=== PATIENT | female | born 1945 | race Caucasian/White ===

== ENCOUNTER → 2019-06-17 11:22 | Outpatient (BNVA) | payer MEDICARE, MEDICAID, SELFPAY | PROVIDERS: Family Provider Family Medicine; PCP Family Medicine; Visit Provider Family Medicine | DX: E11.9 Type 2 diabetes mellitus without complications (principal); I10 Essential (primary) hypertension | CPT/HCPCS: 83036 ==

== ENCOUNTER → 2019-09-09 11:10 | Outpatient (BNVA) | payer MEDICARE, MEDICAID, SELFPAY | PROVIDERS: Family Provider Family Medicine; PCP Family Medicine; Visit Provider Family Medicine | DX: I10 Essential (primary) hypertension (principal); F51.01 Primary insomnia; I25.118 Atherosclerotic heart disease of native coronary artery with other forms of angina pectoris; E11.9 Type 2 diabetes mellitus without complications | CPT/HCPCS: 81000 ==

== ENCOUNTER → 2019-11-04 10:41 | Outpatient (BNVA) | payer MEDICARE, MEDICAID, SELFPAY | PROVIDERS: Family Provider Family Medicine; PCP Family Medicine; Visit Provider Family Medicine | DX: E11.65 Type 2 diabetes mellitus with hyperglycemia (principal); Z09 Encounter for follow-up examination after completed treatment for conditions other than malignant neoplasm; Z79.4 Long term (current) use of insulin | CPT/HCPCS: 83036 ==

== ENCOUNTER → 2019-12-23 11:20 | Outpatient (BNVA) | payer MEDICARE, MEDICAID, SELFPAY | PROVIDERS: Family Provider Family Medicine; PCP Family Medicine; Visit Provider Family Medicine | DX: R10.9 Unspecified abdominal pain (principal) | CPT/HCPCS: 81000 ==

== ENCOUNTER → 2020-02-12 11:41 | Outpatient (BNVA) | payer MEDICARE, MEDICAID, SELFPAY | PROVIDERS: Family Provider Family Medicine; PCP Family Medicine; Visit Provider Family Medicine | DX: E11.9 Type 2 diabetes mellitus without complications (principal) | CPT/HCPCS: 83036 ==

== ENCOUNTER → 2020-03-18 09:00 | Outpatient (BNVA) | payer MEDICARE, MEDICAID, SELFPAY | PROVIDERS: Family Provider Family Medicine; PCP Family Medicine; Visit Provider Family Medicine | DX: L03.211 Cellulitis of face (principal) | CPT/HCPCS: 87070; 87077; 87184; 87205 ==

== ENCOUNTER → 2020-05-18 13:51 | Outpatient (BNVA) | payer MEDICARE, MEDICAID, SELFPAY | PROVIDERS: Family Provider Family Medicine; PCP Family Medicine; Visit Provider Family Medicine | DX: I50.9 Heart failure, unspecified (principal); E11.65 Type 2 diabetes mellitus with hyperglycemia; Z79.4 Long term (current) use of insulin | CPT/HCPCS: 83036 ==

== ENCOUNTER → 2020-09-22 13:47 | Outpatient (BNVA) | payer MEDICARE, MEDICAID, SELFPAY | PROVIDERS: Family Provider Family Medicine; PCP Family Medicine; Visit Provider Family Medicine | DX: E11.65 Type 2 diabetes mellitus with hyperglycemia (principal); Z79.4 Long term (current) use of insulin | CPT/HCPCS: 83036 ==

== ENCOUNTER → 2020-11-03 13:12 | Outpatient (BNVA) | payer MEDICARE, MEDICAID, SELFPAY | PROVIDERS: Family Provider Family Medicine; PCP Family Medicine; Visit Provider Family Medicine | DX: M25.531 Pain in right wrist (principal) | CPT/HCPCS: 73110 ==

== ENCOUNTER → 2020-11-16 09:57 | Outpatient (BNVA) | payer MEDICARE, MEDICAID, SELFPAY | PROVIDERS: Family Provider Family Medicine; PCP Family Medicine; Visit Provider Specialist | DX: G56.03 Carpal tunnel syndrome, bilateral upper limbs (principal); G56.23 Lesion of ulnar nerve, bilateral upper limbs | CPT/HCPCS: 95910 ==

== ENCOUNTER → 2020-11-25 14:18 | Outpatient (BNVA) | payer MEDICARE, MEDICAID, SELFPAY | PROVIDERS: Family Provider Family Medicine; PCP Family Medicine; Visit Provider Family Medicine | DX: L01.00 Impetigo, unspecified (principal); L03.211 Cellulitis of face; R21 Rash and other nonspecific skin eruption | CPT/HCPCS: 87070; 87077; 87184 ==

== ENCOUNTER → 2021-01-20 11:45 | Outpatient (BNVA) | payer MEDICARE, MEDICAID, SELFPAY | PROVIDERS: Family Provider Family Medicine; PCP Family Medicine; Visit Provider Family Medicine | DX: E11.9 Type 2 diabetes mellitus without complications (principal); L01.00 Impetigo, unspecified; G89.21 Chronic pain due to trauma; F51.01 Primary insomnia | CPT/HCPCS: 83036 ==

== ENCOUNTER 2021-01-26 15:30 | Inpatient (IN) | payer MEDICARE, MEDICAID, SELFPAY ==
[2021-01-26] VITALS (10 sets, daily range): BP systolic 116–124; BP diastolic 63–83; PULSE 68–84; RESP 16–26; TEMP 36–36.7; O2SAT 88–97; BMI 37.2; BMI 38.4
--- NOTE | 2021-01-26 15:44 | XRR_ITS ---
PROCEDURE INFORMATION: Exam: XR Chest Exam date and time: 01/26/2021 3:44 PM Age: 75 years old Clinical indication: Cough and dyspnea and shortness of breath TECHNIQUE: Imaging protocol: XR of the chest. Views: 1 view. COMPARISON: CR Chest 1 [place] [id number] 11/28/2017 1:52 PM FINDINGS: Lungs: There is ill definition of interstitial markings in the lower lungs bilaterally. There is no focal consolidation. Pleural spaces: There is no pleural effusion or pneumothorax. Heart/Mediastinum: There is mild enlargement of the cardiac silhouette. Bones/joints: Bones are unremarkable. XR/XR chest 1V portable [id number] IMPRESSION: Indistinct interstitial markings in the lower lungs. Nonspecific finding. Possible infection or edema.
--- NOTE | 2021-01-26 15:44 | ECG_ITS ---
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 Measurements Intervals [place] Rate: 64 P: 27 WI: 221 QRS: -77 QRSD: 161 T: 42 QT: 485 QTc: 504 Interpretive Statements SINUS RHYTHM WITH FIRST DEGREE AV BLOCK LEFT AXIS DEVIATION [QRS AXIS < -30] INTRAVENTRICULAR CONDUCTION DELAY [130+ ms QRS DURATION] Compared to ECG 11/28/2017 13:44:07 Left-axis deviation now present Intraventricular conduction delay now present Myocardial infarct finding no longer present Electronically Signed On 01-26-2021 23:33:57 CDT by Rosemarie Richmond M.D. [id number]
--- NOTE | 2021-01-26 16:01 | ED_ITS ---
HPI - General Adult General: Chief complaint: Shortness of Breath/Dyspnea Stated complaint: VOMITING Time Seen by Provider: 01/26/21 15:33 History of Present Illness: HPI narrative: CC: Dyspnea HPI: This is a [75] yo patient w/ hx of CHF, CAD, DM, HTN, COPD presenting ot the ED with dyspnea and increased work of breathing x 5 days in the setting of increased weight gain and lower extremity swelling. Endorses of orthopnea and increased pillow usage at night. Patient was started on lasix 80mg 1 day ago but reports signifcant difficulty breathing presented to the ED for an evaluation. Denies chest pain, N/V, diaphoresis, shoulder pain pain or back pain. Patient has no fever/chill, or sputum production. No GI or other complaints. Denies any pleuritic chest pain, recent surgery/immobilization/travel, or hematemesis or hx of VTE in the past. Onset: [5] days ago Duration: ongoing for the last 5 days Location: home Severity: moderate Review of Systems Narrative: Constitutional: No fever, no chills. HEENT: No vision changes CV: No chest pain, no palpitations PULM: No productive cough, +dyspnea GI: No abdominal pain, no N/V/D. : No dysuria MSKEL: No muscle pain, +b/l leg swelling SKIN: No new rashes, no lesions. NEURO: No headache, no focal weakness. 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 Wrist pain, acute Family History (Updated 01/27/21 @ 10:21 by Compa Herman MD) Other CAD (coronary artery disease) Chronic kidney disease (CKD) Denies family history of Cancer Social History (Updated 01/27/21 @ 10:22 by Compa Herman MD) Smoking and tobacco status: current every day smoker cigarettes Packs smoked per day: 2 Alcohol intake: never Adopted: No Caregiver/support person: No Lives independently: Yes Household members: family Housing: House Physical Exam Narrative: EXAM NARRATIVE: Head: Atraumatic Eyes: PERRL, conjunctiva without injection ENT: Mucous membrane moist NECK: Supple without lymphadenopathy, mild JVD LUNGS: Increased work of breathing, +coarse breath sounds b/l and wheezing CV: RRR ABDOMEN: Soft, nontender in all quadrants EXTREMITY: Normal ROM, bilateral 1+ edema in the LE, no jyoti?s sign SKIN: No rash or erythema NEURO: Awake and alert. No focal motor deficits. PSYCH: Normal mood and affect. Course Vital Signs: Vital signs: Vital Signs Temperature 96.8 F L 01/26/21 23:16 Pulse Rate 71 01/27/21 10:22 Respiratory Rate 18 01/27/21 10:08 Blood Pressure 138/84 01/27/21 04:00 Pulse Oximetry 96 01/27/21 10:08 MDM - General Adult MDM Narrative: Medical decision making narrative: [75]yo pt w/ hx of CHF, CAD, HTN, COPD presenting to the ED with dyspnea and hypoxemia requiring oxygen. Physical exam showed O2 sat 88% on RA improved to 95% on 3L NC. +Coarse breath sounds b/l, +wheezing b/l, no increased work of breathing, 1+ pitting edema Workup today: ECG, CBC, BMP, Troponin, BNP, CXR. Intervention: IV lasix after potassium check, duo-neb, methylprednisone Based on history, exam and findings, presentation most consistent with acute on chronic heart failure and COPD exacerbation. Low suspicion for PNA, ACS, tamponade, aortic dissection. EKG: No STEMI and no evidence of Brugada?s sign, delta wave, epsilon wave, significantly prolonged QTc, or malignant arrhythmia. Troponin mildly elevated at 44 and BNP pending CXR: diffuse interstitial edema consistent with CHF exacerbation vs PNA. [5:30pm] On reassessment, patient is stable and patient is mentating without issues. On NC 4L. Given lasix 80mg x 1 in the ER with significant symptom improvement in dyspnea. No signs of increased work of breathing requiring BIPAP. Patient received methylprednisone and duo-neb treatments for wheezing with some improvement. S/p ceftriaxone and azithromycin for presumed PNA on XR chest. Given the current presentation, I believe the patient would benefit from inpatient admission for continued diuresis and fluid removal. I have discussed a plan with a patient who agrees with inpatient admission. Disposition: Admission Lab Data: Labs: Lab Results 01/26/21 01/26/21 01/26/21 16:18 17:04 17:37 WBC RBC Hgb Hct MCV MCH MCHC RDW Plt Count MPV Neut % (Auto) Lymph % (Auto) [place] % (Auto) Eos % (Auto) Baso % (Auto) Neut # (Auto) Lymph # (Auto) [place] # (Auto) Eos # (Auto) Baso # (Auto) Nucleated RBC % (a uto) Nucleated RBCs # D-Dimer Specimen Type Arterial Sample Site Radial, left ABG pH 7.35 (7.35-7.45) ABG pCO2 64.4 mmHg H* mmHg (35-45) ABG pO2 84.5 mmHg mmHg (80.0-100.0) ABG HCO3 35.6 mmol/L H mmo l/L (22-26) ABG Base Excess 7.6 mmol/L H mmol /L (-2.0-2.0) Juan Carlos Test Pos Hematocrit 41.5 % % (37-47) O2 Delivery Device Nc O2 Liters/Min 4.0 % % FiO2 36.0 % % Medical Accounting Clerk ID Gd Sodium Potassium Chloride Carbon Dioxide Anion Gap BUN Creatinine GFR Calculation Glucose Calculated Osmolal ity Calcium Iron TIBC % Saturation Unsat Iron Binding Troponin T Baselin e Troponin T 120 Min [place] Troponin T NT-Pro-B Natriuret Pep Procalcitonin TSH Urine Color Straw (Yellow) Urine Appearance Clear (CLEAR) Urine pH 5 (5-7) Ur Specific Gravit y 1.015 (1.005-1.030) Urine Protein Neg (Negative) Urine Glucose (UA) Norm (Normal) Urine Ketones Negative (Negative) Urine Blood Neg (Negative) Urine Nitrate Negative (Negative) Urine Bilirubin Neg (Negative) Urine Urobilinogen Norm mg/dL mg/dL (Negative) Ur Leukocyte Kandy ase Negative (Negative) Ur Eosinophil Smea r Not Reportable Urine Eosinophils No eosinophils se en Ur Random Sodium Ur Random Potassiu m Ur Random Chloride Urine Creatinine Influenza Type A A g Influenza Type B A g SARS-CoV-2 Ag (Rap id) Negative (Negative) 01/26/21 01/26/21 01/26/21 17:37 17:43 17:43 WBC 9.3 10^3/uL 10^3/ uL (4.0-10.0) RBC 4.35 10^6/uL 10^6 /uL (4.1-5.3) Hgb 12.7 g/dL g/dL (11.5-15.3) Hct 42.8 % % (37.0-47.0) MCV 98.4 fl D fl (81-99) MCH 29.2 pg pg (28.0-34.0) MCHC 29.7 g/dL L D g/d L (30.0-36.0) RDW 15.7 % H % (12.1-15.1) Plt Count 250 10^3/cmm 10^3 /cmm (130-400) MPV 11.1 fL H fL (7.4-10.4) Neut % (Auto) 90.8 % % Lymph % (Auto) 4.9 % % [place] % (Auto) 3.6 % % Eos % (Auto) 0.1 % % Baso % (Auto) 0.3 % % Neut # (Auto) 8.45 10^3/uL H 10 ^3/uL (1.8-7.7) Lymph # (Auto) 0.5 10^3/uL L 10^ 3/uL (0.8-4.8) [place] # (Auto) 0.3 10^3/uL 10^3/ uL (0.2-0.9) Eos # (Auto) 0.0 10^3/uL 10^3/ uL (0.0-0.8) Baso # (Auto) 0.0 10^3/uL 10^3/ uL (0.0-0.1) Nucleated RBC % (a uto) 0 % % Nucleated RBCs # 0.0 /100WBC /100W BC D-Dimer Specimen Type Sample Site ABG pH ABG pCO2 ABG pO2 ABG HCO3 ABG Base Excess Juan Carlos Test Hematocrit O2 Delivery Device O2 Liters/Min FiO2 Medical Accounting Clerk ID Sodium 144 mmol/L mmol/L (136-145) Potassium 5.0 mmol/L mmol/L (3.5-5.1) Chloride 101 mmol/L mmol/L (98-107) Carbon Dioxide 30 mmol/L H mmol/ L (22-29) Anion Gap 18.0 (5-19) BUN 38 mg/dL H mg/dL (8-23) Creatinine 1.6 mg/dL H mg/dL (0.5-0.9) GFR Calculation Not Reportable Glucose 232 mg/dL H mg/dL (65-115) Calculated Osmolal ity 314 mOsm/kg H mOs m/kg (285-295) Calcium 8.2 mg/dL L mg/dL (8.5-10.5) Iron TIBC % Saturation Unsat Iron Binding Troponin T Baselin e Troponin T 120 Min [place] Troponin T NT-Pro-B Natriuret Pep 7900 pg/mL H pg/m L (0-450) Procalcitonin TSH Urine Color Urine Appearance Urine pH Ur Specific Gravit y Urine Protein Urine Glucose (UA) Urine Ketones Urine Blood Urine Nitrate Urine Bilirubin Urine Urobilinogen Ur Leukocyte Kandy ase Ur Eosinophil Smea r Urine Eosinophils Ur Random Sodium 69 mmol/L mmol/L Ur Random [place] m 31 mmol/L mmol/L Ur Random Chloride 73 mmol/L mmol/L Urine Creatinine 34 mg/dL mg/dL (28-217) Influenza Type A A g Influenza Type B A g SARS-CoV-2 Ag (Rap id) 01/26/21 01/26/21 01/26/21 17:43 17:43 17:43 WBC RBC Hgb Hct MCV MCH MCHC RDW Plt Count MPV Neut % (Auto) Lymph % (Auto) [place] % (Auto) Eos % (Auto) Baso % (Auto) Neut # (Auto) Lymph # (Auto) [place] # (Auto) Eos # (Auto) Baso # (Auto) Nucleated RBC % (a uto) Nucleated RBCs # D-Dimer Specimen Type Sample Site ABG pH ABG pCO2 ABG pO2 ABG HCO3 ABG Base Excess Juan Carlos Test Hematocrit O2 Delivery Device O2 Liters/Min FiO2 Medical Accounting Clerk ID Sodium Potassium Chloride Carbon Dioxide Anion Gap BUN Creatinine GFR Calculation Glucose Calculated Osmolal ity Calcium Iron 47 ug/dL ug/dL (37-145) TIBC 477 mcg/dl mcg/dl % Saturation 9.8 % L % (20-50) Unsat Iron Binding 430 ug/dL H ug/dL (112-347) Troponin T Baselin e 44 ng/L H ng/L (0-10) Troponin T 120 Min [place] Troponin T NT-Pro-B Natriuret Pep Procalcitonin 0.11 ng/mL ng/mL (0-0.5) TSH 0.14 uIU/mL L uIU /mL Cancelled (0.27-4.20) Urine Color Urine Appearance Urine pH Ur Specific Gravit y Urine Protein Urine Glucose (UA) Urine Ketones Urine Blood Urine Nitrate Urine Bilirubin Urine Urobilinogen Ur Leukocyte Kandy ase Ur Eosinophil Smea r Urine Eosinophils Ur Random Sodium Ur Random [place] m Ur Random Chloride Urine Creatinine Influenza Type A A g Influenza Type B A g SARS-CoV-2 Ag (Rap id) 01/26/21 01/26/21 01/26/21 19:25 20:30 20:30 WBC RBC Hgb Hct MCV MCH MCHC RDW Plt Count MPV Neut % (Auto) Lymph % (Auto) [place] % (Auto) Eos % (Auto) Baso % (Auto) Neut # (Auto) Lymph # (Auto) [place] # (Auto) Eos # (Auto) Baso # (Auto) Nucleated RBC % (a uto) Nucleated RBCs # D-Dimer 1.73 ug/mIFEU H u g/mIFEU (0-0.59) Specimen Type Sample Site ABG pH ABG pCO2 ABG pO2 ABG HCO3 ABG Base Excess Juan Carlos Test Hematocrit O2 Delivery Device O2 Liters/Min FiO2 Medical Accounting Clerk ID Sodium Potassium Chloride Carbon Dioxide Anion Gap BUN Creatinine GFR Calculation Glucose Calculated Osmolal ity Calcium Iron TIBC % Saturation Unsat Iron Binding Troponin T Baselin e Troponin T 120 Min [place] 38.22 ng/L H ng/L (0-10) Delta Troponin T -5.78 ABS# L ABS# (0-10) NT-Pro-B Natriuret Pep Procalcitonin TSH Urine Color Urine Appearance Urine pH Ur Specific Gravit y Urine Protein Urine Glucose (UA) Urine Ketones Urine Blood Urine Nitrate Urine Bilirubin Urine Urobilinogen Ur Leukocyte Kandy ase Ur Eosinophil Smea r Urine Eosinophils Ur Random Sodium Ur Random [place] m Ur Random Chloride Urine Creatinine Influenza Type A A g Negative (Negative) Influenza Type B A g Negative (Negative) SARS-CoV-2 Ag (Rap id) Imaging Data^: Other Imaging: Radiologist's impression: [address] [id number] ReportSigned Patient: Balbina Martínez #: [id number]: 5Acct#:[id number]/Sex: 75 / FADM Date: 01/26/21Loc: ERRoom/Bed:Attending Dr: Ordering Provider/Ordering MD: Lydia Lara MD Date of Service: 01/26/21 Procedure(s): XR chest 1V portable [id number] Accession Number(s): [id number] Report Number: [id number] PROCEDURE INFORMATION: Exam: XR Chest Exam date and time: 01/26/2021 3:44 PM Age: 75 years old Clinical indication: Cough and dyspnea and shortness of breath TECHNIQUE: Imaging protocol: XR of the chest. Views: 1 view. COMPARISON: CR Chest 1 [place] [id number] 11/28/2017 1:52 PM FINDINGS: Lungs: There is ill definition of interstitial markings in the lower lungs bilaterally. There is no focal consolidation. Pleural spaces: There is no pleural effusion or pneumothorax. Heart/Mediastinum: There is mild enlargement of the cardiac silhouette. Bones/joints: Bones are unremarkable. XR/XR chest 1V portable [id number] IMPRESSION: Indistinct interstitial markings in the lower lungs. Nonspecific finding. Possible infection or edema. Dictated By:Steve Sharp MDSigned By:Steve Sharp MDSigned Date/Time:01/26/211714DD/ 13 Discharge Plan Discharge Patient Disposition: Admitted As Inpatient Admit Provider: Compa Herman Clinical Impression: Acute exacerbation of CHF (congestive heart failure), COPD exacerbation, Acute kidney injury Condition: Stable Coding Level of Care Code ED Case Liner for Flo Riggs
[2021-01-26] MEDS: ipratropium-albuterol 3 mL Neb INHALATION ×3 (16:25→16:26)
[2021-01-26 16:38] LABS: ABG PCO2 64.4 mmHg (35-45); ABG PH Result 7.35 (7.35-7.45); Arterial Blood Gas Hematocrit 41.5 % (37-47); Base Excess ABG 7.6 mmol/L (-2.0-2.0); Blood Gas Allen Test Pos; Blood Gas Operator Identificat GD; Blood Gas Sample Site Radial, left; Blood Gas Sample Type Arterial; HCO3 ABG 35.6 mmol/L (22-26); Oxygen Device NC; PO2 ABG 84.5 mmHg (80.0-100.0)
[2021-01-26 17:33] LABS: SARS Covid-2 Antigen Negative (Negative)
--- NOTE | 2021-01-26 17:35 | PC.PHAR ---
PT STATES SHE HAS HOME HEALTH WITH [facility]-THEY ARE CLOSED NO WAY TO GET MED LIST-PT STATES SHE KNOWS WHAT MEDICATIONS SHE TAKES-PT VERIFIED MEDICATIONS ENTERED-PT WAS UNSURE ON SOME OF THE MEDICATIONS IF SHE TOOK IN THE AM OR PM BUT STATES SHE KNOWS SHE TAKES THEM
--- NOTE | 2021-01-26 17:44 | ECG_ITS ---
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 Measurements Intervals [place] Rate: 65 P: 68 RI: 224 QRS: -61 QRSD: 157 T: 30 QT: 481 QTc: 502 Interpretive Statements SINUS RHYTHM WITH FIRST DEGREE AV BLOCK LEFT AXIS DEVIATION [QRS AXIS < -30] INTRAVENTRICULAR CONDUCTION DELAY [130+ ms QRS DURATION] Compared to ECG 01/26/2021 17:00:54 No significant changes Electronically Signed On 01-27-2021 0:00:37 CDT by Rosemarie Richmond M.D. [id number]
[2021-01-26 17:54] LABS: Basophils % 0.3 %; Eosinophils % 0.1 %; Hematocrit 42.8 % (37.0-47.0); Hemoglobin 12.7 g/dL (11.5-15.3); Lymphocytes # 0.5 10^3/uL (0.8-4.8); Lymphocytes % 4.9 %; Mean Corpuscular HGB Conc 29.7 g/dL (30.0-36.0); Mean Corpuscular Hemoglobin 29.2 pg (28.0-34.0); Mean Corpuscular Volume 98.4 fl (81-99); Mean Platelet Volume 11.1 fL (7.4-10.4); Monocytes # 0.3 10^3/uL (0.2-0.9); Monocytes % 3.6 %; Neutrophils # 8.45 10^3/uL (1.8-7.7); Neutrophils % 90.8 %; Nucleated Red Blood Cells % 0 %; Platelet Count 250 10^3/cmm (130-400); Red Blood Count 4.35 10^6/uL (4.1-5.3); Red Cell Distribution Width 15.7 % (12.1-15.1); White Blood Count 9.3 10^3/uL (4.0-10.0)
[2021-01-26 18:22] LABS: Troponin(5th) Baseline 44 ng/L (0-10)
[2021-01-26 18:25] LABS: Blood Urea Nitrogen 38 mg/dL (8-23); Calcium 8.2 mg/dL (8.5-10.5); Carbon Dioxide 30 mmol/L (22-29); Chloride 101 mmol/L (98-107); Glucose 232 mg/dL (65-115); NT Pro B Type Natriuretic Pept 7900 pg/mL (0-450); Osmolality Calculated 314 mOsm/kg (285-295); Sodium 144 mmol/L (136-145)
--- NOTE | 2021-01-26 18:30 | CTR_ITS ---
PROCEDURE INFORMATION: Exam: CT Chest Without Contrast; Diagnostic Exam date and time: 01/26/2021 6:30 PM Age: 75 years old Clinical indication: Shortness of breath; Additional info: Interstital pna TECHNIQUE: Imaging protocol: Diagnostic computed tomography of the chest without contrast. Radiation optimization: All CT scans at this facility use at least one of these dose optimization techniques: automated exposure control; mA and/or kV adjustment per patient size (includes targeted exams where dose is matched to clinical indication); or iterative reconstruction. COMPARISON: CTA Chest-Pulmonary Emb [id number] 11/28/2017 4:25 PM RADIATION DOSE METRICS: Total DLP (mGy-cm): 959.87 FINDINGS: Lungs: There is mild upper lung predominant centrilobular emphysema. There is subsegmental atelectasis in the lung bases. There is no consolidation. There is mild interlobular septal thickening in lung apices and mild central bronchial wall thickening in the bases. Pleural spaces: Unremarkable. No pneumothorax. No pleural effusion. Heart: There is mild cardiac enlargement. There is moderate coronary artery calcification. Aorta: There is moderate aortic atherosclerotic disease. Lymph nodes: There is no mediastinal or hilar lymphadenopathy. Bones/joints: Unremarkable. No acute fracture. Soft tissues: The extrathoracic soft tissues are unremarkable. Other findings: Visible structures in the upper abdomen are unremarkable. CT/CT chest [facility] [place] [id number] IMPRESSION: Mild centrilobular emphysema and trace interstitial edema. No sign of infection. Radiation Dose CTDIVOL = (mGy): DLP = 959.87 (mGy-cm)
--- NOTE | 2021-01-26 18:50 | P.HP_ITS ---
Providers/Chief Complaint Primary Care Provider: Milan Mitchell DO Chief Complaint: VOMITING History of Present Illness Balbina Martínez is a 75 year old female with pst medical history of CAD s/p multiple stents (last done 5-6 yrs ago), CA x 3, HTN, CHFpEF, IDDM, Hypothyroidism, HLD, COPD, CKD with baseline creatinine 3 to 4 years ago around 1.7. Patient presented to the ER today after having difficulty in breathing for last 4 to 5 days. Patient states he has been having occasional difficulty in breathing on and off for last couple of months. Patient states she has been borrowing oxygen from her daughter for last 3 nights. Shortness of breath is aggravated on lying down flat and is associated with orthopnea but no PND. Patient states she usually sleeps in prone position. Patient also complains of gaining weight for the last 3 to 4 weeks. 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 Complaining of cough with expectoration but no fevers. States she used to smoke up to 3 packs of cigarettes daily till few months ago but now is down to 1 pack daily. Denies any nausea, vomiting, headache, dizziness, known exposure to COVID-19. 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 Blood work in the ER showed white count 9.3, hemoglobin of 12.7, D-dimer 1.7, ABG showing a pH of 7.35, PCO2 of 64, PO2 of 84, chemistry showing a sodium of 150, creatinine of 2.1, bicarb of 34 with chest x-ray as below. On examination patient was saturating 93% on 4 L oxygen supplementation looking tachypneic and in mild respiratory distress. Review of Systems General: Reports: 10 or more systems reviewed and unremarkable except in HPI and below Const: Denies: fever(s), chills, body aches, change in appetite, change in weight, malaise, night sweats, diaphoresis, change in sleep pattern, daytime sleepiness or snoring Eyes: Denies: change in vision, blurry vision, photophobia, eye discomfort or eye discharge ENMT: Denies: throat pain, enlarged tonsils, hoarseness, mouth pain, oral sores, dry mouth, tinnitus, nasal congestion or post nasal drip Card: Denies: chest pain, palpitations, irregular heart rhythm, edema, swelling of feet/ankles, lightheadedness, syncope, pre-syncope, dyspnea on exertion, orthopnea, leg pain with exertion or acrocyanosis Resp: Denies: dyspnea, productive cough, non-productive cough, wheezing, stridor, pain on inspiration, change in phlegm color, hemoptysis or chest congestion GI: Denies: abdominal pain, nausea, vomiting, hematemesis, coffee ground emesis, dysphagia, heartburn, diarrhea, constipation, bloating, GI cramping, change in bowel habits, pain on defecation, hematochezia or melena : Denies: flank pain, dysuria, urinary frequency, urinary urgency, urinary hesitancy, nocturia or hematuria Musc: Denies: neck pain, back pain, extremity pain, joint pain, joint swelling, joint redness, joint stiffness or limited range of motion Neuro: Denies: headache(s), numbness in extremities, weakness in extremities, sensory changes, lack of coordination, difficulty walking, frequent falls, dizziness, vertigo, confusion, Slurred speech present, difficulty communicating thoughts or seizure-like activity Psych: Denies: anxiety, depression, mood swings, panic attacks, hopelessness or irritability Endo: Denies: polyuria, polydipsia, tired all the time, cold intolerance, excessive sweating, flushing or heat intolerance Kris/Lymph: Denies: easy bruising or easy bleeding All/Imm: Denies: tongue swelling, facial swelling or acute wheezing Medications/Allergies Home Medications Medication Instructions Recorded Confirmed Last Taken Type blood sugar diagnostic #400 each 11/28/19 01/26/21 Unknown Rx lancets #400 each 11/28/19 01/26/21 Unknown Rx pen needle, diabetic 31 gauge x #30 each 04/26/20 01/26/21 Unknown Rx 09/19 potassium chloride 20 mEq 20 meq PO BID #60 tab 04/26/20 01/26/21 01/26/21 09:00 Rx tablet,extended release buspirone 10 mg tablet 10 mg PO BID PRN #60 tab 06/04/20 01/26/21 Unknown Rx insulin syringe-needle U-100 1 mL #10 ea 07/21/20 01/26/21 Unknown History 30 gauge x 09/19 venlafaxine 150 mg 150 mg PO QAM #30 cap 07/21/20 01/26/21 01/26/21 09:00 Rx capsule,extended release 24 hr mupirocin 2 % topical ointment 1 applic TOPICAL BID PRN #15 g 10/13/20 01/26/21 Unknown Rx enalapril maleate 10 mg tablet 10 mg PO BID #60 tab 11/22/20 01/26/21 01/26/21 09:00 Rx gabapentin 300 mg capsule 600 mg PO BID #120 cap 11/24/20 01/26/21 01/26/21 09:00 Rx Diabetic Shoes and inserts #1 ea 11/30/20 01/26/21 Unknown Rx blood-glucose meter #1 each 12/08/20 01/26/21 Unknown Rx blood sugar diagnostic #400 ea 12/23/20 01/26/21 Unknown Rx blood-glucose meter #1 ea 12/23/20 01/26/21 Unknown Rx ondansetron 4 mg disintegrating 4 mg PO Q8H PRN #30 tab 01/17/21 01/26/21 Unknown Rx tablet tapentadol 200 mg tablet,extended 200 mg PO BID 30 Days #60 tab 01/20/21 01/26/21 01/25/21 Rx release,12 hr Ambien 10 mg PO BEDTIME PRN 01/26/21 01/26/21 Unknown History Plavix 75 mg PO QAM 01/26/21 01/26/21 01/26/21 09:00 History acetaminophen [Tylenol Ex Str 1,000 mg PO Q4H PRN 01/26/21 01/26/21 Unknown History Rapid Release] amiodarone 200 mg PO DAILY 01/26/21 01/26/21 Unknown History azithromycin See Rx Instructions .ROUTE .COMPLEX 01/26/21 01/26/21 01/26/21 09:00 History bumetanide 4 mg PO BID 01/26/21 01/26/21 01/26/21 09:00 History calcitriol 0.25 mcg PO DAILY 01/26/21 01/26/21 Unknown History carvedilol 6.25 mg PO BID 01/26/21 01/26/21 01/26/21 09:00 History donepezil 10 mg PO DAILY 01/26/21 01/26/21 Unknown History fenofibrate nanocrystallized 145 mg PO DAILY 01/26/21 01/26/21 Unknown History fexofenadine [Julia Allergy] 180 mg PO DAILY 01/26/21 01/26/21 Unknown History fluticasone propionate [Flonase] 1 spray INTRANASAL BID PRN 01/26/21 01/26/21 Unknown History glipizide 10 mg PO QAM 01/26/21 01/26/21 01/26/21 History insulin glargine [Lantus U-100 See Rx Instructions .ROUTE .COMPLEX 01/26/21 01/26/21 01/25/21 History Insulin] isosorbide mononitrate 60 mg PO DAILY 01/26/21 01/26/21 Unknown History levothyroxine 137 mcg PO QAM 01/26/21 01/26/21 01/26/21 History mirtazapine 15 mg PO BEDTIME 01/26/21 01/26/21 Unknown History nitroglycerin 0.4 mg SUBLINGUAL Q5M PRN 01/26/21 01/26/21 Unknown History omeprazole 20 mg PO QAM 01/26/21 01/26/21 01/26/21 History prednisone 20 mg tablet 20 mg PO DAILY 01/26/21 01/26/21 01/26/21 09:00 History simvastatin 40 mg PO DAILY 01/26/21 01/26/21 Unknown History Allergies Allergy/AdvReac Type Severity Reaction Status Date / Time pentazocine [From Petros] Allergy Intermediate hives Verified 01/26/21 22:26 latex Allergy Mild itching Verified 01/26/21 22:26 morphine AdvReac Intermediate ADR-Itching Verified 01/26/21 22:26 PFSH Acute PFSH: Medical History (Updated 01/26/21 @ 22:41 by Compa Herman MD) Bilateral carpal tunnel syndrome CAD (coronary artery disease) Cellulitis, face Chronic pain due to injury DDD (degenerative disc disease) Diabetes Enrolled in chronic care management Hyperlipidemia Hypoxemia Impetigo contagiosa Insomnia Renal disorder Sciatica associated with disorder of lumbar spine Transient retinal arterial occlusion, bilateral Ulnar neuropathy of both upper extremities Wrist pain, acute Family History (Updated 01/27/21 @ 10:21 by Compa Herman MD) Other CAD (coronary artery disease) Chronic kidney disease (CKD) Denies family history of Cancer Social History (Updated 01/27/21 @ 10:22 by Compa Herman MD) Smoking and tobacco status: current every day smoker cigarettes Packs smoked per day: 2 Alcohol intake: never Adopted: No Caregiver/support person: No Lives independently: Yes Household members: family Housing: House Vitals/I&O/Wt Last Vital Signs Temp 98.0 F 01/26/21 15:34 Pulse 69 01/26/21 18:31 Resp 20 H 01/26/21 16:40 BP 121/72 01/26/21 18:31 Pulse Ox 97 01/26/21 18:31 Weight last 48 hrs Weight 95.254 kg Physical Exam Narrative: EXAM NARRATIVE: General: AO x3, morbidly obese, in distress because of difficulty breathing, on 4 L oxygen supplementation HEENT: PERRLA, pupils bilaterally equal and reactive Chest: appearingBilateral bronchial breath sounds, bilateral coarse crackles, fine crackles present in the mid and lower zone bilaterally, good equal air entry bilaterally CVS: S1-S2 regular, no murmurs, no tachycardia, no gallops, no rubs Abdomen: Soft, nontender, no organomegaly, bowel sounds present Neuro: No focal deficits, no facial deformity, AO x3, power 5/5 in all limbs Data : 01/27/21 03:34 01/27/21 03:34 A&P Assessment and plan (1) Hypoxemia: Status: Acute (2) Acute exacerbation of CHF (congestive heart failure): Status: Acute (3) COPD exacerbation: Status: Acute (4) Renal disorder: Status: Acute (5) CAD (coronary artery disease): Status: Acute Qualifiers: Associated angina: with stable angina Coronary Disease-Associated Artery/Lesion type: unspecified vessel or lesion type [place] vs. 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 ABG shows normal pH with hypercapnia and elevated bicarb and CMP most likely suggests COPD. Cannot rule out possible superadded pneumonia. Check echocardiogram, sputum culture, blood culture, UA, urine culture, urine Legionella bacterial antigen, procalcitonin, D-dimer. Cannot do CTA given kidney disorder. Check CT without contrast. If D-dimer elevated will do lower limb Dopplers and VQ scan. IV Lasix 40 mg twice daily. Daily weights, strict input output charting. DuoNebs every 6 hour, budesonide twice daily. Oxygen supplementation keeping saturation more than 88%. Prednisone 40 mg oral daily. For now start patient on ceftriaxone and azithromycin. Will discontinue antibiotics if patient remains afebrile next 24 hours. Renal disorder: On review of old labs seems baseline creatinine around 1.7. Check urinalysis, urine lites, urine creatinine, urine eosinophils, renal ultr asound. History of CAD: Check HbA1c, lipid panel. Continue with Plavix, statin, beta-angeli. Hypertension: Goal blood pressure less than 140/90 mmHg. For now continue with home dose of beta-angeli, Imdur. For now hold off on KAITLIN inhibitor's. Type 2 diabetes mellitus: On review of chart it seems like patient having recurrent hypoglycemic events. Check HbA1c. Hold off OHA. Continue with home dose of Lantus. Insulin sliding scale at moderate dose protocol. CODE STATUS: Limited resuscitation. Cardiac carb consistent diet. Protonix for PUD prophylaxis. Heparin 5000 every 12 hourly for DVT prophylaxis. Attestations Medical Necessity Statement*: Admission for more than 2 midnight For management of hypoxia secondary to CHF and COPD exacerbation, possible RAMU on CKD. Time Spent in Patient Care: Greater than 35 minutes (>than 50% of time spent in counselling and/or direct pt care on unit) . Coding Level of Care Code Acute Crna for [facility] Fwd Diagnoses Hypoxemia R09.02 Acute exacerbation of CHF (congestive heart failure) I50.9 COPD exacerbation J44.1 Renal disorder N28.9 CAD (coronary artery disease) I25.118 Associated angina: with stable angina Coronary Disease-Associated Artery/Lesion type: unspecified vessel or lesion type [place] vs. transplanted heart: [place] heart Diabetes E11.65; Z79.4 Diabetes mellitus complication status: with hyperglycemia Diabetes mellitus penitentiary insulin use: with continuous churn buttermaker use Diabetes mellitus type: type 2 Hyperlipidemia E78.2 Hyperlipidemia type: mixed hyperlipidemia
[2021-01-26] MEDS: cefTRIAXone 1,000 MG in sodium chloride 0.9% (plus) 50 ML 100 MG IV (19:34)
[2021-01-26] MEDS: azithromycin 250 mg Tablet 500 MG PO (19:34)
[2021-01-26] MEDS: FUROsemide 10 mg/mL SDV 10mL 80 MG IVP (19:34)
[2021-01-26] MEDS: diphenhydrAMINE 50 mg/mL SDV 1mL IVP (19:35)
[2021-01-26 19:49] LABS: Procalcitonin 0.11 ng/mL (0-0.5); Thyroid Stimulating Hormone 0.14 uIU/mL (0.27-4.20)
[2021-01-26 19:56] LABS: Add Urine Microscopic? NO; Specific Gravity, Urine 1.015 (1.005-1.030); Urine Appearance Clear (CLEAR); Urine Color Straw (Yellow); pH Urine 5 (5-7)
[2021-01-26 19:57] LABS: Bilirubin Urine Neg (Negative); Blood Urine Neg (Negative); Charge for UA Resulting for Rev; Glucose Urine UA Norm (Normal); Ketones Urine Negative (Negative); Leukocyte Esterase Urine Negative (Negative); Nitrate Urine Negative (Negative); Protein Urine Neg (Negative); Urobilinogen Urine Norm (Negative)
[2021-01-26 20:00] LABS: Iron 47 ug/dL (37-145); Percent Saturation 9.8 % (20-50); Total Iron Binding Capacity 477 mcg/dl; Unsaturated Iron Binding 430 ug/dL (112-347)
[2021-01-26 20:18] LABS: Potassium, Radom Urine 31 mmol/L; Urine Creatinine 34 mg/dL (28-217); Urine Random Chloride 73 mmol/L; Urine Random Sodium 69 mmol/L
[2021-01-26 20:21] LABS: Influenza A by IFA Negative (Negative); Influenza B by IFA Negative (Negative)
[2021-01-26 20:51] LABS: D Dimer 1.73 ug/mIFEU (0-0.59)
[2021-01-26 20:55] LABS: Troponin 5 2HR 38.22 ng/L (0-10)
[2021-01-26 20:56] LABS: Troponin 5 2HR Delta -5.78 ABS# (0-10)
[2021-01-26 20:57] LABS: Eosinophil Urine No Eosinophils Seen
--- NOTE | 2021-01-26 21:44 | ECG_ITS ---
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 Measurements Intervals [place] Rate: 67 P: 16 NH: 223 QRS: -44 QRSD: 163 T: 12 QT: 477 QTc: 505 Interpretive Statements SINUS RHYTHM WITH FIRST DEGREE AV BLOCK INDETERMINATE AXIS INTRAVENTRICULAR CONDUCTION DELAY [130+ ms QRS DURATION] Compared to ECG 01/26/2021 18:09:57 Indeterminate axis now present Left-axis deviation no longer present Electronically Signed On 01-27-2021 0:01:03 CDT by Rosemarie Richmond M.D. [email or web address]
--- NOTE | 2021-01-26 22:46 | PC.NURSE ---
Patient asking for food, nicotine patch (states she smokes 2-3 packs per day), Nucynta home medication, and Ambien home medication. Patient states she does not want CPR, but that she wants all other measures. Dr. Driscoll notified. We do not carry Nucynta per pharmacist. PRN Tramadol ordered, consistent carb diet ordered, Ambien ordered home dose, nicotine patch.
[2021-01-26] MEDS: heparin 5,000 unit/mL INJ 1 mL 5000 UNIT SUBCUT (23:00)
[2021-01-26] MEDS: insulin glargine 100 units/1 mL 35 UNIT SUBCUT (23:00)
[2021-01-26] MEDS: famotidine 20 mg/2 mL INJ IVP (23:00)
[2021-01-26] MEDS: mirtazapine 15 mg Tablet PO (23:01)
[2021-01-26] MEDS: zolpidem 5 mg Tablet 10 MG PO (23:01)
[2021-01-26] MEDS: TRAMadol 50 mg Tablet PO (23:01)
[2021-01-26] MEDS: nicotine 21 mg Patch 1 PATCH TRANSDERMA (23:01)
[2021-01-26 23:08] LABS: Glucose Point of Care 358 mg/dL (70-110)
[2021-01-27] VITALS (14 sets, daily range): BP systolic 119–141; BP diastolic 70–84; PULSE 65–86; RESP 18–23; TEMP 36.4–37; O2SAT 92–96
[2021-01-27] LABS: Troponin 5 6HR 30.63 ng/L (0-10)
--- NOTE | 2021-01-27 00:01 | PC.NURSE ---
Dr. Driscoll notified of patient asking for Tylenol, stating that she takes 1 gram at home. Ordered 650 mg q4 hr PRN.
[2021-01-27] MEDS: acetaminophen 325 mg Tablet 650 MG PO ×2 (00:38→06:19)
--- NOTE | 2021-01-27 03:05 | PC.NURSE ---
Patient is currently resting in bed with eyes closed. Will monitor.
[2021-01-27 03:53] LABS: Basophils % 0.1 %; Hematocrit 42.8 % (37.0-47.0); Hemoglobin 12.8 g/dL (11.5-15.3); Lymphocytes # 0.3 10^3/uL (0.8-4.8); Lymphocytes % 4.5 %; Mean Corpuscular HGB Conc 29.9 g/dL (30.0-36.0); Mean Corpuscular Hemoglobin 29.6 pg (28.0-34.0); Mean Corpuscular Volume 99.1 fl (81-99); Mean Platelet Volume 11.1 fL (7.4-10.4); Monocytes # 0.2 10^3/uL (0.2-0.9); Monocytes % 2.2 %; Neutrophils # 6.42 10^3/uL (1.8-7.7); Neutrophils % 92.8 %; Nucleated Red Blood Cells % 0 %; Platelet Count 208 10^3/cmm (130-400); Red Blood Count 4.32 10^6/uL (4.1-5.3); Red Cell Distribution Width 15.5 % (12.1-15.1); White Blood Count 6.9 10^3/uL (4.0-10.0)
[2021-01-27 04:20] LABS: Alanine Aminotransferase 12 U/L (0-33); Albumin Level 3.6 g/dL (3.5-5.2); Alkaline Phosphatase 66 IU/L (35-105); Anion Gap 16.2 (5-19); Aspartate Amino Transferase 15 U/L (0-32); Blood Urea Nitrogen 43 mg/dL (8-23); Calcium 8.7 mg/dL (8.5-10.5); Carbon Dioxide 32 mmol/L (22-29); Chloride 97 mmol/L (98-107); Globulin 3.6 g/dL (1.3-4.6); Glucose 463 mg/dL (65-115); Osmolality Calculated 323 mOsm/kg (285-295); Potassium 4.2 mmol/L (3.5-5.1); Sodium 141 mmol/L (136-145); Total Bilirubin 0.2 mg/dL (0.15-1.2); Total Protein 7.2 g/dL (6.6-8.7)
[2021-01-27 04:25] LABS: Chol HDL Ratio 2.35 mg/dL (0.0-4.40); Cholesterol 141 mg/dL (0-200); HDL Cholesterol 60 mg/dL (60-100); LDL Cholesterol Calculated 58 mg/dL (50-129); NT Pro B Type Natriuretic Pept 6646 pg/mL (0-450); Triglycerides 115 mg/dL (0-150); VLDL Cholestrol Calculation 23 mg/dL (0-30)
[2021-01-27] MEDS: levothyroxine 137 mcg Tablet PO (04:32)
[2021-01-27] MEDS: venlafaxine ER (24HR) 150 mg Capsule PO (04:32)
[2021-01-27] MEDS: clopidogrel 75 mg Tablet PO (04:33)
--- NOTE | 2021-01-27 05:03 | PC.NURSE ---
Dr. Driscoll notified of blood sugar of 463 on AM labs. Patient's home dose of bedtime Lantus has been continued. Patient takes 30 units Lantus in AM at home. Ordered to continue this. Ordered to start patient on sliding scale.
[2021-01-27] MEDS: TRAMadol 50 mg Tablet PO ×3 (06:19→23:56)
[2021-01-27 06:28] LABS: Glucose Point of Care 365 mg/dL (70-110)
--- NOTE | 2021-01-27 06:32 | PC.NURSE ---
Shift Note Frequent safety and comfort rounds continue. Orders and/or nursing care completed as indicated. Patient monitored for response to intervention and treatment(s).
[2021-01-27] MEDS: budesonide 0.5 mg/2 mL Neb INHALATION ×2 (10:17→21:26)
[2021-01-27] MEDS: ipratropium-albuterol 3 mL Neb INHALATION ×3 (10:18→21:25)
--- NOTE | 2021-01-27 10:24 | P.PN_ITS ---
Subjective Subjective: Interval history: No problems overnight. On examination today sitting up in bed, mildly tachypneic. States she is feeling better than yesterday and thinks her breathing is back to her baseline. Asking when can she go home. Denies any nausea, vomiting, headache. Vitals/I&O/Wt Last Vital Signs Temp 96.8 F L 01/26/21 23:16 Pulse 71 01/27/21 10:22 Resp 18 01/27/21 10:08 BP 138/84 01/27/21 04:00 Pulse Ox 96 01/27/21 10:08 01/26/21 01/27/21 01/27/21 22:59 06:59 14:59 Intake Total 50 / 50 1000 / 1050 Output Total 1500 / 1500 Balance 50 / 50 -500 / -450 Weight last 48 hrs Weight 94.302 kg Weight 95.254 kg Weight 95.254 kg Physical Exam Narrative: EXAM NARRATIVE: General: AO x3, morbidly obese, in distress because of difficulty breathing, on 4 L oxygen supplementation HEENT: PERRLA, pupils bilaterally equal and reactive Chest: appearingBilateral bronchial breath sounds, bilateral coarse crackles, fine crackles present in the mid and lower zone bilaterally, good equal air entry bilaterally CVS: S1-S2 regular, no murmurs, no tachycardia, no gallops, no rubs Abdomen: Soft, nontender, no organomegaly, bowel sounds present Neuro: No focal deficits, no facial deformity, AO x3, power 5/5 in all limbs Data : 01/27/21 03:34 01/27/21 03:34 Micro: Microbiology 01/26/21 17:37 Bacterial Antigens - Final Urine Kidney 01/26/21 17:37 Legionella Urinary Antigen - Final Urine,Clean Catch 01/26/21 20:30 Blood Culture - Preliminary Blood SPECIMEN COLLECTED 01/26/21 19:20 Blood Culture - Preliminary Blood SPECIMEN COLLECTED A&P Assessment and plan (1) Hypoxemia: Status: Acute (2) Acute exacerbation of CHF (congestive heart failure): Status: Acute (3) COPD exacerbation: Status: Acute (4) Renal disorder: Status: Acute (5) CAD (coronary artery disease): Status: Acute Qualifiers: Associated angina: with stable angina Coronary Disease-Associated Artery/Lesion type: unspecified vessel or lesion type [place] vs. transplanted heart: [place] heart Qualified Code(s): I25.118 - Atherosclerotic heart disease of [place] coronary artery with other forms of angina pectoris (6) Diabetes: Status: Acute Qualifiers: Diabetes mellitus complication status: with hyperglycemia Diabetes mellitus long-term insulin use: with long-term use Diabetes mellitus type: type 2 Qualified Code(s): E11.65 - Type 2 diabetes mellitus with hyperglycemia; Z79.4 - superintendent container terminal (current) use of insulin (7) Hyperlipidemia: Status: Acute Qualifiers: Hyperlipidemia type: mixed hyperlipidemia Qualified Code(s): E78.2 - Mixed hyperlipidemia Additional A&P Information Hypoxia secondary to combination of CHF and COPD exacerbation: Last echocardiogram from 2017 shows diastolic heart failure. ABG shows normal pH with hypercapnia and elevated bicarb and CMP most likely suggests COPD. Echocardiogram awaited, sputum culture awaited. Blood cultures so far negative. Urine Legionella, bacterial antigen, procalcitonin negative. D-dimer elevated. Will do lower limb Dopplers and VQ scan. Cannot do CTA given kidney disorder. Check CT without contrast. Continue with IV Lasix 80 mg twice daily Daily weights, strict input output charting. Rodriguez catheterization. DuoNebs every 4 hour, budesonide twice daily. Oxygen supplementation keeping saturation more than 88%. Solu-Medrol 40 mg IV twice daily For now continue with ceftriaxone and azithromycin. Will discontinue antibiotics if patient remains afebrile next 24 hours. Low probability of bacterial pneumonia. COVID-19 antigen pending. Isolation precautions. CKD: Renal ultrasound results appreciated. Start patient on Flomax 0.4 mg daily. Fena 2.3% consistent with intrinsic. Baseline creatinine seems to be around 1.6?2. Medical reconciliation done for nephrotoxic drugs. History of CAD: Recent HbA1c 6.9. Lipid panel appreciated. Denies any active chest pain. Echocardiogram as above. Continue with Plavix, statin, beta-angeli. Hypertension: Goal blood pressure less than 140/90 mmHg. For now continue with home dose of beta-angeli, Imdur. For now hold off on KAITLIN inhibitor's. Type 2 diabetes mellitus: On review of chart it seems like patient having recurrent hypoglycemic events. A1c 6.9. Blood sugar is elevated. Insulin settings get high-dose protocol. Lantus 35 units twice daily. CODE STATUS: Limited resuscitation. Cardiac carb consistent diet. Protonix for PUD prophylaxis. Heparin 5000 every 12 hourly for DVT prophylaxis. Attestations Medical Necessity Statement*: Requires further hospitalization for management of hypoxia secondary to congestive heart failure, COPD exacerbation, CKD Time Spent in Patient Care: Greater than 35 minutes (>than 50% of time spent in counselling and/or direct pt care on unit) . Coding Level of Care Code Acute Risk Management Director for [facility] Fwd Diagnoses Hypoxemia R09.02 Acute exacerbation of CHF (congestive heart failure) I50.9 COPD exacerbation J44.1 Renal disorder N28.9 CAD (coronary artery disease) I25.118 Associated angina: with stable angina Coronary Disease-Associated Artery/Lesion type: unspecified vessel or lesion type [place] vs. transplanted heart: [place] heart Diabetes E11.65; Z79.4 Diabetes mellitus complication status: with hyperglycemia Diabetes mellitus longitudinal float operator insulin use: with long-term use Diabetes mellitus type: type 2 Hyperlipidemia E78.2 Hyperlipidemia type: mixed hyperlipidemia
--- NOTE | 2021-01-27 10:25 | USCV_ITS ---
Balbina Matrínez Age: 75 Gender: F : 1945 Exam Date: 01/27/2021 14:02 Ordering Phys: Compa Herman MD Technologist: Exam Location[place] [facility] [place]: POS D-DIMER HISTORY: Lower extremity swelling. PROCEDURES: The venous duplex Doppler examination of both lower extremities was performed in the standard fashion. The following venous structures were evaluated: common femoral vein, profunda vein, proximal portion of the greater saphenous vein, superficial femoral vein, and the popliteal vein. In addition, the posterior tibial and peroneal trunk were evaluated. Bilaterally, the common femoral, superficial femoral, profunda femoral, popliteal, posterior tibial, greater saphenous veins, and the peroneal trunk were identified and interrogated in the standard fashion. These veins were found to be easily compressible with spontaneous blood flow. No evidence of insufficiency or thrombus noted. FINDINGS: Normal 2-D Doppler and augmentation and compressibility throughout the lower extremity venous structures. Additional imaging through the proximal calf veins also reveals no thrombus. Limited evaluation of the greater saphenous vein is patent with no thrombus.. CONCLUSIONS No evidence of DVT in the above-mentioned identifiable veins. Dr Rosemarie Richmond MD [facility] (Electronically Signed) Final Date: 31 January 2021 17:32 S
--- NOTE | 2021-01-27 10:25 | NM_ITS ---
WS: [id number] NUCLEAR MEDICINE LUNG VENTILATION AND PERFUSION CLINICAL INFORMATION: elevated dimer, high probability of PE TECHNIQUE: Ventilation/perfusion lung scan with 32.2 mCi technetium 99m DTPA. 5.4 mCi technetium 99m MAA COMPARISON: CT chest January 26, 2021 FINDINGS: Patchy radiotracer uptake on the perfusion images with multiple matched ventilation/perfusi on defects. No mismatched ventilation/perfusion defects. Cardiomegaly. Diffuse patchy radiotracer uptake on the ventilatory images with deposition along the central bronchi . This is compatible with emphysematous change. NM/NM pul vent and perfus* [id number] IMPRESSION: 1. Low probability for pulmonary embolus.
[2021-01-27] MEDS: potassium chloride ER 20 mEq Tablet PO ×2 (10:27→18:41)
[2021-01-27] MEDS: atorvastatin 40 mg Tablet 20 MG PO (10:27)
[2021-01-27] MEDS: tamsulosin 0.4 mg Capsule PO (10:28)
[2021-01-27] MEDS: carvedilol 6.25 mg Tablet PO ×2 (10:28→18:41)
[2021-01-27] MEDS: ferrous gluconate 324 mg Tablet PO ×2 (10:28→18:41)
[2021-01-27] MEDS: donepezil 5 MG Tablet 10 MG PO (10:28)
[2021-01-27] MEDS: gabapentin 300 mg Capsule PO ×2 (10:29→18:41)
[2021-01-27] MEDS: fenofibrate 145 mg Tablet PO (10:29)
[2021-01-27] MEDS: isosorbide mononitrate ER 60 mg Tablet PO (10:30)
[2021-01-27] MEDS: azithromycin 250 mg Tablet 500 MG PO (10:30)
[2021-01-27] MEDS: FUROsemide 10 mg/mL SDV 10mL 80 MG IVP ×2 (10:31→20:00)
[2021-01-27] MEDS: amiodarone 200 mg Tablet PO (10:31)
[2021-01-27] MEDS: famotidine 20 mg/2 mL INJ IVP ×2 (10:32→20:12)
[2021-01-27] MEDS: heparin 5,000 unit/mL INJ 1 mL 5000 UNIT SUBCUT ×2 (10:32→23:54)
[2021-01-27] MEDS: insulin glargine 100 units/1 mL 35 UNIT SUBCUT ×2 (10:35→18:43)
[2021-01-27 11:03] LABS: Glucose Point of Care 329 mg/dL (70-110)
[2021-01-27 11:54] LABS: Free T4 Free Thyroxine 1.76 ng/dL (0.82-1.77); T3 Free 1.6 PG/ML (2.0-4.4)
[2021-01-27 16:59] LABS: Glucose Point of Care 232 mg/dL (70-110)
--- NOTE | 2021-01-27 17:30 | PC.NURSE ---
Pt sitting up in bed watching tv. Pts resp even and non-labored no distress noted. Pt had no c/o pain or discomfort at the present time. No needs voiced. Call light in reach.
--- NOTE | 2021-01-27 18:38 | USCV_ITS ---
Balbina Martínez Age: 75 Gender: F : 1945 Exam Date: 01/27/2021 07:20 Ordering Phys: Compa Herman MD Technologist: Brandon Leo Exam Location: [facility] [place] Indication: ? EF BP: 138 / 84 HR: 60 Rhythm: Sinus Technical Quality: Adequate MEASUREMENTS (Male / Female) Normal Values 2D ECHO LV Diastolic Diameter PLAX 4.7 cm 4.2 - 5.9 / 3.9 - 5.3 cm LV Systolic Diameter PLAX 3.4 cm IVS Diastolic Thickness 1.1 cm 0.6 - 1.0 / 0.6 - 0.9 cm IVS Systolic Thickness 1.5 cm LVPW Diastolic Thickness 1.4 cm 0.6 - 1.0 / 0.6 - 0.9 cm LVPW Systolic Thickness 1.3 cm LVOT Diameter 2.0 cm LV Ejection Fraction 2D Teich 46.2 % LV Ejection Fraction MOD 2C 21.0 % LV Ejection Fraction 2C AL 23.3 % LA Diameter 3.7 cm LA Width 4.5 cm LA Height 5.0 cm RA Width 4.7 cm RA Height 4.4 cm Aorta at Sinotubular Diameter 2.6 cm DOPPLER AV Peak Velocity 122.0 cm/s LVOT Peak Velocity 75.0 cm/s AV Area Cont Eq vti 1.7 cm squared AV Area Cont Eq pk 2.0 cm squared MV Area PHT 5.0 cm squared Mitral E to A Ratio 2.9 MV E' Velocity 98.5 cm/s Mitral E to MV E' Ratio 19.5 Mitral E to LV E' Lateral Ratio 18.5 Mitral E to LV E' Septal Ratio 20.8 TR Peak Velocity 113.7 cm/s TR Peak Gradient 5.2 mmHg TV Peak E Velocity 66.0 cm/s Right Atrial Pressure 3.0 mmHg Pulmonary Artery Systolic Pressu 8.2 mmHg FINDINGS Left Ventricle Normal left ventricular cavity size. Moderately decreased left ventricular systolic function. Left ventricular ejection fraction is estimated at 40 %. Global left ventricular hypokinesis. Right Ventricle The right ventricle is normal in size and function. Right Atrium The right atrium is normal in size. Left Atrium The left atrium is normal in size. Mitral Valve Moderately thickened mitral valve. Moderate mitral annular calcification. No mitral valve stenosis. Moderate mitral valve regurgitation. Aortic Valve Severe aortic valve calcification. Moderate aortic valve stenosis, mean gradient 2.8 mmHg, TONI 1.7 cm squared. Trace aortic valve regurgitation. Tricuspid Valve Structurally normal tricuspid valve without significant stenosis or regurgitation. Pulmonary artery systolic pressure is normal. Pulmonic Valve Structurally normal pulmonic valve without significant stenosis. There is no pulmonic regurgitation. Pericardium Normal pericardium without effusion. Aorta Normal ascending aorta dimension. CONCLUSIONS 1-Normal left ventricular cavity size. Moderately decreased left ventricular systolic function. Left ventricular ejection fraction is estimated at 40 %. Global left ventricular hypokinesis. 2-Moderately thickened mitral valve. Moderate mitral annular calcification. No mitral valve stenosis. Moderate mitral valve regurgitation. 3-Severe aortic valve calcification. Moderate aortic valve stenosis, mean gradient 2.8 mmHg, TONI 1.7 cm squared. Trace aortic valve regurgitation. 4-There is no pericardial effusion. 5-Pulmonary artery systolic pressure is within normal limits. 6-Right atrial pressure is around 5 mm of mercury. 7-When compared to the prior echocardiogram dated February 09, 2017 there is worsening of mitral valve regurgitation from mild to moderate, there appeared to be moderate aortic valve stenosis with calculated aortic valve area 1.7 cm squared while ejection fraction has reduced from mildly reduced 50% to moderately reduced 40% now. Evaristo Myles MD (Electronically Signed) Final Date: 27 January 2021 19:05 S
--- NOTE | 2021-01-27 18:43 | US_ITS ---
WS: [id number] ULTRASOUND RENAL TECHNIQUE: Ultrasound examination of both kidneys. CLINICAL INFORMATION: tadeo vs ckd COMPARISON: None. FINDINGS: RIGHT: Right kidney is normal in size and appearance. Echogenicity: Normal. Cortical thickness: 1.7 cm; Normal. Hydronephrosis: None. Perinephric fluid: None. Right kidney measures: 11.2 cm x 4.3 cm x 5.0 cm. LEFT: Left kidney is normal in size and appearance. Echogenicity: Normal. Cortical thickness: 1.4 cm; Normal. Hydronephrosis: None. Perinephric fluid: None. Left kidney measures: 9.5 cm x 4.9 cm x 4.5 cm. Normal visualized aorta. US/US renal BI with PV bladder IMPRESSION: 1. Normal renal ultrasound. 2. Urinary retention with postvoid residual 277 cc
[2021-01-27 19:59] LABS: Glucose Point of Care 261 mg/dL (70-110)
[2021-01-27] MEDS: cefTRIAXone 1,000 MG in sodium chloride 0.9% (plus) 50 ML 100 MG IV (19:59)
[2021-01-27] MEDS: nicotine 21 mg Patch 1 PATCH TRANSDERMA (20:12)
[2021-01-27] MEDS: mirtazapine 15 mg Tablet PO (23:56)
[2021-01-27] MEDS: zolpidem 5 mg Tablet 10 MG PO (23:56)
[2021-01-28] VITALS (21 sets, daily range): BP systolic 107–161; BP diastolic 62–85; PULSE 61–88; RESP 16–21; TEMP 36.3–36.6; O2SAT 90–94
[2021-01-28] MEDS: ipratropium-albuterol 3 mL Neb INHALATION ×7 (00:32→23:55)
[2021-01-28 04:54] LABS: Basophils % 0.1 %; Hematocrit 43.2 % (37.0-47.0); Hemoglobin 12.9 g/dL (11.5-15.3); Lymphocytes # 0.6 10^3/uL (0.8-4.8); Lymphocytes % 4.5 %; Mean Corpuscular HGB Conc 29.9 g/dL (30.0-36.0); Mean Corpuscular Hemoglobin 29.4 pg (28.0-34.0); Mean Corpuscular Volume 98.4 fl (81-99); Mean Platelet Volume 11.5 fL (7.4-10.4); Monocytes # 0.7 10^3/uL (0.2-0.9); Monocytes % 5.4 %; Neutrophils # 10.96 10^3/uL (1.8-7.7); Neutrophils % 89.6 %; Nucleated Red Blood Cells % 0 %; Platelet Count 223 10^3/cmm (130-400); Red Blood Count 4.39 10^6/uL (4.1-5.3); Red Cell Distribution Width 15.2 % (12.1-15.1); White Blood Count 12.2 10^3/uL (4.0-10.0)
[2021-01-28 05:11] LABS: Alanine Aminotransferase 12 U/L (0-33); Albumin Level 3.8 g/dL (3.5-5.2); Alkaline Phosphatase 60 IU/L (35-105); Anion Gap 16.5 (5-19); Aspartate Amino Transferase 11 U/L (0-32); Blood Urea Nitrogen 55 mg/dL (8-23); Calcium 9.4 mg/dL (8.5-10.5); Carbon Dioxide 34 mmol/L (22-29); Chloride 97 mmol/L (98-107); Glucose 68 mg/dL (65-115); Osmolality Calculated 309 mOsm/kg (285-295); Potassium 4.5 mmol/L (3.5-5.1); Sodium 143 mmol/L (136-145); Total Bilirubin 0.2 mg/dL (0.15-1.2); Total Protein 7.8 g/dL (6.6-8.7)
[2021-01-28] MEDS: levothyroxine 137 mcg Tablet PO (05:38)
[2021-01-28] MEDS: clopidogrel 75 mg Tablet PO (05:39)
[2021-01-28] MEDS: venlafaxine ER (24HR) 150 mg Capsule PO (05:39)
[2021-01-28 06:48] LABS: Glucose Point of Care 124 mg/dL (70-110)
[2021-01-28] MEDS: gabapentin 300 mg Capsule PO ×2 (08:14→17:44)
[2021-01-28] MEDS: fenofibrate 145 mg Tablet PO (08:14)
[2021-01-28] MEDS: ferrous gluconate 324 mg Tablet PO ×2 (08:14→17:44)
[2021-01-28] MEDS: carvedilol 6.25 mg Tablet PO ×2 (08:15→17:44)
[2021-01-28] MEDS: atorvastatin 40 mg Tablet 20 MG PO (08:15)
[2021-01-28] MEDS: amiodarone 200 mg Tablet PO (08:15)
[2021-01-28] MEDS: donepezil 5 MG Tablet 10 MG PO (08:15)
[2021-01-28] MEDS: azithromycin 250 mg Tablet 500 MG PO (08:15)
[2021-01-28] MEDS: potassium chloride ER 20 mEq Tablet PO ×2 (08:15→17:44)
[2021-01-28] MEDS: tamsulosin 0.4 mg Capsule PO (08:15)
[2021-01-28] MEDS: isosorbide mononitrate ER 60 mg Tablet PO (08:16)
[2021-01-28] MEDS: insulin glargine 100 units/1 mL 35 UNIT SUBCUT (08:16)
[2021-01-28] MEDS: famotidine 20 mg/2 mL INJ IVP ×2 (09:32→20:28)
[2021-01-28] MEDS: FUROsemide 10 mg/mL SDV 10mL 80 MG IVP ×2 (09:32→20:27)
[2021-01-28] MEDS: budesonide 0.5 mg/2 mL Neb INHALATION ×2 (09:55→20:49)
[2021-01-28 11:13] LABS: Glucose Point of Care 165 mg/dL (70-110)
[2021-01-28] MEDS: heparin 5,000 unit/mL INJ 1 mL 5000 UNIT SUBCUT ×2 (11:47→22:34)
--- NOTE | 2021-01-28 12:20 | P.PN_ITS ---
Subjective Subjective: Interval history: No acute events overnight. Patient looking a lot better today. She states she is feeling better today. Currently on 4 L oxygen supplementation saturating 94%. Denies any nausea, vomiting, headache. We discussed in detail regarding the cause of her hypoxia which seems to be a combination of COPD and congestive heart failure secondary to aortic stenosis and mitral regurgitation. Vitals/I&O/Wt Last Vital Signs Temp 97.4 F L 01/28/21 08:00 Pulse 68 01/28/21 09:56 Resp 20 H 01/28/21 09:40 BP 161/85 01/28/21 08:00 Pulse Ox 94 01/28/21 09:40 01/27/21 01/28/21 01/28/21 22:59 06:59 14:59 Intake Total 50 / 50 360 / 360 Output Total 700 / 700 1000 / 1700 1400 / 1400 Balance -650 / -650 -1000 / -1650 -1040 / -1040 Weight last 48 hrs Weight 97.159 kg Weight 94.302 kg Weight 95.254 kg Weight 95.254 kg Physical Exam Narrative: EXAM NARRATIVE: General: AO x3, morbidly obese, in distress because of difficulty breathing, on 4 L oxygen supplementation HEENT: PERRLA, pupils bilaterally equal and reactive Chest: appearingBilateral bronchial breath sounds, bilateral coarse crackles, fine crackles present in the mid and lower zone bilaterally, good equal air entry bilaterally CVS: S1-S2 regular, no murmurs, no tachycardia, no gallops, no rubs Abdomen: Soft, nontender, no organomegaly, bowel sounds present Neuro: No focal deficits, no facial deformity, AO x3, power 5/5 in all limbs Data : 01/28/21 04:17 01/28/21 04:17 Micro: Microbiology 01/26/21 17:37 Legionella Urinary Antigen - Final Urine,Clean Catch Urine Culture - Preliminary 01/27/21 21:20 Stool Lactoferrin - Final Stool 01/26/21 20:30 Blood Culture - Preliminary Blood NEGATIVE TO DATE 01/26/21 19:20 Blood Culture - Preliminary Blood NEGATIVE TO DATE 01/26/21 19:25 MRSA Culture - Final Nose 01/26/21 17:37 Bacterial Antigens - Final Urine Kidney A&P Assessment and plan (1) Hypoxemia: Status: Acute (2) Acute exacerbation of CHF (congestive heart failure): Mixed systolic and diastolic congestive heart failure. Status: Acute (3) COPD exacerbation: Status: Acute (4) Moderate aortic stenosis: Status: Acute (5) Moderate mitral regurgitation: Status: Acute (6) Renal disorder: Status: Acute (7) CAD (coronary artery disease): Status: Acute Qualifiers: Coronary Disease-Associated Artery/Lesion type: unspecified vessel or lesion type [place] vs. 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 ABG shows normal pH with hypercapnia and elevated bicarb and CMP most likely suggests COPD. Echocardiogram done shows an EF of 40% with global LV hypokinesia, moderate aortic stenosis, moderate mitral regurgitation. Sputum culture still awaited. Blood culture, urine Legionella, bacterial antigen, procalcitonin negative. Lower limb Dopplers done results awaited. VQ scan low probability for PE. Continue with IV Lasix 80 mg twice daily Daily weights, strict input output charting. Rodriguez catheterization. DuoNebs every 4 hour, budesonide twice daily. Oxygen supplementation keeping saturation more than 88%. Wean Solu-Medrol 40 mg IV daily Stop ceftriaxone. Continue azithromycin to finish a 3-day course. We will continue to monitor off antibiotics. Low probability of bacterial pneumonia. COVID-19 antigen pending. Isolation precautions. CKD: Renal ultrasound results appreciated. Flomax 0.4 mg daily. Fena 2.3% consistent with intrinsic. Baseline creatinine seems to be around 1.6?2. Medical reconciliation done for nephrotoxic drugs. History of CAD: Recent HbA1c 6.9. Lipid panel appreciated. Denies any active chest pain. Echocardiogram as above. Continue with Plavix, statin, beta-angeli. Hypertension: Goal blood pressure less than 140/90 mmHg. For now continue with home dose of beta-angeli, Imdur. For now hold off on KAITLIN inhibitor's. Type 2 diabetes mellitus: On review of chart it seems like patient having recu rrent hypoglycemic events. A1c 6.9. 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 Decrease nightly Lantus to 30 units. 35 units every morning. Insulin settings get high-dose protocol. CODE STATUS: Limited resuscitation. Cardiac carb consistent diet. Protonix for PUD prophylaxis. Heparin 5000 every 12 hourly for DVT prophylaxis. Discharge planning: The patient continues to do well most likely can be discharged tomorrow on oral steroid taper with advised to follow-up with pulmonology and cardiology as an outpatient in a referral for TAVR. Patient would need home O2 evaluation prior to discharge. Attestations Medical Necessity Statement*: Requires further hospitalization for hypoxia 2/2 COPD exacerbation, congestive heart failure exacerbation secondary to moderate aortic stenosis, mitral regurgitation. Time Spent in Patient Care: Greater than 35 minutes (>than 50% of time spent in counselling and/or direct pt care on unit) . Coding Level of Care Code Acute Classroom Technology Coach for Chg Fwd Diagnoses Hypoxemia R09.02 Acute exacerbation of CHF (congestive heart failure) I50.9 COPD exacerbation J44.1 Moderate aortic stenosis I35.0 Moderate mitral regurgitation I34.0 Renal disorder N28.9 CAD (coronary artery disease) I25.118 Coronary Disease-Associated Artery/Lesion type: unspecified vessel or lesion type [place] vs. 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
--- NOTE | 2021-01-28 15:27 | PC.RESP ---
SMOKING CESSATION AND PULMONARY REHAB INFORMATION SENT TO PATIENT.
[2021-01-28 16:59] LABS: Glucose Point of Care 142 mg/dL (70-110)
[2021-01-28 18:16] LABS: Quest SARS-CoV-2 RNA NOT DETECTED (NOT DETECTED)
[2021-01-28 20:03] LABS: Glucose Point of Care 177 mg/dL (70-110)
[2021-01-28] MEDS: nicotine 21 mg Patch 1 PATCH TRANSDERMA (20:29)
[2021-01-28] MEDS: insulin glargine 100 units/1 mL 30 UNIT SUBCUT (20:29)
[2021-01-28] MEDS: TRAMadol 50 mg Tablet PO (20:30)
[2021-01-28] MEDS: zolpidem 5 mg Tablet 10 MG PO (20:30)
[2021-01-28] MEDS: mirtazapine 15 mg Tablet PO (20:30)
[2021-01-28] MEDS: acetaminophen 325 mg Tablet 650 MG PO (22:45)
[2021-01-29] VITALS (13 sets, daily range): BP systolic 116–136; BP diastolic 65–100; PULSE 74–102; RESP 16–26; TEMP 36.4–37.1; O2SAT 85–95
[2021-01-29] MEDS: ipratropium-albuterol 3 mL Neb INHALATION ×3 (03:05→11:04)
[2021-01-29 04:06] LABS: Basophils % 0.3 %; Eosinophils # 0.1 10^3/uL (0.0-0.8); Eosinophils % 0.7 %; Hematocrit 45.8 % (37.0-47.0); Hemoglobin 14.1 g/dL (11.5-15.3); Lymphocytes # 0.6 10^3/uL (0.8-4.8); Lymphocytes % 4.5 %; Mean Corpuscular HGB Conc 30.8 g/dL (30.0-36.0); Mean Corpuscular Hemoglobin 29.8 pg (28.0-34.0); Mean Corpuscular Volume 96.8 fl (81-99); Mean Platelet Volume 11.2 fL (7.4-10.4); Monocytes # 1.2 10^3/uL (0.2-0.9); Monocytes % 8.6 %; Neutrophils # 11.53 10^3/uL (1.8-7.7); Neutrophils % 85.2 %; Nucleated Red Blood Cells % 0 %; Platelet Count 225 10^3/cmm (130-400); Red Blood Count 4.73 10^6/uL (4.1-5.3); Red Cell Distribution Width 15.1 % (12.1-15.1); White Blood Count 13.5 10^3/uL (4.0-10.0)
[2021-01-29 04:32] LABS: Alanine Aminotransferase 13 U/L (0-33); Albumin Level 3.7 g/dL (3.5-5.2); Alkaline Phosphatase 62 IU/L (35-105); Aspartate Amino Transferase 14 U/L (0-32); Blood Urea Nitrogen 55 mg/dL (8-23); Calcium 9.2 mg/dL (8.5-10.5); Carbon Dioxide 36 mmol/L (22-29); Chloride 97 mmol/L (98-107); Globulin 3.7 g/dL (1.3-4.6); Glucose 64 mg/dL (65-115); Osmolality Calculated 305 mOsm/kg (285-295); Sodium 141 mmol/L (136-145); Total Bilirubin 0.3 mg/dL (0.15-1.2); Total Protein 7.4 g/dL (6.6-8.7)
[2021-01-29] MEDS: levothyroxine 137 mcg Tablet PO (05:12)
[2021-01-29] MEDS: clopidogrel 75 mg Tablet PO (05:12)
[2021-01-29] MEDS: TRAMadol 50 mg Tablet PO ×2 (05:12→13:17)
[2021-01-29] MEDS: venlafaxine ER (24HR) 150 mg Capsule PO (05:13)
[2021-01-29 06:30] LABS: Glucose Point of Care 81 mg/dL (70-110)
--- NOTE | 2021-01-29 07:32 | PC.SOCIAL ---
IMM update IMM updated with patient. Verbalized an understanding. Copy Pg. 2 provided. Initialled, dated, timed and placed in chart.
[2021-01-29] MEDS: insulin glargine 100 units/1 mL 35 UNIT SUBCUT (07:45)
[2021-01-29] MEDS: azithromycin 250 mg Tablet 500 MG PO (07:46)
[2021-01-29] MEDS: amiodarone 200 mg Tablet PO (07:46)
[2021-01-29] MEDS: potassium chloride ER 20 mEq Tablet PO (07:46)
[2021-01-29] MEDS: fenofibrate 145 mg Tablet PO (07:46)
[2021-01-29] MEDS: donepezil 5 MG Tablet 10 MG PO (07:46)
[2021-01-29] MEDS: ferrous gluconate 324 mg Tablet PO (07:46)
[2021-01-29] MEDS: atorvastatin 40 mg Tablet 20 MG PO (07:46)
[2021-01-29] MEDS: tamsulosin 0.4 mg Capsule PO (07:47)
[2021-01-29] MEDS: isosorbide mononitrate ER 60 mg Tablet PO (07:47)
[2021-01-29] MEDS: carvedilol 6.25 mg Tablet PO (07:47)
[2021-01-29] MEDS: gabapentin 300 mg Capsule PO (07:47)
[2021-01-29] MEDS: budesonide 0.5 mg/2 mL Neb INHALATION (07:58)
--- NOTE | 2021-01-29 08:40 | ECG_ITS ---
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 Measurements Intervals [place] Rate: 97 P: 71 OR: 206 QRS: -49 QRSD: 167 T: -5 QT: 403 QTc: 513 Interpretive Statements SINUS RHYTHM WITH OCCASIONAL VENTRICULAR PREMATURE COMPLEXES LEFT AXIS DEVIATION [QRS AXIS < -30] INTRAVENTRICULAR CONDUCTION DELAY [130+ ms QRS DURATION] Compared to ECG 01/26/2021 21:13:32 Ventricular premature complex(es) now present Left-axis deviation now present First degree AV block no longer present Indeterminate axis no longer present Electronically Signed On 01-29-2021 21:09:14 CDT by Misha Campos M.D. [id number]
[2021-01-29] MEDS: FUROsemide 10 mg/mL SDV 10mL 80 MG IVP (08:42)
[2021-01-29] MEDS: famotidine 20 mg/2 mL INJ IVP (08:49)
--- NOTE | 2021-01-29 09:48 | PM.DCS ---
Discharge Providers Date of Admission: 01/26/21 20:45 Date of Discharge: January 29, 2021 Attending Provider at Admission: Compa Herman MD Attending Provider at Discharge: Compa Herman MD Primary Care Provider: Milan Mitchell DO Diagnoses at Discharge Discharge Diagnosis (1) Hypoxemia: Status: Acute (2) Acute exacerbation of CHF (congestive heart failure): Status: Acute Permanent problem details: Echocardiogram done January 2021 showed an EF of 40% with global LV hypokinesia, moderate , moderate MR (3) COPD exacerbation: Status: Acute (4) Moderate aortic stenosis: Status: Acute (5) Moderate mitral regurgitation: Status: Acute (6) Renal disorder: Status: Acute (7) CAD (coronary artery disease): Status: Acute Qualifiers: Coronary Disease-Associated Artery/Lesion type: unspecified vessel or lesion type [place] vs. transplanted heart: nikolai heart Associated angina: with stable angina Qualified Code(s): I25.118 - Atherosclerotic heart disease of nikolai coronary artery with other forms of angina pectoris (8) Diabetes: Status: Acute Qualifiers: Diabetes mellitus type: type 2 Diabetes mellitus senior care insulin use: with intermediate teacher use Diabetes mellitus complication status: with hyperglycemia Qualified Code(s): E11.65 - Type 2 diabetes mellitus with hyperglycemia; Z79.4 - half-way (current) use of insulin (9) Hyperlipidemia: Status: Acute Qualifiers: Hyperlipidemia type: mixed hyperlipidemia Qualified Code(s): E78.2 - Mixed hyperlipidemia Reason for Visit Reason for Visit: VOMITING Hospital Course Hospital Course Balbina Martínez is a 75 year old female with pst medical history of CAD s/p multiple stents (last done 5-6 yrs ago), IN x 3, HTN, CHFpEF, IDDM, Hypothyroidism, HLD, COPD, CKD with baseline creatinine 3 to 4 years ago around 1.7. Patient presented to the ER today after having difficulty in breathing for last 4 to 5 days. Patient states he has been having occasional difficulty in breathing on and off for last couple of months. Patient states she has been borrowing oxygen from her daughter for last 3 nights. Shortness of breath is aggravated on lying down flat and is associated with orthopnea but no PND. Patient states she usually sleeps in prone position. Patient also complains of gaining weight for the last 3 to 4 weeks. She has a history of CAD but has not followed up with a technician submarine cable equipment in more than 5 years. Complaining of cough with expectoration but no fevers. States she used to smoke up to 3 packs of cigarettes daily till few months ago but now is down to 1 pack daily. Denies any nausea, vomiting, headache, dizziness, known exposure to COVID-19. 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 Blood work in the ER showed white count 9.3, hemoglobin of 12.7, D-dimer 1.7, ABG showing a pH of 7.35, PCO2 of 64, PO2 of 84, chemistry showing a sodium of 150, creatinine of 2.1, bicarb of 34 with chest x-ray as below. On examination patient was saturating 93% on 4 L oxygen supplementation looking tachypneic and in mild respiratory distress. Patient went to the hospital for further evaluation and management of hypoxia. Pneumonia was ruled out with negative consolidation on CT imaging, negative procalcitonin and normal white count. Patient has remained hemodynamically stable and afebrile without antibiotics for last 48 hours. It is believed patient's hypoxia secondary to acute on chronic congestive heart failure exacerbation along with acute on chronic COPD exacerbation. Echocardiogram was done which showed an EF of 40% with global LV hypokinesia with moderate AAS, moderate mitral regurgitation with diastolic dysfunction. Patient was treated with IV diuresis. Patient responded well to the treatment and is around 8 L negative by the day of discharge. CT imaging was done which was consistent with emphysema. Patient was started on inhalation treatment along with IV steroids which were weaned off. Patient responded well to the treatment and is currently been doing well for last 48 hours on 3 L oxygen supplementation. Patient's hospitalization was otherwise unremarkable. Patient is discharged in hemodynamically stable condition. She is advised to take not more than 1500 cc of fluid a day including water and juices. She is advised not to add any more salt to her food. Her salt intake should not exceed 2 g. She is advised to take Lasix 80 mg twice daily. She is advised to follow-up with cardiology as an outpatient within next 2 weeks for further work-up for possible TAVR. Patient is also advised to follow-up with pulmonology as an outpatient for further management and work-up of COPD. Patient was advised in detail about smoking cessation. Physical Exam Narrative: EXAM NARRATIVE: General: AO x3, morbidly obese, no acute distress, on 4 L oxygen supplementation HEENT: PERRLA, pupils bilaterally equal and reactive Chest: appearingBilateral bronchial breath sounds, bilateral coarse crackles, fine crackles present in the mid and lower zone bilaterally, good equal air entry bilaterally CVS: S1-S2 regular, no murmurs, no tachycardia, no gallops, no rubs Abdomen: Soft, nontender, no organomegaly, bowel sounds present Neuro: No focal deficits, no facial deformity, AO x3, power 5/5 in all limbs Urinary Catheter Management^: Rodriguez: Cath Placed During This Visit: yes Reason for Continuing Indwelling Catheter: Accurate Measurement of Urinary Output in Critically Ill Patients Urinary Catheter Date of Insertion: 01/28/21 Urinary Catheter Time of Insertion: 13:00 Discharge Data Data Completed and Pending: Completed Studies During Hospitalization Category Date Time Status CT chest wo con 7 1250 Urgent Cat Scan 01/26/21 18:30 Completed XR chest 1V ameya ble [id number] Stat Exams 01/26/21 15:44 Completed NM pul vent and p erfus* [id number] Routi ne Nuc Med 01/27/21 10:25 Completed CV. echo complete * [id number] Routine Ultrasound 01/27/21 18:38 Completed US renal BI with PV bladder Routine Ultrasound 01/27/21 18:43 Completed Pending at discharge Category Date Time Status Blood Culture Sta t Lab 01/26/21 20:30 Results Sputum Culture an d Gram Stain Stat Lab 01/26/21 22:36 [place] [id number] Routin e Ultrasound 01/27/21 10:25 Taken Labs from last 24 hours 01/29/21 01/29/21 01/29/21 06:24 03:40 03:40 WBC 13.5 H RBC 4.73 Hgb 14.1 Hct 45.8 MCV 96.8 MCH 29.8 MCHC 30.8 RDW 15.1 Plt Count 225 MPV 11.2 H Neut % (Auto) 85.2 Lymph % (Auto) 4.5 Crenshaw % (Auto) 8.6 Eos % (Auto) 0.7 Baso % (Auto) 0.3 Neut # (Auto) 11.53 H Lymph # (Auto) 0.6 L Crenshaw # (Auto) 1.2 H Eos # (Auto) 0.1 Baso # (Auto) 0.0 Nucleated RBC % (a uto) 0 Nucleated RBCs # 0.0 Sodium 141 Potassium 4.0 Chloride 97 L Carbon Dioxide 36 H Anion Gap 12.0 BUN 55 H Creatinine 1.5 H GFR Calculation Not Reportable Glucose 64 L POC Glucose 81 Calculated Osmolal ity 305 H Calcium 9.2 Total Bilirubin 0.3 AST 14 ALT 13 Alkaline Phosphata se 62 Total Protein 7.4 Albumin 3.7 Globulin 3.7 SARS-CoV-2 RNA (RT -PCR) 01/28/21 01/28/21 01/28/21 19:54 16:42 11:00 WBC RBC Hgb Hct MCV MCH MCHC RDW Plt Count MPV Neut % (Auto) Lymph % (Auto) Crenshaw % (Auto) Eos % (Auto) Baso % (Auto) Neut # (Auto) Lymph # (Auto) Crenshaw # (Auto) Eos # (Auto) Baso # (Auto) Nucleated RBC % (a uto) Nucleated RBCs # Sodium Potassium Chloride Carbon Dioxide Anion Gap BUN Creatinine GFR Calculation Glucose POC Glucose 177 H 142 H 165 H Calculated Osmolal ity Calcium Total Bilirubin AST ALT Alkaline Phosphata se Total Protein Albumin Globulin SARS-CoV-2 RNA (RT -PCR) 01/26/21 19:20 WBC RBC Hgb Hct MCV MCH MCHC RDW Plt Count MPV Neut % (Auto) Lymph % (Auto) Crenshaw % (Auto) Eos % (Auto) Baso % (Auto) Neut # (Auto) Lymph # (Auto) Crenshaw # (Auto) Eos # (Auto) Baso # (Auto) Nucleated RBC % (a uto) Nucleated RBCs # Sodium Potassium Chloride Carbon Dioxide Anion Gap BUN Creatinine GFR Calculation Glucose POC Glucose Calculated Osmolal ity Calcium Total Bilirubin AST ALT Alkaline Phosphata se Total Protein Albumin Globulin SARS-CoV-2 RNA (RT -PCR) Not detected Addt'l Data from Hospital Stay: Laboratory Results WBC 13.5 10^3/uL (4.0 -10.0) H 01/29/21 03:40 RBC 4.73 10^6/uL (4.1 -5.3) 01/29/21 03:40 Hgb 14.1 g/dL (11.5-1 5.3) 01/29/21 03:40 Hct 45.8 % (37.0-47.0 ) 01/29/21 03:40 MCV 96.8 fl (81-99) 01/29/21 03:40 MCH 29.8 pg (28.0-34. 0) 01/29/21 03:40 MCHC 30.8 g/dL (30.0-3 6.0) 01/29/21 03:40 RDW 15.1 % (12.1-15.1 ) 01/29/21 03:40 Plt Count 225 10^3/cmm (130 -400) 01/29/21 03:40 MPV 11.2 fL (7.4-10.4 ) H 01/29/21 03:40 Neut % (Auto) 85.2 % 01/29/21 03:40 Lymph % (Auto) 4.5 % 01/29/21 03:40 Crenshaw % (Auto) 8.6 % 01/29/21 03:40 Eos % (Auto) 0.7 % 01/29/21 03:40 Baso % (Auto) 0.3 % 01/29/21 03:40 Neut # (Auto) 11.53 10^3/uL (1. 8-7.7) H 01/29/21 03:40 Lymph # (Auto) 0.6 10^3/uL (0.8- 4.8) L 01/29/21 03:40 Crenshaw # (Auto) 1.2 10^3/uL (0.2- 0.9) H 01/29/21 03:40 Eos # (Auto) 0.1 10^3/uL (0.0- 0.8) 01/29/21 03:40 Baso # (Auto) 0.0 10^3/uL (0.0- 0.1) 01/29/21 03:40 Nucleated RBC % (a uto) 0 % 01/29/21 03:40 Nucleated RBCs # 0.0 /100WBC 01/29/21 03:40 D-Dimer 1.73 ug/mIFEU (0- 0.59) H 01/26/21 20:30 Specimen Type Arterial 01/26/21 16:18 Sample Site Radial, left 01/26/21 16:18 ABG pH 7.35 (7.35-7.45) 01/26/21 16:18 ABG pCO2 64.4 mmHg (35-45) H* 01/26/21 16:18 ABG pO2 84.5 mmHg (80.0-1 00.0) 01/26/21 16:18 ABG HCO3 35.6 mmol/L (22-2 6) H 01/26/21 16:18 ABG Base Excess 7.6 mmol/L (-2.0- 2.0) H 01/26/21 16:18 Juan Carlos Test Pos 01/26/21 16:18 Hematocrit 41.5 % (37-47) 01/26/21 16:18 O2 Delivery Device Nc 01/26/21 16:18 O2 Liters/Min 4.0 % 01/26/21 16:18 FiO2 36.0 % 01/26/21 16:18 Therapeutic Activities Services Worker ID Gd 01/26/21 16:18 Sodium 141 mmol/L (136-1 45) 01/29/21 03:40 Potassium 4.0 mmol/L (3.5-5 .1) 01/29/21 03:40 Chloride 97 mmol/L (98-107 ) L 01/29/21 03:40 Carbon Dioxide 36 mmol/L (22-29) H 01/29/21 03:40 Anion Gap 12.0 (5-19) 01/29/21 03:40 BUN 55 mg/dL (8-23) H 01/29/21 03:40 Creatinine 1.5 mg/dL (0.5-0. 9) H 01/29/21 03:40 GFR Calculation Not Reportable 01/29/21 03:40 Glucose 64 mg/dL (65-115) L 01/29/21 03:40 POC Glucose 81 mg/dL (70-110) 01/29/21 06:24 Calculated Osmolal ity 305 mOsm/kg (285- 295) H 01/29/21 03:40 Calcium 9.2 mg/dL (8.5-10 .5) 01/29/21 03:40 Iron 47 ug/dL (37-145) 01/26/21 17:43 TIBC 477 mcg/dl 01/26/21 17:43 % Saturation 9.8 % (20-50) L 01/26/21 17:43 Unsat Iron Binding 430 ug/dL (112-34 7) H 01/26/21 17:43 Total Bilirubin 0.3 mg/dL (0.15-1 .2) 01/29/21 03:40 AST 14 U/L (0-32) 01/29/21 03:40 ALT 13 U/L (0-33) 01/29/21 03:40 Alkaline Phosphata se 62 IU/L (35-105) 01/29/21 03:40 Troponin T Baselin e 44 ng/L (0-10) H 01/26/21 17:43 Troponin T 120 Min giuliano 38.22 ng/L (0-10) H 01/26/21 20:30 Delta Troponin T -5.78 ABS# (0-10) L 01/26/21 20:30 Troponin T Hi Sens 6Hr 30.63 ng/L (0-10) H 01/26/21 23:33 Troponin T Hi Sens 6Hr Delta -13.37 ng/L (0-12 ) L 01/26/21 23:33 NT-Pro-B Natriuret Pep 6646 pg/mL (0-450 ) H 01/27/21 03:34 Total Protein 7.4 g/dL (6.6-8.7 ) 01/29/21 03:40 Albumin 3.7 g/dL (3.5-5.2 ) 01/29/21 03:40 Globulin 3.7 g/dL (1.3-4.6 ) 01/29/21 03:40 Triglycerides 115 mg/dL (0-150) 01/27/21 03:34 Cholesterol 141 mg/dL (0-200) 01/27/21 03:34 LDL Cholesterol, C alc 58 mg/dL (50-129) 01/27/21 03:34 Total VLDL Cholest tomy 23 mg/dL (0-30) 01/27/21 03:34 HDL Cholesterol 60 mg/dL (60-100) 01/27/21 03:34 Cholesterol/HDL Ra lazaro 2.35 mg/dL (0.0-4 .40) 01/27/21 03:34 Procalcitonin 0.11 ng/mL (0-0.5 ) 01/26/21 17:43 TSH 0.14 uIU/mL (0.27 -4.20) L 01/26/21 17:43 TSH Cancelled 01/26/21 17:43 Free T4 1.76 ng/dL (0.82- 1.77) 01/27/21 03:34 Free T3 1.6 PG/ML (2.0-4. 4) L 01/27/21 03:34 Urine Color Straw (Yellow) 01/26/21 17:37 Urine Appearance Clear (CLEAR) 01/26/21 17:37 Urine pH 5 (5-7) 01/26/21 17:37 Ur Specific Gravit y 1.015 (1.005-1.0 30) 01/26/21 17:37 Urine Protein Neg (Negative) 01/26/21 17:37 Urine Glucose (UA) Norm (Normal) 01/26/21 17:37 Urine Ketones Negative (Negati ve) 01/26/21 17:37 Urine Blood Neg (Negative) 01/26/21 17:37 Urine Nitrate Negative (Negati ve) 01/26/21 17:37 Urine Bilirubin Neg (Negative) 01/26/21 17:37 Urine Urobilinogen Norm mg/dL (Negat abimbola) 01/26/21 17:37 Ur Leukocyte Kandy ase Negative (Negati ve) 01/26/21 17:37 Ur Eosinophil Smea r Not Reportable 01/26/21 17:37 Urine Eosinophils No eosinophils se en 01/26/21 17:37 Ur Random Sodium 69 mmol/L 01/26/21 17:37 Ur Random Potassiu m 31 mmol/L 01/26/21 17:37 Ur Random Chloride 73 mmol/L 01/26/21 17:37 Urine Creatinine 34 mg/dL (28-217) 01/26/21 17:37 Influenza Type A A g Negative (Negati ve) 01/26/21 19:25 Influenza Type B A g Negative (Negati ve) 01/26/21 19:25 SARS-CoV-2 RNA (RT -PCR) Not detected (NO T DETECTED) 01/26/21 19:20 SARS-CoV-2 Ag (Rap id) Negative (Negati ve) 01/26/21 17:04 Impressions Chest X-Ray 01/26/21 15:44 IMPRESSION: Indistinct interstitial markings in the lower lungs. Nonspecific finding. Possible infection or edema. Chest CT 01/26/21 18:30 IMPRESSION: Mild centrilobular emphysema and trace interstitial edema. No sign of infection. Radiation Dose CTDIVOL = (mGy): DLP = 959.87 (mGy-cm) Pulmonary Perfusion Imaging 01/27/21 10:25 IMPRESSION: 1. Low probability for pulmonary embolus. Renal Ultrasound 01/27/21 18:43 IMPRESSION: 1. Normal renal ultrasound. 2. Urinary retention with postvoid residual 277 cc Echocardiogram: CONCLUSIONS 1-Normal left ventricular cavity size. Moderately decreased left ventricular systolic function. Left ventricular ejection fraction is estimated at 40 %. Global left ventricular hypokinesis. 2-Moderately thickened mitral valve. Moderate mitral annular calcification. No mitral valve stenosis. Moderate mitral valve regurgitation. 3-Severe aortic valve calcification. Moderate aortic valve stenosis, mean gradient 2.8 mmHg, TONI 1.7 cm squared. Trace aortic valve regurgitation. 4-There is no pericardial effusion. 5-Pulmonary artery systolic pressure is within normal limits. 6-Right atrial pressure is around 5 mm of mercury. 7-When compared to the prior echocardiogram dated February 09, 2017 there is worsening of mitral valve regurgitation from mild to moderate, there appeared to be moderate aortic valve stenosis with calculated aortic valve area 1.7 cm squared while ejection fraction has reduced from mildly reduced 50% to moderately reduced 40% now. Evaristo Myles MD (Electronically Signed) Final Date: 27 January 2021 19:05 S Microbiology 01/26/21 17:37 Urine,Clean Catch Legionella Urinary Antigen - Final 01/26/21 17:37 Urine,Clean Catch Urine Culture - Final 01/27/21 21:20 Stool Stool Lactoferrin - Final 01/27/21 21:20 Stool Enteric Pathogens (PCR) - Final 01/27/21 21:20 Stool Parasite Antigen Panel - Final 01/27/21 21:20 Stool C.difficile Toxin B Gene (PCR) - Final 01/26/21 20:30 Blood Blood Culture - Preliminary NEGATIVE TO DATE 01/26/21 19:20 Blood Blood Culture - Preliminary NEGATIVE TO DATE 01/26/21 19:25 Nose MRSA Culture - Final 01/26/21 17:37 Urine Kidney Bacterial Antigens - Final Vitals: Last Vital Signs Temp 98.8 F 01/29/21 08:00 Pulse 102 H 01/29/21 08:05 Resp 26 H 01/29/21 08:00 BP 136/88 01/29/21 08:00 Pulse Ox 94 01/29/21 08:00 Discharge Plan Discharge Patient Disposition: Home Health Service Condition: Stable Prescriptions: New tamsulosin 0.4 mg Capsule 0.4 mg PO DAILY 30 Days Qty: 30 RF: 0 ferrous gluconate 324 mg (37.5 mg iron) Tablet 324 mg PO BIDWM 30 Days Qty: 60 RF: 0 Lantus U-100 Insulin 100 unit/mL Solution 50 unit SUBCUT QAM 30 Days Qty: 15 RF: 0 budesonide [Pulmicort] 0.5 mg/2 mL suspension for nebulization 0.5 mg inhalation BID 15 Days Qty: 60 RF: 0 ipratropium-albuterol 0.5 mg-3 mg(2.5 mg base)/3 mL solution for nebulization 3 ml inhalation TID 30 Days Qty: 270 RF: 0 prednisone 10 mg tablet See Taper mg PO DAILY Qty: 46 RF: 0 furosemide [Lasix] 80 mg tablet 80 mg PO BID 30 Days Qty: 60 RF: 0 Continued venlafaxine 150 mg capsule,extended release 24hr 150 mg PO QAM Qty: 30 RF: 11 mupirocin 2 % ointment 1 applic topical BID PRN (Reason: SORES ON FACE) Qty: 15 RF: 0 Nucynta ER 200 mg tablet extended release 12 hr 200 mg PO BID 30 Days Qty: 60 RF: 0 potassium chloride 20 mEq tablet extended release 20 meq PO BID Qty: 60 RF: 11 buspirone 10 mg tablet 10 mg PO BID PRN (Reason: anxiety) Qty: 60 RF: 11 ondansetron 4 mg tablet,disintegrating 4 mg PO Q8H PRN (Reason: nausea and vomiting) Qty: 30 RF: 11 levothyroxine 137 mcg tablet 137 mcg PO QAM RF: 0 Julia Allergy 180 mg Tablet 180 mg PO DAILY RF: 0 Tylenol Ex Str Rapid Release 500 mg Tablet 1,000 mg PO Q4H PRN (Reason: Pain) RF: 0 Flonase 50 mcg/actuation Cameron,Suspension 1 spray INTRANASAL BID PRN (Reason: Allergy Symptoms) RF: 0 carvedilol 6.25 mg tablet 6.25 mg PO BID RF: 0 amiodarone 200 mg tablet 200 mg PO DAILY RF: 0 glipizide 10 mg tablet extended release 24hr 10 mg PO QAM RF: 0 donepezil 10 mg tablet 10 mg PO DAILY RF: 0 Plavix 75 mg tablet 75 mg PO QAM RF: 0 isosorbide mononitrate 60 mg tablet extended release 24 hr 60 mg PO DAILY RF: 0 nitroglycerin 0.4 mg tablet, sublingual 0.4 mg SUBLINGUAL Q5M PRN (Reason: Chest Pain) RF: 0 omeprazole 20 mg capsule,delayed release(DR/EC) 20 mg PO QAM RF: 0 mirtazapine 15 mg tablet 15 mg PO BEDTIME RF: 0 Ambien 10 mg tablet 10 mg PO BEDTIME PRN (Reason: insomnia) RF: 0 calcitriol 0.25 mcg capsule 0.25 mcg PO DAILY RF: 0 fenofibrate nanocrystallized 145 mg tablet 145 mg PO DAILY RF: 0 Changed gabapentin 300 mg capsule 300 mg PO BID Qty: 120 RF: 5 enalapril maleate 10 mg tablet 10 mg PO DAILY Qty: 60 RF: 11 simvastatin 40 mg tablet 20 mg PO DAILY Qty: 0 RF: 0 Discontinued prednisone 20 mg tablet 20 mg PO DAILY RF: 0 azithromycin 250 mg tablet See Rx Instructions .ROUTE .COMPLEX RF: 0 Lantus U-100 Insulin 100 unit/mL solution See Rx Instructions .ROUTE .COMPLEX RF: 0 bumetanide 2 mg tablet 4 mg PO BID RF: 0 No Action (DME) Accu-Chek Barbara Plus test strp Strip See Rx Instructions .ROUTE .MEDSUPPLY Qty: 400 RF: 3 (DME) lancets [Accu-Chek Multiclix Lancet] Misc See Rx Instructions .ROUTE .MEDSUPPLY Qty: 400 RF: 3 (DME) insulin syringe-needle U-100 [Advocate Syringes] 1 mL 30 gauge x 5/16 syringe See Rx Instructions .ROUTE .MEDSUPPLY Qty: 10 RF: 0 (DME) pen needle, diabetic [BD Ultra-Fine Short Pen Needle] 31 gauge x 5/16 needle See Rx Instructions .ROUTE .MEDSUPPLY Qty: 30 RF: 12 (DME) Diabetic Shoes and inserts See Rx Instructions .Route .MEDSUPPLY Qty: 1 RF: 3 (DME) blood-glucose meter [Accu-Chek Barbara Plus Meter] Misc See Rx Instructions .ROUTE .MEDSUPPLY Qty: 1 RF: 0 (DME) blood-glucose meter [Blood Glucose Monitoring] Kit See Rx Instructions .Route Qty: 1 RF: 0 (DME) Blood Glucose Test Strip See Rx Instructions .Route Qty: 400 RF: 3 Discharge Orders: Discharge Order (Routine); Ordered 01/29/21 Ordered By: Compa Herman Other Ambulatory Orders: DME: Nebulizer with Neb Kit (Order) Location: None Selected Ordered By: Compa Herman Referrals: Milan Mitchell DO [Primary Care Provider] - Evaristo Myles MD [Physician] - 2 weeks ([facility] will be calling to set a cardiology followup with Dr. Myles to be seen in 2 weeks. If you don't hear from them by Sunday, please give them a call. Thank you) Maxx Najera MD [Physician] - 2 weeks ([facility] will be calling to set a pulmonology followup with Dr. Najera to be seen in 2 weeks. If you don't hear from them by Sunday, please give them a call. Thank you) Patient Instructions: Opioid Safety Activity Restrictions/Additional Instructions: Please change your dose of Lantus from twice a day to 50 units in the morning. He supposed to stop Bumex. Take Lasix 80 mg twice daily. Prednisone taper as discussed in detail. Please follow-up with pulmonology/Dr. Garcia in 2 weeks for further management of COPD. Please follow-up with Dr. Myles/cardiology within 2 weeks for further work-up for TAVR. Please try to stop smoking as discussed in detail. Discharge Attestations Time Spent in Discharge Care*: greater than 30 min Specific Discharge Activities: educating patient, discussing with pcp/other providers, discussing with renal case manager/social workers/dc planners, documenting/other paperwork and evaluating patient/reviewing data Time Spent in Smoking Cessation: more than 10 minutes Status at Discharge: Cognitive status at discharge: cognitively intact, Behavioral status at discharge: cooperative, Functional status at discharge: uses cane/walker Overall status at discharge: patient is back to baseline Quality Metrics Clinical Quality Measures During this hospital stay, did patient experience: None Coding Level of Care Code Acute g FW DC note Diagnoses Hypoxemia R09.02 Acute exacerbation of CHF (congestive heart failure) I50.9 COPD exacerbation J44.1 Moderate aortic stenosis I35.0 Moderate mitral regurgitation I34.0 Renal disorder N28.9 CAD (coronary artery disease) I25.118 Coronary Disease-Associated Artery/Lesion type: unspecified vessel or lesion type [place] vs. transplanted heart: nikolai heart Associated angina: with stable angina Diabetes E11.65; Z79.4 Diabetes mellitus type: type 2 Diabetes mellitus intermediate teacher insulin use: with intermediate teacher use Diabetes mellitus complication status: with hyperglycemia Hyperlipidemia E78.2 Hyperlipidemia type: mixed hyperlipidemia
--- NOTE | 2021-01-29 10:53 | PC.NURSE ---
meds to bed called to [facility] pharmacy for her new meds due to her pharmacy is close today.
--- NOTE | 2021-01-29 11:00 | PC.NURSE ---
waiting for home oxygen pt qualifies for oxygen. [facility] is bringing it and then case mgt will set up a transportation.
[2021-01-29 11:09] LABS: Glucose Point of Care 96 mg/dL (70-110)
[2021-01-29 11:51] LABS: Glucose Point of Care 165 mg/dL (70-110)
[2021-01-29 12:25] LABS: Glucose Point of Care 219 mg/dL (70-110)
--- NOTE | 2021-01-29 12:58 | PC.NURSE ---
Discharge Note Patient discharged to home w/home health services via logistic care transportation accompanied by logistic care. Discharge instructions reviewed with patient and/or product representative. Mobile pharmacy medications and/or prescriptions provided. Belongings/home medications returned. Educated pt on her new meds and adjustment to her lantus. Pt teaches back on what to do when she has a low blood sugar and high blood sugar. Pt teaches back that she usually keep a record of her blood sugar levels at home. discharge packet provided to pt.
--- NOTE | 2021-01-29 13:06 | PC.NURSE ---
Addendum entered by Luis F Catherine RN 01/29/21 15:36: Add note: [facility] tstaed they will deliver her neb kit and machine at home. Pt is stating it is okay for them to bring it in her house. Original Note: Son delivered pt's oxygen They said they will deliver her nebulizing machine and kit.
--- NOTE | 2021-01-29 17:04 | PC.NURSE ---
transport arrived for pt through [employer] [facility]. Pt was escorted out via wheelchair.
--- NOTE | 2021-02-01 15:35 | PC.SOCIAL ---
discharge follow up call made. patients follow up appointments made, dates and times given to patient. patient picked up all new medications from her pharmacy and she is taking as prescribed. pt is aware of discontinued and changed medications. patient has SHAILESH MEDINA coming into home and they saw pt today. Pt stopped taking Bumex and is now taking Lasix. Patient denies any questions or concerns.
== END 2021-01-29 17:05 | disposition home or self-care (01) | DRG 291 ==
LOC: ER 16:02 → CSU 21:14
PROVIDERS: Admitting Provider Student in an Organized Health Care Education/Training Program; Emergency Provider Emergency Medicine; Family Provider Family Medicine; PCP Family Medicine; Visit Provider Student in an Organized Health Care Education/Training Program
DX: I13.0 Hypertensive heart and chronic kidney disease with heart failure and stage 1 through stage 4 chronic kidney disease, or unspecified chronic kidney disease (principal); I50.43 Acute on chronic combined systolic (congestive) and diastolic (congestive) heart failure; N17.9 Acute kidney failure, unspecified; N18.9 Chronic kidney disease, unspecified; E11.22 Type 2 diabetes mellitus with diabetic chronic kidney disease; I25.10 Atherosclerotic heart disease of native coronary artery without angina pectoris; Z95.5 Presence of coronary angioplasty implant and graft; J43.9 Emphysema, unspecified; E78.2 Mixed hyperlipidemia; G56.03 Carpal tunnel syndrome, bilateral upper limbs; F17.210 Nicotine dependence, cigarettes, uncomplicated; I25.2 Old myocardial infarction; E03.9 Hypothyroidism, unspecified; I35.0 Nonrheumatic aortic (valve) stenosis; I34.0 Nonrheumatic mitral (valve) insufficiency; Z79.84 Long term (current) use of oral hypoglycemic drugs; Z79.02 Long term (current) use of antithrombotics/antiplatelets
CPT/HCPCS: 36415; 36416; 36600; 51702; 71045; 71250; 76770; 76857; 78014; 80048; 80053; 80061; 81003; 82436; 82570; 82803; 82962; 83540; 83550; 83630; 83880; 84133; 84145; 84300; 84439; 84443; 84481; 84484; 85025; 85378; 85999; 86403; 87040; 87086; 87426; 87449; 87493; 87506; 87635; 87641; 87804; 93005; 93306; 93970; 94640; 96365; 96372; 96375; 99285; A9540; A9567; J0696; J1200; J1644; J1815 ×2; J1940; J2920; J2930; J3490; J7626; Q0144

== ENCOUNTER 2021-02-07 12:53 | Inpatient (IN) | payer MEDICARE, MEDICAID, SELFPAY ==
[2021-02-07] VITALS (75 sets, daily range): BP systolic 86–147; BP diastolic 46–70; PULSE 50–68; RESP 9–39; TEMP 37.1; O2SAT 20–99
--- NOTE | 2021-02-07 12:59 | XR_ITS ---
WS: [id number] PORTABLE CHEST HISTORY: dyspnea/cough COMPARISON: 01/26/2021 Patient is rotated to the RIGHT. Mild pulmonary congestion. No mass. No pleural effusion or pneumothorax. Cardiac size: Moderately enlarged cardiac silhouette. Mediastinum/Aorta: Mildly widened mediastinum is positional. No osseous abnormality seen. Prior cholecystectomy. XR/XR chest 1V portable [id number] IMPRESSION: Cardiomegaly and mild CHF.
--- NOTE | 2021-02-07 13:00 | ECG_ITS ---
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1945 Requested By: Ayaan Irby Order Number: [id number] Reading MD: MARYAN OSEGUERA Measurements Intervals [place] Rate: 56 P: 20 [place]: 225 QRS: -30 QRSD: 177 T: 3 QT: 503 QTc: 488 Interpretive Statements SINUS BRADYCARDIA WITH FIRST DEGREE AV BLOCK LEFT BUNDLE BRANCH BLOCK [120+ ms QRS DURATION, 80+ ms Q/S IN V1/V2, 85+ ms R IN I/aVL/V5/V6] Compared to ECG 01/29/2021 08:53:14 First degree AV block now present Left bundle-branch block now present Sinus rhythm no longer present Ventricular premature complex(es) no longer present Left-axis deviation no longer present Intraventricular conduction delay no longer present Electronically Signed On 02-07-2021 20:19:42 CDT by MARYAN OSEGUERA [id number] f
--- NOTE | 2021-02-07 13:00 | CT_ITS ---
WS: [id number] CT HEAD NONCONTRAST HISTORY: AMS TECHNIQUE: Contiguous axial imaging performed through the brain in 2.5 mm imaging. Bone and soft tiss ue windows. Sagittal and coronal reformats reviewed. All CT scans at [facility] use at least one of these dose optimization techniques: automated exposure control; mA and/or kV adjustment per pa tient size (includes targeted exams where dose is matched to clinical indication); or iterative recon struction. DLP: 828.22 mGy.cm COMPARISON: 11/28/2017 No acute intracranial hemorrhage, midline shift or mass effect. Mild atrophy and mild chronic microvascular ischemic disease. There is moderate artifact through the RIGHT brain from the cochlear implant. Ventricles: Normal size with no hydrocephalus. Paranasal sinuses: As visualized are clear. Mastoid air cells: Well pneumatized. Calvarium and scalp: Skull is intact with no soft tissue edema or swelling. Mild atherosclerotic plaque in the intracranial carotid arteries. CT/CT head wo con* [id number] IMPRESSION: 1. No acute intracranial hemorrhage or edema. 2. Mild atrophy and mild chronic microvascular ischemic disease.
[2021-02-07 13:06] LABS: ABG PCO2 63.7 mmHg (35-45); ABG PH Result 7.21 (7.35-7.45); Alveolar-Arterial Oxygen Gradi 13.4 mmHg (5-10); Arterial Blood Gas Hematocrit 40.4 % (37-47); Base Excess ABG -3.9 mmol/L (-2.0-2.0); Blood Gas Operator Identificat AMH; Blood Gas Sample Site Brachial, right; Blood Gas Sample Type Arterial; Carboxyhemoglobin 5.5 %THgb (0.4-20.1); HCO3 ABG 25.2 mmol/L (22-26); HGB O2 Sat 88.7 % (95-100); Ionized Calcium Level - ABG 1.2 mmol/L (1.1-1.4); Methemoglobin 0.2 % (0.4-1.5); Oxygen Device NC; Oxygen Saturation ABG 94.1; Potassium Level - ABG 4.3 mmol/L (3.5-5.0); Total Hemoglobin 13.2 g/dL (12-16)
[2021-02-07 13:08] LABS: Glucose Point of Care 97 mg/dL (70-110)
[2021-02-07 13:26] LABS: Basophils % 0.1 %; Eosinophils # 0.1 10^3/uL (0.0-0.8); Eosinophils % 0.8 %; Lymphocytes % 7.5 %; Mean Corpuscular HGB Conc 30.2 g/dL (30.0-36.0); Mean Corpuscular Hemoglobin 29.2 pg (28.0-34.0); Mean Corpuscular Volume 96.6 fl (81-99); Mean Platelet Volume 11.3 fL (7.4-10.4); Monocytes # 0.9 10^3/uL (0.2-0.9); Monocytes % 6.7 %; Neutrophils # 11.09 10^3/uL (1.8-7.7); Neutrophils % 82.7 %; Nucleated Red Blood Cells % 0 %; Platelet Count 289 10^3/cmm (130-400); Red Blood Count 4.45 10^6/uL (4.1-5.3); Red Cell Distribution Width 15.7 % (12.1-15.1); White Blood Count 13.4 10^3/uL (4.0-10.0)
[2021-02-07 13:46] LABS: Ketone (Acetest) Serum Negative (Negative)
--- NOTE | 2021-02-07 13:50 | PC.NURSE ---
Per ERP, epinephrine is to be started in the peripheral line until further instruction.
[2021-02-07 13:56] LABS: Troponin(5th) Baseline 66 ng/L (0-10)
[2021-02-07 13:58] LABS: Alanine Aminotransferase 14 U/L (0-33); Albumin Level 3.6 g/dL (3.5-5.2); Alkaline Phosphatase 68 IU/L (35-105); Anion Gap 20.4 (5-19); Aspartate Amino Transferase 11 U/L (0-32); Calcium 8.3 mg/dL (8.5-10.5); Carbon Dioxide 23 mmol/L (22-29); Chloride 105 mmol/L (98-107); Creatine Phosphokinase 46 U/L (26-192); Globulin 2.9 g/dL (1.3-4.6); Glucose 77 mg/dL (65-115); Magnesium 2.6 mg/dL (1.7-2.3); Osmolality Calculated 325 mOsm/kg (285-295); Potassium 4.4 mmol/L (3.5-5.1); Sodium 144 mmol/L (136-145); Total Bilirubin 0.2 mg/dL (0.15-1.2); Total Protein 6.5 g/dL (6.6-8.7)
[2021-02-07] MEDS: sodium chloride 0.9% 500 ML IV (14:00)
[2021-02-07 14:08] LABS: Blood Urea Nitrogen 91 mg/dL (8-23)
--- NOTE | 2021-02-07 14:10 | ED_ITS ---
HPI - General Adult General: Chief complaint: General Medical Stated complaint: diaph Time Seen by Provider: 02/07/21 12:53 History of Present Illness: HPI narrative: 75-year-old female presents emergency room via air VAC. He was at her primary care doctor's office altered mental status lethargic diaphoretic and hypoxic as well as hypoglycemic. She did respond to glucose but her altered mental status persisted as did her hypotension. Onset (ago): unknown Severity: severe Pain Consistency: constant Relieving factors: none Exacerbating factors: none Associated symptoms: Reports confusion, cough, diaphoresis, dyspnea, malaise, short of breath and weakness; Deny chest pain, decreased appetite, fevers/chills, headache(s), nausea, rash, palpitations, seizures, syncope or vomiting Treatments prior to arrival: none Review of Systems Const: Reports: malaise and diaphoresis ENMT: Denies: throat pain, ear or mastoid pain, nasal discharge or nasal congestion Card: Denies: chest pain, palpitations or syncope Resp: Reports: dyspnea GI: Denies: nausea or vomiting : Denies: flank pain, difficulty voiding, dysuria, urinary frequency or urinary urgency Skin/Breast: Denies: rash Neuro: Reports: confusion; Denies: headache(s) PFSH ED PFSH: Medical History Acute exacerbation of CHF (congestive heart failure) Echocardiogram done January 2021 showed an EF of 40% with global LV hypokinesia, moderate , moderate MR Bifascicular bundle branch block Bilateral carpal tunnel syndrome CAD (coronary artery disease) Cellulitis, face Cellulitis, face Chronic pain due to injury COPD exacerbation DDD (degenerative disc disease) Diabetes Enrolled in chronic care management Hyperlipidemia Hypoglycemic episode in patient with diabetes mellitus Hypoxemia Impetigo contagiosa Insomnia Moderate aortic stenosis Moderate mitral regurgitation Renal disorder Sciatica associated with disorder of lumbar spine Transient retinal arterial occlusion, bilateral Type II respiratory failure Ulnar neuropathy of both upper extremities Wrist pain, acute Family History Other CAD (coronary artery disease) Chronic kidney disease (CKD) Denies family history of Cancer Social History Alcohol intake: never Adopted: No Caregiver/support person: No Lives independently: Yes Household members: family Housing: House Physical Exam HENMT: COMMON NORMALS: normocephalic and atraumatic HEAD & SCALP: normocephalic and atraumatic Resp: COMMON NORMALS: normal respiratory effort, No retractions, No use of accessory muscles and clear to auscultation bilaterally AUSCULTATION: clear to auscultation bilaterally Cardio: COMMON NORMALS: regular rate and regular rhythm RATE: regular rate RHYTHM: regular rhythm HEART SOUNDS: Murmur heart sound present systolic Location: right sternal border Radiation: to the neck Intensity: III/ Timing: late GI: COMMON NORMALS: Soft to palpation and No hepatosplenomegaly present AUSCULTATION: Yes normoactive bowel sounds PALPATION: Yes Soft to palpation, No Tenderness to palpation present (GI), No Guarding due to palpation present (GI) and Yes No hepatosplenomegaly present Extremity: COMMON NORMALS: normal to inspection, capillary refill normal, no clubbing, cyanosis or edema, no calf tenderness and no pedal edema Skin: COMMON NORMALS: no rashes or lesions noted GENERAL SKIN EXAM: no rashes or lesions noted Course Vital Signs: Vital signs: Vital Signs Temperature 98.8 F 02/07/21 13:36 Pulse Rate 56 L 02/08/21 05:22 Respiratory Rate 24 H 02/08/21 04:20 Blood Pressure 102/48 02/08/21 04:20 Pulse Oximetry 95 02/08/21 04:20 MDM - General Adult MDM Narrative: Medical decision making narrative: On initial evaluation patient appears to have exacerbation of COPD in mild respiratory distress. Additionally she has acute kidney injury. Labs imaging EKG reviewed as found in the chart. Patient will be admitted to. Currently she is on BiPAP is started on prophylactic antibiotics. She is currently on Levophed for hypotension. She has been given gentle rehydration because of her history of heart failure. Lab Data: Labs: Lab Results 02/07/21 02/07/21 02/07/21 12:55 13:00 13:00 WBC 13.4 10^3/uL H 10 ^3/uL (4.0-10.0) RBC 4.45 10^6/uL 10^6 /uL (4.1-5.3) Hgb 13.0 g/dL g/dL (11.5-15.3) Hct 43.0 % % (37.0-47.0) MCV 96.6 fl fl (81-99) MCH 29.2 pg pg (28.0-34.0) MCHC 30.2 g/dL g/dL (30.0-36.0) RDW 15.7 % H % (12.1-15.1) Plt Count 289 10^3/cmm 10^3 /cmm (130-400) MPV 11.3 fL H fL (7.4-10.4) Neut % (Auto) 82.7 % % Lymph % (Auto) 7.5 % % [place] % (Auto) 6.7 % % Eos % (Auto) 0.8 % % Baso % (Auto) 0.1 % % Neut # (Auto) 11.09 10^3/uL H 1 0^3/uL (1.8-7.7) Lymph # (Auto) 1.0 10^3/uL 10^3/ uL (0.8-4.8) [place] # (Auto) 0.9 10^3/uL 10^3/ uL (0.2-0.9) Eos # (Auto) 0.1 10^3/uL 10^3/ uL (0.0-0.8) Baso # (Auto) 0.0 10^3/uL 10^3/ uL (0.0-0.1) Nucleated RBC % (a uto) 0 % % Nucleated RBCs # 0.0 /100WBC /100W BC D-Dimer Specimen Type Arterial Sample Site Brachial, right ABG pH 7.21 L (7.35-7.45) ABG pCO2 63.7 mmHg H* mmHg (35-45) ABG pO2 77.0 mmHg L mmHg (80.0-100.0) ABG HCO3 25.2 mmol/L mmol/ L (22-26) ABG O2 Saturation 94.1 ABG Base Excess -3.9 mmol/L L mmo l/L (-2.0-2.0) Juan Carlos Test N/a A-a O2 Gradient 13.4 mmHg H mmHg (5-10) Hematocrit 40.4 % % (37-47) Hgb O2 Saturation 88.7 % L % (95-100) Carboxyhemoglobin 5.5 %THgb %THgb (0.4-20.1) Methemoglobin 0.2 % L % (0.4-1.5) Total Hemoglobin 13.2 g/dL g/dL (12-16) Sodium 144.0 mmol/L H mm ol/L 144 mmol/L mmol/L (131-143) (136-145) Potassium 4.3 mmol/L mmol/L 4.4 mmol/L mmol/L (3.5-5.0) (3.5-5.1) Glucose 90.0 mg/dL mg/dL 77 mg/dL mg/dL (70-115) (65-115) Ionized Calcium 1.2 mmol/L mmol/L (1.1-1.4) O2 Delivery Device Nc O2 Liters/Min 4.0 % % FiO2 36.0 % % Crane Engineer ID Amh Chloride 105 mmol/L mmol/L (98-107) Carbon Dioxide 23 mmol/L mmol/L (22-29) Anion Gap 20.4 H (5-19) BUN 91 mg/dL H* D mg/ dL (8-23) Creatinine 2.3 mg/dL H mg/dL (0.5-0.9) GFR Calculation Not Reportable POC Glucose Calculated Osmolal ity 325 mOsm/kg H mOs m/kg (285-295) Lactic Acid Calcium 8.3 mg/dL L mg/dL (8.5-10.5) Magnesium 2.6 mg/dL H mg/dL (1.7-2.3) Total Bilirubin 0.2 mg/dL mg/dL (0.15-1.2) AST 11 U/L U/L (0-32) ALT 14 U/L U/L (0-33) Alkaline Phosphata se 68 IU/L IU/L (35-105) Creatine Kinase 46 U/L U/L (26-192) Troponin T Baselin e Troponin T 120 Min [place] Troponin T Troponin T Hi Sens 6Hr Troponin T Hi Sens 6Hr Delta Total Protein 6.5 g/dL L g/dL (6.6-8.7) Albumin 3.6 g/dL g/dL (3.5-5.2) Globulin 2.9 g/dL g/dL (1.3-4.6) Procalcitonin Random Cortisol Urine Color Urine Appearance Urine pH Ur Specific Gravit y Urine Protein Urine Glucose (UA) Urine Ketones Urine Blood Urine Nitrate Urine Bilirubin Urine Urobilinogen Ur Leukocyte Kandy ase Urine RBC Urine WBC Ur Squamous Epith Cells Amorphous Sediment Urine Bacteria Ur Random Sodium Ur Random Potassiu m Ur Random Chloride Serum Ketones 02/07/21 02/07/21 02/07/21 13:00 13:00 13:00 WBC RBC Hgb Hct MCV MCH MCHC RDW Plt Count MPV Neut % (Auto) Lymph % (Auto) [place] % (Auto) Eos % (Auto) Baso % (Auto) Neut # (Auto) Lymph # (Auto) [place] # (Auto) Eos # (Auto) Baso # (Auto) Nucleated RBC % (a uto) Nucleated RBCs # D-Dimer Specimen Type Sample Site ABG pH ABG pCO2 ABG pO2 ABG HCO3 ABG O2 Saturation ABG Base Excess [place] Test A-a O2 Gradient Hematocrit Hgb O2 Saturation Carboxyhemoglobin Methemoglobin Total Hemoglobin Sodium Potassium Glucose Ionized Calcium O2 Delivery Device O2 Liters/Min FiO2 Crane Engineer ID Chloride Carbon Dioxide Anion Gap BUN Creatinine GFR Calculation POC Glucose Calculated Osmolal ity Lactic Acid 1.0 mmol/L mmol/L (0.5-2.2) Calcium Magnesium Total Bilirubin AST ALT Alkaline Phosphata se Creatine Kinase Troponin T Baselin e 66 ng/L H ng/L (0-10) Troponin T 120 Min [place] Troponin T Troponin T Hi Sens 6Hr Troponin T Hi Sens 6Hr [place] Total Protein Albumin Globulin Procalcitonin Random Cortisol Urine Color Urine Appearance Urine pH Ur Specific Gravit y Urine Protein Urine Glucose (UA) Urine Ketones Urine Blood Urine Nitrate Urine Bilirubin Urine Urobilinogen Ur Leukocyte Kandy ase Urine RBC Urine WBC Ur Squamous Epith Cells Amorphous Sediment Urine Bacteria Ur Random Sodium Ur Random [place] m Ur Random Chloride Serum Ketones Negative (Negative) 02/07/21 02/07/21 02/07/21 13:00 13:01 14:30 WBC RBC Hgb Hct MCV MCH MCHC RDW Plt Count MPV Neut % (Auto) Lymph % (Auto) [place] % (Auto) Eos % (Auto) Baso % (Auto) Neut # (Auto) Lymph # (Auto) [place] # (Auto) Eos # (Auto) Baso # (Auto) Nucleated RBC % (a uto) Nucleated RBCs # D-Dimer 1.24 ug/mIFEU H u g/mIFEU (0-0.59) Specimen Type Sample Site ABG pH ABG pCO2 ABG pO2 ABG HCO3 ABG O2 Saturation ABG Base Excess [place] Test A-a O2 Gradient Hematocrit Hgb O2 Saturation Carboxyhemoglobin Methemoglobin Total Hemoglobin Sodium Potassium Glucose Ionized Calcium O2 Delivery Device O2 Liters/Min FiO2 Crane Engineer ID Chloride Carbon Dioxide Anion Gap BUN Creatinine GFR Calculation POC Glucose 97 mg/dL mg/dL (70-110) Calculated Osmolal ity Lactic Acid Calcium Magnesium Total Bilirubin AST ALT Alkaline Phosphata se Creatine Kinase Troponin T Baselin e Troponin T 120 Min [place] Troponin T Troponin T Hi Sens 6Hr Troponin T Hi Sens 6Hr [place] Total Protein Albumin Globulin Procalcitonin Random Cortisol Urine Color Yellow (Yellow) Urine Appearance Hazy A (CLEAR) Urine pH 5 (5-7) Ur Specific Gravit y 1.015 (1.005-1.030) Urine Protein Neg (Negative) Urine Glucose (UA) Norm (Normal) Urine Ketones Negative (Negative) Urine Blood Neg (Negative) Urine Nitrate Negative (Negative) Urine Bilirubin Neg (Negative) Urine Urobilinogen Norm mg/dL mg/dL (Negative) Ur Leukocyte Kandy ase Negative (Negative) Urine RBC None /hpf /hpf (0-2) Urine WBC None /hpf /hpf (0-5) Ur Squamous Epith Cells 0-4 /hpf H /hpf (0-5) Amorphous Sediment 1+ /hpf /hpf Urine Bacteria Trace /hpf /hpf (NONE) Ur Random Sodium Ur Random [place]ass[place] m Ur Random Chloride Serum Ketones 02/07/21 02/07/21 02/07/21 14:30 15:15 15:15 WBC RBC Hgb Hct MCV MCH MCHC RDW Plt Count MPV Neut % (Auto) Lymph % (Auto) [place] % (Auto) Eos % (Auto) Baso % (Auto) Neut # (Auto) Lymph # (Auto) [place] # (Auto) Eos # (Auto) Baso # (Auto) Nucleated RBC % (a uto) Nucleated RBCs # D-Dimer Specimen Type Sample Site ABG pH ABG pCO2 ABG pO2 ABG HCO3 ABG O2 Saturation ABG Base Excess [place] Test A-a O2 Gradient Hematocrit Hgb O2 Saturation Carboxyhemoglobin Methemoglobin Total Hemoglobin Sodium Potassium Glucose Ionized Calcium O2 Delivery Device O2 Liters/Min FiO2 Crane Engineer ID Chloride Carbon Dioxide Anion Gap BUN Creatinine GFR Calculation POC Glucose Calculated Osmolal ity Lactic Acid Calcium Magnesium Total Bilirubin AST ALT Alkaline Phosphata se Creatine Kinase Troponin T Baselin e Troponin T 120 Min [place] 64.80 ng/L H ng/L (0-10) Delta Troponin T -1.20 ABS# L ABS# (0-10) Troponin T Hi Sens 6Hr Troponin T Hi Sens 6Hr Delta Total Protein Albumin Globulin Procalcitonin 0.16 ng/mL ng/mL (0-0.5) Random Cortisol Urine Color Urine Appearance Urine pH Ur Specific Gravit y Urine Protein Urine Glucose (UA) Urine Ketones Urine Blood Urine Nitrate Urine Bilirubin Urine Urobilinogen Ur Leukocyte Kandy ase Urine RBC Urine WBC Ur Squamous Epith Cells Amorphous Sediment Urine Bacteria Ur Random Sodium 25 mmol/L mmol/L Ur Random [place] m 38 mmol/L mmol/L Ur Random Chloride 40 mmol/L mmol/L Serum Ketones 02/07/21 02/07/21 02/07/21 15:15 16:21 16:52 WBC RBC Hgb Hct MCV MCH MCHC RDW Plt Count MPV Neut % (Auto) Lymph % (Auto) [place] % (Auto) Eos % (Auto) Baso % (Auto) Neut # (Auto) Lymph # (Auto) [place] # (Auto) Eos # (Auto) Baso # (Auto) Nucleated RBC % (a uto) Nucleated RBCs # D-Dimer Specimen Type Arterial Sample Site Radial, right ABG pH 7.19 L (7.35-7.45) ABG pCO2 63.2 mmHg H* mmHg (35-45) ABG pO2 74.6 mmHg L mmHg (80.0-100.0) ABG HCO3 24.1 mmol/L mmol/ L (22-26) ABG O2 Saturation 93.3 ABG Base Excess -5.2 mmol/L L mmo l/L (-2.0-2.0) Juan Carlos Test Pos A-a O2 Gradient 6.3 mmHg mmHg (5-10) Hematocrit 42.1 % % (37-47) Hgb O2 Saturation 88.3 % L % (95-100) Carboxyhemoglobin 4.3 %THgb %THgb (0.4-20.1) Methemoglobin 1.1 % % (0.4-1.5) Total Hemoglobin 13.7 g/dL g/dL (12-16) Sodium 145.0 mmol/L H mm ol/L (131-143) Potassium 4.4 mmol/L mmol/L (3.5-5.0) Glucose 114.0 mg/dL mg/dL (70-115) Ionized Calcium 1.2 mmol/L mmol/L (1.1-1.4) O2 Delivery Device Bipap O2 Liters/Min FiO2 28.0 % % Crane Engineer ID Cak Chloride Carbon Dioxide Anion Gap BUN Creatinine GFR Calculation POC Glucose 85 mg/dL mg/dL (70-110) Calculated Osmolal ity Lactic Acid Calcium Magnesium Total Bilirubin AST ALT Alkaline Phosphata se Creatine Kinase Troponin T Baselin e Troponin T 120 Min [place] Troponin T Troponin T Hi Sens 6Hr Troponin T Hi Sens 6Hr [place] Total Protein Albumin Globulin Procalcitonin Random Cortisol 9.39 ug/dL ug/dL (2.47-19.5) Urine Color Urine Appearance Urine pH Ur Specific Gravit y Urine Protein Urine Glucose (UA) Urine Ketones Urine Blood Urine Nitrate Urine Bilirubin Urine Urobilinogen Ur Leukocyte Kandy ase Urine RBC Urine WBC Ur Squamous Epith Cells Amorphous Sediment Urine Bacteria Ur Random Sodium Ur Random [place] m Ur Random Chloride Serum Ketones 02/07/21 02/07/21 02/07/21 18:03 18:45 18:45 WBC RBC Hgb Hct MCV MCH MCHC RDW Plt Count MPV Neut % (Auto) Lymph % (Auto) [place] % (Auto) Eos % (Auto) Baso % (Auto) Neut # (Auto) Lymph # (Auto) [place] # (Auto) Eos # (Auto) Baso # (Auto) Nucleated RBC % (a uto) Nucleated RBCs # D-Dimer Specimen Type Arterial Sample Site Radial, right ABG pH 7.21 L (7.35-7.45) ABG pCO2 59.6 mmHg H mmHg (35-45) ABG pO2 79.4 mmHg L mmHg (80.0-100.0) ABG HCO3 23.8 mmol/L mmol/ L (22-26) ABG O2 Saturation 95.5 ABG Base Excess -5.0 mmol/L L mmo l/L (-2.0-2.0) Juan Carlos Test Pos A-a O2 Gradient 6.2 mmHg mmHg (5-10) Hematocrit 42.5 % % (37-47) Hgb O2 Saturation 90.8 % L % (95-100) Carboxyhemoglobin 3.9 %THgb %THgb (0.4-20.1) Methemoglobin 1.0 % % (0.4-1.5) Total Hemoglobin 13.9 g/dL g/dL (12-16) Sodium 144.0 mmol/L H mm ol/L (131-143) Potassium 4.5 mmol/L mmol/L (3.5-5.0) Glucose 101.0 mg/dL mg/dL (70-115) Ionized Calcium 1.2 mmol/L mmol/L (1.1-1.4) O2 Delivery Device Bipap O2 Liters/Min FiO2 28.0 % % Crane Engineer ID Amh Chloride Carbon Dioxide Anion Gap BUN Creatinine GFR Calculation POC Glucose 93 mg/dL mg/dL (70-110) Calculated Osmolal ity Lactic Acid Calcium Magnesium Total Bilirubin AST ALT Alkaline Phosphata se Creatine Kinase Troponin T Baselin e Troponin T 120 Min [place] Troponin T Troponin T Hi Sens 6Hr 48.55 ng/L H ng/L (0-10) Troponin T Hi Sens 6Hr Delta -17.45 ng/L L ng/ L (0-12) Total Protein Albumin Globulin Procalcitonin Random Cortisol Urine Color Urine Appearance Urine pH Ur Specific Gravit y Urine Protein Urine Glucose (UA) Urine Ketones Urine Blood Urine Nitrate Urine Bilirubin Urine Urobilinogen Ur Leukocyte Kandy ase Urine RBC Urine WBC Ur Squamous Epith Cells Amorphous Sediment Urine Bacteria Ur Random Sodium Ur Random Potass[place] m Ur Random Chloride Serum Ketones Discharge Plan Discharge Patient Disposition: Admitted As Inpatient Admit Provider: Compa Herman Clinical Impression: Septic shock, Encephalopathy acute, Acute on chronic renal insufficiency, Acute exacerbation of CHF (congestive heart failure), COPD exacerbation, Moderate aortic stenosis Condition: Stable Coding Level of Care Code ED Manager Furniture for Terrenceg Fwd Exam Comprehensive
--- NOTE | 2021-02-07 14:25 | PC.PHAR ---
PT UNABLE TO VERIFY - VERIFIED BY LAST FILLS BY [facility] AND DISCHARGE PAPERWORK.
[2021-02-07] MEDS: sodium chloride 0.9% 500 ML 999 ML IV (14:47)
[2021-02-07 14:55] LABS: Add Urine Microscopic? YES; Bilirubin Urine Neg (Negative); Blood Urine Neg (Negative); Glucose Urine UA Norm (Normal); Ketones Urine Negative (Negative); Leukocyte Esterase Urine Negative (Negative); Nitrate Urine Negative (Negative); Protein Urine Neg (Negative); Specific Gravity, Urine 1.015 (1.005-1.030); Urine Appearance Hazy (CLEAR); Urine Color Yellow (Yellow); Urobilinogen Urine Norm (Negative); pH Urine 5 (5-7)
[2021-02-07 14:59] LABS: Add Urine Culture? No; Amorphous Sediment Urine 1+ /hpf; Bacteria Urine TRACE /hpf; Squamous Epithelial Cell Urine 0-4 /hpf (0-5)
--- NOTE | 2021-02-07 15:00 | ECG_ITS ---
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1945 Requested By: Ayaan Irby Order Number: [id number] Reading MD: MARYAN OSEGUERA Measurements Intervals [place] Rate: 57 P: 62 VA: 247 QRS: -29 QRSD: 179 T: -2 QT: 481 QTc: 470 Interpretive Statements SINUS BRADYCARDIA WITH FIRST DEGREE AV BLOCK LEFT BUNDLE BRANCH BLOCK [120+ ms QRS DURATION, 80+ ms Q/S IN V1/V2, 85+ ms R IN I/aVL/V5/V6] Compared to ECG 02/07/2021 13:22:20 No significant changes Electronically Signed On 02-07-2021 20:23:03 CDT by MARYAN OSEGUERA [id number]
--- NOTE | 2021-02-07 15:12 | CTR_ITS ---
PROCEDURE INFORMATION: Exam: CT Chest Without Contrast; Diagnostic Exam date and time: 02/07/2021 3:12 PM Age: 75 years old Clinical indication: Abdominal tenderness; Shortness of breath; Prior surgery; Surgery type: Hyst; Patient HX: PT intubated. Limited HX; Additional info: Shock TECHNIQUE: Imaging protocol: Diagnostic computed tomography of the chest without contrast. Radiation optimization: All CT scans at this facility use at least one of these dose optimization techniques: automated exposure control; mA and/or kV adjustment per patient size (includes targeted exams where dose is matched to clinical indication); or iterative reconstruction. COMPARISON: CT chest [facility] [id number] 01/26/2021 6:45 PM RADIATION DOSE METRICS: Total DLP (mGy-cm): 2493.98 FINDINGS: Lungs: Interstitial thickening more prominent in the dependent portions of both lungs where there is minimal atelectasis. No lobar consolidation. No mass or cavitary lesion. Pleural spaces: No pneumothorax. No pleural effusion. Heart: Cardiomegaly, no pericardial effusion. Aorta: No aortic aneurysm. Lymph nodes: No significant adenopathy. Bones/joints: No acute findings. Soft tissues: Unremarkable. IMPRESSION: Nonspecific interstitial thickening consistent with edema. Minimal bilateral atelectasis. PROCEDURE INFORMATION: Exam: CT Abdomen And Pelvis Without Contrast Exam date and time: 02/07/2021 3:12 PM Age: 75 years old Clinical indication: Abdominal tenderness; Shortness of breath; Prior surgery; Surgery type: Hyst; Patient HX: PT intubated. Limited HX; Additional info: Shock TECHNIQUE: Imaging protocol: Computed tomography of the abdomen and pelvis without contrast. Radiation optimization: All CT scans at this facility use at least one of these dose optimization techniques: automated exposure control; mA and/or kV adjustment per patient size (includes targeted exams where dose is matched to clinical indication); or iterative reconstruction. COMPARISON: CT chest [facility] [id number] 01/26/2021 6:45 PM RADIATION DOSE METRICS: Total DLP (mGy-cm): 2493.98 FINDINGS: Liver: No mass. Gallbladder and bile ducts: Unremarkable. No ductal dilation. Pancreas: Normal. No ductal dilation. Spleen: Normal. No splenomegaly. Adrenal glands: Normal. No mass. Kidneys and ureters: No calculus or hydronephrosis. Stomach and bowel: Postoperative change in the stomach. Gastric distention, no wall thickening. Moderate fecal material in the ascending colon which is dilated. Appendix: No evidence of appendicitis. Intraperitoneal space: Unremarkable. No free air. No significant fluid collection. Vasculature: No abdominal aortic aneurysm. Lymph nodes: No significant adenopathy. Urinary bladder: Bladder catheter, nondistended. Reproductive: Hysterectomy. Bones/joints: No acute findings. Soft tissues: Postoperative change in the anterior abdominal wall. CT/CT chest abd pel wo con IMPRESSION: Nonspecific gastric and colonic dilatation. Radiation Dose CTDIVOL = (mGy): DLP = 2493.98~2493.98 (mGy-cm)
[2021-02-07] MEDS: piperacillin-tazobactam 3.375 GM in sodium chloride 0.9% (plus) 50 ML IV ×2 (15:15→23:06)
[2021-02-07] MEDS: vancomycin 1,000 MG in sodium chloride 0.9% 250 ML 250 MG IV (15:16)
[2021-02-07 16:23] LABS: Glucose Point of Care 85 mg/dL (70-110)
--- NOTE | 2021-02-07 16:29 | PC.NURSE ---
At approximately 1515 ERP notified that pt is becoming harder to arouse by verbal stimuli, is reaching to take off her bipap mask, and that levophed is still running through the 18ga IV in the hand. No new orders. Hospitalist at bedside at approximately 1610 and notified of pt's decline and IV status with levophed running. Hospitalist gives verbal orders for repeat ABG in one hour and a repeat BG. No further orders.
--- NOTE | 2021-02-07 16:50 | P.HP_ITS ---
Providers/Chief Complaint Admitting Physician: Compa Herman MD Primary Care Provider: Milan Mitchell DO Chief Complaint: diaph History of Present Illness Balbina Martínez is a 75 year old female with history of CAD, post multiple stent last 5 to 6 years ago, type DC x3, hypertension, congestive heart failure with reduced ejection fraction, moderate aortic stenosis, moderate mitral regurgitation, diastolic dysfuNction, CKD with baseline creatinine, insulin- dependent diabetes with recurrent hypoglycemia as an outpatient who was recently in hospital and discharged on January 29. On a previous admission patient was treated for hypoxic respiratory failure secondary to a combination of COPD exacerbation and congestive heart failure exacerbation and was discharged on steroid taper, diuretic therapy, 3 L oxygen supplementation with advised to follow-up with cardiology for further work-up of possible TAVR. Patient was brought in today from her primary care's office because she was found to have episode of confusion and delirium early in the morning. As per the ER physician's documentation patient was lethargic diaphoretic and hypoxic at primary care's office with blood sugars in the 50s so she was brought into the ER via [facility]. Patient received bolus glucose during transportation after which her blood sugars improved but mentation remained the same. In the ER patient was found to have hypotension requiring Levophed. Currently on examination patient is on BiPAP ventilation, on Levophed of 20 with mean of 70, heart rate of 100 bpm, lethargic and confused but responding to verbal and physical stimuli. Blood work in the ER showed white count 13.4(13.5 on recent discharge), hemoglobin of 13, sodium 144, chloride of 105, BUN of 91, creatinine of 2.3, lactate of 1, magnesium of 2.6, baseline troponin of 66 with delta of -1 in 2 hours, UA negative for any signs of infection, serum ketones negative, ABG showing a pH of 7.21, PCO2 of 63.7, PO2 of 77 Review of Systems General: Reports: ROS unobtainable due to mental status Medications/Allergies Home Medications Medication Instructions Recorded Confirmed Last Taken Type blood sugar diagnostic #400 each 11/28/19 02/07/21 Unknown Rx lancets #400 each 11/28/19 02/07/21 Unknown Rx pen needle, diabetic 31 gauge x #30 each 04/26/20 02/07/21 Unknown Rx 16 potassium chloride 20 mEq 20 meq PO BID #60 tab 12/21/20 10/04/21 09/22/21 09:00 Rx tablet,extended release buspirone 10 mg tablet 10 mg PO BID PRN #60 tab 06/04/20 02/07/21 Unknown Rx insulin syringe-needle U-100 1 mL #10 ea 07/21/20 02/07/21 Unknown History 30 gauge x 5/16 venlafaxine 150 mg 150 mg PO QAM #30 cap 07/21/20 02/07/21 01/26/21 09:00 Rx capsule,extended release 24 hr mupirocin 2 % topical ointment 1 applic TOPICAL BID PRN #15 g 10/13/20 02/07/21 Unknown Rx Diabetic Shoes and inserts #1 ea 11/30/20 02/07/21 Unknown Rx blood-glucose meter #1 each 12/08/20 02/07/21 Unknown Rx blood sugar diagnostic #400 ea 12/23/20 02/07/21 Unknown Rx blood-glucose meter #1 ea 12/23/20 02/07/21 Unknown Rx ondansetron 4 mg disintegrating 4 mg PO Q8H PRN #30 tab 01/17/21 02/07/21 Unknown Rx tablet tapentadol 200 mg tablet,extended 200 mg PO BID 30 Days #60 tab 01/20/21 02/07/21 01/25/21 Rx release,12 hr acetaminophen 1,000 mg PO Q4H PRN 01/26/21 02/07/21 Unknown History amiodarone 200 mg PO DAILY 01/26/21 02/07/21 Unknown History calcitriol 0.25 mcg PO DAILY 01/26/21 02/07/21 Unknown History carvedilol 6.25 mg PO BID 01/26/21 02/07/21 01/26/21 09:00 History clopidogrel [Plavix] 75 mg PO QAM 01/26/21 02/07/21 01/26/21 09:00 History donepezil 10 mg PO DAILY 01/26/21 02/07/21 Unknown History fenofibrate nanocrystallized 145 mg PO DAILY 01/26/21 02/07/21 Unknown History fexofenadine [Julia Allergy] 180 mg PO DAILY 01/26/21 02/07/21 Unknown History fluticasone propionate 1 spray INTRANASAL BID PRN 01/26/21 02/07/21 Unknown History glipizide 10 mg PO QAM 01/26/21 02/07/21 01/26/21 History isosorbide mononitrate 60 mg PO DAILY 01/26/21 02/07/21 Unknown History levothyroxine 137 mcg PO QAM 01/26/21 02/07/21 01/26/21 History mirtazapine 15 mg PO BEDTIME 01/26/21 02/07/21 Unknown History nitroglycerin 0.4 mg SUBLINGUAL Q5M PRN 01/26/21 02/07/21 Unknown History omeprazole 20 mg PO QAM 01/26/21 02/07/21 01/26/21 History zolpidem [Ambien] 10 mg PO BEDTIME PRN 01/26/21 02/07/21 Unknown History budesonide [Pulmicort] 0.5 mg INHALATION BID 15 Days #60 01/29/21 02/07/21 Unknown Rx ml enalapril maleate 10 mg PO DAILY #60 tab 01/29/21 02/07/21 01/26/21 09:00 Rx ferrous gluconate 324 mg PO BIDWM 30 Days #60 tab 01/29/21 02/07/21 Unknown Rx furosemide [Lasix] 80 mg PO BID 30 Days #60 tab 01/29/21 02/07/21 Unknown Rx gabapentin 300 mg PO BID #120 cap 01/29/21 02/07/21 01/26/21 09:00 Rx insulin glargine [Lantus U-100 50 unit SUBCUT QAM 30 Days #15 ml 01/29/21 02/07/21 Unknown Rx Insulin] ipratropium-albuterol 3 ml INHALATION TID 30 Days #270 ml 01/29/21 02/07/21 Unknown Rx prednisone See Taper PO DAILY #46 tab 01/29/21 02/07/21 Unknown Rx simvastatin 20 mg PO DAILY #0 tab 01/29/21 02/07/21 Unknown Rx tamsulosin 0.4 mg PO DAILY 30 Days #30 cap 01/29/21 02/07/21 Unknown Rx Allergies Allergy/AdvReac Type Severity Reaction Status Date / Time pentazocine [From Petros] Allergy Intermediate hives Verified 01/26/21 22:26 latex Allergy Mild itching Verified 01/26/21 22:26 morphine Allergy Unknown ADR-Itching Unverified 02/03/21 13:38 PFSH Acute PFSH: Medical History Acute exacerbation of CHF (congestive heart failure) Echocardiogram done January 2021 showed an EF of 40% with global LV hypokinesia, moderate , moderate MR Bifascicular bundle branch block Bilateral carpal tunnel syndrome CAD (coronary artery disease) Cellulitis, face Cellulitis, face Chronic pain due to injury COPD exacerbation DDD (degenerative disc disease) Diabetes Enrolled in chronic care management Hyperlipidemia Hypoglycemic episode in patient with diabetes mellitus Hypoxemia Impetigo contagiosa Insomnia Moderate aortic stenosis Moderate mitral regurgitation Renal disorder Sciatica associated with disorder of lumbar spine Transient retinal arterial occlusion, bilateral Type II respiratory failure Ulnar neuropathy of both upper extremities Wrist pain, acute Family History Other CAD (coronary artery disease) Chronic kidney disease (CKD) Denies family history of Cancer Social History Alcohol intake: never Adopted: No Caregiver/support person: No Lives independently: Yes Household members: family Housing: House Vitals/I&O/Wt Last Vital Signs Temp 98.8 F 02/07/21 13:36 Pulse 57 L 02/07/21 16:17 Resp 16 02/07/21 16:17 BP 107/70 02/07/21 16:17 Pulse Ox 95 02/07/21 16:17 02/07/21 02/07/21 02/07/21 06:59 14:59 22:59 Intake Total 71.755 / 71.755 Balance 71.755 / 71.755 Weight last 48 hrs Weight 94.801 kg Physical Exam Narrative: EXAM NARRATIVE: General: No acute distress, on BiPAP, confused, responding to physical and verbal stimulus. HEENT: PERRLA, pupils bilaterally equal and reactive Chest: Bilateral bronchial breath sounds, rhonchi present all over the lung maciel, equal air entry bilaterally CVS: S1-S2 regular, bradycardia, ejection systolic murmur at aortic area 2/6 radiating to carotids, pansystolic murmur at apex radiating to midaxillary l ine,, no gallops, no rubs Abdomen: Soft, nontender, no organomegaly, bowel sounds present Neuro: No focal deficits, no facial deformity, confused, lethargic, sluggish response Data : 02/07/21 13:00 02/07/21 13:00 Micro: Microbiology 02/07/21 13:00 Blood Culture - Preliminary Blood SPECIMEN COLLECTED 02/07/21 13:05 Blood Culture - Preliminary Blood SPECIMEN COLLECTED A&P Assessment and plan (1) Septic shock: Status: Acute (2) Type II respiratory failure: Status: Acute (3) COPD exacerbation: Status: Acute (4) Acute exacerbation of CHF (congestive heart failure): Status: Acute Qualifiers: Heart failure type: unspecified Qualified Code(s): I50.9 - Heart failure, unspecified (5) Moderate aortic stenosis: Status: Acute (6) Hypoglycemic episode in patient with diabetes mellitus: Status: Acute (7) Encephalopathy acute: Status: Acute (8) Acute on chronic renal insufficiency: Status: Acute Additional A&P Information Septic shock with acute on chronic type II respiratory failure: Unknown source of infection. Check blood culture, lactate, procalcitonin, urine culture, sputum culture, urine Legionella, bacterial antigen, MRSA swab. Check D-dimer, CPK, cortisol level Check CT abdomen chest pelvis without contrast. Gentle IV hydration with normal saline at 75 cc/h by monitor for fluid overload. Repeat ABG in 1 hour. Solu-Medrol 125 mg stat followed by 40 mg every 8 hours. DuoNebs every 4 hours, budesonide twice daily. Hold off on diuresis for now given septic shock and patient looks clinically dry along with acute on chronic kidney disease. Gentle IV hydration with normal saline at 75 cc/h. Echocardiogram done shows an EF of 40% with global LV hypokinesia, moderate aortic stenosis, moderate mitral regurgitation. Metabolic encephalopathy: Most likely combination of hypoglycemia, septic shock, polypharmacy. Continue home dose of donepezil and gabapentin along with mirtazapine. Hold off on venlafaxine. Management as above. We will continue to monitor. Sitter at bedside. Check CT head without contrast. Acute on chronic kidney disease: Baseline creatinine around 1.7-1.9. On recent admission had work-up with urinalysis, urine lites, renal ultrasound. Medical reconciliation done for nephrotoxic drugs. Continue gentle IV hydration as above. Monitor BMP daily for now. No electrolyte abnormality currently. Hypertension: Goal blood pressure with mean over 60 mmHg. Hold off on antihypertensives for now. Type 2 diabetes mellitus: Insulin-dependent with recurrent hypoglycemia. Recent A1c 6.9. Hold off on long-acting insulin. Insulin sliding scale every 4 hours at mild dose protocol. Stop OHS. Most likely patient will be discharged only on insulin sliding scale. Nicotine patch. CODE STATUS: Limited resuscitation as per recent admission. N.p.o. for now. Protonix for PUD prophylaxis. Heparin every 12 hours for DVT prophylaxis. Attestations Medical Necessity Statement*: Admission for more than 2 midnights for management of septic shock with acute on chronic type II respiratory failure, hypoglycemia Critical Care Time: The high probability of a clinically significant, sudden o r life threatening deterioration of the patient's [cardiac, pulmonary, endocrine, neurological] system(s) required my full and direct attention, intervention and personal management. The critical care time is as shown. This time is in addition to time spent performing any reported procedures but includes the following: [x] Data and vital sign review and interpretation [x] Patient assessment, examination and intervention [x] Documentation [x] Medication orders and management Coding Level of Care Code Acute Plastic Eye Technician for [facility] Diagnoses Septic shock A41.9; R65.21 Type II respiratory failure J96.92 COPD exacerbation J44.1 Acute exacerbation of CHF (congestive heart failure) I50.9 Heart failure type: unspecified Moderate aortic stenosis I35.0 Hypoglycemic episode in patient with diabetes mellitus E11.649 Encephalopathy acute G93.40 Acute on chronic renal insufficiency N28.9; N18.9
[2021-02-07 17:03] LABS: ABG PH Result 7.19 (7.35-7.45); Alveolar-Arterial Oxygen Gradi 6.3 mmHg (5-10); Arterial Blood Gas Hematocrit 42.1 % (37-47); Base Excess ABG -5.2 mmol/L (-2.0-2.0); Blood Gas Allen Test Pos; Blood Gas Operator Identificat CAK; Blood Gas Sample Site Radial, right; Blood Gas Sample Type Arterial; Carboxyhemoglobin 4.3 %THgb (0.4-20.1); HCO3 ABG 24.1 mmol/L (22-26); HGB O2 Sat 88.3 % (95-100); Ionized Calcium Level - ABG 1.2 mmol/L (1.1-1.4); Methemoglobin 1.1 % (0.4-1.5); Oxygen Device BIPAP; Oxygen Saturation ABG 93.3; PO2 ABG 74.6 mmHg (80.0-100.0); Potassium Level - ABG 4.4 mmol/L (3.5-5.0); Total Hemoglobin 13.7 g/dL (12-16)
[2021-02-07 17:12] LABS: ABG PCO2 63.2 mmHg (35-45)
[2021-02-07] MEDS: sodium chloride 0.9% 1,000 ML 75 ML IV (17:15)
[2021-02-07 18:01] LABS: D Dimer 1.24 ug/mIFEU (0-0.59)
[2021-02-07 18:02] LABS: Procalcitonin 0.16 ng/mL (0-0.5)
[2021-02-07 18:10] LABS: Potassium, Radom Urine 38 mmol/L; Urine Random Chloride 40 mmol/L; Urine Random Sodium 25 mmol/L
[2021-02-07 18:15] LABS: ABG PCO2 59.6 mmHg (35-45); ABG PH Result 7.21 (7.35-7.45); Alveolar-Arterial Oxygen Gradi 6.2 mmHg (5-10); Arterial Blood Gas Hematocrit 42.5 % (37-47); Blood Gas Allen Test Pos; Blood Gas Operator Identificat AMH; Blood Gas Sample Site Radial, right; Blood Gas Sample Type Arterial; Carboxyhemoglobin 3.9 %THgb (0.4-20.1); HCO3 ABG 23.8 mmol/L (22-26); HGB O2 Sat 90.8 % (95-100); Ionized Calcium Level - ABG 1.2 mmol/L (1.1-1.4); Oxygen Device BIPAP; Oxygen Saturation ABG 95.5; PO2 ABG 79.4 mmHg (80.0-100.0); Potassium Level - ABG 4.5 mmol/L (3.5-5.0); Total Hemoglobin 13.9 g/dL (12-16)
[2021-02-07 18:58] LABS: Glucose Point of Care 93 mg/dL (70-110)
[2021-02-07 19:46] LABS: Troponin 5 6HR 48.55 ng/L (0-10)
[2021-02-07] MEDS: pantoprazole 40 mg SDV IVP (19:53)
[2021-02-07] MEDS: heparin 5,000 unit/mL INJ 1 mL 5000 UNIT SUBCUT (19:54)
[2021-02-07] MEDS: gabapentin 300 mg Capsule PO (19:56)
[2021-02-07] MEDS: mirtazapine 15 mg Tablet PO (19:57)
[2021-02-07] MEDS: budesonide 0.5 mg/2 mL Neb INHALATION (20:21)
[2021-02-07] MEDS: ipratropium-albuterol 3 mL Neb INHALATION ×2 (20:21→23:40)
[2021-02-07 22:06] LABS: Cortisol Random 9.39 ug/dL (2.47-19.5)
[2021-02-07 23:04] LABS: Glucose Point of Care 123 mg/dL (70-110)
[2021-02-08] VITALS (166 sets, daily range): BP systolic 86–132; BP diastolic 36–75; PULSE 48–88; RESP 7–37; TEMP 36.5; O2SAT 71–100
[2021-02-08] MEDS: acetaminophen 325 mg Tablet 650 MG PO ×2 (02:33→17:50)
[2021-02-08] MEDS: ipratropium-albuterol 3 mL Neb INHALATION ×6 (03:08→23:34)
[2021-02-08 03:22] LABS: ABG PCO2 51.6 mmHg (35-45); ABG PH Result 7.31 (7.35-7.45); Arterial Blood Gas Hematocrit 39.4 % (37-47); Base Excess ABG -1.2 mmol/L (-2.0-2.0); Blood Gas Allen Test Pos; Blood Gas Sample Site Radial, right; Blood Gas Sample Type Arterial; Blood Gas Tidal Volume 0.45; HCO3 ABG 25.8 mmol/L (22-26); Oxygen Device BIPAP; PO2 ABG 73.9 mmHg (80.0-100.0)
[2021-02-08 03:43] LABS: Glucose Point of Care 168 mg/dL (70-110)
[2021-02-08] MEDS: norepinephrine 8 MG in dextrose 5 % 500 ML 22.86 MG IV (04:29)
[2021-02-08 05:05] LABS: Basophils % 0.1 %; Hematocrit 41.7 % (37.0-47.0); Hemoglobin 12.7 g/dL (11.5-15.3); Lymphocytes # 0.3 10^3/uL (0.8-4.8); Lymphocytes % 1.7 %; Mean Corpuscular HGB Conc 30.5 g/dL (30.0-36.0); Mean Corpuscular Hemoglobin 29.6 pg (28.0-34.0); Mean Corpuscular Volume 97.2 fl (81-99); Mean Platelet Volume 11.1 fL (7.4-10.4); Monocytes # 0.1 10^3/uL (0.2-0.9); Monocytes % 0.7 %; Neutrophils # 14.36 10^3/uL (1.8-7.7); Neutrophils % 96.4 %; Nucleated Red Blood Cells % 0 %; Platelet Count 237 10^3/cmm (130-400); Red Blood Count 4.29 10^6/uL (4.1-5.3); Red Cell Distribution Width 15.9 % (12.1-15.1); White Blood Count 14.9 10^3/uL (4.0-10.0)
[2021-02-08 05:34] LABS: Alanine Aminotransferase 15 U/L (0-33); Albumin Level 3.4 g/dL (3.5-5.2); Alkaline Phosphatase 52 IU/L (35-105); Anion Gap 19.2 (5-19); Aspartate Amino Transferase 14 U/L (0-32); Calcium 8.3 mg/dL (8.5-10.5); Carbon Dioxide 24 mmol/L (22-29); Chloride 105 mmol/L (98-107); Creatine Phosphokinase 49 U/L (26-192); Globulin 2.5 g/dL (1.3-4.6); Glucose 164 mg/dL (65-115); Magnesium 2.2 mg/dL (1.7-2.3); Osmolality Calculated 326 mOsm/kg (285-295); Phosphorus 7.3 mg/dL (2.5-4.5); Potassium 4.2 mmol/L (3.5-5.1); Sodium 144 mmol/L (136-145); Total Bilirubin 0.4 mg/dL (0.15-1.2); Total Protein 5.9 g/dL (6.6-8.7)
[2021-02-08] MEDS: sodium chloride 0.9% 1,000 ML 75 ML IV (05:37)
[2021-02-08] MEDS: levothyroxine 137 mcg Tablet PO (05:38)
[2021-02-08] MEDS: clopidogrel 75 mg Tablet PO (05:38)
[2021-02-08 05:39] LABS: Blood Urea Nitrogen 82 mg/dL (8-23)
--- NOTE | 2021-02-08 05:41 | PC.NURSE ---
Patient rested overnight, decreased levophed and maintaining WNL V/S. Patient did report pain and called Dr. Driscoll and received orders for Tylenol. No acute episodes overnight. Continue care.
[2021-02-08] MEDS: piperacillin-tazobactam 3.375 GM in sodium chloride 0.9% (plus) 50 ML IV ×3 (06:05→23:58)
[2021-02-08 06:12] LABS: Glucose Point of Care 148 mg/dL (70-110)
[2021-02-08] MEDS: heparin 5,000 unit/mL INJ 1 mL 5000 UNIT SUBCUT ×2 (07:29→20:03)
[2021-02-08] MEDS: pantoprazole 40 mg SDV IVP ×2 (07:29→20:04)
[2021-02-08 07:47] LABS: Glucose Point of Care 135 mg/dL (70-110)
[2021-02-08] MEDS: budesonide 0.5 mg/2 mL Neb INHALATION ×2 (08:00→19:52)
[2021-02-08] MEDS: donepezil 5 MG Tablet 10 MG PO (09:58)
[2021-02-08] MEDS: amiodarone 200 mg Tablet 100 MG PO (09:58)
[2021-02-08] MEDS: gabapentin 300 mg Capsule PO ×2 (09:58→17:50)
[2021-02-08] MEDS: fenofibrate 145 mg Tablet PO (09:59)
[2021-02-08] MEDS: nicotine 7 mg Patch 1 PATCH TRANSDERMA (09:59)
[2021-02-08] MEDS: atorvastatin 40 mg Tablet 20 MG PO (09:59)
[2021-02-08 11:39] LABS: Glucose Point of Care 158 mg/dL (70-110)
[2021-02-08] MEDS: calcium acetate 667 mg Capsule 1334 MG PO ×2 (12:24→17:54)
[2021-02-08] MEDS: TRAMadol 50 mg Tablet PO (12:25)
--- NOTE | 2021-02-08 13:37 | P.PN_ITS ---
Subjective Subjective: Interval history: No acute events overnight. Patient seen multiple times today. 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 Levophed was weaned off. Her mean arterial pressures have remained more than 65 over the night. Documented urine output since today morning more than 2 L Vitals/I&O/Wt Last Vital Signs Temp 98.8 F 02/07/21 13:36 Pulse 58 L 02/08/21 12:30 Resp 16 02/08/21 12:30 BP 123/67 02/08/21 12:30 Pulse Ox 97 02/08/21 12:30 02/07/21 02/08/21 02/08/21 22:59 06:59 14:59 Intake Total 1482.245 / 3588.169 3392.839 / 2576.839 776.781 / 776.781 Output Total 1000 / 1000 1150 / 1150 Balance 1482.245 / 1554.000 22.839 / 1576.839 -373.219 / -373.219 Weight last 48 hrs Weight 93.468 kg Weight 94.801 kg Physical Exam Narrative: EXAM NARRATIVE: General: No acute distress, awake and alert, back to baseline on 3 L nasal cannula HEENT: PERRLA, pupils bilaterally equal and reactive Chest: Bilateral bronchial breath sounds, rhonchi present all over the lung maciel, equal air entry bilaterally CVS: S1-S2 regular, bradycardia, ejection systolic murmur at aortic area 2/6 radiating to carotids, pansystolic murmur at apex radiating to midaxillary line,, no gallops, no rubs Abdomen: Soft, nontender, no organomegaly, bowel sounds present Neuro: No focal deficits, no facial deformity, moving all limbs, AOx3 Data : 02/08/21 04:13 02/08/21 04:13 Micro: Microbiology 02/07/21 13:05 Blood Culture - Preliminary Blood NEGATIVE TO DATE 02/07/21 13:00 Blood Culture - Preliminary Blood NEGATIVE TO DATE 02/07/21 14:30 Bacterial Antigens - Final Urine Kidney 02/07/21 14:30 Legionella Urinary Antigen - Final Urine Catheterized A&P Assessment and plan (1) Septic shock: Status: Acute (2) Type II respiratory failure: Status: Acute (3) COPD exacerbation: Status: Acute (4) Acute exacerbation of CHF (congestive heart failure): Status: Acute (5) Moderate aortic stenosis: Status: Acute (6) Hypoglycemic episode in patient with diabetes mellitus: Status: Acute (7) Encephalopathy acute: Status: Acute (8) Acute on chronic renal insufficiency: Status: Acute Additional A&P Information Septic shock with acute on chronic type II respiratory failure: Unknown source of infection. Urinalysis negative for signs of infection, CT abdomen pelvis negative for sign of infection, CT chest negative for consolidation. Procalcitonin negative, lactate within normal limits. Urine Legionella, bacterial antigen, MRSA swab negative. D-dimer elevated but better than last time 2 weeks ago, cortisol levels within normal limits. Shock most likely hypovolemic. We will continue Vanco and Zosyn for next 24 hours and if remains hemodynamically stable, afebrile without worsening leukocytosis will discontinue antibiotics. Follow-up culture results. DuoNebs every 4 hours, budesonide twice daily. Wean Solu-Medrol to 40 mg every 12 hourly. Hold off diuresis for now. Patient having robust urine output even of diuresis. Increase fluid to 125 cc/h. We will follow strict input output charting and monitor for fluid overload. Echocardiogram done shows an EF of 40% with global LV hypokinesia, moderate ao rtic stenosis, moderate mitral regurgitation. Metabolic encephalopathy: Resolved. Most likely combination of hypoglycemia, septic shock, polypharmacy. Continue home dose of donepezil and gabapentin along with mirtazapine. Hold off on venlafaxine. Acute on chronic kidney disease: Baseline creatinine around 1.7-1.9. On recent admission had work-up with urinalysis, urine lites, renal ultrasound. Medical reconciliation done for nephrotoxic drugs. Continue gentle IV hydration as above. Monitor BMP daily for now. No electrolyte abnormality currently. Phosphate elevated start patient on PhosLo 3 times a day. Hypertension: Goal blood pressure with mean over 60 mmHg. Hold off on home Coreg, enalapril, Imdur for now. Bradycardia: No active heart block. Hemodynamically stable now. Continue telemetry. Decrease home dose of amiodarone to 100 mg daily. Type 2 diabetes mellitus: Insulin-dependent with recurrent hypoglycemia. Recent A1c 6.9. Hold off on long-acting insulin. Insulin sliding scale before meals and at bedtime. Stop OHS. Most likely patient will be discharged only on insulin sliding scale. Nicotine patch. CODE STATUS: Limited resuscitation as per recent admission. Cardiac carb consistent diet Protonix for PUD prophylaxis. Heparin every 12 hours for DVT prophylaxis. If continues to do well off Levophed can plan to transfer to [facility] later in the day today. Attestations Medical Necessity Statement*: Requires further hospitalization for management of shock, acute on chronic type II respiratory failure in setting of congestive heart failure, COPD, moderate aortic stenosis Critical Care Time: The high probability of a clinically significant, sudden or life threatening deterioration of the patient's [pulmonary, cardiac] system(s) required my full and direct attention, intervention and personal management. The critical care time is as shown. This time is in addition to time spent performing any reported procedures but includes the following: [x] Data and vital sign review and interpretation [x] Patient assessment, examination and intervention [x] Documentation [x] Medication orders and management Critical Care Time (min): 70 Coding Level of Care Code Acute Regional Maintenance Manager for [facility] Fwd Diagnoses Septic shock A41.9; R65.21 Type II respiratory failure J96.92 COPD exacerbation J44.1 Acute exacerbation of CHF (congestive heart failure) I50.9 Moderate aortic stenosis I35.0 Hypoglycemic episode in patient with diabetes mellitus E11.649 Encephalopathy acute G93.40 Acute on chronic renal insufficiency N28.9; N18.9
[2021-02-08] MEDS: vancomycin 1,250 MG/250 ML PIGGYBACK 250 MG IV (14:09)
--- NOTE | 2021-02-08 15:08 | PC.RESP ---
RT Shift Note Frequent safety and respiratory rounds continue. Orders completed as indicated. Patient monitored pre and post treatments throughout shift. Patient [Did.] tolerate treatments appropriately. Condition [.DidNotChange]. Patient and/or training representative educated on respiratory treatment and medications. Patient and/or training representative [verberlized understanding]. Will continue to monitor patient progress.
[2021-02-08] MEDS: sodium chloride 0.9% 1,000 ML 125 ML IV (17:49)
[2021-02-08 17:58] LABS: Glucose Point of Care 199 mg/dL (70-110)
--- NOTE | 2021-02-08 17:58 | PC.NURSE ---
IVP medication 02/08/21 [id number] administered with Asael Mark RN.
[2021-02-08 19:56] LABS: Glucose Point of Care 214 mg/dL (70-110)
[2021-02-08] MEDS: mirtazapine 15 mg Tablet PO (20:04)
[2021-02-09] VITALS (81 sets, daily range): BP systolic 86–132; BP diastolic 37–76; PULSE 50–146; RESP 11–28; TEMP 35.8–36.8; O2SAT 79–100; BMI 37.5
[2021-02-09] MEDS: acetaminophen 325 mg Tablet 650 MG PO (00:15)
[2021-02-09] MEDS: ipratropium-albuterol 3 mL Neb INHALATION ×5 (03:30→19:41)
[2021-02-09 03:55] LABS: Basophils % 0.1 %; Hematocrit 42.8 % (37.0-47.0); Lymphocytes # 0.3 10^3/uL (0.8-4.8); Lymphocytes % 2.7 %; Mean Corpuscular HGB Conc 30.4 g/dL (30.0-36.0); Mean Corpuscular Hemoglobin 30.2 pg (28.0-34.0); Mean Corpuscular Volume 99.5 fl (81-99); Mean Platelet Volume 11.2 fL (7.4-10.4); Monocytes # 0.4 10^3/uL (0.2-0.9); Monocytes % 3.6 %; Neutrophils # 11.16 10^3/uL (1.8-7.7); Neutrophils % 92.9 %; Nucleated Red Blood Cells % 0 %; Platelet Count 221 10^3/cmm (130-400); Red Cell Distribution Width 15.8 % (12.1-15.1)
[2021-02-09 04:21] LABS: Alanine Aminotransferase 16 U/L (0-33); Albumin Level 3.5 g/dL (3.5-5.2); Alkaline Phosphatase 72 IU/L (35-105); Anion Gap 16.2 (5-19); Aspartate Amino Transferase 13 U/L (0-32); Blood Urea Nitrogen 65 mg/dL (8-23); Calcium 8.7 mg/dL (8.5-10.5); Carbon Dioxide 22 mmol/L (22-29); Chloride 103 mmol/L (98-107); Globulin 2.9 g/dL (1.3-4.6); Glucose 298 mg/dL (65-115); Magnesium 2.2 mg/dL (1.7-2.3); Osmolality Calculated 314 mOsm/kg (285-295); Phosphorus 4.8 mg/dL (2.5-4.5); Potassium 4.2 mmol/L (3.5-5.1); Sodium 137 mmol/L (136-145); Total Bilirubin 0.4 mg/dL (0.15-1.2); Total Protein 6.4 g/dL (6.6-8.7)
[2021-02-09] MEDS: clopidogrel 75 mg Tablet PO (05:05)
[2021-02-09] MEDS: levothyroxine 137 mcg Tablet PO (05:05)
--- NOTE | 2021-02-09 05:10 | PC.NURSE ---
BP Low Patient BP noted to be low, MAP 58. Levophed started at 2 mcg/min.
--- NOTE | 2021-02-09 05:25 | PC.NURSE ---
Shift Note Frequent safety and comfort rounds continue. Orders and/or nursing care completed as indicated. Patient monitored for response to intervention and treatment(s). Education provided includes medication. Patient verbalizes understanding of teaching. Patient currently on BIPAP at 28% FiO2 resting in bed. Rodriguez catheter drained 1450 mls of bright yellow urine overnight. Right AC IV infusing Levophed 2mcg/min and NS 125 mls/hr. Patient alert and oriented x4, no wounds or skin issues noted at this time. Will continue to monitor.
[2021-02-09 07:29] LABS: Glucose Point of Care 282 mg/dL (70-110)
[2021-02-09] MEDS: calcium acetate 667 mg Capsule 1334 MG PO (07:42)
[2021-02-09] MEDS: heparin 5,000 unit/mL INJ 1 mL 5000 UNIT SUBCUT ×2 (07:42→19:19)
[2021-02-09] MEDS: pantoprazole 40 mg SDV IVP ×2 (07:42→19:19)
[2021-02-09] MEDS: piperacillin-tazobactam 3.375 GM in sodium chloride 0.9% (plus) 50 ML IV (07:43)
[2021-02-09] MEDS: budesonide 0.5 mg/2 mL Neb INHALATION ×2 (08:08→19:41)
--- NOTE | 2021-02-09 09:03 | PC.NURSE ---
Patient given bath wipes to clean self. No assistance required. Gown and bed linens changed at this time. Patient tolerated well with no complaints.
--- NOTE | 2021-02-09 09:19 | P.PN_ITS ---
Subjective Subjective: Interval history: Seen in the ICU today. Sitting up in chair. On 3 L nasal cannula saturating 97% with mean of 72 mmHg. Very conversant. Transiently put on Levophed for few hours overnight. Denies any nausea vomiting, headache. States she is feeling better. Asking when can she go home. We discussed in detail regarding her health with multiple issues going on inclu ding heart failure, aortic stenosis, COPD, CKD. We did discuss that we will have to manage her pain medications better because she is at a higher risk of somnolent and worsening respiratory failure especially with her outpatient medication of tapentadol which puts her at a higher risk of respiratory failure. Vitals/I&O/Wt Last Vital Signs Temp 96.4 F L 02/09/21 04:00 Pulse 58 L 02/09/21 08:09 Resp 20 H 02/09/21 08:09 BP 109/56 02/09/21 08:00 Pulse Ox 97 02/09/21 08:09 02/08/21 02/09/21 02/09/21 22:59 06:59 14:59 Intake Total 1402.5 / 2179.281 1597.917 / 3777.198 340 / 340 Output Total 1550 / 2700 1450 / 4150 450 / 450 Balance -147.5 / -520.719 147.917 / -372.802 -110 / -110 Weight last 48 hrs Weight 92.986 kg Weight 93.468 kg Weight 94.801 kg Physical Exam Narrative: EXAM NARRATIVE: General: No acute distress, awake and alert, back to baseline on 3 L nasal cannula HEENT: PERRLA, pupils bilaterally equal and reactive Chest: Bilateral bronchial breath sounds, rhonchi present all over the lung maciel, equal air entry bilaterally CVS: S1-S2 regular, bradycardia, ejection systolic murmur at aortic area 2/6 radiating to carotids, pansystolic murmur at apex radiating to midaxillary line,, no gallops, no rubs Abdomen: Soft, nontender, no organomegaly, bowel sounds present Neuro: No focal deficits, no facial deformity, moving all limbs, AOx3 Data : 02/09/21 03:21 02/09/21 03:21 Micro: Microbiology 02/07/21 13:05 Blood Culture - Preliminary Blood NEGATIVE TO DATE 02/07/21 13:00 Blood Culture - Preliminary Blood NEGATIVE TO DATE 02/07/21 14:30 Bacterial Antigens - Final Urine Kidney 02/07/21 14:30 Legionella Urinary Antigen - Final Urine Catheterized A&P Assessment and plan (1) Septic shock: Status: Acute (2) Type II respiratory failure: Status: Acute (3) COPD exacerbation: Status: Acute (4) Acute exacerbation of CHF (congestive heart failure): Status: Acute (5) Moderate aortic stenosis: Status: Acute (6) Hypoglycemic episode in patient with diabetes mellitus: Status: Acute (7) Encephalopathy acute: Status: Acute (8) Acute on chronic renal insufficiency: Status: Acute Additional A&P Information Septic shock with acute on chronic type II respiratory failure: Resolved. Urinalysis negative for signs of infection, CT abdomen pelvis negative for sign of infection, CT chest negative for consolidation. Procalcitonin negative, l actate within normal limits. Urine Legionella, bacterial antigen, MRSA swab negative. D-dimer elevated but better than last time 2 weeks ago, cortisol levels within normal limits. Shock most likely hypovolemic. As patient had no signs of infection for now we will stop antibiotics and monitor. Follow-up blood cultures. DuoNebs every 4 hours, budesonide twice daily. Wean Solu-Medrol to 40 mg daily. Hold off diuresis for now. Patient having robust urine output even of diuresis. IV fluid to 125 cc/h. We will follow strict input output charting and monitor for fluid overload. Echocardiogram done shows an EF of 40% with global LV hypokinesia, moderate aortic stenosis, moderate mitral regurgitation. Metabolic encephalopathy: Resolved. Most likely combination of hypoglycemia, septic shock, polypharmacy. Continue home dose of donepezil and gabapentin along with mirtazapine. Hold off on venlafaxine. Start on [place] 1 tablet every 8 hours as needed for pain management. Patient as an outpatient is on tapentadol which puts her at a higher risk of respiratory failure. Discussed the same with the patient. Will communicate with the primary care office. Acute on chronic kidney disease: Baseline creatinine around 1.7-1.9. Improving. Medical reconciliation done for nephrotoxic drugs. Continue gentle IV hydration as above. Monitor BMP daily for now. No electrolyte abnormality currently. Hypertension: Goal blood pressure with mean over 60 mmHg. Hold off on home Coreg, enalapril, Imdur for now. Bradycardia: Resolved. No active heart block. Hemodynamically stable now. Continue telemetry. Decrease home dose of amiodarone to 100 mg daily. Type 2 diabetes mellitus: Insulin-dependent with recurrent hypoglycemia. Extremely labile. Recent A1c 6.9. Blood sugars elevated today. Increase sliding scale to high-dose protocol. Stop OHS. Most likely patient will be discharged only on insulin sliding scale. Nicotine patch. CODE STATUS: Limited resuscitation as per recent admission. Cardiac carb consistent diet Protonix for PUD prophylaxis. Heparin every 12 hours for DVT prophylaxis. Transfer to CSU. Case management evaluation. PT/OT evaluation. Attestations Medical Necessity Statement*: Requires further hospitalization for management of acute on chronic kidney injury, resolving septic shock, acute on chronic respiratory failure Time Spent in Patient Care: Greater than 35 minutes (>than 50% of time spent in counselling and/or direct pt care on unit) . Coding Level of Care Code Acute Cryogenics Repairer for [facility] Fwd Diagnoses Septic shock A41.9; R65.21 Type II respiratory failure J96.92 COPD exacerbation J44.1 Acute exacerbation of CHF (congestive heart failure) I50.9 Moderate aortic stenosis I35.0 Hypoglycemic episode in patient with diabetes mellitus E11.649 Encephalopathy acute G93.40 Acute on chronic renal insufficiency N28.9; N18.9
--- NOTE | 2021-02-09 09:23 | PC.CHAP ---
Pastoral Care Encounter/Spiritual Assessment Type of Contact [] Declined cargo operations agent visit [] Patient/Family/Request visit [] Outpatient visit [] Follow-up visit [] Physician referral [] Code/Alert [x] Routine visit [] Staff referral [] Actively dying [] Patient sleeping [] Family support [] [] Out of room [] Palliative care [] [] Receiving care in room [] Pre-surgical visit [] Trauma [] Long length of stay [x] ICU visit [] Other: Relational/Emotional Strength [] Patient feels connected with others/family/visitors/staff [] Distress [] Loneliness/isolation [] Abandonment Spirituality of Patient [] Person of [place] [] Attends Restorationism of their [place] [] Believes in Prayer [] Reads Bible or Hindu materials [] There are Spiritual issues to be addressed Behavioral Medical Director Interventions [x] Prayer [x] Active listening [x] Non-anxious presence [x] Spiritual/emotional support [] Crisis/trauma care [] Spiritual counseling [] Bereavement support [] Provided bereavement packet [] Provided Bible/devotional materials [] Provided toy/stuffed animal, coloring book to patient or family member [] Provided Communion [] Anointing/Albin [] Salvation [x] Completed spiritual assessment [] Other: Impact on Illness or Injury [] Angry [] Fearful [] Anxious [] Often cries [] Exhaustion [] Unable to work [] Unable to attend islam [] Unable to walk/stand [] Unable to read [] Unable to drive [] Unable to eat/drink [] Unable to sleep [] Unable to be with family [] Patient intubated [] Other: Summary patient setting up in chair, enjoying breakfast. feeling better this AM Time spent with patient 5 min
[2021-02-09] MEDS: fenofibrate 145 mg Tablet PO (10:00)
[2021-02-09] MEDS: donepezil 5 MG Tablet 10 MG PO (10:01)
[2021-02-09] MEDS: gabapentin 300 mg Capsule PO ×2 (10:01→17:40)
[2021-02-09] MEDS: atorvastatin 40 mg Tablet 20 MG PO (10:01)
[2021-02-09] MEDS: amiodarone 200 mg Tablet 100 MG PO (10:01)
[2021-02-09] MEDS: nicotine 7 mg Patch 1 PATCH TRANSDERMA (10:02)
[2021-02-09] MEDS: HYDROcodone-acetaminophen 5-325 mg Tablet 1 TAB PO ×2 (10:02→20:11)
[2021-02-09 11:09] LABS: Glucose Point of Care 402 mg/dL (70-110)
[2021-02-09] MEDS: sodium chloride 0.9% 1,000 ML 125 ML IV ×2 (14:12→19:20)
[2021-02-09] MEDS: TRAMadol 50 mg Tablet PO (14:52)
--- NOTE | 2021-02-09 15:26 | PC.RESP ---
RT Shift Note Frequent safety and respiratory rounds continue. Orders completed as indicated. Patient monitored pre and post treatments throughout shift. Patient [Did.] tolerate treatments appropriately. Condition [.DidNotChange]. Patient and/or medical representative educated on respiratory treatment and medications. Patient and/or medical representative verbalized understanding. Will continue to monitor patient progress.
[2021-02-09 17:14] LABS: Glucose Point of Care 166 mg/dL (70-110)
--- NOTE | 2021-02-09 17:15 | PC.NURSE ---
Report called DIOMEDES Charles, CSU. No further questions. Patient taken to CSU 112-2 via wheelchair, belongings at bedside. Bedside report given. Patient AAOx4, VSS, oriented to room and call light.
--- NOTE | 2021-02-09 17:15 | PC.NURSE ---
Transfer Note Patient transferred to CSU 112-2 from ICU via wheelchair. Handoff received from Arsenio HERCULES. Patient oriented to environment and equipment. Covering service notified. Orders reviewed and will continue to monitor. Family and/or cash posting representative notified.
[2021-02-09 20:09] LABS: Glucose Point of Care 149 mg/dL (70-110)
--- NOTE | 2021-02-09 20:10 | PC.NURSE ---
BG 149.
[2021-02-09] MEDS: mirtazapine 15 mg Tablet PO (20:11)
[2021-02-10] VITALS (17 sets, daily range): BP systolic 120–154; BP diastolic 63–84; PULSE 63–91; RESP 17–26; TEMP 36.6–36.7; O2SAT 92–98
[2021-02-10] MEDS: ipratropium-albuterol 3 mL Neb INHALATION ×6 (00:49→23:58)
[2021-02-10] MEDS: HYDROcodone-acetaminophen 5-325 mg Tablet 1 TAB PO ×3 (03:33→21:04)
[2021-02-10] MEDS: clopidogrel 75 mg Tablet PO (03:33)
[2021-02-10] MEDS: levothyroxine 137 mcg Tablet PO (03:33)
[2021-02-10 05:30] LABS: Basophils % 0.1 %; Eosinophils # 0.1 10^3/uL (0.0-0.8); Eosinophils % 1.1 %; Lymphocytes # 0.9 10^3/uL (0.8-4.8); Lymphocytes % 8.9 %; Mean Corpuscular HGB Conc 28.9 g/dL (30.0-36.0); Mean Corpuscular Hemoglobin 29.1 pg (28.0-34.0); Mean Corpuscular Volume 100.9 fl (81-99); Mean Platelet Volume 11.5 fL (7.4-10.4); Monocytes # 0.6 10^3/uL (0.2-0.9); Neutrophils # 8.74 10^3/uL (1.8-7.7); Nucleated Red Blood Cells % 0 %; Platelet Count 196 10^3/cmm (130-400); Red Blood Count 4.46 10^6/uL (4.1-5.3); Red Cell Distribution Width 15.9 % (12.1-15.1); White Blood Count 10.5 10^3/uL (4.0-10.0)
[2021-02-10 06:02] LABS: Alanine Aminotransferase 17 U/L (0-33); Albumin Level 3.2 g/dL (3.5-5.2); Alkaline Phosphatase 52 IU/L (35-105); Blood Urea Nitrogen 49 mg/dL (8-23); Calcium 8.8 mg/dL (8.5-10.5); Carbon Dioxide 22 mmol/L (22-29); Chloride 110 mmol/L (98-107); Glucose 117 mg/dL (65-115); Osmolality Calculated 310 mOsm/kg (285-295); Sodium 143 mmol/L (136-145); Total Bilirubin 0.4 mg/dL (0.15-1.2); Total Protein 6.2 g/dL (6.6-8.7)
[2021-02-10 06:03] LABS: Anion Gap 15.5 (5-19); Aspartate Amino Transferase 13 U/L (0-32); Potassium 4.5 mmol/L (3.5-5.1)
[2021-02-10 06:29] LABS: Glucose Point of Care 103 mg/dL (70-110)
[2021-02-10 06:47] LABS: Phosphorus 3.1 mg/dL (2.5-4.5)
[2021-02-10] MEDS: budesonide 0.5 mg/2 mL Neb INHALATION ×2 (08:00→19:53)
[2021-02-10] MEDS: fenofibrate 145 mg Tablet PO (08:33)
[2021-02-10] MEDS: donepezil 5 MG Tablet 10 MG PO (08:33)
[2021-02-10] MEDS: amiodarone 200 mg Tablet 100 MG PO (08:34)
[2021-02-10] MEDS: atorvastatin 40 mg Tablet 20 MG PO (08:34)
[2021-02-10] MEDS: heparin 5,000 unit/mL INJ 1 mL 5000 UNIT SUBCUT ×2 (08:34→20:22)
[2021-02-10] MEDS: gabapentin 300 mg Capsule PO ×2 (08:34→17:41)
[2021-02-10] MEDS: nicotine 7 mg Patch 1 PATCH TRANSDERMA (08:35)
[2021-02-10] MEDS: pantoprazole 40 mg SDV IVP ×2 (09:21→20:22)
--- NOTE | 2021-02-10 09:52 | PC.SOCIAL ---
IMM Update Pg. 2 of IMM updated and reviewed with patient, who verbalized understanding. Copy provided.
[2021-02-10] MEDS: sodium chloride 0.9% 1,000 ML 125 ML IV (10:41)
[2021-02-10 11:42] LABS: Glucose Point of Care 259 mg/dL (70-110)
[2021-02-10] MEDS: acetaminophen 325 mg Tablet 650 MG PO (11:46)
--- NOTE | 2021-02-10 12:31 | P.PN_ITS ---
Subjective Subjective: Interval history: Seen today in CSU. Sitting up in chair. Wanting to go home. Good urine output. Denies any nausea vomiting, headache. Currently on 3 L saturating 96% Patient's care discussed in detail with her and her primary care provider on the phone today. Vitals/I&O/Wt Last Vital Signs Temp 98.0 F 02/10/21 11:40 Pulse 83 02/10/21 11:40 Resp 26 H 02/10/21 11:40 BP 130/75 02/10/21 11:40 Pulse Ox 94 02/10/21 11:40 02/09/21 02/10/21 02/10/21 22:59 06:59 14:59 Intake Total 1171.667 / 2206.272 300 / 2506.272 1831 / 1831 Output Total 550 / 1800 450 / 2250 1300 / 1300 Balance 621.667 / 406.272 -150 / 256.272 531 / 531 Weight last 48 hrs Weight 102.376 kg Weight 92.986 kg Physical Exam Narrative: EXAM NARRATIVE: General: No acute distress, awake and alert, back to baseline on 3 L nasal cannula HEENT: PERRLA, pupils bilaterally equal and reactive Chest: Bilateral bronchial breath sounds, rhonchi present all over the lung maciel, equal air entry bilaterally CVS: S1-S2 regular, bradycardia, ejection systolic murmur at aortic area 2/6 radiating to carotids, pansystolic murmur at apex radiating to midaxillary line,, no gallops, no rubs Abdomen: Soft, nontender, no organomegaly, bowel sounds present Neuro: No focal deficits, no facial deformity, moving all limbs, AOx3 Data : 02/10/21 04:31 02/10/21 04:31 Micro: Microbiology 02/07/21 12:45 MRSA Culture - Final Nose A&P Assessment and plan (1) Septic shock: Status: Acute (2) Type II respiratory failure: Status: Acute (3) COPD exacerbation: Status: Acute (4) Acute exacerbation of CHF (congestive heart failure): Status: Acute (5) Moderate aortic stenosis: Status: Acute (6) Hypoglycemic episode in patient with diabetes mellitus: Status: Acute (7) Encephalopathy acute: Status: Acute (8) Acute on chronic renal insufficiency: Status: Acute Additional A&P Information Septic shock with acute on chronic type II respiratory failure: Resolved. Urinalysis negative for signs of infection, CT abdomen pelvis negative for sign of infection, CT chest negative for consolidation. Procalcitonin negative, lactate within normal limits. Urine Legionella, bacterial antigen, MRSA swab negative. D-dimer elevated but better than last time 2 weeks ago, cortisol levels within normal limits. Shock most likely hypovolemic. Has been stable off antibiotics. Continue to follow blood cultures. DuoNebs every 4 hours, budesonide twice daily. Wean Solu-Medrol to 40 mg daily. Hold off diuresis for now. Decrease IV fluids to 75 cc/h. We will follow strict input output charting and monitor for fluid overload. Echocardiogram done shows an EF of 40% with global LV hypokinesia, moderate aortic stenosis, moderate mitral regurgitation. Metabolic encephalopathy: Resolved. Most likely combination of hypoglycemia, septic shock, polypharmacy. Continue home dose of donepezil and gabapentin along with mirtazapine. Hold off on venlafaxine. Start on [place] 1 tablet every 8 hours as needed for pain management. Patient as an outpatient is on tapentadol which puts her at a higher risk of respiratory failure. Discussed the same with the patient. Case discussed with patient's primary care office. They are in agreements. Acute on chronic kidney disease: Baseline creatinine around 1.7-1.9. Improving. Medical reconciliation done for nephrotoxic drugs. Continue gentle IV hydration as above. Monitor BMP daily for now. No electrolyte abnormality currently. Hypertension: Goal blood pressure with mean over 60 mmHg. Hold off on home Coreg, enalapril, Imdur for now. Blood pressure is better today. Start on amlodipine 10 mg daily. Bradycardia: Resolved. No active heart block. Hemodynamically stable now. Continue telemetry. Decrease home dose of amiodarone to 100 mg daily. Type 2 diabetes mellitus: Insulin-dependent with recurrent hypoglycemia. Extremely labile. Recent A1c 6.9. Blood sugars elevated today. Increase sliding scale to high-dose protocol. Stop OHS. Most likely patient will be discharged only on insulin sliding scale. Nicotine patch. CODE STATUS: Limited resuscitation as per recent admission. Cardiac carb consistent diet Protonix for PUD prophylaxis. Heparin every 12 hours for DVT prophylaxis. Transfer to CSU. Case management evaluation. PT/OT evaluation. Attestations Medical Necessity Statement*: Requires further hospitalization for further management of recurrent hypoglycemia, recovering septic shock, congestive heart failure, COPD Time Spent in Patient Care: Greater than 35 minutes (>than 50% of time spent in counselling and/or direct pt care on unit) . Coding Level of Care Code Acute Financial Systems Analyst for [facility] Fwd Diagnoses Septic shock A41.9; R65.21 Type II respiratory failure J96.92 COPD exacerbation J44.1 Acute exacerbation of CHF (congestive heart failure) I50.9 Moderate aortic stenosis I35.0 Hypoglycemic episode in patient with diabetes mellitus E11.649 Encephalopathy acute G93.40 Acute on chronic renal insufficiency N28.9; N18.9
[2021-02-10] MEDS: fexofenadine 60 mg Tablet PO (13:17)
[2021-02-10] MEDS: amlodipine 5 mg Tablet PO (13:17)
[2021-02-10 16:42] LABS: Glucose Point of Care 328 mg/dL (70-110)
[2021-02-10] MEDS: insulin lispro 100 unit/1 mL SUBCUT ×2 (17:41→20:22)
--- NOTE | 2021-02-10 20:12 | PC.NURSE ---
Addendum entered by Maryam Rhodes RN 02/11/21 00:01: Ordered to get c-diff sample and to not give anything for diarrhea until results come back. Original Note: Dr. Driscoll notified of patient asking for something for diarrhea.
[2021-02-10 20:14] LABS: Glucose Point of Care 217 mg/dL (70-110)
[2021-02-10] MEDS: sodium chloride 0.9% 1,000 ML 75 ML IV (20:23)
[2021-02-10] MEDS: mirtazapine 15 mg Tablet PO (21:04)
[2021-02-11] VITALS (24 sets, daily range): BP systolic 108–157; BP diastolic 59–88; PULSE 61–155; RESP 16–36; TEMP 36.9; O2SAT 88–100
[2021-02-11] MEDS: ipratropium-albuterol 3 mL Neb INHALATION ×5 (03:12→23:45)
--- NOTE | 2021-02-11 03:41 | PC.NURSE ---
Blood noted in lieberman drainage that was not present at beginning of shift. Patient states, I'm afraid I may have stepped on it. Lieberman is still draining properly. Will continue to monitor.
--- NOTE | 2021-02-11 03:50 | PC.NURSE ---
Lab called to notify me of stool sample testing positive for c-diff. Dr. Driscoll notified. Ordered to start PO Vanc.
[2021-02-11] MEDS: clopidogrel 75 mg Tablet PO (04:22)
[2021-02-11] MEDS: levothyroxine 137 mcg Tablet PO (04:22)
[2021-02-11] MEDS: HYDROcodone-acetaminophen 5-325 mg Tablet 1 TAB PO ×2 (04:25→21:55)
[2021-02-11 05:43] LABS: Phosphorus 2.5 mg/dL (2.5-4.5)
[2021-02-11] MEDS: metoprolol tartrate 1 mg/1 mL SDV 5 mL 5 MG IVP (06:28)
[2021-02-11] MEDS: FUROsemide 10 mg/mL SDV 2mL 20 MG IVP ×3 (06:37→18:51)
--- NOTE | 2021-02-11 06:50 | XR_ITS ---
WS: [id number] XR chest 1V portable [id number] REASON FOR EXAM: acute dyspnea FINDINGS: Compared to the examination of 02/07/2021, interstitial infiltrative changes have developed in both lo wer lung maciel. There are Katherine B lines in the periphery of the right lower lung field. There is cardiomegaly. No other interval change or new finding compared to the previous study. XR/XR chest 1V portable [id number] IMPRESSION: Probable onset of congestive heart failure.
[2021-02-11 06:51] LABS: Glucose Point of Care 215 mg/dL (70-110)
[2021-02-11 06:55] LABS: Arterial Blood Gas Hematocrit 42.4 % (37-47); Blood Gas Allen Test Pos; Blood Gas Sample Site Radial, right; Blood Gas Sample Type Arterial; HCO3 ABG 20.7 mmol/L (22-26); PO2 ABG 85.8 mmHg (80.0-100.0)
[2021-02-11 06:56] LABS: Blood Gas Tidal Volume 0.45; Oxygen Device BIPAP
[2021-02-11 06:58] LABS: ABG PH Result 7.19 (7.35-7.45)
[2021-02-11] MEDS: amiodarone 200 mg Tablet PO (07:18)
--- NOTE | 2021-02-11 07:31 | ECG_ITS ---
[facility] Test Date: 2021-02-11 Pat Name: Balbina Martínez Department: Room: 112 Gender: Female Outreach Worker: : 1945 Requested By: Viktoriya Driscoll Order Number: [id number] Mare MD: Misha Campos M.D. Measurements Intervals [place] Rate: 113 P: IN: QRS: 44 QRSD: 130 T: -25 QT: 367 QTc: 505 Interpretive Statements ATRIAL FLUTTER WITH RAPID VENTRICULAR RESPONSE POSSIBLE ANTERIOR MYOCARDIAL INFARCTION , OF INDETERMINATE AGE [30 ms Q WAVE IN V3/V4, OR R < 0.2 mV IN V4] Compared to ECG 02/07/2021 15:22:53 Myocardial infarct finding now present Sinus bradycardia no longer present First degree AV block no longer present Left bundle-branch block no longer present Electronically Signed On 02-12-2021 21:33:12 CDT by Misha Campos M.D. [email or web address].[employer]/store/NU/[id number] f
[2021-02-11] MEDS: dilTIAZem 30 mg Tablet PO ×5 (08:05→17:30)
[2021-02-11] MEDS: pantoprazole 40 mg SDV IVP ×2 (08:05→18:52)
[2021-02-11] MEDS: heparin 5,000 unit/mL INJ 1 mL 5000 UNIT SUBCUT ×2 (08:05→18:52)
[2021-02-11] MEDS: budesonide 0.5 mg/2 mL Neb INHALATION ×2 (08:15→20:33)
--- NOTE | 2021-02-11 08:23 | PC.NURSE ---
MERCURY WASHER at bedside with patient and came to nurse to report that patient was not feeling good. Patient became very flushed, diaphoretic, and short of breath. Dr. Driscoll came to bedside. Patient's heart rate 160s. Patient given 5 Lopressor IV at 0628, 10 Cardizem IV at 0632, 5 Cardizem IV at 0640, 20 Lasix at 0637, 5 Cardizem at 0655, Cardizem drip started at 0650, 200 PO Amio at 0718, 20 Lasix IV at 0647. Chest x-ray taken, ABG taken, EKG taken x2 per order at bedside. Ordered to get another ABG at 0830. PO Cardizem ordered q6 hours. Ordered to d/c NS.
--- NOTE | 2021-02-11 08:25 | PC.NURSE ---
Patient currently on Bipap with a heart rate of 90. Will continue to monitor.
[2021-02-11] MEDS: atorvastatin 40 mg Tablet 20 MG PO (08:28)
[2021-02-11] MEDS: gabapentin 300 mg Capsule PO ×2 (08:28→17:30)
[2021-02-11] MEDS: nicotine 7 mg Patch 1 PATCH TRANSDERMA (08:29)
[2021-02-11] MEDS: donepezil 5 MG Tablet 10 MG PO (08:29)
[2021-02-11] MEDS: insulin lispro 100 unit/1 mL SUBCUT ×3 (08:29→18:51)
[2021-02-11] MEDS: fenofibrate 145 mg Tablet PO (08:29)
[2021-02-11 09:09] LABS: ABG PH Result 7.39 (7.35-7.45); Alveolar-Arterial Oxygen Gradi 18.7 mmHg (5-10); Arterial Blood Gas Hematocrit 40.9 % (37-47); Base Excess ABG 0.7 mmol/L (-2.0-2.0); Blood Gas Operator Identificat AMH; Blood Gas Sample Site Brachial, left; Blood Gas Sample Type Arterial; Carboxyhemoglobin 0.6 %THgb (0.4-20.1); HGB O2 Sat 94.8 % (95-100); Ionized Calcium Level - ABG 1.3 mmol/L (1.1-1.4); Methemoglobin 0.8 % (0.4-1.5); Oxygen Device BIPAP; Oxygen Saturation ABG 96.2; PO2 ABG 88.1 mmHg (80.0-100.0); Potassium Level - ABG 3.9 mmol/L (3.5-5.0); Total Hemoglobin 13.3 g/dL (12-16)
[2021-02-11] MEDS: acetaminophen 325 mg Tablet 650 MG PO (10:16)
[2021-02-11] MEDS: levalbuterol 1.25 mg/3 mL Neb INHALATION (11:13)
[2021-02-11 11:39] LABS: Glucose Point of Care 248 mg/dL (70-110)
--- NOTE | 2021-02-11 12:25 | P.PN_ITS ---
Subjective Subjective: Interval history: Overnight patient refused to wear CPAP. Today morning at around 6 AM rapid response was called for difficulty in breathing and patient found to be in A. fib with RVR. She was started on Cardizem drip, placed on BiPAP and 40 mg of IV Lasix was given. ABG was done which was consistent with respiratory acidosis and hypercapnia. Repeat ABG 2 hours later normalized. On examination patient on 4 L oxygen supplementation. Has good urine output. Turned down from 15 of Cardizem to 5 with plan to wean down further while transitioned to oral. Patient found to have C. difficile. Today patient states she has been having diarrhea for 3 days. Reports she thought it was because of the hospital food. States is not unusual for her and has been having this kind of bowel movements on and off for last 1 week. She thought this was normal. Denies any nausea vomiting. Complaining of mild headache because of BiPAP placement earlier in the morning. Vitals/I&O/Wt Last Vital Signs Temp 98.5 F 02/11/21 11:03 Pulse 83 02/11/21 11:22 Resp 20 H 02/11/21 11:15 BP 116/74 02/11/21 11:03 Pulse Ox 95 02/11/21 11:15 02/10/21 02/11/21 02/11/21 22:59 06:59 14:59 Intake Total 790.75 / 2911.333 400.417 / 3311.750 869.583 / 869.583 Output Total 1475 / 2775 1000 / 3775 1999 Balance -684.25 / 136.333 -599.583 / -463.250 -1130.417 / -1130.417 Weight last 48 hrs Weight 102.376 kg Physical Exam Narrative: EXAM NARRATIVE: General: No acute distress, awake and alert, back to baseline on 3 L nasal cannula HEENT: PERRLA, pupils bilaterally equal and reactive Chest: Bilateral bronchial breath sounds, rhonchi present all over the lung maciel, equal air entry bilaterally CVS: S1-S2 regular, bradycardia, ejection systolic murmur at aortic area 2/6 radiating to carotids, pansystolic murmur at apex radiating to midaxillary line,, no gallops, no rubs Abdomen: Soft, nontender, no organomegaly, bowel sounds present Neuro: No focal deficits, no facial deformity, moving all limbs, AOx3 Urinary Catheter Management^: Rodriguez Latex: Cath Placed During This Visit: no Reason for Continuing Indwelling Catheter: Accurate Measurement of Urinary Output in Critically Ill Patients Data : 02/10/21 04:31 02/10/21 04:31 A&P Assessment and plan (1) Atrial fibrillation: Status: Acute (2) C. difficile diarrhea: Status: Acute (3) Type II respiratory failure: Status: Acute (4) COPD exacerbation: Status: Acute (5) Acute exacerbation of CHF (congestive heart failure): Status: Acute (6) Moderate aortic stenosis: Status: Acute (7) Hypoglycemic episode in patient with diabetes mellitus: Status: Acute (8) Acute on chronic renal insufficiency: Status: Acute (9) Encephalopathy acute: Status: Resolved (10) Septic shock: Status: Resolved Additional A&P Information Labs medication patient today. Septic shock with acute on chronic type II respiratory failure: Resolved. Most likely hypovolemic Urinalysis negative for signs of infection, CT abdomen pelvis negative for sign of infection, CT chest negative for consolidation. Procalcitonin negative, lactate within normal limits. Urine Legionella, bacterial antigen, MRSA swab negative. D-dimer elevated but better than last time 2 weeks ago, cortisol levels within normal limits. Has remained stable off antibiotics for last 72 hours. Found to be C. difficile positive. Started on oral vancomycin 125 mg 4 times daily. Unlikely source of sepsis Acute on chronic hypercapnic Respiratory failure: Most likely because of combination of COPD/obstructive sleep apnea with congestive heart failure. Patient would need sleep study as an outpatient. Overnight continuous pulse oximetry. ABG in a.m. DuoNebs every 4 hours, budesonide twice daily. Switch from Solu-Medrol to prednisone for a quick taper. Stop IV fluids. Given IV Lasix 40 mg in morning. Strict input output charting. Will transition over to oral Lasix from tomorrow. Echocardiogram done shows an EF of 40% with global LV hypokinesia, moderate aortic stenosis, moderate mitral regurgitation. Atrial fibrillation with rapid ventricular response: Start on oral Cardizem 30 mg every 6 hourly. Wean Cardizem as possible. Target heart rate less than 100. Ravi vas score: 7 for diabetes, hypertension, congestive heart failure rate, sex, age. We discussed with patient and if okay will start her on Eliquis 5 mg twice daily. Increase amiodarone back to 200 mg daily. Metabolic encephalopathy: Resolved. Most likely combination of hypoglycemia, septic shock, polypharmacy. Continue home dose of donepezil and gabapentin along with mirtazapine. Hold off on venlafaxine. Start on [place] 1 tablet every 8 hours as needed for pain management. Patient as an outpatient is on tapentadol which puts her at a higher risk of respiratory failure. Discussed the same with the patient. Case discussed with patient's primary care office. They are in agreements. Acute on chronic kidney disease: Baseline creatinine around 1.7-1.9. Improving. Medical reconciliation done for nephrotoxic drugs. Monitor BMP daily for now. No electrolyte abnormality currently. Hypertension: Goal blood pressure with mean over 60 mmHg. Hold off on home Coreg, enalapril, Imdur for now. Blood pressure is better today. Switched over to Cardizem for rate control as well. Type 2 diabetes mellitus: Insulin-dependent with recurrent hypoglycemia. Extremely labile. Recent A1c 6.9. Blood sugars elevated today. Increase sliding scale to high-dose protocol. Stop OHS. Most likely patient will be discharged only on insulin sliding scale. Nicotine patch. CODE STATUS: Limited resuscitation as per recent admission. Cardiac carb consistent diet Protonix for PUD prophylaxis. Heparin every 12 hours for DVT prophylaxis. Case management evaluation. PT/OT evaluation. Discharge planning: Plan to discharge home with home health. Home health difficult to arrange because of insurance issues. We will continue with home services. Ideally patient should be discharged to SNF but patient declining as she is the primary caregiver of her sister. Plan to discharge tomorrow. Attestations Medical Necessity Statement*: Requires further hospitalization for management of atrial fibrillation with rapid ventricular response, C. difficile colitis, a cute on chronic hypercapnic respiratory failure, congestive heart failure in setting of moderate aortic stenosis, resolving shock Time Spent in Patient Care: Greater than 35 minutes (>than 50% of time spent in counselling and/or direct pt care on unit) . Coding Level of Care Code Acute Poultry And Fish Butcher for [facility] Fwd Diagnoses Atrial fibrillation I48.91 C. difficile diarrhea A04.72 Type II respiratory failure J96.92 COPD exacerbation J44.1 Acute exacerbation of CHF (congestive heart failure) I50.9 Moderate aortic stenosis I35.0 Hypoglycemic episode in patient with diabetes mellitus E11.649 Acute on chronic renal insufficiency N28.9; N18.9 Encephalopathy acute G93.40 Septic shock A41.9; R65.21
--- NOTE | 2021-02-11 14:46 | PC.RESP ---
SMOKING CESSATION AND PULMONARY REHAB INFORMATION SENT TO PATIENT.
[2021-02-11 18:35] LABS: Glucose Point of Care 309 mg/dL (70-110)
--- NOTE | 2021-02-11 20:05 | PC.NURSE ---
Pt presents lying in bed at a 45 degree angle. Pt wearing bipap O2 sat at 92%. Pt on cardizem drip at 15ml. Heart rate at 114. Pt had no c/o pain or discomfort at the present time, will cont to monitor. Call light in reach.
[2021-02-11] MEDS: dilTIAZem 30 mg Tablet 60 MG PO (21:43)
[2021-02-11] MEDS: mirtazapine 15 mg Tablet PO (21:44)
[2021-02-12] VITALS (12 sets, daily range): BP systolic 108–144; BP diastolic 59–86; PULSE 57–134; RESP 18–24; TEMP 36.8–36.9; O2SAT 93–97
--- NOTE | 2021-02-12 00:37 | PC.RESP ---
Pt setup on overnight pulse ox. SAT dropped below 88% att, Bipap placed on pt @ 30% FI02, maintaining SAT of 93-95%.
[2021-02-12] MEDS: ipratropium-albuterol 3 mL Neb INHALATION ×4 (04:14→15:50)
[2021-02-12 04:58] LABS: ABG PCO2 45.1 mmHg (35-45); ABG PH Result 7.43 (7.35-7.45); Arterial Blood Gas Hematocrit 36.9 % (37-47); Base Excess ABG 4.6 mmol/L (-2.0-2.0); Blood Gas Allen Test Pos; Blood Gas Sample Type Arterial; Carboxyhemoglobin 1.4 %THgb (0.4-20.1); HCO3 ABG 29.6 mmol/L (22-26); HGB O2 Sat 91.6 % (95-100); Ionized Calcium Level - ABG 1.3 mmol/L (1.1-1.4); Oxygen Saturation ABG 93.9; PO2 ABG 68.4 mmHg (80.0-100.0)
[2021-02-12 05:00] LABS: Alveolar-Arterial Oxygen Gradi 11.6 mmHg (5-10); Blood Gas Sample Site Radial, right; Oxygen Device BIPAP
[2021-02-12 06:29] LABS: Basophils % 0.1 %; Eosinophils # 0.1 10^3/uL (0.0-0.8); Hematocrit 41.4 % (37.0-47.0); Hemoglobin 12.5 g/dL (11.5-15.3); Lymphocytes # 0.6 10^3/uL (0.8-4.8); Lymphocytes % 5.1 %; Mean Corpuscular HGB Conc 30.2 g/dL (30.0-36.0); Mean Corpuscular Hemoglobin 29.4 pg (28.0-34.0); Mean Corpuscular Volume 97.4 fl (81-99); Mean Platelet Volume 11.3 fL (7.4-10.4); Monocytes # 0.4 10^3/uL (0.2-0.9); Monocytes % 3.9 %; Neutrophils # 9.93 10^3/uL (1.8-7.7); Neutrophils % 89.1 %; Nucleated Red Blood Cells % 0 %; Platelet Count 180 10^3/cmm (130-400); Red Blood Count 4.25 10^6/uL (4.1-5.3); Red Cell Distribution Width 15.7 % (12.1-15.1); White Blood Count 11.2 10^3/uL (4.0-10.0)
[2021-02-12 06:40] LABS: Glucose Point of Care 243 mg/dL (70-110)
[2021-02-12] MEDS: clopidogrel 75 mg Tablet PO (06:48)
[2021-02-12] MEDS: levothyroxine 137 mcg Tablet PO (06:48)
[2021-02-12 06:56] LABS: Alanine Aminotransferase 22 U/L (0-33); Albumin Level 3.3 g/dL (3.5-5.2); Alkaline Phosphatase 54 IU/L (35-105); Anion Gap 13.3 (5-19); Aspartate Amino Transferase 12 U/L (0-32); Blood Urea Nitrogen 35 mg/dL (8-23); Calcium 9.2 mg/dL (8.5-10.5); Carbon Dioxide 25 mmol/L (22-29); Chloride 102 mmol/L (98-107); Globulin 3.1 g/dL (1.3-4.6); Glucose 226 mg/dL (65-115); Osmolality Calculated 297 mOsm/kg (285-295); Potassium 4.3 mmol/L (3.5-5.1); Sodium 136 mmol/L (136-145); Total Bilirubin 0.5 mg/dL (0.15-1.2); Total Protein 6.4 g/dL (6.6-8.7)
[2021-02-12] MEDS: budesonide 0.5 mg/2 mL Neb INHALATION (07:28)
[2021-02-12 07:55] LABS: Glucose Point of Care 204 mg/dL (70-110)
[2021-02-12] MEDS: fenofibrate 145 mg Tablet PO (08:21)
[2021-02-12] MEDS: atorvastatin 40 mg Tablet 20 MG PO (08:21)
[2021-02-12] MEDS: donepezil 5 MG Tablet 10 MG PO (08:21)
[2021-02-12] MEDS: pantoprazole 40 mg SDV IVP (08:22)
[2021-02-12] MEDS: heparin 5,000 unit/mL INJ 1 mL 5000 UNIT SUBCUT (08:22)
[2021-02-12] MEDS: gabapentin 300 mg Capsule PO (08:22)
[2021-02-12] MEDS: nicotine 7 mg Patch 1 PATCH TRANSDERMA (08:37)
[2021-02-12] MEDS: insulin lispro 100 unit/1 mL SUBCUT ×2 (08:41→11:38)
--- NOTE | 2021-02-12 09:39 | PC.SOCIAL ---
IMM update IMM updated with patient. Verbalized an understanding. Copy Pg2 provided. Initialled,dated, timed, and placed in chart.
[2021-02-12] MEDS: dilTIAZem 30 mg Tablet 60 MG PO ×2 (09:52→13:46)
[2021-02-12] MEDS: FUROsemide 10 mg/mL SDV 4mL 40 MG IVP (09:52)
[2021-02-12] MEDS: amiodarone 200 mg Tablet PO (09:52)
--- NOTE | 2021-02-12 10:59 | P.DS_ITS ---
Discharge Providers Date of Admission: 02/07/21 19:08 Date of Discharge: February 12, 2021 Attending Provider at Admission: Compa Herman MD Attending Provider at Discharge: Compa Herman MD Primary Care Provider: Milan Mitchell DO Diagnoses at Discharge Discharge Diagnosis (1) Atrial fibrillation: Status: Acute (2) C. difficile diarrhea: Status: Acute (3) Type II respiratory failure: Status: Acute (4) COPD exacerbation: Status: Acute (5) Acute exacerbation of CHF (congestive heart failure): Status: Acute Permanent problem details: Echocardiogram done January 2021 showed an EF of 40% with global LV hypokinesia, moderate , moderate MR (6) Moderate aortic stenosis: Status: Acute (7) Hypoglycemic episode in patient with diabetes mellitus: Status: Acute (8) Acute on chronic renal insufficiency: Status: Acute (9) Encephalopathy acute: Status: Resolved (10) Septic shock: Status: Resolved Reason for Visit Reason for Visit: diaph Hospital Course Hospital Course Balbina Martínez is a 75 year old female with history of CAD, post multiple stent last 5 to 6 years ago, type WA x3, hypertension, congestive heart failure with reduced ejection fraction, moderate aortic stenosis, moderate mitral regurgitation, diastolic dysfuNction, CKD with baseline creatinine, insulin- dependent diabetes with recurrent hypoglycemia as an outpatient who was recently in hospital and discharged on January 29. On a previous admission patient was treated for hypoxic respiratory failure secondary to a combination of COPD exacerbation and congestive heart failure exacerbation and was discharged on steroid taper, diuretic therapy, 3 L oxygen supplementation with advised to follow-up with cardiology for further work-up of possible TAVR. Patient was brought in today from her primary care's office because she was found to have episode of confusion and delirium early in the morning. As per the ER physician's documentation patient was lethargic diaphoretic and hypoxic at primary care's office with blood sugars in the 50s so she was brought into the ER via [facility]Ev[facility]. Patient received bolus glucose during transportation after which her blood sugars improved but mentation remained the same. In the ER patient was found to have hypotension requiring Levophed. Currently on examination patient is on BiPAP ventilation, on Levophed of 20 with mean of 70, heart rate of 100 bpm, lethargic and confused but responding to verb al and physical stimuli. Blood work in the ER showed white count 13.4(13.5 on recent discharge), hemoglobin of 13, sodium 144, chloride of 105, BUN of 91, creatinine of 2.3, lactate of 1, magnesium of 2.6, baseline troponin of 66 with delta of -1 in 2 hours, UA negative for any signs of infection, serum ketones negative, ABG showing a pH of 7.21, PCO2 of 63.7, PO2 of 77. Patient was admitted to the ICU for further management of hypovolemic/cardiogenic shock. At start she was started on broad-spectrum antibiotics which were later discontinued as there were no signs of sepsis. Her cultures remain negative. She remained afebrile during hospitalization. She was started on IV hydration with normal saline. Her fluid status was monitored. She was started on nebulization treatment and inhalation treatment. It is believed patient's symptoms was more likely a combination of polypharmacy, hypovolemia, extreme hypoglycemia on admission along with excessive pain medication regimen at home. On admission patient was also found to be bradycardic for which her home dose of amiodarone was decreased Patient responded well to the treatment and was weaned off Levophed and transitioned over to cardiac stepdown unit. During hospitalization she had an episode of atrial fibrillation with rapid ventricular response for which she was put on IV Cardizem and later transitioned to oral Cardizem. She responded well to the treatment. During hospitalization patient was found to have multiple episodes of diarrhea for which stool studies were sent and she came back to be C. difficile positive. She has been discharged on oral vancomycin. For hypotension her antihypertensives have been withheld and she is been transitioned over to oral Cardizem for atrial fibrillation. She is to monitor her blood pressure twice daily and maintain a blood pressure diary and follow-up with her primary care provider for further adjustment of antihypertensives. For congestive heart failure patient is been discharged on Lasix 40 mg twice daily. She is advised to take up to 1500 cc of fluid daily. For type 2 diabetes mellitus her oral glipizide has been decreased to 5 mg daily. Lantus has been stopped and she is been discharged on insulin sliding scale at high-dose protocol. There is a high concern of sleep apnea for which overnight pulse ox symmetry was done and she has been qualified. Case management has been alerted to help with BiPAP arrangement at home. She is been discharged in hemodynamically stable condition with all the above advices which have been discussed in detail with her and she verbalizes understanding. The plan was also discussed with her outpatient primary care provider Dr. Mitchell and he is in agreements. We also discussed in weaning off her pain medication tapentadol because that keeps her at a higher risk of respiratory and congestive heart failure. Physical Exam Narrative: EXAM NARRATIVE: General: No acute distress, awake and alert, back to baseline on 3 L nasal cannula HEENT: PERRLA, pupils bilaterally equal and reactive Chest: Bilateral bronchial breath sounds, rhonchi present all over the lung maciel, equal air entry bilaterally CVS: S1-S2 regular, bradycardia, ejection systolic murmur at aortic area 2/6 radiating to carotids, pansystolic murmur at apex radiating to midaxillary line,, no gallops, no rubs Abdomen: Soft, nontender, no organomegaly, bowel sounds present Neuro: No focal deficits, no facial deformity, moving all limbs, AOx3 Urinary Catheter Management^: Rodriguez Latex: Cath Placed During This Visit: no Reason for Continuing Indwelling Catheter: Accurate Measurement of Urinary Output in Critically Ill Patients Discharge Data Data Completed and Pending: Completed Studies During Hospitalization Category Date Time Status CT chest abd pel wo con Stat Cat Scan 02/07/21 15:[address] head wo con* 7 [id number] Stat Cat Scan 02/07/21 13:00 Completed XR chest 1V ameya ble [id number] Stat Exams 02/07/21 12:59 Completed XR chest 1V ameya ble [id number] Stat Exams 02/11/21 06:50 Completed Pending at discharge Category Date Time Status Blood Culture Sta t Lab 02/07/21 13:00 Results Labs from last 24 hours 02/12/21 02/12/21 02/12/21 07:51 06:18 06:18 WBC 11.2 H RBC 4.25 Hgb 12.5 Hct 41.4 MCV 97.4 MCH 29.4 MCHC 30.2 RDW 15.7 H Plt Count 180 MPV 11.3 H Neut % (Auto) 89.1 Lymph % (Auto) 5.1 [place] % (Auto) 3.9 Eos % (Auto) 1.0 Baso % (Auto) 0.1 Neut # (Auto) 9.93 H Lymph # (Auto) 0.6 L [place] # (Auto) 0.4 Eos # (Auto) 0.1 Baso # (Auto) 0.0 Nucleated RBC % (a uto) 0 Nucleated RBCs # 0.0 Specimen Type Sample Site ABG pH ABG pCO2 ABG pO2 ABG HCO3 ABG O2 Saturation ABG Base Excess Juan Carlos Test A-a O2 Gradient Hematocrit Hgb O2 Saturation Carboxyhemoglobin Methemoglobin Total Hemoglobin Sodium 136 Potassium 4.3 Glucose 226 H Ionized Calcium O2 Delivery Device FiO2 PEEP [employer] ID Chloride [id number] Carbon Dioxide 25 Anion Gap 13.3 BUN 35 H Creatinine 1.1 H GFR Calculation Not Reportable POC Glucose 204 H Calculated Osmolal ity 297 H Calcium 9.2 Total Bilirubin 0.5 AST 12 ALT 22 Alkaline Phosphata se 54 Total Protein 6.4 L Albumin 3.3 L Globulin 3.1 02/12/21 02/12/21 02/11/21 05:37 04:47 17:29 WBC RBC Hgb Hct MCV MCH MCHC RDW Plt Count MPV Neut % (Auto) Lymph % (Auto) [place] % (Auto) Eos % (Auto) Baso % (Auto) Neut # (Auto) Lymph # (Auto) [place] # (Auto) Eos # (Auto) Baso # (Auto) Nucleated RBC % (a uto) Nucleated RBCs # Specimen Type Arterial Sample Site Radial, right ABG pH 7.43 ABG pCO2 45.1 H ABG pO2 68.4 L ABG HCO3 29.6 H ABG O2 Saturation 93.9 ABG Base Excess 4.6 H Juan Carlos Test Pos A-a O2 Gradient 11.6 H Hematocrit 36.9 L Hgb O2 Saturation 91.6 L Carboxyhemoglobin 1.4 Methemoglobin 1.0 Total Hemoglobin 12.0 Sodium 142.0 Potassium 4.0 Glucose 261.0 H Ionized Calcium 1.3 O2 Delivery Device Bipap FiO2 30.0 PEEP 10.0 [employer] Worker ID [email or web address] Chloride Carbon Dioxide Anion Gap BUN Creatinine GFR Calculation POC Glucose 243 H 309 H Calculated Osmolal ity Calcium Total Bilirubin AST ALT Alkaline Phosphata se Total Protein Albumin Globulin 02/11/21 11:10 WBC RBC Hgb Hct MCV MCH MCHC RDW Plt Count MPV Neut % (Auto) Lymph % (Auto) [place] % (Auto) Eos % (Auto) Baso % (Auto) Neut # (Auto) Lymph # (Auto) [place] # (Auto) Eos # (Auto) Baso # (Auto) Nucleated RBC % (a uto) Nucleated RBCs # Specimen Type Sample Site ABG pH ABG pCO2 ABG pO2 ABG HCO3 ABG O2 Saturation ABG Base Excess Juan Carlos Test A-a O2 Gradient Hematocrit Hgb O2 Saturation Carboxyhemoglobin Methemoglobin Total Hemoglobin Sodium Potassium Glucose Ionized Calcium O2 Delivery Device FiO2 PEEP [employer] Worker ID Chloride Carbon Dioxide Anion Gap BUN Creatinine GFR Calculation POC Glucose 248 H Calculated Osmolal ity Calcium Total Bilirubin AST ALT Alkaline Phosphata se Total Protein Albumin Globulin Addt'l Data from Hospital Stay: Laboratory Results WBC 11.2 10^3/uL (4.0 -10.0) H 02/12/21 06:18 RBC 4.25 10^6/uL (4.1 -5.3) 02/12/21 06:18 Hgb 12.5 g/dL (11.5-1 5.3) 02/12/21 06:18 Hct 41.4 % (37.0-47.0 ) 02/12/21 06:18 MCV 97.4 fl (81-99) 02/12/21 06:18 MCH 29.4 pg (28.0-34. 0) 02/12/21 06:18 MCHC 30.2 g/dL (30.0-3 6.0) 02/12/21 06:18 RDW 15.7 % (12.1-15.1 ) H 02/12/21 06:18 Plt Count 180 10^3/cmm (130 -400) 02/12/21 06:18 MPV 11.3 fL (7.4-10.4 ) H 02/12/21 06:18 Neut % (Auto) 89.1 % 02/12/21 06:18 Lymph % (Auto) 5.1 % 02/12/21 06:18 [place] % (Auto) 3.9 % 02/12/21 06:18 Eos % (Auto) 1.0 % 02/12/21 06:18 Baso % (Auto) 0.1 % 02/12/21 06:18 Neut # (Auto) 9.93 10^3/uL (1.8 -7.7) H 02/12/21 06:18 Lymph # (Auto) 0.6 10^3/uL (0.8- 4.8) L 02/12/21 06:18 [place] # (Auto) 0.4 10^3/uL (0.2- 0.9) 02/12/21 06:18 Eos # (Auto) 0.1 10^3/uL (0.0- 0.8) 02/12/21 06:18 Baso # (Auto) 0.0 10^3/uL (0.0- 0.1) 02/12/21 06:18 Nucleated RBC % (a uto) 0 % 02/12/21 06:18 Nucleated RBCs # 0.0 /100WBC 02/12/21 06:18 D-Dimer 1.24 ug/mIFEU (0- 0.59) H 02/07/21 13:00 Specimen Type Arterial 02/12/21 04:47 Sample Site Radial, right 02/12/21 04:47 ABG pH 7.43 (7.35-7.45) 02/12/21 04:47 ABG pCO2 45.1 mmHg (35-45) H 02/12/21 04:47 ABG pO2 68.4 mmHg (80.0-1 00.0) L 02/12/21 04:47 ABG HCO3 29.6 mmol/L (22-2 6) H 02/12/21 04:47 ABG O2 Saturation 93.9 02/12/21 04:47 ABG Base Excess 4.6 mmol/L (-2.0- 2.0) H 02/12/21 04:47 Juan Carlos Test Pos 02/12/21 04:47 A-a O2 Gradient 11.6 mmHg (5-10) H 02/12/21 04:47 Hematocrit 36.9 % (37-47) L 02/12/21 04:47 Hgb O2 Saturation 91.6 % (95-100) L 02/12/21 04:47 Carboxyhemoglobin 1.4 %THgb (0.4-20 .1) 02/12/21 04:47 Methemoglobin 1.0 % (0.4-1.5) 02/12/21 04:47 Total Hemoglobin 12.0 g/dL (12-16) 02/12/21 04:47 Sodium 142.0 mmol/L (131 -143) 02/12/21 04:47 Potassium 4.0 mmol/L (3.5-5 .0) 02/12/21 04:47 Glucose 261.0 mg/dL (70-1 15) H 02/12/21 04:47 Ionized Calcium 1.3 mmol/L (1.1-1 .4) 02/12/21 04:47 O2 Delivery Device Bipap 02/12/21 04:47 O2 Liters/Min 4.0 % 02/07/21 12:55 FiO2 30.0 % 02/12/21 04:47 Tidal Volume 0.45 02/11/21 06:50 PEEP 10.0 cmH20 02/12/21 04:47 [employer] ID [email or web address] 02/12/21 04:47 Sodium 136 mmol/L (136-1 45) 02/12/21 06:18 Potassium 4.3 mmol/L (3.5-5 .1) 02/12/21 06:18 Chloride 102 mmol/L (98-10 7) 02/12/21 06:18 Carbon Dioxide 25 mmol/L (22-29) 02/12/21 06:18 Anion Gap 13.3 (5-19) 02/12/21 06:18 BUN 35 mg/dL (8-23) H 02/12/21 06:18 Creatinine 1.1 mg/dL (0.5-0. 9) H 02/12/21 06:18 GFR Calculation Not Reportable 02/12/21 06:18 Glucose 226 mg/dL (65-115 ) H 02/12/21 06:18 POC Glucose 204 mg/dL (70-110 ) H 02/12/21 07:51 Calculated Osmolal ity 297 mOsm/kg (285- 295) H 02/12/21 06:18 Lactic Acid 1.0 mmol/L (0.5-2 .2) 02/07/21 13:00 Calcium 9.2 mg/dL (8.5-10 .5) 02/12/21 06:18 Phosphorus 2.5 mg/dL (2.5-4. 5) 02/11/21 05:00 Magnesium 2.2 mg/dL (1.7-2. 3) 02/09/21 03:21 Total Bilirubin 0.5 mg/dL (0.15-1 .2) 02/12/21 06:18 AST 12 U/L (0-32) 02/12/21 06:18 ALT 22 U/L (0-33) 02/12/21 06:18 Alkaline Phosphata se 54 IU/L (35-105) 02/12/21 06:18 Creatine Kinase 49 U/L (26-192) 02/08/21 04:13 Troponin T Baselin e 66 ng/L (0-10) H 02/07/21 13:00 Troponin T 120 Min [place] 64.80 ng/L (0-10) H 02/07/21 15:15 Delta Troponin T -1.20 ABS# (0-10) L 02/07/21 15:15 Troponin T Hi Sens 6Hr 48.55 ng/L (0-10) H 02/07/21 18:45 Troponin T Hi Sens 6Hr Delta -17.45 ng/L (0-12 ) L 02/07/21 18:45 Total Protein 6.4 g/dL (6.6-8.7 ) L 02/12/21 06:18 Albumin 3.3 g/dL (3.5-5.2 ) L 02/12/21 06:18 Globulin 3.1 g/dL (1.3-4.6 ) 02/12/21 06:18 Procalcitonin 0.10 ng/mL (0-0.5 ) 02/09/21 03:21 Random Cortisol 9.39 ug/dL (2.47- 19.5) 02/07/21 15:15 Urine Color Yellow (Yellow) 02/07/21 14:30 Urine Appearance Hazy (CLEAR) A 02/07/21 14:30 Urine pH 5 (5-7) 02/07/21 14:30 Ur Specific Gravit y 1.015 (1.005-1.0 30) 02/07/21 14:30 Urine Protein Neg (Negative) 02/07/21 14:30 Urine Glucose (UA) Norm (Normal) 02/07/21 14:30 Urine Ketones Negative (Negati ve) 02/07/21 14:30 Urine Blood Neg (Negative) 02/07/21 14:30 Urine Nitrate Negative (Negati ve) 02/07/21 14:30 Urine Bilirubin Neg (Negative) 02/07/21 14:30 Urine Urobilinogen Norm mg/dL (Negat abimbola) 02/07/21 14:30 Ur Leukocyte Kandy ase Negative (Negati ve) 02/07/21 14:30 Urine RBC None /hpf (0-2) 02/07/21 14:30 Urine WBC None /hpf (0-5) 02/07/21 14:30 Ur Squamous Epith Cells 0-4 /hpf (0-5) H 02/07/21 14:30 Amorphous Sediment 1+ /hpf 02/07/21 14:30 Urine Bacteria Trace /hpf (NONE) 02/07/21 14:30 Ur Random Sodium 25 mmol/L 02/07/21 14:30 Ur Random Potassiu m 38 mmol/L 02/07/21 14:30 Ur Random Chloride 40 mmol/L 02/07/21 14:30 Serum Ketones Negative (Negati ve) 02/07/21 13:[address] 02/07/21 13:00 IMPRESSION: 1. No acute intracranial hemorrhage or edema. 2. Mild atrophy and mild chronic microvascular ischemic disease. Chest/Abdomen/Pelvis CT 02/07/21 15:12 IMPRESSION: Nonspecific gastric and colonic dilatation. Radiation Dose CTDIVOL = (mGy): DLP = 2493.98~2493.98 (mGy-cm) Chest X-Ray 02/11/21 06:50 IMPRESSION: Probable onset of congestive heart failure. Microbiology 02/10/21 23:30 Stool - Stool Aspirate C.difficile Toxin B Gene (PCR) - Final 02/07/21 12:45 Nose MRSA Culture - Final 02/07/21 13:05 Blood Blood Culture - Preliminary NEGATIVE TO DATE 02/07/21 13:00 Blood Blood Culture - Preliminary NEGATIVE TO DATE 02/07/21 14:30 Urine Kidney Bacterial Antigens - Final 02/07/21 14:30 Urine Catheterized Legionella Urinary Antigen - Final Vitals: Last Vital Signs Temp 98.2 F 02/12/21 03:51 Pulse 76 02/12/21 07:35 Resp 18 02/12/21 07:35 BP 144/81 02/12/21 03:51 Pulse Ox 95 02/12/21 07:35 Discharge Plan Discharge Patient Disposition: Home Condition: Stable Prescriptions: New Eliquis 2.5 mg tablet 2.5 mg PO BID Qty: 60 RF: 0 Cardizem CD 180 mg capsule,extended release 24hr 180 mg PO DAILY Qty: 60 RF: 0 prednisone 10 mg tablet See Taper mg PO DAILY Qty: 20 RF: 0 vancomycin 125 mg capsule 125 mg PO QID 14 Days Qty: 56 RF: 0 Continued mupirocin 2 % ointment 1 applic topical BID PRN (Reason: SORES ON FACE) Qty: 15 RF: 0 buspirone 10 mg tablet 10 mg PO BID PRN (Reason: anxiety) Qty: 60 RF: 11 ondansetron 4 mg tablet,disintegrating 4 mg PO Q8H PRN (Reason: nausea and vomiting) Qty: 30 RF: 11 levothyroxine 137 mcg tablet 137 mcg PO QAM RF: 0 fexofenadine [Julia Allergy] 180 mg Tablet 180 mg PO DAILY RF: 0 acetaminophen 500 mg Tablet 1,000 mg PO Q4H PRN (Reason: Pain) RF: 0 fluticasone propionate 50 mcg/actuation [place],Suspension 1 spray INTRANASAL BID PRN (Reason: Allergy Symptoms) RF: 0 amiodarone 200 mg tablet 200 mg PO DAILY RF: 0 donepezil 10 mg tablet 10 mg PO DAILY RF: 0 clopidogrel [Plavix] 75 mg tablet 75 mg PO QAM RF: 0 nitroglycerin 0.4 mg tablet, sublingual 0.4 mg SUBLINGUAL Q5M PRN (Reason: Chest Pain) RF: 0 omeprazole 20 mg capsule,delayed release(DR/EC) 20 mg PO QAM RF: 0 mirtazapine 15 mg tablet 15 mg PO BEDTIME RF: 0 zolpidem [Ambien] 10 mg tablet 10 mg PO BEDTIME PRN (Reason: insomnia) RF: 0 calcitriol 0.25 mcg capsule 0.25 mcg PO DAILY RF: 0 fenofibrate nanocrystallized 145 mg tablet 145 mg PO DAILY RF: 0 tamsulosin 0.4 mg Capsule 0.4 mg PO DAILY 30 Days Qty: 30 RF: 0 ferrous gluconate 324 mg (37.5 mg iron) Tablet 324 mg PO BIDWM 30 Days Qty: 60 RF: 0 ipratropium-albuterol 0.5 mg-3 mg(2.5 mg base)/3 mL solution for nebulization 3 ml inhalation TID 30 Days Qty: 270 RF: 0 budesonide [Pulmicort] 0.5 mg/2 mL suspension for nebulization 0.5 mg inhalation BID 15 Days Qty: 60 RF: 0 simvastatin 40 mg tablet 20 mg PO DAILY Qty: 0 RF: 0 gabapentin 300 mg capsule 300 mg PO BID Qty: 120 RF: 5 Changed venlafaxine 150 mg capsule,extended release 24hr 75 mg PO QAM Qty: 30 RF: 11 potassium chloride 20 mEq tablet extended release 20 meq PO DAILY Qty: 60 RF: 11 glipizide 10 mg tablet extended release 24hr 5 mg PO QAM Qty: 0 RF: 0 furosemide [Lasix] 80 mg tablet 40 mg PO BID 30 Days Qty: 60 RF: 0 Discontinued Nucynta ER 200 mg tablet extended release 12 hr 200 mg PO BID 30 Days Qty: 60 RF: 0 carvedilol 6.25 mg tablet 6.25 mg PO BID RF: 0 isosorbide mononitrate 60 mg tablet extended release 24 hr 60 mg PO DAILY RF: 0 Lantus U-100 Insulin 100 unit/mL Solution 50 unit SUBCUT QAM 30 Days Qty: 15 RF: 0 prednisone 10 mg tablet See Taper mg PO DAILY Qty: 46 RF: 0 enalapril maleate 10 mg tablet 10 mg PO DAILY Qty: 60 RF: 11 No Action (DME) Accu-Chek Barbara Plus test strp Strip See Rx Instructions .ROUTE .MEDSUPPLY Qty: 400 RF: 3 (DME) lancets [Accu-Chek Multiclix Lancet] Misc See Rx Instructions .ROUTE .MEDSUPPLY Qty: 400 RF: 3 (DME) insulin syringe-needle U-100 [Advocate Syringes] 1 mL 30 gauge x 5/16 syringe See Rx Instructions .ROUTE .MEDSUPPLY Qty: 10 RF: 0 (DME) pen needle, diabetic [BD Ultra-Fine Short Pen Needle] 31 gauge x 5/16 needle See Rx Instructions .ROUTE .MEDSUPPLY Qty: 30 RF: 12 (DME) Diabetic Shoes and inserts See Rx Instructions .Route .MEDSUPPLY Qty: 1 RF: 3 (DME) blood-glucose meter [Accu-Chek Barbara Plus Meter] Misc See Rx Instructions .ROUTE .MEDSUPPLY Qty: 1 RF: 0 (DME) blood-glucose meter [Blood Glucose Monitoring] Kit See Rx Instructions .Route Qty: 1 RF: 0 (DME) Blood Glucose Test Strip See Rx Instructions .Route Qty: 400 RF: 3 Discharge Orders: Discharge Order (Routine); Ordered 10/09/21 Ordered By: Compa Herman Other Ambulatory Orders: DME: Non-Invasive Vent (Order) Location: None Selected Ordered By: Compa Herman Referrals: Roby [Other] (Roby's phone number is [phone]. If you need to set up rides to your doctors appointments please remember that they have to be set up 3 days in advance.) Milan Mitchell, [Primary Care Provider] - 4-7 days Discharge Diet: Cardiac and Diabetic Discharge Activity: Resume usual activity Patient Instructions: Opioid Safety Activity Restrictions/Additional Instructions: Multiple medical changes have been done. Do not take Coreg, enalapril, Imdur, Lantus. Take Cardizem 180 mg once daily. Take Eliquis 2.5 mg twice daily which is a blood thinner. Take Lasix 40 mg twice daily rather than 80 mg twice daily. Take vancomycin 4 times a day for next 14 days for C. difficile. For diabetes do not take Lantus and dose of glipizide has been changed to 5 mg daily. Please check your blood sugars premeals daily and keep a daily log of your blood sugar levels three times daily. Please take this to your follow up appointment with Dr. Mitchell. Insulin sliding scale as follows. Blood sugar 1 40-180- 6 units Blood sugar 180-200? 8 units 201?250? 10 units 251?300- 14 units 301?350- 18 units Please try to avoid pain medications as much as possible. We will try to wean down tapentadol as an outpatient. Discharge Attestations Time Spent in Discharge Care*: greater than 30 min Status at Discharge: Cognitive status at discharge: cognitively intact , Behavioral status at discharge: cooperative , Quality Metrics Clinical Quality Measures During this hospital stay, did patient experience: None Coding Level of Care Code Acute [facility] DC note Diagnoses Atrial fibrillation I48.91 C. difficile diarrhea A04.72 Type II respiratory failure J96.92 COPD exacerbation J44.1 Acute exacerbation of CHF (congestive heart failure) I50.9 Moderate aortic stenosis I35.0 Hypoglycemic episode in patient with diabetes mellitus E11.649 Acute on chronic renal insufficiency N28.9; N18.9 Encephalopathy acute G93.40 Septic shock A41.9; R65.21
[2021-02-12 11:24] LABS: Glucose Point of Care 298 mg/dL (70-110)
--- NOTE | 2021-02-12 14:39 | PC.NURSE ---
pt refused 1300 vancomycin oral solution.she received discharge prescriptions from [facility]..and vancomycin capsule was ordered.she states that she will take the capsule because the liquid is so awful tasting.
--- NOTE | 2021-02-12 16:41 | PC.NURSE ---
discharge instructions given and explained.pt verb understanding of instructions.meds to beds program utilized for prescriptions.discharged via w/c to exit.pt's cg to drive pt home.
--- NOTE | 2021-02-16 08:35 | PC.SOCIAL ---
discharge follow up call made, spoke with patient. patient received all medications prior to being discharged from the hospital. patient reports her [facility] nurse came out at midnight the night of discharge to set up all medications and the nurse has been checking on her several times a day. Patient reports depression, denies thoughts of hurting herself or anyone else. She seems her primary care tomorrow and will discuss depression at this appointment. patient also reports alot of swelling and fluid retention, which she will discuss with pcp tomorrow too. patient is using bipap at night as directed. patient denies any questions or concerns.
== END 2021-02-12 16:42 | disposition home or self-care (01) | DRG 371 ==
LOC: ER 15:53 → ICU 17:02 → CSU 02-09 17:01
PROVIDERS: Student in an Organized Health Care Education/Training Program; Admitting Provider Student in an Organized Health Care Education/Training Program; Emergency Provider Family Medicine; PCP Family Medicine; Visit Provider Student in an Organized Health Care Education/Training Program
DX: A04.72 Enterocolitis due to Clostridium difficile, not specified as recurrent (principal); G93.41 Metabolic encephalopathy; I50.23 Acute on chronic systolic (congestive) heart failure; J96.20 Acute and chronic respiratory failure, unspecified whether with hypoxia or hypercapnia; R57.1 Hypovolemic shock; R57.0 Cardiogenic shock; J44.1 Chronic obstructive pulmonary disease with (acute) exacerbation; I13.0 Hypertensive heart and chronic kidney disease with heart failure and stage 1 through stage 4 chronic kidney disease, or unspecified chronic kidney disease; N17.9 Acute kidney failure, unspecified; E11.649 Type 2 diabetes mellitus with hypoglycemia without coma; I95.9 Hypotension, unspecified; I08.0 Rheumatic disorders of both mitral and aortic valves; I25.10 Atherosclerotic heart disease of native coronary artery without angina pectoris; Z95.5 Presence of coronary angioplasty implant and graft; G89.29 Other chronic pain; N18.9 Chronic kidney disease, unspecified; E11.22 Type 2 diabetes mellitus with diabetic chronic kidney disease; E78.5 Hyperlipidemia, unspecified; M54.30 Sciatica, unspecified side; I25.2 Old myocardial infarction; I48.91 Unspecified atrial fibrillation; Z79.02 Long term (current) use of antithrombotics/antiplatelets
CPT/HCPCS: 36415; 36416; 36600; 70450; 71045; 71250; 74176; 80051; 80053; 81001; 82009; 82330; 82436; 82533; 82550; 82803; 82805; 82962; 83605; 83735; 84100; 84133; 84145; 84300; 84484; 85025; 85378; 86403; 87040; 87449; 87493; 87641; 93005; 94640; 94660; 94664; 94762; 96365; 96366; 96367; 96372; 97110; 97116; 97161; 97165; 97530; 99291; C9113; J1644; J1815; J1940; J2543; J2920; J2930; J3370; J3490; J7030; J7040; J7050; J7611; J7614; J7626

== ENCOUNTER 2021-02-25 15:54 | Inpatient (IN) | payer MEDICARE, MEDICAID, SELFPAY ==
[2021-02-25] VITALS (17 sets, daily range): BP systolic 102–140; BP diastolic 59–102; PULSE 70–111; RESP 16–26; TEMP 37.2; O2SAT 87–94; BMI 36.6
--- NOTE | 2021-02-25 15:56 | ED_ITS ---
HPI - SOB/Dyspnea General: Chief Complaint: Shortness of Breath/Dyspnea Stated Complaint: DYSPNEA Time Seen by Provider: 02/25/21 15:56 History of Present Illness: HPI Narrative: Ms Martínez is a 75-year-old lady with significant past medical history of hypertension, hyperlipidemia, diabetes, CAD, COPD, and current treatment for C. difficile who presents emergency department due to shortness of breath. Symptom onset was gradual over the past 2 days. She endorses increased shortness of breath, cough, and generalized malaise. Upon initial arrival patient has fairly marked respiratory distress with decreased aeration of lungs which limits history. Per EMS she went outside to smoke and at that point was not on her normal supplemental oxygen at which point they were called. Mild improvement after DuoNeb in route. History is otherwise limited by acuity of condition. Review of Systems General: Reports: 10 or more systems reviewed and unremarkable except in HPI and below PFSH ED PFSH: Medical History Acute exacerbation of CHF (congestive heart failure) Echocardiogram done January 2021 showed an EF of 40% with global LV hypokinesia, moderate , moderate MR Bifascicular bundle branch block Bilateral carpal tunnel syndrome CAD (coronary artery disease) Cellulitis, face Cellulitis, face Chronic pain due to injury COPD exacerbation DDD (degenerative disc disease) Diabetes Enrolled in chronic care management Hyperlipidemia Hypoglycemic episode in patient with diabetes mellitus Hypoxemia Impetigo contagiosa Insomnia Moderate aortic stenosis Moderate mitral regurgitation Renal disorder Sciatica associated with disorder of lumbar spine Transient retinal arterial occlusion, bilateral Type II respiratory failure Ulnar neuropathy of both upper extremities Wrist pain, acute Family History Other CAD (coronary artery disease) Chronic kidney disease (CKD) Denies family history of Cancer Social History Smoking and tobacco status: current every day smoker cigarettes Quit status (tobacco): has tried quititng Alcohol intake: never Adopted: No Caregiver/support person: No Lives independently: Yes Household members: family Housing: House Physical Exam Narrative: EXAM NARRATIVE: GENERAL/CONSTITUTIONAL - ill-appearing. resp distress Eyes - PERRL, no conjunctival injection ENMT - Atraumatic external nose and ears. dry mucous membranes NECK - supple. trachea midline CARDIOVASCULAR - tachycardic rate and rhythm. RESPIRATORY - severely reduced aeration, expiratory wheezes. Accessory muscle use present. ABDOMEN/GI - Nontender/Nondistended. MSK - Extremities without obvious deformity or tenderness to palpation SKIN - Warm, Dry NEURO - alert and appropriately oriented. Moves all extremities equally. PSYCH - Appropriate mood and affect Course ED course: - Patient was seen and evaluated by me at bedside - Patient placed on cardiac monitors, IV access obtained - Initial evaluation notable for severe respiratory distress -BiPAP and breathing treatments ordered, copd exacerbation treatment given - Labs notable for no leukocytosis, negative procal. BNP elevated - Imaging notable for no lobar consolidation - Upon serial reexamination after treatment the patient was improved with better aeration and improved resp effort - Based on patient history, evaluation, labs, and imaging as interpreted the most likely cause of the patient's condition is COPD exacerbation as well as acute on chronic heart failure - The results of ED evaluation were discussed with the patient including plan for admission due to requirement for level of care not available if discharged to prevent significant worsening/deterioration. - Hospitalist service contacted and agreed to admit the patient - Patient was admitted without further deterioration or significant events. Vital Signs: Vital signs: Vital Signs Temperature 98 F 02/28/21 21:17 Pulse Rate 68 02/28/21 21:17 Respiratory Rate 15 02/28/21 21:17 Blood Pressure 92/56 02/28/21 21:17 Pulse Oximetry 96 02/28/21 21:17 MDM - SOB/Dyspnea Medical Records: Attestation: I reviewed the patient's medical records. Lab Data: Attestation: I reviewed the patient's lab results. Labs: Lab Results 02/25/21 02/25/21 02/25/21 16:20 16:48 16:48 WBC 7.1 10^3/uL 10^3/ uL (4.0-10.0) RBC 3.95 10^6/uL L 10 ^6/uL (4.1-5.3) Hgb 11.6 g/dL g/dL (11.5-15.3) Hct 39.7 % % (37.0-47.0) MCV 100.5 fl H fl (81-99) MCH 29.4 pg pg (28.0-34.0) MCHC 29.2 g/dL L g/dL (30.0-36.0) RDW 18.2 % H % (12.1-15.1) Plt Count 151 10^3/cmm 10^3 /cmm (130-400) MPV 11.5 fL H fL (7.4-10.4) Neut % (Auto) 82.7 % % Lymph % (Auto) 5.8 % % [place] % (Auto) 9.1 % % Eos % (Auto) 0.3 % % Baso % (Auto) 0.1 % % Neut # (Auto) 5.84 10^3/uL 10^3 /uL (1.8-7.7) Lymph # (Auto) 0.4 10^3/uL L 10^ 3/uL (0.8-4.8) [place] # (Auto) 0.6 10^3/uL 10^3/ uL (0.2-0.9) Eos # (Auto) 0.0 10^3/uL 10^3/ uL (0.0-0.8) Baso # (Auto) 0.0 10^3/uL 10^3/ uL (0.0-0.1) Nucleated RBC % (a uto) 2.8 % % Nucleated RBCs # 0.2 /100WBC /100W BC Specimen Type Arterial Sample Site Radial, left ABG pH 7.27 L (7.35-7.45) ABG pCO2 57.4 mmHg H mmHg (35-45) ABG pO2 56.7 mmHg L mmHg (80.0-100.0) ABG HCO3 26.3 mmol/L H mmo l/L (22-26) ABG Base Excess -1.5 mmol/L mmol/ L (-2.0-2.0) Juan Carlos Test Pos Hematocrit 37.4 % % (37-47) Hgb O2 Saturation 83.4 % L % (95-100) Carboxyhemoglobin 2.3 %THgb %THgb (0.4-20.1) Methemoglobin 0.9 % % (0.4-1.5) Total Hemoglobin 12.2 g/dL g/dL (12-16) O2 Delivery Device Nc O2 Liters/Min 8.0 % % Gum Machine Filler ID Amh Sodium 130 mmol/L L mmol /L (136-145) Potassium 5.2 mmol/L H mmol /L (3.5-5.1) Chloride 93 mmol/L L mmol/ L (98-107) Carbon Dioxide 25 mmol/L mmol/L (22-29) Anion Gap 17.2 (5-19) BUN 31 mg/dL H mg/dL (8-23) Creatinine 1.8 mg/dL H mg/dL (0.5-0.9) GFR Calculation Not Reportable Glucose 191 mg/dL H mg/dL (65-115) Calculated Osmolal ity 282 mOsm/kg L mOs m/kg (285-295) Lactic Acid Calcium 8.8 mg/dL mg/dL (8.5-10.5) Magnesium 3.7 mg/dL H mg/dL (1.7-2.3) Total Bilirubin 0.9 mg/dL mg/dL (0.15-1.2) AST 50 U/L H U/L (0-32) ALT 80 U/L H U/L (0-33) Alkaline Phosphata se 69 IU/L IU/L (35-105) Troponin T Baselin e NT-Pro-B Natriuret Pep 33970 pg/mL H pg/ mL (0-450) Total Protein 6.8 g/dL g/dL (6.6-8.7) Albumin 3.6 g/dL g/dL (3.5-5.2) Globulin 3.2 g/dL g/dL (1.3-4.6) Procalcitonin SARS-CoV-2 Ag (Rap id) 02/25/21 02/25/21 02/25/21 16:48 16:48 16:48 WBC RBC Hgb Hct MCV MCH MCHC RDW Plt Count MPV Neut % (Auto) Lymph % (Auto) [place] % (Auto) Eos % (Auto) Baso % (Auto) Neut # (Auto) Lymph # (Auto) [place] # (Auto) Eos # (Auto) Baso # (Auto) Nucleated RBC % (a uto) Nucleated RBCs # Specimen Type Sample Site ABG pH ABG pCO2 ABG pO2 ABG HCO3 ABG Base Excess Juan Carlos Test Hematocrit Hgb O2 Saturation Carboxyhemoglobin Methemoglobin Total Hemoglobin O2 Delivery Device O2 Liters/Min Gum Machine Filler ID Sodium Potassium Chloride Carbon Dioxide Anion Gap BUN Creatinine GFR Calculation Glucose Calculated Osmolal ity Lactic Acid 2.3 mmol/L H mmol /L (0.5-2.2) Calcium Magnesium Total Bilirubin AST ALT Alkaline Phosphata se Troponin T Baselin e 42 ng/L H ng/L (0-10) NT-Pro-B Natriuret Pep Total Protein Albumin Globulin Procalcitonin 0.42 ng/mL ng/mL (0-0.5) SARS-CoV-2 Ag (Rap id) 02/25/21 17:11 WBC RBC Hgb Hct MCV MCH MCHC RDW Plt Count MPV Neut % (Auto) Lymph % (Auto) [place] % (Auto) Eos % (Auto) Baso % (Auto) Neut # (Auto) Lymph # (Auto) [place] # (Auto) Eos # (Auto) Baso # (Auto) Nucleated RBC % (a uto) Nucleated RBCs # Specimen Type Sample Site ABG pH ABG pCO2 ABG pO2 ABG HCO3 ABG Base Excess Juan Carlos Test Hematocrit Hgb O2 Saturation Carboxyhemoglobin Methemoglobin Total Hemoglobin O2 Delivery Device O2 Liters/Min Gum Machine Filler ID Sodium Potassium Chloride Carbon Dioxide Anion Gap BUN Creatinine GFR Calculation Glucose Calculated Osmolal ity Lactic Acid Calcium Magnesium Total Bilirubin AST ALT Alkaline Phosphata se Troponin T Baselin e NT-Pro-B Natriuret Pep Total Protein Albumin Globulin Procalcitonin SARS-CoV-2 Ag (Rap id) Negative (Negative) EKG Data^: EKG 1: Attestation: I personally reviewed and interpreted this EKG as follows: EKG Interpretation Date: 02/25/21 EKG interpretation time: 16:59 Interpretation: Twelve-lead EKG shows an irregular rhythm at a rate of 103. MS interval not present. QRS duration 180. QTc 436. right Delia deviation. Interpretation: atrial fibrillation Rhythm. interventricular conduction delay. Critical Care Time Critical Care Time: Critical Care Time: Yes Total Critical Care Time: 35 Attestation: Due to a high probability of clinically significant, possibly life threatening deterioration, the patient required my highest level of attention and preparedness to intervene emergently and I personally spent this critical care time directly and personally managing the patient. This critical care time included obtaining a history; examining the patient; pulse oximetry; ordering and review of laboratory and imaging studies; arranging urgent treatment with development of a management plan; evaluation of patient's response to treatment; frequent reassessment; and, discussions with other providers as applicable. It was exclusive of separately billable procedures. Discharge Plan Discharge Patient Disposition: Admitted As Inpatient Admit Provider: Evaristo Peace Clinical Impression: Acute exacerbation of chronic obstructive airways disease, Congestive heart failure Condition: Stable Coding Level of Care Code ED Profile Trimmer for Flo Riggs
--- NOTE | 2021-02-25 16:05 | XRR_ITS ---
PROCEDURE INFORMATION: Exam: XR Chest Exam date and time: 02/25/2021 4:05 PM Age: 75 years old Clinical indication: Shortness of breath; Additional info: SOB TECHNIQUE: Imaging protocol: XR of the chest. Views: 1 view. COMPARISON: CR XR chest 1V portable [id number] 02/11/2021 6:50 AM FINDINGS: Lungs: Vascular congestion. Diffuse interstitial opacities have increased. Ground-glass opacities in the lung bases have increased. Pleural spaces: Small pleural effusions. No pneumothorax. Heart/Mediastinum: Cardiomegaly. Bones/joints: Unremarkable. XR/XR chest 1V portable [id number] IMPRESSION: 1. Worsened congestive heart failure pattern. Radiation Dose CTDIVOL = (mGy): DLP = (mGy-cm)
--- NOTE | 2021-02-25 16:06 | ECG_ITS ---
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 Measurements Intervals [place] Rate: 103 P: OR: QRS: 147 QRSD: 180 T: -33 QT: 377 QTc: 494 Interpretive Statements ATRIAL FIBRILLATION WITH RAPID VENTRICULAR RESPONSE WITH ABERRANT CONDUCTION OR VENTRICULAR PREMATURE COMPLEXES RIGHT AXIS DEVIATION [QRS AXIS > 100] INTRAVENTRICULAR CONDUCTION DELAY [130+ ms QRS DURATION] Compared to ECG 02/11/2021 07:12:23 Aberrant conduction of supraventricular beat(s) now present Ventricular premature complex(es) now present Right-axis deviation now present Intraventricular conduction delay now present Atrial flutter no longer present Myocardial infarct finding no longer present Electronically Signed On 02-25-2021 22:37:59 CDT by Misha Campos M.D. [id number]
[2021-02-25 16:32] LABS: ABG PCO2 57.4 mmHg (35-45); ABG PH Result 7.27 (7.35-7.45); Arterial Blood Gas Hematocrit 37.4 % (37-47); Base Excess ABG -1.5 mmol/L (-2.0-2.0); Blood Gas Allen Test Pos; Blood Gas Operator Identificat AMH; Blood Gas Sample Site Radial, left; Blood Gas Sample Type Arterial; Carboxyhemoglobin 2.3 %THgb (0.4-20.1); HCO3 ABG 26.3 mmol/L (22-26); HGB O2 Sat 83.4 % (95-100); Methemoglobin 0.9 % (0.4-1.5); Oxygen Device NC; PO2 ABG 56.7 mmHg (80.0-100.0); Total Hemoglobin 12.2 g/dL (12-16)
[2021-02-25] MEDS: ondansetron 2 mg/ML SDV 2 mL 4 MG IVP (16:34)
[2021-02-25] MEDS: magnesium sulfate premix 2 GM/50 ML PIGGYBACK IV (16:35)
[2021-02-25] MEDS: ipratropium-albuterol 3 mL Neb INHALATION ×4 (16:39→21:23)
[2021-02-25 16:55] LABS: Basophils % 0.1 %; Eosinophils % 0.3 %; Hematocrit 39.7 % (37.0-47.0); Hemoglobin 11.6 g/dL (11.5-15.3); Lymphocytes # 0.4 10^3/uL (0.8-4.8); Lymphocytes % 5.8 %; Mean Corpuscular HGB Conc 29.2 g/dL (30.0-36.0); Mean Corpuscular Hemoglobin 29.4 pg (28.0-34.0); Mean Corpuscular Volume 100.5 fl (81-99); Mean Platelet Volume 11.5 fL (7.4-10.4); Monocytes # 0.6 10^3/uL (0.2-0.9); Monocytes % 9.1 %; Neutrophils # 5.84 10^3/uL (1.8-7.7); Neutrophils % 82.7 %; Nucleated Red Blood Cells # 0.2 /100WBC; Nucleated Red Blood Cells % 2.8 %; Platelet Count 151 10^3/cmm (130-400); Red Blood Count 3.95 10^6/uL (4.1-5.3); Red Cell Distribution Width 18.2 % (12.1-15.1); White Blood Count 7.1 10^3/uL (4.0-10.0)
[2021-02-25 17:12] LABS: Lactic Sepsis W/Reflex 2.3 mmol/L (0.5-2.2)
[2021-02-25 17:23] LABS: Alanine Aminotransferase 80 U/L (0-33); Albumin Level 3.6 g/dL (3.5-5.2); Alkaline Phosphatase 69 IU/L (35-105); Anion Gap 17.2 (5-19); Aspartate Amino Transferase 50 U/L (0-32); Blood Urea Nitrogen 31 mg/dL (8-23); Calcium 8.8 mg/dL (8.5-10.5); Carbon Dioxide 25 mmol/L (22-29); Chloride 93 mmol/L (98-107); Globulin 3.2 g/dL (1.3-4.6); Glucose 191 mg/dL (65-115); Magnesium 3.7 mg/dL (1.7-2.3); NT Pro B Type Natriuretic Pept 12604 pg/mL (0-450); Osmolality Calculated 282 mOsm/kg (285-295); Potassium 5.2 mmol/L (3.5-5.1); Sodium 130 mmol/L (136-145); Total Bilirubin 0.9 mg/dL (0.15-1.2); Total Protein 6.8 g/dL (6.6-8.7)
[2021-02-25 17:32] LABS: SARS Covid-2 Antigen Negative (Negative)
--- NOTE | 2021-02-25 17:48 | P.HP_ITS ---
Providers/Chief Complaint Primary Care Provider: Milan Mitchell DO Chief Complaint: DYSPNEA History of Present Illness Balbina Martínez is a 75 year old female with established history of minor reduced action fraction heart failure EF 40%, moderate aortic valve stenosis, moderate mitral regurgitation, type 2 diabetes, chronic kidney disease, was discharged recently from the hospital after management of cardiogenic shock she was started on broad-spectrum antibiotics however remained afebrile, Secondary to bradycardia dose of amiodarone was decreased, she was diagnosed with C. difficile colitis and was discharged on 02/12 with p.o. vancomycin. She also experienced hypoglycemia and oral antihyperglycemics dose were decreased, For hypercapnic respiratory failure she was discharged with BiPAP arrangement at home. Today she is presenting with chief complaint of shortness of breath, orthopnea and PND. She is denying fever, chest pain. She is endorsing productive cough bringing up brown sputum since last few days. She has been compliant with her medications however has noticed decreased urine output despite taking diuretics. She was discharged on Lasix 40 mg twice daily. Of note she uses 3 L of oxygen at baseline she is due for cardiology follow-up for TAVR. Diagnosis in the ER revealed CHF exacerbation, acute on chronic hypercarbic respiratory failure she was given doxycycline, 2 g of magnesium, Lasix 40 mg IV push and steroid Review of Systems Const: Reports: change in appetite, change in weight and malaise Eyes: Denies: change in vision ENMT: Denies: throat pain Card: Reports: irregular heart rhythm, swelling of feet/ankles, dyspnea on exertion and orthopnea Resp: Reports: dyspnea and productive cough GI: Reports: nausea : Denies: flank pain Musc: Reports: extremity swelling; Denies: neck pain Skin/Breast: Reports: lesions Neuro: Denies: headache(s), weakness in extremities or confusion Psych: Reports: anxiety Endo: Denies: polyuria Kris/Lymph: Denies: easy bruising All/Imm: Denies: urticaria Medications/Allergies Home Medications Medication Instructions Recorded Confirmed Last Taken Type blood sugar diagnostic #400 each 11/28/19 02/21/21 Unknown Rx lancets #400 each 11/28/19 02/21/21 Unknown Rx pen needle, diabetic 31 gauge x #30 each 04/26/20 02/21/21 Unknown Rx /16 buspirone 10 mg tablet 10 mg PO BID PRN #60 tab 06/04/20 02/21/21 Unknown Rx insulin syringe-needle U-100 1 mL #10 ea 07/21/20 02/21/21 Unknown History 30 gauge x 09/19 mupirocin 2 % topical ointment 1 applic TOPICAL BID PRN #15 g 10/13/20 02/21/21 Unknown Rx Diabetic Shoes and inserts #1 ea 11/30/20 02/21/21 Unknown Rx blood-glucose meter #1 each 12/08/20 02/21/21 Unknown Rx blood sugar diagnostic #400 ea 12/23/20 02/21/21 Unknown Rx blood-glucose meter #1 ea 12/23/20 02/21/21 Unknown Rx ondansetron 4 mg disintegrating 4 mg PO Q8H PRN #30 tab 01/17/21 02/21/21 Unknown Rx tablet acetaminophen 1,000 mg PO Q4H PRN 01/26/21 02/21/21 Unknown History amiodarone 200 mg PO DAILY 01/26/21 02/21/21 Unknown History calcitriol 0.25 mcg PO DAILY 01/26/21 02/21/21 Unknown History clopidogrel [Plavix] 75 mg PO QAM 01/26/21 02/21/21 01/26/21 09:00 History donepezil 10 mg PO DAILY 01/26/21 02/21/21 Unknown History fenofibrate nanocrystallized 145 mg PO DAILY 01/26/21 02/21/21 Unknown History fexofenadine [Julia Allergy] 180 mg PO DAILY 01/26/21 02/21/21 Unknown History fluticasone propionate 1 spray INTRANASAL BID PRN 01/26/21 02/21/21 Unknown History levothyroxine 137 mcg PO QAM 01/26/21 02/21/21 01/26/21 History mirtazapine 15 mg PO BEDTIME 01/26/21 02/21/21 Unknown History nitroglycerin 0.4 mg SUBLINGUAL Q5M PRN 01/26/21 02/21/21 Unknown History omeprazole 20 mg PO QAM 01/26/21 02/21/21 01/26/21 History ferrous gluconate 324 mg PO BIDWM 30 Days #60 tab 01/29/21 02/21/21 Unknown Rx gabapentin 300 mg PO BID #120 cap 01/29/21 02/21/21 01/26/21 09:00 Rx ipratropium-albuterol 3 ml INHALATION TID 30 Days #270 ml 01/29/21 02/21/21 Unknown Rx simvastatin 20 mg PO DAILY #0 tab 01/29/21 02/21/21 Unknown Rx tamsulosin 0.4 mg PO DAILY 30 Days #30 cap 01/29/21 02/21/21 Unknown Rx apixaban [Eliquis] 2.5 mg PO BID #60 tab 02/12/21 02/21/21 Unknown Rx diltiazem HCl [Cardizem CD] 180 mg PO DAILY #60 cap 02/12/21 02/21/21 Unknown Rx potassium chloride 20 meq PO DAILY #60 tab 02/12/21 02/21/21 01/26/21 09:00 Rx prednisone See Taper PO DAILY #20 tab 02/12/21 02/21/21 Unknown Rx vancomycin 125 mg PO QID 14 Days #56 cap 02/12/21 02/21/21 Unknown Rx venlafaxine 75 mg PO QAM #30 cap 02/12/21 02/21/21 01/26/21 09:00 Rx glipizide 5 mg tablet, extended 5 mg PO QAM #30 tab 02/14/21 02/21/21 Unknown Rx release 24 hr insulin lispro 100 unit/mL See Rx Instructions SUBCUT 02/14/21 02/21/21 Unknown Rx subcutaneous solution .COMPLEX #10 ml insulin syringe-needle U-100 0.5 #100 ea 02/14/21 02/21/21 Unknown Rx mL 29 gauge x 1/2 furosemide 40 mg tablet 40 mg PO BID 30 Days #60 tab 02/18/21 02/21/21 Unknown Rx nicotine 21 mg/24 hr daily 1 patch TRANSDERMAL DAILY #28 ea 02/18/21 02/21/21 Unknown Rx transdermal patch zolpidem 5 mg tablet 5 mg PO ONCE PRN 30 Days #30 tab 02/21/21 Unknown Rx Allergies Allergy/AdvReac Type Severity Reaction Status Date / Time pentazocine [From Petros] Allergy Intermediate hives Verified 02/21/21 13:15 latex Allergy Mild itching Verified 02/21/21 13:15 morphine Allergy Unknown ADR-Itching Verified 02/21/21 13:15 PFSH Acute PFSH: Medical History Acute exacerbation of CHF (congestive heart failure) Echocardiogram done January 2021 showed an EF of 40% with global LV hypokinesia, moderate , moderate MR Bifascicular bundle branch block Bilateral carpal tunnel syndrome CAD (coronary artery disease) Cellulitis, face Cellulitis, face Chronic pain due to injury COPD exacerbation DDD (degenerative disc disease) Diabetes Enrolled in chronic care management Hyperlipidemia Hypoglycemic episode in patient with diabetes mellitus Hypoxemia Impetigo contagiosa Insomnia Moderate aortic stenosis Moderate mitral regurgitation Renal disorder Sciatica associated with disorder of lumbar spine Transient retinal arterial occlusion, bilateral Type II respiratory failure Ulnar neuropathy of both upper extremities Wrist pain, acute Family History Other CAD (coronary artery disease) Chronic kidney disease (CKD) Denies family history of Cancer Social History Smoking and tobacco status: current every day smoker cigarettes Quit status (tobacco): has tried quititng Alcohol intake: never Adopted: No Caregiver/support person: No Lives independently: Yes Household members: family Housing: House Vitals/I&O/Wt Last Vital Signs Temp 99.0 F 02/25/21 16:22 Pulse 108 H 02/25/21 17:08 Resp 21 H 02/25/21 17:08 BP 102/84 02/25/21 17:08 Pulse Ox 90 02/25/21 17:08 Weight last 48 hrs Weight 90.718 kg Physical Exam Narrative: EXAM NARRATIVE: Morbidly obese female She was on BiPAP and was put on 8 L nasal cannula to keep her O2 saturation above 88 She does have conversational dyspnea She easily gets short of breath on minimal activities Generalized anasarca Congestive heart failure with cardiac wheezing Bilateral wheezing with crackles Systolic murmur Lower extremity edema +3+ with skin mottling noticed around the toes however no active ischemic ulcers, her feet does feel cold Appropriate mood and affect Nonfocal neuro exam Data : 02/25/21 16:48 02/25/21 16:48 A&P Assessment and plan (1) Acute exacerbation of chronic obstructive airways disease: Status: Acute (2) Congestive heart failure: Status: Acute (3) Diabetes: Status: Acute Qualifiers: Diabetes mellitus type: type 2 Diabetes mellitus senior care insulin use: with senior care use Diabetes mellitus complication status: with hyperglycemia Qualified Code(s): E11.65 - Type 2 diabetes mellitus with hyperglycemia; 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 difficile diarrhea: Status: Acute (5) Atrial fibrillation: Status: Acute Qualifiers: Atrial fibrillation type: permanent Qualified Code(s): I48.21 - Permanent atrial fibrillation Additional A&P Information Acute on chronic hypoxic hypercarbic respiratory failure ABG reviewed Consistent with hypoxic hypercarbic respiratory failure Bicarb around 25 Patient is stating that she has been compliant with her BiPAP at home Not noticed any fever or chest pain Endorsing productive cough Does have cardiac wheezing We'll keep her on BiPAP overnight ABG in the morning In case of further worsening will transfer to ICU, high risk intubation Systolic congestive heart failure exacerbation Generalized anasarca appearance secondary to bilateral ventricular failure EF 40% Moderate aortic and mitral valve regurgitation I do believe valvular regurgitation is playing a role for recurrent CHF exacerbation on previous admission she was treated for possible cardiogenic shock as well in case of further worsening will request cardiology for further evaluation Would use Bumex 2 mg IV for now Repeat echo in the morning Acute on chronic kidney disease secondary to cardiorenal congestive heart failure Anticipating improvement with diuresis C. difficile diarrhea she has finished 10 days of p.o. vancomycin, would not continue at this point Cardiac consistent carb diet Moderate sliding scale monitor for hypoglycemia Full code DVT prophylaxis she is currently on Eliquis 2.5 twice daily I would continue, she takes Eliquis for A. fib Continue reduced dose of amiodarone Attestations Medical Necessity Statement*: Anticipating more than 2 midnights in the hospital Time Spent in Patient Care: Greater than 35 minutes Coding Level of Care Code Acute Aircraft Sales Representative for [facility] Fwd Diagnoses Acute exacerbation of chronic obstructive airways disease J44.1 Congestive heart failure I50.9 Diabetes E11.65; Z79.4 Diabetes mellitus type: type 2 Diabetes mellitus terminal operator insulin use: with senior care use Diabetes mellitus complication status: with hyperglycemia C. difficile diarrhea A04.72 Atrial fibrillation I48.21 Atrial fibrillation type: permanent
[2021-02-25 17:49] LABS: Troponin(5th) Baseline 42 ng/L (0-10)
[2021-02-25] MEDS: FUROsemide 10 mg/mL SDV 4mL 40 MG IVP (18:04)
[2021-02-25 18:39] LABS: Reflex Lactate Order REFLEX LACTIC ORDERD
[2021-02-25 18:52] LABS: Procalcitonin 0.42 ng/mL (0-0.5)
[2021-02-25 19:32] LABS: Troponin 5 2HR 45.92 ng/L (0-10); Troponin 5 2HR Delta 3.92 ABS# (0-10)
[2021-02-25 19:52] LABS: Glucose Point of Care 209 mg/dL (70-110)
[2021-02-25] MEDS: insulin lispro 100 unit/1 mL SUBCUT (20:25)
[2021-02-25] MEDS: nicotine 21 mg Patch 1 PATCH TRANSDERMA (20:25)
--- NOTE | 2021-02-25 20:51 | PC.NURSE ---
Admit Note Patient admitted to C[facility] room 104 from ED via stretcher. Covering service notified. Dr Peace in to see patient. Patient reports not having urinating for about 2 days. Received order from Dr Peace to place lieberman catheter. Patient presents with increased work of breathing. Patient has bipap in place presently. Orders reviewed & will continue to monitor. Patient and/or telesales representative oriented to environment, equipment, and informed of the following as found in the admission booklet: patient rights & responsibilities, visitor policy, hand and respiratory hygiene practice. Other education includes: Lieberman catheter placement/care and nicotine patch. Patient verbalized complete understanding. .
[2021-02-25] MEDS: zolpidem 5 mg Tablet PO (21:35)
--- NOTE | 2021-02-25 22:06 | ECG_ITS ---
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 Measurements Intervals [place] Rate: 96 P: CO: QRS: 162 QRSD: 186 T: -30 QT: 423 QTc: 536 Interpretive Statements ATRIAL FIBRILLATION RIGHT AXIS DEVIATION [QRS AXIS > 100] INTRAVENTRICULAR CONDUCTION DELAY [130+ ms QRS DURATION] Compared to ECG 02/25/2021 16:54:06 Aberrant conduction of supraventricular beat(s) no longer present Ventricular premature complex(es) no longer present Electronically Signed On 02-25-2021 22:47:46 CDT by Misha Campos M.D. [id number]
[2021-02-25 23:45] LABS: Troponin 5 6HR 41.07 ng/L (0-10)
[2021-02-25 23:49] LABS: Troponin 5 6HR Delta -0.93 ng/L (0-12)
[2021-02-26] VITALS (17 sets, daily range): BP systolic 103–130; BP diastolic 66–95; PULSE 89–119; RESP 16–26; TEMP 37.1–37.2; O2SAT 90–98
--- NOTE | 2021-02-26 03:21 | PC.NURSE ---
On admission patient reports having not urinated for ~2days prior to this admission. Informed Dr Peace of patient's statement and received order to place lieberman catheter. Received in report from DIOMEDES Grullon in ED that patient was given Lasix 40mg IVP prior to admission. Patient has had 300ml of urine out since lieberman placed. Emptied at this time. Informed Dr Driscoll. No new orders presently.
[2021-02-26 04:22] LABS: ABG PCO2 50.3 mmHg (35-45); ABG PH Result 7.33 (7.35-7.45); Arterial Blood Gas Hematocrit 37.8 % (37-47); Base Excess ABG -0.2 mmol/L (-2.0-2.0); Blood Gas Allen Test Pos; Blood Gas Sample Site Radial, right; Blood Gas Sample Type Arterial; HCO3 ABG 26.4 mmol/L (22-26); Oxygen Device BIPAP; PO2 ABG 57.6 mmHg (80.0-100.0)
[2021-02-26] MEDS: venlafaxine ER (24HR) 75 mg Capsule PO (04:23)
[2021-02-26] MEDS: levothyroxine 137 mcg Tablet PO (04:23)
[2021-02-26] MEDS: clopidogrel 75 mg Tablet PO (04:24)
[2021-02-26 06:15] LABS: Glucose Point of Care 208 mg/dL (70-110)
[2021-02-26 07:36] LABS: Basophils % 0.1 %; Hematocrit 41.7 % (37.0-47.0); Hemoglobin 12.2 g/dL (11.5-15.3); Lymphocytes # 0.4 10^3/uL (0.8-4.8); Lymphocytes % 5.8 %; Mean Corpuscular HGB Conc 29.3 g/dL (30.0-36.0); Mean Corpuscular Hemoglobin 29.5 pg (28.0-34.0); Mean Corpuscular Volume 100.7 fl (81-99); Mean Platelet Volume 11.3 fL (7.4-10.4); Monocytes # 0.2 10^3/uL (0.2-0.9); Monocytes % 2.9 %; Neutrophils # 6.17 10^3/uL (1.8-7.7); Neutrophils % 89.9 %; Nucleated Red Blood Cells # 0.1 /100WBC; Nucleated Red Blood Cells % 1.9 %; Platelet Count 155 10^3/cmm (130-400); Red Blood Count 4.14 10^6/uL (4.1-5.3); Red Cell Distribution Width 18.8 % (12.1-15.1); White Blood Count 6.9 10^3/uL (4.0-10.0)
[2021-02-26 08:03] LABS: Anion Gap 19.1 (5-19); Blood Urea Nitrogen 37 mg/dL (8-23); C Reactive Protein 61.8 mg/L (0.0-4.9); Calcium 9.2 mg/dL (8.5-10.5); Carbon Dioxide 25 mmol/L (22-29); Chloride 92 mmol/L (98-107); Glucose 201 mg/dL (65-115); Magnesium 2.7 mg/dL (1.7-2.3); Osmolality Calculated 284 mOsm/kg (285-295); Potassium 6.1 mmol/L (3.5-5.1); Sodium 130 mmol/L (136-145)
[2021-02-26] MEDS: bumetanide 0.25 mg/mL SDV 10 mL 2 MG IVP (08:10)
[2021-02-26] MEDS: apixaban 5 mg Tablet 2.5 MG PO ×2 (08:11→17:18)
[2021-02-26] MEDS: potassium chloride ER 20 mEq Tablet PO (08:11)
[2021-02-26] MEDS: dilTIAZem ER (24HR) 180 mg Capsule PO (08:11)
[2021-02-26] MEDS: nicotine 21 mg Patch 1 PATCH TRANSDERMA (08:11)
[2021-02-26] MEDS: amiodarone 200 mg Tablet PO (08:12)
[2021-02-26] MEDS: insulin lispro 100 unit/1 mL SUBCUT ×4 (08:12→20:48)
[2021-02-26] MEDS: ondansetron 2 mg/ML SDV 2 mL 4 MG IVP ×3 (08:20→23:34)
[2021-02-26] MEDS: ipratropium-albuterol 3 mL Neb INHALATION ×3 (09:27→20:40)
--- NOTE | 2021-02-26 10:16 | PM.PN ---
Subjective Subjective: Interval history: Worsening RAMU, hyperkalemia, improvement in PCO2 this morning given Kayexalate, insulin, albuterol 10 mg, bicarb IV push, calcium gluconate, repeat potassium at 4:00 Continue BiPAP after her breakfast Patient does look anasarca, her cardiac wheezing has slightly improved Obtain EKG Patient is stating that she was supposed to follow-up with [facility] for TAVR but was not able to make an appointment with them because of her worsening shortness of breath. Increase Bumex to 2 mg twice a day and added metolazone Inadequate urine output on 40 mg of IV Lasix CONCLUSIONS 1-Normal left ventricular cavity size. Moderately decreased left ventricular systolic function. Left ventricular ejection fraction is estimated at 40 %. Global left ventricular hypokinesis. 2-Moderately thickened mitral valve. Moderate mitral annular calcification. No mitral valve stenosis. Moderate mitral valve regurgitation. 3-Severe aortic valve calcification. Moderate aortic valve stenosis, mean gradient 2.8 mmHg, TONI 1.7 cm squared. Trace aortic valve regurgitation. 4-There is no pericardial effusion. 5-Pulmonary artery systolic pressure is within normal limits. 6-Right atrial pressure is around 5 mm of mercury. 7-When compared to the prior echocardiogram dated February 09, 2017 there is worsening of mitral valve regurgitation from mild to moderate, there appeared to be moderate aortic valve stenosis with calculated aortic valve area 1.7 cm squared while ejection fraction has reduced from mildly reduced 50% to moderately reduced 40% now Vitals/I&O/Wt Last Vital Signs Temp 98.9 F 02/26/21 03:14 Pulse 94 02/26/21 09:35 Resp 24 H 02/26/21 09:27 BP 130/95 02/26/21 03:14 Pulse Ox 95 02/26/21 09:27 02/25/21 02/26/21 02/26/21 22:59 06:59 14:59 Intake Total 50 / 50 100 / 150 Output Total 300 / 300 Balance 50 / 50 -200 / -150 Weight last 48 hrs Weight 104.78 kg Weight 90.718 kg Physical Exam Narrative: EXAM NARRATIVE: elderly female Generalized anasarca CHF exacerbation Cardiac wheezing has improved Crackles at the base of the lungs Currently on BiPAP She does desaturate quickly Distended abdomen Lower extremity 3+ pitting edema No active sign of cellulitis, skin breakdown left leg EOMI, PERRLA GCS 15 Nonfocal neuro exam Urinary Catheter Management^: Rodriguez: Cath Placed During This Visit: yes Reason for Continuing Indwelling Catheter: Acute Urinary Retention or Obstruction Urinary Catheter Date of Insertion: 02/25/21 Urinary Catheter Time of Insertion: 20:54 Data : 02/26/21 07:12 02/26/21 07:12 A&P Assessment and plan (1) Acute exacerbation of chronic obstructive airways disease: Status: Acute (2) Congestive heart failure: Status: Acute (3) Diabetes: Status: Acute Qualifiers: Diabetes mellitus type: type 2 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 insulin use: with termite control service representative use Diabetes mellitus complication status: with hyperglycemia Qualified Code(s): E11.65 - Type 2 diabetes mellitus with hyperglycemia; Z79.4 - terminal block assembler (current) use of insulin (4) Atrial fibrillation: Status: Acute Qualifiers: Atrial fibrillation type: permanent Qualified Code(s): I48.21 - Permanent atrial fibrillation (5) Acute on chronic renal insufficiency: Status: Acute (6) Acute kidney injury superimposed on chronic kidney disease: Status: Acute (7) Mitral valve regurgitation: Status: Acute (8) Hyperkalemia: Status: Acute (9) Moderate aortic valve stenosis: Status: Acute Additional A&P Information Acute systolic congestive heart failure exacerbation Most likely etiology is valvular, mitral regurgitation, moderate aortic valve stenosis Her EF has reduced from 50% to 40% on echo done in January this year No active chest pain Patient was recommended TAVR([facility]) Bumex 2 mg twice a day, added metolazone, and adequate urine output Acute on chronic kidney disease Most likely cardiorenal in nature I have increased her Bumex to 2 mg twice a day along metolazone Will request CT abdomen pelvis if her creatinine worsens more than 2.0 tomorrow Strict ins and outs Acute COPD exacerbation Acute on chronic hypercapnic hypoxic respiratory failure Currently on BiPAP Chest x-ray consistent with pulmonary edema Cardiac wheezing improved slightly as compared to yesterday Continue steroids diuretics Atrial fibrillation Without RVR continue Eliquis and AV agustina blocking agents Hyperkalemia: Given calcium gluconate, Kayexalate, insulin albuterol and bicarb repeat potassium at 4 PM Repeat EKG Cardiac diet DVT prophylaxis Eliquis would suffice Full code Attestations Medical Necessity Statement*: Anticipating stay in the hospital until Sunday Time Spent in Patient Care: 16 - 35 minutes Coding Level of Care Code Acute Mule Packer for g Fwd Diagnoses Acute exacerbation of chronic obstructive airways disease J44.1 Congestive heart failure I50.9 Diabetes E11.65; Z79.4 Diabetes mellitus type: type 2 Diabetes mellitus half-way insulin use: with half-way use Diabetes mellitus complication status: with hyperglycemia Atrial fibrillation I48.21 Atrial fibrillation type: permanent Acute on chronic renal insufficiency N28.9; N18.9 Acute kidney injury superimposed on chronic kidney disease N17.9; N18.9 Mitral valve regurgitation I34.0 Hyperkalemia E87.5 Moderate aortic valve stenosis I35.0
[2021-02-26] MEDS: dextrose 50% syringe 50 mL 25 ML IVP (10:21)
[2021-02-26] MEDS: sodium polystyrene sulfonate 15 gm/60 mL Btl PO (10:21)
[2021-02-26] MEDS: sodium bicarbonate 8.4% 1 mEq/mL 50mL Syr 25 MEQ IVP (10:21)
[2021-02-26] MEDS: insulin regular-human 10 UNIT in SYRINGE 1 EACH IVP (10:22)
[2021-02-26] MEDS: calcitriol 0.25 mcg Capsule PO (10:25)
[2021-02-26 11:36] LABS: Glucose Point of Care 212 mg/dL (70-110)
--- NOTE | 2021-02-26 13:00 | PM.CONSULT ---
Providers/Reason For Consult Consulting Physician/Specialty*: NIMCO Richmond MD/cardiology Reason for Consult*: Patient with recurrent congestive heart failure/LV dysfunction/atrial fibrillation Attending Physician: Evaristo Peace MD Primary Care Provider: Milan Mitchell DO History of Present Illness History of Present Illness Balbina Martínez is a 75 year old female with a history of atherosclerotic heart disease, congestive heart failure, cardiomyopathy, atrial fibrillation, essential benign hypertension, type 2 diabetes, chronic kidney disease, dyslipidemia, COPD with intermittent exacerbation, is presenting with progressive shortness of breath. This patient apparently was discharged from the hospital a month ago when she presented with a more or less similar symptoms. She was treated for heart failure, atrial fibrillation with rapid ventricular, possible septic shock, acute kidney injury, etc. at that time. She also was told to have moderate aortic valve stenosis at that time. The plan was to have further cardiac work-up as an outpatient. Patient is known to have coronary artery disease and had PCI of the right coronary artery in 2017. She has not had any cardiac work-up or any follow-up since then. She denies any chest pain or chest tightness. No palpitation or dizziness. Her main symptom is the shortness of breath and bilateral leg swelling. Her shortness of breath has been getting worse over the last few days. She also was having a poor appetite and low urine output. She might have had a low-grade fever at home. No significant cough. No abdominal pain or dysuria. No headache or blurring of vision. No other specific complaints. Review of Systems Narrative: CONSTITUTIONAL: Has been complaining of a poor appetite for last few days. Also may have had a low-grade fever. EYES: No blurring of vision or other visual disturbances lately. ENT: No hoarseness of voice, auditory disturbances or sore throat. CARDIOVASCULAR: As mentioned above. RESPIRATORY: No significant cough. GASTROINTESTINAL: Complaining of nausea for the last several days GENITOURINARY: Chronic kidney disease. Her urine output has been going down INTEGUMENTARY: No skin rashes or history of skin cancer. NEURO: No transient ischemic attacks or amaurosis. PSYCHIATRIC: No history of psychosis or major depression. HEMATOLOGIC: No bleeding disorders or significant anemia. ENDOCRINE: No history of polyuria or polydipsia. MUSCULOSKELETAL: No recent joint pain or swelling. ALLERGY/IMMUNOLOGY: As mentioned above. Meds/Allergies Home Medications and Allergies Home Medications Medication Instructions Recorded Confirmed Last Taken Type blood sugar diagnostic #400 each 11/28/19 02/25/21 Unknown Rx lancets #400 each 11/28/19 02/25/21 Unknown Rx pen needle, diabetic 31 gauge x #30 each 04/26/20 02/25/21 Unknown Rx 09/19 buspirone 10 mg tablet 10 mg PO BID PRN #60 tab 06/04/20 02/25/21 02/25/21 08:00 Rx insulin syringe-needle U-100 1 mL #10 ea 07/21/20 02/25/21 Unknown History 30 gauge x 09/19 Diabetic Shoes and inserts #1 ea 11/30/20 02/25/21 Unknown Rx blood-glucose meter #1 each 12/08/20 02/25/21 Unknown Rx blood sugar diagnostic #400 ea 12/23/20 02/25/21 Unknown Rx blood-glucose meter #1 ea 12/23/20 02/25/21 Unknown Rx ondansetron 4 mg disintegrating 4 mg PO Q8H PRN #30 tab 01/17/21 02/25/21 Unknown Rx tablet acetaminophen 1,000 mg PO Q4H PRN 01/26/21 02/25/21 Unknown History amiodarone 200 mg PO DAILY 01/26/21 02/25/21 02/25/21 08:00 History calcitriol 0.25 mcg PO DAILY 01/26/21 02/25/21 02/25/21 08:00 History clopidogrel [Plavix] 75 mg PO QAM 01/26/21 02/25/21 02/25/21 08:00 History donepezil 10 mg PO DAILY 01/26/21 02/25/21 02/25/21 08:00 History fenofibrate nanocrystallized 145 mg PO DAILY 01/26/21 02/25/21 02/25/21 08:00 History fexofenadine [Julia Allergy] 180 mg PO DAILY 01/26/21 02/25/21 02/25/21 08:00 History fluticasone propionate 1 spray INTRANASAL BID PRN 01/26/21 02/25/21 02/25/21 08:00 History levothyroxine 137 mcg PO QAM 01/26/21 02/25/21 02/25/21 07:00 History mirtazapine 15 mg PO BEDTIME 01/26/21 02/25/21 02/24/21 21:00 History nitroglycerin 0.4 mg SUBLINGUAL Q5M PRN 01/26/21 02/25/21 Unknown History omeprazole 20 mg PO QAM 01/26/21 02/25/21 02/25/21 08:00 History ferrous gluconate 324 mg PO BIDWM 30 Days #60 tab 01/29/21 02/25/21 02/25/21 08:00 Rx gabapentin 300 mg PO BID #120 cap 01/29/21 02/25/21 02/25/21 08:00 Rx ipratropium-albuterol 3 ml INHALATION TID 30 Days #270 ml 01/29/21 02/25/21 02/25/21 08:00 Rx simvastatin 20 mg PO DAILY #0 tab 01/29/21 02/25/21 02/25/21 08:00 Rx tamsulosin 0.4 mg PO DAILY 30 Days #30 cap 01/29/21 02/25/21 02/25/21 08:00 Rx apixaban [Eliquis] 2.5 mg PO BID #60 tab 02/12/21 02/25/21 02/25/21 08:00 Rx diltiazem HCl [Cardizem CD] 180 mg PO DAILY #60 cap 02/12/21 02/25/21 02/25/21 08:00 Rx potassium chloride 20 meq PO DAILY #60 tab 02/12/21 02/25/21 02/25/21 08:00 Rx venlafaxine 75 mg PO QAM #30 cap 02/12/21 02/25/21 01/26/21 09:00 Rx glipizide 5 mg tablet, extended 5 mg PO QAM #30 tab 02/14/21 02/25/21 02/25/21 08:00 Rx release 24 hr insulin lispro 100 unit/mL See Rx Instructions SUBCUT 02/14/21 02/25/21 02/25/21 Rx subcutaneous solution .COMPLEX #10 ml unknown insulin syringe-needle U-100 0.5 #100 ea 02/14/21 02/25/21 Unknown Rx mL 29 gauge x 1/2 furosemide 40 mg tablet 40 mg PO BID 30 Days #60 tab 02/18/21 02/25/21 02/25/21 08:00 Rx zolpidem [Ambien] 5 mg PO BEDTIME PRN 02/25/21 02/25/21 02/24/21 21:00 History Allergies Allergy/AdvReac Type Severity Reaction Status Date / Time pentazocine [From Petros] Allergy Intermediate hives Verified 02/21/21 13:15 latex Allergy Mild itching Verified 02/21/21 13:15 morphine Allergy Unknown ADR-Itching Verified 02/21/21 13:15 Current Medications Current Medications Generic Name Dose Route Start Last Admin Trade Name Jorge Albertoq PRN Reason Stop Dose Admin Albuterol/Ipratropium 3 ml 02/25/21 21:00 02/26/21 09:27 Ipratropium-Albuterol 3 Ml Neb INHALATION 3 ml TID DINAH Administration Amiodarone HCl 200 mg 02/26/21 09:00 02/26/21 08:12 Amiodarone 200 Mg Tablet PO 200 mg DAILY DINAH Administration Apixaban 2.5 mg 02/26/21 09:00 02/26/21 08:11 Apixaban 5 Mg Tablet PO 2.5 mg BID DINAH Administration Calcitriol 0.25 mcg 02/26/21 09:00 02/26/21 10:25 Calcitriol 0.25 Mcg Capsule PO 0.25 mcg DAILY DINAH Administration Clopidogrel Bisulfate 75 mg 02/26/21 06:00 02/26/21 04:24 Clopidogrel 75 Mg Tablet PO 75 mg QAM DINAH Administration Diltiazem HCl 180 mg 02/26/21 09:00 02/26/21 08:11 Diltiazem Er (24hr) 180 Mg Capsule PO 180 mg DAILY DINAH Administration Insulin Human Lispro 0 unit 02/25/21 18:46 02/26/21 11:59 Insulin Lispro 100 Unit/1 Ml SUBCUT 6 unit WM&BEDTIME DINAH Administration Protocol Levothyroxine Sodium 137 mcg 02/26/21 06:00 02/26/21 04:23 Levothyroxine 137 Mcg Tablet PO 137 mcg QAM DINAH Administration Nicotine 1 patch 02/25/21 20:00 02/26/21 08:11 Nicotine 21 Mg Patch TRANSDERMA 1 patch DAILY DINAH Administration Potassium Chloride 20 meq 02/26/21 09:00 02/26/21 08:11 Potassium Chloride Er 20 Meq Tablet PO 20 meq DAILY DINAH Administration Venlafaxine HCl 75 mg 02/26/21 06:00 02/26/21 04:23 Venlafaxine Er (24hr) 75 Mg Capsule PO 75 mg QAM DINAH Administration Zolpidem Tartrate 5 mg 02/25/21 21:24 02/25/21 21:35 Zolpidem 5 Mg Tablet PO 5 mg BEDTIME PRN Administration INSOMNIA PFSH Acute PFSH: Medical History Acute exacerbation of CHF (congestive heart failure) Echocardiogram done January 2021 showed an EF of 40% with global LV hypokinesia, moderate , moderate MR Bifascicular bundle branch block Bilateral carpal tunnel syndrome CAD (coronary artery disease) Cellulitis, face Cellulitis, face Chronic pain due to injury COPD exacerbation DDD (degenerative disc disease) Diabetes Enrolled in chronic care management Hyperlipidemia Hypoglycemic episode in patient with diabetes mellitus Hypoxemia Impetigo contagiosa Insomnia Moderate aortic stenosis Moderate mitral regurgitation Renal disorder Sciatica associated with disorder of lumbar spine Transient retinal arterial occlusion, bilateral Type II respiratory failure Ulnar neuropathy of both upper extremities Wrist pain, acute Family History Other CAD (coronary artery disease) Chronic kidney disease (CKD) Denies family history of Cancer Social History Smoking and tobacco status: current every day smoker cigarettes Quit status (tobacco): has tried quititng Alcohol intake: never Adopted: No Caregiver/support person: No Lives independently: Yes Household members: family Housing: House Vitals/I&O/Wt Last Vital Signs Temp 98.9 F 02/26/21 03:14 Pulse 107 H 02/26/21 12:31 Resp 23 H 02/26/21 12:31 BP 125/66 02/26/21 12:31 Pulse Ox 97 02/26/21 12:31 02/25/21 02/26/21 02/26/21 22:59 06:59 14:59 Intake Total 50 / 50 100 / 150 240 / 240 Output Total 300 / 300 200 / 200 Balance 50 / 50 -200 / -150 40 / 40 Weight last 48 hrs Weight 231 lb Weight 200 lb Physical Exam Narrative: EXAM NARRATIVE: GENERAL: The patient is alert and oriented times three. Moderate respiratory distress. HEENT: Mild pallor. No icterus or lymphadenopathy. The pupils are reactant to light. Oral cavity: There are no mucous membrane lesions. Funduscopic examination: The disk margins appear to be sharp with no exudates or hemorrhages. NECK: Trachea appears to be central. No masses noted. No JVD or thyromegaly appreciated. No carotid bruit. RESPIRATORY: Chest is symmetrical. No intercostals muscle retraction or any accessory muscle activation. There is no chest wall tenderness. Breath sounds are heard bilaterally. Scattered coarse crackles and occasional expiratory wheezing BREASTS: Deferred. HEART: The PMI could not be palpated. No other palpable precordial events. The S1 is variable. Second heart sound is normal. Short systolic murmur at the aortic area. No diastolic murmurs. ABDOMEN: Obese with some vague tenderness in epigastric area. No organomegaly appreciated. Bowel sounds are normally heard. : Deferred. RECTAL: Deferred. LYMPHATIC: No lymphadenopathy noted in the neck or groin. EXTREMITIES: 2+ edema both lower extremities. Diffuse redness in both lower extremities. MUSCULOSKELETAL: No acute joint deformity no acute joint deformities or swelling SKIN: Diffuse redness involve both lower extremities in the below-knee area NEUROPSYCHIATRIC: The patient is alert and oriented x3. Appears to be anxious. The higher functions are grossly within normal limits. No tremors or rigidity noted. Urinary Catheter Management^: Rodriguez: Cath Placed During This Visit: yes Reason for Continuing Indwelling Catheter: Acute Urinary Retention or Obstruction Urinary Catheter Date of Insertion: 02/25/21 Urinary Catheter Time of Insertion: 20:54 Data Labs: Other Labs: Laboratory Last Values WBC 6.9 10^3/uL (4.0- 10.0) 02/26/21 07:12 RBC 4.14 10^6/uL (4.1 -5.3) 02/26/21 07:12 Hgb 12.2 g/dL (11.5-1 5.3) 02/26/21 07:12 Hct 41.7 % (37.0-47.0 ) 02/26/21 07:12 MCV 100.7 fl (81-99) H 02/26/21 07:12 MCH 29.5 pg (28.0-34. 0) 02/26/21 07:12 MCHC 29.3 g/dL (30.0-3 6.0) L 02/26/21 07:12 RDW 18.8 % (12.1-15.1 ) H 02/26/21 07:12 Plt Count 155 10^3/cmm (130 -400) 02/26/21 07:12 MPV 11.3 fL (7.4-10.4 ) H 02/26/21 07:12 Neut % (Auto) 89.9 % 02/26/21 07:12 Lymph % (Auto) 5.8 % 02/26/21 07:12 [place] % (Auto) 2.9 % 02/26/21 07:12 Eos % (Auto) 0.0 % 02/26/21 07:12 Baso % (Auto) 0.1 % 02/26/21 07:12 Neut # (Auto) 6.17 10^3/uL (1.8 -7.7) 02/26/21 07:12 Lymph # (Auto) 0.4 10^3/uL (0.8- 4.8) L 02/26/21 07:12 [place] # (Auto) 0.2 10^3/uL (0.2- 0.9) 02/26/21 07:12 Eos # (Auto) 0.0 10^3/uL (0.0- 0.8) 02/26/21 07:12 Baso # (Auto) 0.0 10^3/uL (0.0- 0.1) 02/26/21 07:12 Nucleated RBC % (a uto) 1.9 % 02/26/21 07:12 Nucleated RBCs # 0.1 /100WBC 02/26/21 07:12 Specimen Type Arterial 02/26/21 04:14 Sample Site Radial, right 02/26/21 04:14 ABG pH 7.33 (7.35-7.45) L 02/26/21 04:14 ABG pCO2 50.3 mmHg (35-45) H 02/26/21 04:14 ABG pO2 57.6 mmHg (80.0-1 00.0) L 02/26/21 04:14 ABG HCO3 26.4 mmol/L (22-2 6) H 02/26/21 04:14 ABG Base Excess -0.2 mmol/L (-2.0 -2.0) 02/26/21 04:14 Juan Carlos Test Pos 02/26/21 04:14 Hematocrit 37.8 % (37-47) 02/26/21 04:14 Hgb O2 Saturation 83.4 % (95-100) L 02/25/21 16:20 Carboxyhemoglobin 2.3 %THgb (0.4-20 .1) 02/25/21 16:20 Methemoglobin 0.9 % (0.4-1.5) 02/25/21 16:20 Total Hemoglobin 12.2 g/dL (12-16) 02/25/21 16:20 O2 Delivery Device Bipap 02/26/21 04:14 O2 Liters/Min 8.0 % 02/25/21 16:20 FiO2 60.0 % 02/26/21 04:14 PEEP 8.0 cmH20 02/26/21 04:14 Insemination Worker ID Tamma 02/26/21 04:14 Sodium 130 mmol/L (136-1 45) L 02/26/21 07:12 Potassium 6.1 mmol/L (3.5-5 .1) H 02/26/21 07:12 Chloride 92 mmol/L (98-107 ) L 02/26/21 07:12 Carbon Dioxide 25 mmol/L (22-29) 02/26/21 07:12 Anion Gap 19.1 (5-19) H 02/26/21 07:12 BUN 37 mg/dL (8-23) H 02/26/21 07:12 Creatinine 2.0 mg/dL (0.5-0. 9) H 02/26/21 07:12 GFR Calculation Not Reportable 02/26/21 07:12 Glucose 201 mg/dL (65-115 ) H 02/26/21 07:12 POC Glucose 212 mg/dL (70-110 ) H 02/26/21 11:20 Calculated Osmolal ity 284 mOsm/kg (285- 295) L 02/26/21 07:12 Lactic Acid 2.3 mmol/L (0.5-2 .2) H 02/25/21 16:48 Lactic Acid (Sepsi s) 2.0 mmol/L (0.5-2 .2) 02/25/21 19:09 Calcium 9.2 mg/dL (8.5-10 .5) 02/26/21 07:12 Magnesium 2.7 mg/dL (1.7-2. 3) H 02/26/21 07:12 Total Bilirubin 0.9 mg/dL (0.15-1 .2) 02/25/21 16:48 AST 50 U/L (0-32) H 02/25/21 16:48 ALT 80 U/L (0-33) H 02/25/21 16:48 Alkaline Phosphata se 69 IU/L (35-105) 02/25/21 16:48 Troponin T Baselin e 42 ng/L (0-10) H 02/25/21 16:48 Troponin T 120 Min [place] 45.92 ng/L (0-10) H 02/25/21 19:09 Delta Troponin T 3.92 ABS# (0-10) 02/25/21 19:09 Troponin T Hi Sens 6Hr 41.07 ng/L (0-10) H 02/25/21 22:57 Troponin T Hi Sens 6Hr Delta -0.93 ng/L (0-12) L 02/25/21 22:57 C-Reactive Protein 61.8 mg/L (0.0-4. 9) H 02/26/21 07:12 NT-Pro-B Natriuret Pep 23707 pg/mL (0-45 0) H 02/25/21 16:48 Total Protein 6.8 g/dL (6.6-8.7 ) 02/25/21 16:48 Albumin 3.6 g/dL (3.5-5.2 ) 02/25/21 16:48 Globulin 3.2 g/dL (1.3-4.6 ) 02/25/21 16:48 Procalcitonin 0.42 ng/mL (0-0.5 ) 02/25/21 16:48 SARS-CoV-2 Ag (Rap id) Negative (Negati ve) 02/25/21 17:11 Imaging^: Echo: My impression: Echocardiogram done on 01/27/2021 1-Normal left ventricular cavity size. Moderately decreased left ventricular systolic function. Left ventricular ejection fraction is estimated at 40 %. Global left ventricular hypokinesis. 2-Moderately thickened mitral valve. Moderate mitral annular calcification. No mitral valve stenosis. Moderate mitral valve regurgitation. 3-Severe aortic valve calcification. Moderate aortic valve stenosis, mean gradient 2.8 mmHg, TONI 1.7 cm squared. Trace aortic valve regurgitation. 4-There is no pericardial effusion. 5-Pulmonary artery systolic pressure is within normal limits. 6-Right atrial pressure is around 5 mm of mercury. 7-When compared to the prior echocardiogram dated February 09, 2017 there is worsening of mitral valve regurgitation from mild to moderate, there appeared to be moderate aortic valve stenosis with calculated aortic valve area 1.7 cm squared while ejection fraction has reduced from mildly reduced 50% to moderately reduced 40% now. Cardiac catheterization, cardiac catheterization: My impression: Cardiac catheterization on 02/20/2017 #1 left main has luminal irregularities #2 LAD has luminal irregularities #3 LCx is luminal irregularities #4 RCA is 100% occluded in the mid with faint [id number] collaterals. Previously placed stent has in-stent restenosis which is cause of occlusion PCI to mid to distal RCA Successful PCI to mid to distal RCA. Lesion was crossed with somewhat difficulty due to chronic occlusion multiple balloon angioplasties was performed to prepare the lesion using 2.0?12, 2.5?20mm AB TREK BALOON at high pressure inflation followed by deployment of 3 overlapping [id number] stents due to history of GI bleed. MDT integrity 2.5?26, 2.5?22 and 2.5?8 mm BMS were used in an overlapping fashion from distal to mid in entire length to ensure proper approximation. Reasonable angiographic result with RIA-3 flow was achieved. EKG^: EKG 1: My Interpretation: EKG from 02/25/2021 revealed atrial fibrillation with a controlled regular response rate of 96 bpm. Nonspecific IVCD. Some diffuse nonspecific T wave changes. A&P Assessment and plan (1) Acute on chronic systolic heart failure: May be consider giving a higher dose of the Lasix. The exact reasons why she is not responding to the diuretic is not clear at this point. We might do a limited 2D echocardiogram to evaluate LV function. Status: Acute (2) Atherosclerosis of coronary artery of [place] heart without angina pectoris: Currently she has no chest pains. We may consider doing a myocardial perfusion imaging, once clinical status is stable to evaluate for any underlying coronary ischemia. Status: Acute Qualifiers: Coronary Disease-Associated Artery/Lesion type: [place] artery Qualified Code(s): I25.10 - Atherosclerotic heart disease of [place] coronary artery without angina pectoris (3) Mitral valve regurgitation: Clinically there is no wheezing of the mitral regurgitation. Status: Acute Qualifiers: Cardiac valve disease etiology: nonrheumatic Qualified Code(s): I34.0 - Nonrheumatic mitral (valve) insufficiency (4) Acute kidney injury superimposed on chronic kidney disease: Is possible that the patient might have had hypoxic injury. May need to consider nephrology consult to further evaluate Status: Acute (5) Acute exacerbation of chronic obstructive airways disease: Management as per the primary Status: Acute (6) Chronic atrial fibrillation: Since the heart rate is under control, patient may not require any specific intervention at this point. She also is on long-term oral anticoagulation. Status: Acute Additional A&P Information Other problems are Cardiomyopathy Hyponatremia Elevated liver enzymes Possible lower extremity cellulitis After reviewing the above test results and also based on the patient's clinical progress, further recommendations will be made. Thank for the opportunity to eval this patient and make these recommendations Consult Attestations Medical Necessity Statement: Patient requires continued hospital stay for close monitoring and further management Coding Level of Care Code Acute Substitute Crossing Guard for Flo Fwflorentino History Detailed Exam Detailed Medical Decision Making High Complexity Diagnoses Acute on chronic systolic heart failure I50.23 Atherosclerosis of coronary artery of [place] heart without angina pectoris I25.10 Coronary Disease-Associated Artery/Lesion type: [place] artery Mitral valve regurgitation I34.0 Cardiac valve disease etiology: nonrheumatic Acute kidney injury superimposed on chronic kidney disease N17.9; N18.9 Acute exacerbation of chronic obstructive airways disease J44.1 Chronic atrial fibrillation I48.20 Time Spent (min) 62
--- NOTE | 2021-02-26 13:39 | CTR_ITS ---
PROCEDURE INFORMATION: Exam: CT Abdomen And Pelvis Without Contrast Exam date and time: 02/26/2021 1:39 PM Age: 75 years old Clinical indication: Condition or disease; Kidney or ureter condition; Chronic kidney disease or failure; Not specified; Prior surgery; Surgery date: 6+ months; Surgery type: Hyst; Patient HX: Worsening ckd; Additional info: William TECHNIQUE: Imaging protocol: Computed tomography of the abdomen and pelvis without contrast. Sagittal and coronal reformatted images were created and reviewed. Radiation optimization: All CT scans at this facility use at least one of these dose optimization techniques: automated exposure control; mA and/or kV adjustment per patient size (includes targeted exams where dose is matched to clinical indication); or iterative reconstruction. COMPARISON: CT chest abd pel wo con 02/07/2021 3:27 PM RADIATION DOSE METRICS: Total DLP (mGy-cm): 1804.42 FINDINGS: Limitations: Evaluation of solid organs and vasculature is limited without intravenous contrast. Lungs: Mild interstitial pulmonary edema in the visualized lungs with superimposed. atelectasis versus pneumonia in the right and left lower lobes. Pleural spaces: Small bilateral pleural effusions. Heart: Stable moderate enlargement of the visualized portions of the heart. Calcification of the aortic valve. Moderate atherosclerotic calcification in the coronary arteries. Liver: The liver is unremarkable. Gallbladder and bile ducts: .Mildly increased density layering in the gallbladder. No gallbladder wall thickening. No biliary ductal dilatation. Pancreas: .The pancreas is unremarkable. No pancreatic ductal dilatation. Spleen: The spleen is unremarkable. Adrenal glands: The right and left adrenal glands are unremarkable. Kidneys and ureters: The right kidney is unremarkable. Multiple areas of focal cortical scarring in the left kidney. 2 cysts in the left kidney are stable, the larger measures 2.2 cm. The right and left ureters are unremarkable. Stomach and bowel: Scattered diverticula in the sigmoid colon. No evidence for diverticulitis. Fluid within the small bowel and colon without evidence of bowel wall thickening. Appendix: Appendix not definitely visualized. No inflammatory changes in the pericecal region however. Intraperitoneal space: Stable postsurgical changes in the epigastric region. No free intraperitoneal air. No ascites. No loculated fluid collections to suggest an abscess. Vasculature: Extensive atherosclerotic changes in the visualized arteries. No evidence for aortic aneurysm. Lymph nodes: No lymphadenopathy. Urinary bladder: The bladder is decompressed by a Rodriguez catheter. Reproductive: Patient has had a previous hysterectomy. The ovaries are not definitely visualized, not an expected in a postmenopausal female. This may be due to ovarian atrophy. Alternatively, the patient may have had a previous bilateral oophorectomy. Bones/joints: Bones are diffusely osteopenic. Degenerative changes in the spine and hips. Soft tissues: Extensive body wall edema. Surgical clips in the anterior abdominal wall. CT/CT abdomen pelvis wo con [id number] IMPRESSION: 1. Atelectasis versus pneumonia in the right and left lower lobes. Recommend followup chest imaging to insure resolution of these findings. 2. Fluid within the small bowel and colon without evidence of bowel wall thickening. This may reflect viral gastroenteritis in the appropriate clinical situation. 3. Small bilateral pleural effusions. 4. .Mildly increased density layering in the gallbladder. This could represent noncalcified gallstones and/or gallbladder sludge. Ultrasound of the gallbladder may be obtained for further evaluation as clinically indicated. 5. Scattered diverticula in the sigmoid colon. No evidence for diverticulitis. 6. Extensive body wall edema. 7. Incidental/nonacute findings are listed in the report. Radiation Dose CTDIVOL = (mGy): DLP = 1804.42 (mGy-cm)
--- NOTE | 2021-02-26 13:50 | PC.NURSE ---
dr caldwell notified of urine output 100 cc since bumex given this morning.he ordered to give the dose of metolazone due at 18:00.. now..and obtain a ct of abd, to check for obstruction.
--- NOTE | 2021-02-26 15:27 | USCV_ITS ---
Balbina Martínez Age: 75 Gender: F : 1945 Exam Date: 02/26/2021 15:43 Ordering Phys: Rosemarie Richmond MD ([email or web address]) Technologist: Exam Location: [facility] [place] Indication: EF BP: 125 / 66 HR: 78 Rhythm: Sinus Technical Quality: Adequate MEASUREMENTS (Male / Female) Normal Values 2D ECHO LV Diastolic Diameter PLAX 5.3 cm 4.2 - 5.9 / 3.9 - 5.3 cm LV Systolic Diameter PLAX 4.6 cm IVS Diastolic Thickness 0.8 cm 0.6 - 1.0 / 0.6 - 0.9 cm IVS Systolic Thickness 1.1 cm LVPW Diastolic Thickness 1.0 cm 0.6 - 1.0 / 0.6 - 0.9 cm LVPW Systolic Thickness 1.0 cm LV Ejection Fraction 2D Teich 27.7 % LV Ejection Fraction MOD 2C 35.6 % LV Ejection Fraction 2C AL 36.5 % LA Width 6.5 cm LA Height 6.8 cm RA Width 5.6 cm RA Height 4.9 cm FINDINGS Left Ventricle Severe diffuse hypokinesis of the left ventricle with ejection fraction of 15-20% Right Ventricle Normal right ventricular size and systolic function. Right Atrium Moderately increased right atrial size. Left Atrium Moderately increased left atrial size. Mitral Valve Thickened mitral valve. Aortic Valve Thickened aortic valve. Tricuspid Valve No gross abnormalities noted Pulmonic Valve Pulmonic valve not well visualized. Pericardium No pericardial effusion. Aorta Normal aortic annulus size. CONCLUSIONS Severe diffuse hypokinesis of the left ventricle with ejection fraction of 15-20%. Moderate biatrial enlargement Thickened aortic and mitral valves. There is no pericardial effusion. There are no intracardiac masses. Compared to the study from 01/27/2021 there appears to be some worsening of the LV systolic function Dr Rosemarie Richmond MD [facility] (Electronically Signed) Final Date: 26 February 2021 17:11 S
--- NOTE | 2021-02-26 15:42 | PC.OT ---
OT evaluation withheld this date due to patient on BiPAP machine and having shortness of breath per nursing. To attempt to evaluate patient on a later date.
[2021-02-26] MEDS: metOLazone 5 MG Tablet PO (15:50)
[2021-02-26] MEDS: FUROsemide 10 mg/mL SDV 10mL 80 MG IVP ×2 (15:51→23:34)
[2021-02-26 16:41] LABS: Anion Gap 19.9 (5-19); Blood Urea Nitrogen 41 mg/dL (8-23); Calcium 8.8 mg/dL (8.5-10.5); Carbon Dioxide 24 mmol/L (22-29); Chloride 89 mmol/L (98-107); Glucose 174 mg/dL (65-115); Osmolality Calculated 278 mOsm/kg (285-295); Potassium 5.9 mmol/L (3.5-5.1); Sodium 127 mmol/L (136-145)
[2021-02-26 16:41] LABS: Glucose Point of Care 221 mg/dL (70-110)
--- NOTE | 2021-02-26 17:23 | ECG_ITS ---
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 Measurements Intervals [place] Rate: 107 P: DC: QRS: 156 QRSD: 194 T: -27 QT: 403 QTc: 539 Interpretive Statements ATRIAL FIBRILLATION WITH RAPID VENTRICULAR RESPONSE RIGHT AXIS DEVIATION [QRS AXIS > 100] INTRAVENTRICULAR CONDUCTION DELAY [130+ ms QRS DURATION] Compared to ECG 02/25/2021 22:20:00 No significant changes Electronically Signed On 02-27-2021 18:39:16 CDT by Rosemarie Richmond M.D. [id number]
--- NOTE | 2021-02-26 18:04 | PC.NURSE ---
pt had bumex 2 mg iv this morning at 0820.pt had 200 cc urine output at 11:00.100 cc at 14:00.metolazone 5 mg given early per dr caldwell,at 1550,along with lasix 80 mg iv push.ct of abdomen performed as ordered at 17:20 dr caldwell notified that urine output approx 50 cc. he states he will consult nephrology.
--- NOTE | 2021-02-26 18:29 | PC.NURSE ---
pt has beeen on bipap at 60%fio2 for majority of day..coming off for meals,transport,or to have fluids,and communicate.tolerates bipap well psychologically..o2 sats remain in low 90's...sats drop to mid to high 80's off bipap and on 10 l nc.
[2021-02-26] MEDS: DOBUTamine drip 500 MG/250 ML PREMIX 9.59 MG IV (19:00)
--- NOTE | 2021-02-26 20:27 | PC.NURSE ---
Addendum entered by Rebecca Sims RN 02/26/21 21:58: order clarification. digoxin 25 mg or 250 mcg ordered. Original Note: NURSE NOTE: HEART RATE: Pt's heart rate sustaining at 100-[address] Richmond, nurse is to notify him if heart rate sustains over 100 bpm for one hour. Notified Dr. Richmond at this time and received orders for 0.25mcg digoxin ivp now-may repeat x1. All vs and assessments as charted. Will continue to monitor.
[2021-02-26] MEDS: zolpidem 5 mg Tablet PO (20:49)
[2021-02-26 20:54] LABS: Glucose Point of Care 182 mg/dL (70-110)
[2021-02-26] MEDS: digoxin 250 mcg/ml INJ 2 mL IVP (21:25)
--- NOTE | 2021-02-26 21:52 | P.EN_ITS ---
Event Note Event Note: Due to low EF, peristent hyperkalemia, now on dobutamine drip, i am transferring patient to ICU for closer monitoring. Family (sister Pat) also updated on the phone. [facility] ordered to re-check potassium. Another dose of kayexalate added. Dr. Driscoll was requested to follow up on BMP.
--- NOTE | 2021-02-26 21:59 | PC.NURSE ---
Nurse Note: Pt. Transfer: Received phone call per Dr. Peace requesting pt to be moved to ICU at this time. 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
[2021-02-26 22:01] LABS: Creatine Phosphokinase 18 U/L (26-192)
--- NOTE | 2021-02-26 22:10 | PC.NURSE ---
Nurse Note: Report: Report given to Lisy HERCULES in ICU at this time. Pt to transfer to room 7. All vs and assessments as charted.
[2021-02-26 22:39] LABS: Blood Urea Nitrogen 42 mg/dL (8-23); Calcium 8.8 mg/dL (8.5-10.5); Carbon Dioxide 26 mmol/L (22-29); Chloride 89 mmol/L (98-107); Glucose 118 mg/dL (65-115); Osmolality Calculated 278 mOsm/kg (285-295); Sodium 128 mmol/L (136-145)
--- NOTE | 2021-02-26 22:57 | PC.NURSE ---
Nurse note: Transfer: Pt transferred to room ICU-07 per michael RN, Adria RN, and Roberto RT. Portable monitor on. No distress noted during transfer. All vs and assessments as charted.
--- NOTE | 2021-02-26 23:29 | ECG_ITS ---
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 Measurements Intervals [place] Rate: 92 P: ME: QRS: 162 QRSD: 179 T: -27 QT: 399 QTc: 495 Interpretive Statements ATRIAL FIBRILLATION RIGHT AXIS DEVIATION [QRS AXIS > 100] INTRAVENTRICULAR CONDUCTION DELAY [130+ ms QRS DURATION] Compared to ECG 02/26/2021 17:42:13 No significant changes Electronically Signed On 02-27-2021 18:39:42 CDT by Rosemarie Richmond M.D. [email or web address] - [id number]
[2021-02-27] VITALS (28 sets, daily range): BP systolic 92–139; BP diastolic 43–96; PULSE 71–111; RESP 13–35; TEMP 36.1–36.8; O2SAT 72–96
--- NOTE | 2021-02-27 00:04 | PC.NURSE ---
Patient arrived to ICU from CSU at 2230.
[2021-02-27] MEDS: dextrose 50% syringe 50 mL 25 ML IVP (01:59)
[2021-02-27] MEDS: insulin regular-human 10 UNIT in SYRINGE 1 EACH IVP (02:00)
[2021-02-27 03:24] LABS: Basophils % 0.1 %; Hematocrit 36.9 % (37.0-47.0); Hemoglobin 11.5 g/dL (11.5-15.3); Lymphocytes # 0.3 10^3/uL (0.8-4.8); Lymphocytes % 4.1 %; Mean Corpuscular HGB Conc 31.2 g/dL (30.0-36.0); Mean Corpuscular Volume 99.5 fl (81-99); Mean Platelet Volume 11.4 fL (7.4-10.4); Monocytes # 0.6 10^3/uL (0.2-0.9); Neutrophils # 7.38 10^3/uL (1.8-7.7); Neutrophils % 88.2 %; Nucleated Red Blood Cells # 0.1 /100WBC; Nucleated Red Blood Cells % 1.3 %; Platelet Count 153 10^3/cmm (130-400); Red Blood Count 3.71 10^6/uL (4.1-5.3); Red Cell Distribution Width 19.2 % (12.1-15.1); White Blood Count 8.4 10^3/uL (4.0-10.0)
--- NOTE | 2021-02-27 03:40 | PC.NURSE ---
Patient very vallecillo with all staff. Complaint with cares for a little while, then upset at staff the next. All needs of the patient being met. Multiple staff attempted to appease patient. 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 Continue care.
[2021-02-27 03:53] LABS: Anion Gap 17.3 (5-19); Blood Urea Nitrogen 48 mg/dL (8-23); Calcium 9.1 mg/dL (8.5-10.5); Carbon Dioxide 26 mmol/L (22-29); Chloride 91 mmol/L (98-107); Glucose 53 mg/dL (65-115); Magnesium 2.5 mg/dL (1.7-2.3); Osmolality Calculated 278 mOsm/kg (285-295); Potassium 5.3 mmol/L (3.5-5.1); Sodium 129 mmol/L (136-145)
[2021-02-27] MEDS: venlafaxine ER (24HR) 75 mg Capsule PO (05:38)
[2021-02-27] MEDS: levothyroxine 137 mcg Tablet PO (05:38)
[2021-02-27] MEDS: clopidogrel 75 mg Tablet PO (05:39)
--- NOTE | 2021-02-27 05:46 | PC.NURSE ---
Patients morning meds given with 4oz of orange juice, due to blood sugar being low.
[2021-02-27 06:28] LABS: Glucose Point of Care 99 mg/dL (70-110)
[2021-02-27 07:34] LABS: Glucose Point of Care 115 mg/dL (70-110)
--- NOTE | 2021-02-27 08:12 | P.CONIM_ITS ---
Providers/Reason For Consult Consulting Physician/Specialty*: christian valle md/ telenephrology Reason for Consult*: RAMU, hyponatremia, hyperkalemia Attending Physician: Fadia Villanueva MD Primary Care Provider: Milan Mitchell DO History of Present Illness History of Present Illness Balbina Martínez is a 75 year old female Past med hx- chronic systolic CHF- EF 40%, moderate , moderate MR, type 2 DM, CKD- unclear stage cr 1.1- 2.8 mg/dl from dm, crs, obesity. she also has h/o resp hypercapneic resp acidosis. Pt had a recent admission w/ CHF exacerbation and infection the c diff colitis Pt was admitted on 02-25-21 w/ inc edema, sob, cough. she was started on bumex and metolazone. She developed a fib Her na on admission was 130- has decreased to 127. She became hyperkalemic on 02-26-21 with k 6.1, treated medically and now k of 5.3. Her cr on d/c was 1.1 mg/dl. Her cr on admission now was 1.8 and has increased to 2.7 mg/dl w/ diuresis. Pt overnight on dobutamine drip and transfered to ICU for CHF, RAMU, hyperkalemia, and hyponatremia. she had a new echo w/ dec in EF from 40% to 15-20%- no change in valvular heart disease, which in Jan 2021 was described as2-Moderately thickened mitral valve. Moderate mitral annular calcification. No mitral valve stenosis. Moderate mitral valve regurgitation. 3-Severe aortic valve calcification. Moderate aortic valve stenosis, mean gradient 2.8 mmHg, TONI 1.7 cm squared. Trace aortic valve regurgitation. Review of Systems General: Reports: 10 or more systems reviewed and unremarkable except in HPI and below Narrative: sob, orthoponea, not sure if she had fevers,+ israel, no visual changes, + palps, + LAI, +CP, no n/v/f/c/israel/d/+ leg pain and edema. neuro neg Meds/Allergies Home Medications and Allergies Home Medications Medication Instructions Recorded Confirmed Last Taken Type blood sugar diagnostic #400 each 11/28/19 02/25/21 Unknown Rx lancets #400 each 11/28/19 02/25/21 Unknown Rx pen needle, diabetic 31 gauge x #30 each 04/26/20 02/25/21 Unknown Rx 16 buspirone 10 mg tablet 10 mg PO BID PRN #60 tab 06/04/20 02/25/21 02/25/21 08:00 Rx insulin syringe-needle U-100 1 mL #10 ea 07/21/20 02/25/21 Unknown History 30 gauge x 09/19 Diabetic Shoes and inserts #1 ea 11/30/20 02/25/21 Unknown Rx blood-glucose meter #1 each 12/08/20 02/25/21 Unknown Rx blood sugar diagnostic #400 ea 12/23/20 02/25/21 Unknown Rx blood-glucose meter #1 ea 12/23/20 02/25/21 Unknown Rx ondansetron 4 mg disintegrating 4 mg PO Q8H PRN #30 tab 01/17/21 02/25/21 Unknown Rx tablet acetaminophen 1,000 mg PO Q4H PRN 01/26/21 02/25/21 Unknown History amiodarone 200 mg PO DAILY 01/26/21 02/25/21 02/25/21 08:00 History calcitriol 0.25 mcg PO DAILY 01/26/21 02/25/21 02/25/21 08:00 History clopidogrel [Plavix] 75 mg PO QAM 01/26/21 02/25/21 02/25/21 08:00 History donepezil 10 mg PO DAILY 01/26/21 02/25/21 02/25/21 08:00 History fenofibrate nanocrystallized 145 mg PO DAILY 01/26/21 02/25/21 02/25/21 08:00 History fexofenadine [Julia Allergy] 180 mg PO DAILY 01/26/21 02/25/21 02/25/21 08:00 History fluticasone propionate 1 spray INTRANASAL BID PRN 01/26/21 02/25/21 02/25/21 08:00 History levothyroxine 137 mcg PO QAM 01/26/21 02/25/21 02/25/21 07:00 History mirtazapine 15 mg PO BEDTIME 01/26/21 02/25/21 02/24/21 21:00 History nitroglycerin 0.4 mg SUBLINGUAL Q5M PRN 01/26/21 02/25/21 Unknown History omeprazole 20 mg PO QAM 01/26/21 02/25/21 02/25/21 08:00 History ferrous gluconate 324 mg PO BIDWM 30 Days #60 tab 01/29/21 02/25/21 02/25/21 08:00 Rx gabapentin 300 mg PO BID #120 cap 01/29/21 02/25/21 02/25/21 08:00 Rx ipratropium-albuterol 3 ml INHALATION TID 30 Days #270 ml 01/29/21 02/25/21 02/25/21 08:00 Rx simvastatin 20 mg PO DAILY #0 tab 01/29/21 02/25/21 02/25/21 08:00 Rx tamsulosin 0.4 mg PO DAILY 30 Days #30 cap 01/29/21 02/25/21 02/25/21 08:00 Rx apixaban [Eliquis] 2.5 mg PO BID #60 tab 02/12/21 02/25/21 02/25/21 08:00 Rx diltiazem HCl [Cardizem CD] 180 mg PO DAILY #60 cap 02/12/21 02/25/21 02/25/21 08:00 Rx potassium chloride 20 meq PO DAILY #60 tab 02/12/21 02/25/21 02/25/21 08:00 Rx venlafaxine 75 mg PO QAM #30 cap 02/12/21 02/25/21 01/26/21 09:00 Rx glipizide 5 mg tablet, extended 5 mg PO QAM #30 tab 02/14/21 02/25/21 02/25/21 08:00 Rx release 24 hr insulin lispro 100 unit/mL See Rx Instructions SUBCUT 02/14/21 02/25/21 02/25/21 Rx subcutaneous solution .COMPLEX #10 ml unknown insulin syringe-needle U-100 0.5 #100 ea 02/14/21 02/25/21 Unknown Rx mL 29 gauge x 1/2 furosemide 40 mg tablet 40 mg PO BID 30 Days #60 tab 02/18/21 02/25/21 02/25/21 08:00 Rx zolpidem [Ambien] 5 mg PO BEDTIME PRN 02/25/21 02/25/21 02/24/21 21:00 History Allergies Allergy/AdvReac Type Severity Reaction Status Date / Time pentazocine [From Petros] Allergy Intermediate hives Verified 02/21/21 13:15 latex Allergy Mild itching Verified 02/21/21 13:15 morphine Allergy Unknown ADR-Itching Verified 02/21/21 13:15 Current Medications Current Medications Generic Name Dose Route Start Last Admin Trade Name Freq PRN Reason Stop Dose Admin Albuterol/Ipratropium 3 ml 02/25/21 21:00 02/26/21 20:40 Ipratropium-Albuterol 3 Ml Neb INHALATION 3 ml TID DINAH Administration Amiodarone HCl 200 mg 02/26/21 09:00 02/26/21 08:12 Amiodarone 200 Mg Tablet PO 200 mg DAILY DINAH Administration Apixaban 2.5 mg 02/26/21 09:00 02/26/21 17:18 Apixaban 5 Mg Tablet PO 2.5 mg BID DINAH Administration Calcitriol 0.25 mcg 02/26/21 09:00 02/26/21 10:25 Calcitriol 0.25 Mcg Capsule PO 0.25 mcg DAILY DINAH Administration Clopidogrel Bisulfate 75 mg 02/26/21 06:00 02/27/21 05:39 Clopidogrel 75 Mg Tablet PO 75 mg QAM DINAH Administration Diltiazem HCl 180 mg 02/26/21 09:00 02/26/21 08:11 Diltiazem Er (24hr) 180 Mg Capsule PO 180 mg DAILY DINAH Administration Furosemide 80 mg 02/26/21 16:00 02/26/21 23:34 Furosemide 10 Mg/Ml Sdv 10ml IVP 80 mg Q8H DINAH Administration Dobutamine HCl/Dextrose 500 mg in 250 mls @ 0 mls/hr 02/26/21 18:45 02/26/21 19:00 Dobutamine Drip IV 3.05 mcg/kg/min .Q0M DINAH 9.59 mls/hr Administration Protocol Per Protocol Insulin Human Lispro 0 unit 02/25/21 18:46 02/27/21 07:32 Insulin Lispro 100 Unit/1 Ml SUBCUT Not Given WM&BEDTIME [facility] Protocol Levothyroxine Sodium 137 mcg 02/26/21 06:00 02/27/21 05:38 Levothyroxine 137 Mcg Tablet PO 137 mcg QAM DINAH Administration Methylprednisolone Sodium Succinate 30 mg 02/26/21 16:00 02/27/21 03:30 Methylprednisolone Sod Succ 40 Mg/Ml Inj IVP 30 mg Q12H DINAH Administration Metolazone 5 mg 02/26/21 18:00 02/26/21 17:20 Metolazone 5 Mg Tablet PO Not Given BID DINAH Nicotine 1 patch 02/25/21 20:00 02/26/21 08:11 Nicotine 21 Mg Patch TRANSDERMA 1 patch DAILY DINAH Administration Ondansetron HCl 4 mg 02/25/21 18:46 02/26/21 23:34 Ondansetron 2 Mg/Ml Sdv 2 Ml IVP 4 mg Q6H PRN Administration NAUSEA AND VOMITING Potassium Chloride 20 meq 02/26/21 09:00 02/26/21 08:11 Potassium Chloride Er 20 Meq Tablet PO 20 meq DAILY DINAH Administration Venlafaxine HCl 75 mg 02/26/21 06:00 02/27/21 05:38 Venlafaxine Er (24hr) 75 Mg Capsule PO 75 mg QAM DINAH Administration Zolpidem Tartrate 5 mg 02/25/21 21:24 02/26/21 20:49 Zolpidem 5 Mg Tablet PO 5 mg BEDTIME PRN Administration INSOMNIA PFSH Acute PFSH: Medical History Acute exacerbation of CHF (congestive heart failure) Echocardiogram done January 2021 showed an EF of 40% with global LV hypokinesia, moderate , moderate MR Bifascicular bundle branch block Bilateral carpal tunnel syndrome CAD (coronary artery disease) Cellulitis, face Cellulitis, face Chronic pain due to injury COPD exacerbation DDD (degenerative disc disease) Diabetes Enrolled in chronic care management Hyperlipidemia Hypoglycemic episode in patient with diabetes mellitus Hypoxemia Impetigo contagiosa Insomnia Moderate aortic stenosis Moderate mitral regurgitation Renal disorder Sciatica associated with disorder of lumbar spine Transient retinal arterial occlusion, bilateral Type II respiratory failure Ulnar neuropathy of both upper extremities Wrist pain, acute Family History Other CAD (coronary artery disease) Chronic kidney disease (CKD) Denies family history of Cancer Social History Smoking and tobacco status: current every day smoker cigarettes Quit status (tobacco): has tried quititng Alcohol intake: never Adopted: No Caregiver/support person: No Lives independently: Yes Household members: family Housing: House Vitals/I&O/Wt Last Vital Signs Temp 96.9 F L 02/27/21 00:03 Pulse 83 02/27/21 05:52 Resp 20 H 02/27/21 05:23 BP 131/96 02/27/21 05:23 Pulse Ox 94 02/27/21 05:23 02/26/21 02/27/21 02/27/21 22:59 06:59 14:59 Intake Total 940 / 1180 20.1 / 1200.1 Output Total 125 / 425 400 / 825 Balance 815 / 755 -379.9 / 375.1 Weight last 48 hrs Weight 105.432 kg Weight 104.78 kg Weight 90.718 kg Physical Exam Narrative: EXAM NARRATIVE: obese, SOB on BIPAP vs noted heent- nc/at, eomi neck- supple, 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 RAMU- likely from CRS- pt has dec in EF from 40% to 15-20% and has moderate MR and . -check urine studies -ct abd revealed The right kidney is unremarkable. Multiple areas of focal cortical scarring in the left kidney. 2 cysts in the left kidney are stable, the larger measures 2.2 cm. The right and left ureters are unremarkable. -normal ck -hold ritu-i/ arb, aldactone w/ RAMU -no nsaid -monitor in and out, weights, chemistries 2. Acute dec in EF and valvular heart disease- per cardiology- dobutamine and loop diuretic -per cardiology -may need Cardiac cath- will be high renal risk. however, risk of not perfo rming cardiac cath may be greater 2b- a fib per cardiology 3. hyponatremia- check ur lytes -check tsh, am cortisol -likely from RAMU and acute exacerbation of CHF 4. hyperkalemia- from RAMU- d/c po potassium -low k diet -monitor on diuretics 5. CKD- not clear stage- likely from DM, htn, obesity, CRS 6. DM care 7. check pth, phos as on calcitriol 8. anemia per pmd pt seen and examine dw/ RN- telehealth visit informed consent obtaine for telehealth visit Consult Attestations Medical Necessity Statement: acute on chronic ststolic chf, RAMU, electrolyte abnormalities Time Spent in Patient Care: Greater than 35 minutes (>than 50% of time spent in counselling and/or direct pt care on unit) . Coding Level of Care Code Acute Machine Fancy Stitcher for Flo Riggs
[2021-02-27] MEDS: ipratropium-albuterol 3 mL Neb INHALATION ×3 (08:17→20:06)
[2021-02-27] MEDS: FUROsemide 10 mg/mL SDV 10mL 80 MG IVP ×2 (09:01→16:59)
[2021-02-27] MEDS: apixaban 5 mg Tablet 2.5 MG PO ×2 (09:03→18:26)
[2021-02-27] MEDS: metOLazone 5 MG Tablet PO ×2 (09:03→18:26)
[2021-02-27] MEDS: amiodarone 200 mg Tablet PO (09:03)
[2021-02-27] MEDS: calcitriol 0.25 mcg Capsule PO (09:03)
[2021-02-27] MEDS: nicotine 21 mg Patch 1 PATCH TRANSDERMA (09:03)
[2021-02-27 09:20] LABS: Cortisol Random 24.44 ug/dL (2.47-19.5); Hepatitis C Virus Antibody Non-Reactive (Nonreactive)
[2021-02-27 09:22] LABS: Thyroid Stimulating Hormone 0.13 uIU/mL (0.27-4.20)
[2021-02-27] MEDS: acetaminophen 500 mg Tablet 1000 MG PO (09:38)
--- NOTE | 2021-02-27 09:39 | PC.NURSE ---
Zeus held d/t SBP 99. Dr Matty perkins.
[2021-02-27] MEDS: ondansetron 2 mg/ML SDV 2 mL 4 MG IVP (09:43)
[2021-02-27 09:52] LABS: Digoxin 0.9 ng/mL (0.6-1.2)
--- NOTE | 2021-02-27 10:40 | PC.NURSE ---
Dr Richmond ordered an increase of Dobutamine to 5 mcq.
[2021-02-27 11:10] LABS: Glucose Point of Care 205 mg/dL (70-110)
[2021-02-27] MEDS: insulin lispro 100 unit/1 mL SUBCUT ×3 (11:59→21:20)
--- NOTE | 2021-02-27 12:15 | PM.PN ---
Subjective Subjective: Interval history: Seen this morning. Patient states he was in EMD for 22 years and understands medical jargon. She would like to know what her diagnosis is and if she is critical and unstable. I counseled the patient and discussed her status with her. She also states that she is due for a valve replacement and would like to know if we will be doing that here at the hospital. Patient states she did not sleep well overnight because she was only given 5 mg of melatonin where she takes 10 mg. She would like a higher dose for tonight. She stated that she watch TV all night. Patient is currently on 3 mics of dobutamine. Potassium 5.3 this morning. Repeat labs have been placed for 2 PM. Results are pending. Patient was also seen in consultation by cardiology and nephrology. Patient denies any chest pain or shortness of breath. She states she feels okay at this time. She also complains of not having a bowel movement and would like a stool softener. Vitals/I&O/Wt Last Vital Signs Temp 98.2 F 02/27/21 08:30 Pulse 81 02/27/21 10:30 Resp 19 H 02/27/21 10:30 BP 92/58 02/27/21 10:30 Pulse Ox 91 02/27/21 10:30 02/26/21 02/27/21 02/27/21 22:59 06:59 14:59 Intake Total 940 / 1180 20.1 / 1200.1 274.399 / 274.399 Output Total 125 / 425 400 / 825 Balance 815 / 755 -379.9 / 375.1 274.399 / 274.399 Weight last 48 hrs Weight 105.432 kg Weight 104.78 kg Weight 90.718 kg Physical Exam Narrative: EXAM NARRATIVE: General: Alert oriented x3, patient seen sitting up in recliner appearing comfortable. HEENT: Normocephalic, atraumatic, EOMI, breathing nasal cannula. Cardio: Regular rate rhythm, normal S1-S2, no murmurs rubs gallops, unable to assess JVD due to large neck. No gross murmurs heard. Respiratory: Good bilateral air entry, no wheezes no rhonchi appreciated. Very mild crackles at bases present. GI: Abdomen soft, nontender, nondistended, bowel sounds + Behavior: Appropriate and cooperative Extremities: Trace edema bilateral lower extremities. No cyanosis Urinary Catheter Management^: Rodriguez: Cath Placed During This Visit: yes Reason for Continuing Indwelling Catheter: Accurate Measurement of Urinary Output in Critically Ill Patients Urinary Catheter Date of Insertion: 02/25/21 Urinary Catheter Time of Insertion: 20:54 Data : 02/27/21 02:55 02/27/21 14:42 A&P Assessment and plan (1) Acute exacerbation of chronic obstructive airways disease: Status: Acute (2) Congestive heart failure: Status: Acute (3) Diabetes: Status: Acute Qualifiers: Diabetes mellitus type: type 2 Diabetes mellitus long-term insulin use: with superintendent container terminal use Diabetes mellitus complication status: with hyperglycemia Qualified Code(s): E11.65 - Type 2 diabetes mellitus with hyperglycemia; Z79.4 - superintendent container terminal (current) use of insulin (4) Atrial fibrillation: Status: Acute Qualifiers: Atrial fibrillation type: permanent Qualified Code(s): I48.21 - Permanent atrial fibrillation (5) Acute on chronic renal insufficiency: Status: Acute (6) Acute kidney injury superimposed on chronic kidney disease: Status: Acute (7) Mitral valve regurgitation: Status: Acute Qualifiers: Cardiac valve disease etiology: nonrheumatic Qualified Code(s): I34.0 - Nonrheumatic mitral (valve) insufficiency (8) Hyperkalemia: Status: Acute (9) Moderate aortic valve stenosis: Status: Acute Additional A&P Information #Acute systolic congestive heart failure exacerbation Most likely etiology is valvular, mitral regurgitation, moderate aortic valve stenosis Her EF has reduced from 50% to 40% on echo done in January this year. Echo repeated in the hospital here showed EF of 15 to 20%. Cardiology is following. She has been placed on a dobutamine drip. We are diuresing her with Lasix as well. Goal is to keep her on dobutamine for 48 hours at around 3-5 mics. Once patient is diuresed and off and can lay flat plan is for angiogram. Case discussed with Dr. Richmond this morning over the phone. No active chest pain Patient was recommended TAVR([facility]). #Acute on chronic kidney disease Most likely cardiorenal syndrome at this point due to pump failure. We will continue her on Lasix along with dobutamine. Nephrology is also following. Urine studies are pending. CT abdomen pelvis was done which does show atelectasis versus pneumonia in right and left lower lobes. There was also fluid seen in small bowel and colon without evidence of bowel wall thickening. No evidence of any hydronephrosis.. We will follow recommendations from nephrology. #Acute COPD exacerbation Acute on chronic hypercapnic hypoxic respiratory failure Continue to use BiPAP at night. Chest x-ray consistent with pulmonary edema at admission. Chest x-ray not repeated today. We can repeat it tomorrow. Continue steroids diuretics #Atrial fibrillation Without RVR continue Eliquis and AV agustina blocking agents #Hyperkalemia: Given calcium gluconate, Kayexalate, insulin albuterol and bicarb 02/26. Potassium has come down to 5.3. Repeat labs are pending for 2 PM today. I have stopped her home potassium at this point. Cardiac diet DVT prophylaxis Eliquis would suffice Full code Attestations Medical Necessity Statement*: Expected to stay greater than 48 hours at this point. Coding Level of Care Code Acute Crm Developer for [facility] Fwd Diagnoses Acute exacerbation of chronic obstructive airways disease J44.1 Congestive heart failure I50.9 Diabetes E11.65; Z79.4 Diabetes mellitus type: type 2 Diabetes mellitus long-term insulin use: with superintendent container terminal use Diabetes mellitus complication status: with hyperglycemia Atrial fibrillation I48.21 Atrial fibrillation type: permanent Acute on chronic renal insufficiency N28.9; N18.9 Acute kidney injury superimposed on chronic kidney disease N17.9; N18.9 Mitral valve regurgitation I34.0 Cardiac valve disease etiology: nonrheumatic Hyperkalemia E87.5 Moderate aortic valve stenosis I35.0
--- NOTE | 2021-02-27 13:06 | P.PN_ITS ---
Subjective Subjective: Interval history: The patient was moved to the ICU last night. This may lead to monitor the IV dobutamine infusion. She seems to be responding to the Dobutrex with better urine output. Had an episode of chest pain this morning which subsided spontaneously. Medications: Reviewed: Yes Medication Review Details: Current Medications Acetaminophen (Acetaminophen 500 Mg Tablet) 1,000 mg PO Q4H PRN PRN Reason: Pain Last Admin: 02/27/21 09:38 Dose: 1,000 mg Documented by: Albuterol/Ipratropium (Ipratropium-Albuterol 3 Ml Neb) 3 ml INHALATION TID [facility] Last Admin: 02/27/21 08:17 Dose: 3 ml Documented by: Amiodarone HCl (Amiodarone 200 Mg Tablet) 200 mg PO DAILY [facility] Last Admin: 02/27/21 09:03 Dose: 200 mg Documented by: Apixaban (Apixaban 5 Mg Tablet) 2.5 mg PO BID [facility] Last Admin: 02/27/21 09:03 Dose: 2.5 mg Documented by: Calcitriol (Calcitriol 0.25 Mcg Capsule) 0.25 mcg PO DAILY [facility] Last Admin: 02/27/21 09:03 Dose: 0.25 mcg Documented by: Clopidogrel Bisulfate (Clopidogrel 75 Mg Tablet) 75 mg PO QAM [facility] Last Admin: 02/27/21 05:39 Dose: 75 mg Documented by: Dextrose (Dextrose 50% Syringe 50 Ml) 25 ml IVP ONCE PRN; Protocol PRN Reason: hypoglycemia protocol Dextrose (Dextrose 50% Syringe 50 Ml) 50 ml IVP PRN PRN; Protocol PRN Reason: hypoglycemia protocol Diltiazem HCl (Diltiazem Er (24hr) 180 Mg Capsule) 180 mg PO DAILY [facility] Last Admin: 02/26/21 08:11 Dose: 180 mg Documented by: Furosemide (Furosemide 10 Mg/Ml Sdv 10ml) 80 mg IVP Q8H [facility] Last Admin: 02/27/21 09:01 Dose: 80 mg Documented by: Glucagon (Glucagon 1 Mg/Ml Inj 1 Ml) 1 mg IM ONCE PRN; Protocol PRN Reason: Adult Acute Hypoglycemia Prot. Dextrose (D5w) 500 mls @ 100 mls/hr IV ONCE PRN; Protocol PRN Reason: Adult Acute Hypoglycemia Prot Dobutamine HCl/Dextrose (Dobutamine Drip) 500 mg in 250 mls @ 0 mls/hr IV .Q0M [facility]; Protocol Last Titration: 02/27/21 11:06 Dose: 5 mcg/kg/min, 15.72 mls/hr Documented by: Insulin Human Lispro (Insulin Lispro 100 Unit/1 Ml) 0 unit SUBCUT WM&BEDTIME [facility]; Protocol Last Admin: 02/27/21 11:59 Dose: 6 unit Documented by: Levothyroxine Sodium (Levothyroxine 137 Mcg Tablet) 137 mcg PO QAM [facility] Last Admin: 02/27/21 05:38 Dose: 137 mcg Documented by: Methylprednisolone Sodium Succinate (Methylprednisolone Sod Succ 40 Mg/Ml Inj) 30 mg IVP Q12H [facility] Last Admin: 02/27/21 03:30 Dose: 30 mg Documented by: Metolazone (Metolazone 5 Mg Tablet) 5 mg PO BID [facility] Last Admin: 02/27/21 09:03 Dose: 5 mg Documented by: Metolazone (Metolazone 5 Mg Tablet) 5 mg PO NOW [facility] Metoprolol Tartrate (Metoprolol Tartrate 25 Mg Tablet) 50 mg PO BID@0900,2100 [facility] Last Admin: 02/27/21 09:38 Dose: Not Given Documented by: Nicotine (Nicotine 21 Mg Patch) 1 patch TRANSDERMA DAILY [facility] Last Admin: 02/27/21 09:03 Dose: 1 patch Documented by: Ondansetron HCl (Ondansetron 2 Mg/Ml Sdv 2 Ml) 4 mg IVP Q6H PRN PRN Reason: NAUSEA AND VOMITING Last Admin: 02/27/21 09:43 Dose: 4 mg Documented by: Polyethylene Glycol (Polyethylene Glycol 3350 Pkt 17 Gm) 17 gm PO DAILY [facility] Last Admin: 02/27/21 11:01 Dose: Not Given Documented by: Potassium Chloride (Potassium Chloride Er 20 Meq Tablet) 20 meq PO DAILY [facility] Last Admin: 02/26/21 08:11 Dose: 20 meq Documented by: Venlafaxine HCl (Venlafaxine Er (24hr) 75 Mg Capsule) 75 mg PO QAM [facility] Last Admin: 02/27/21 05:38 Dose: 75 mg Documented by: Zolpidem Tartrate (Zolpidem 5 Mg Tablet) 5 mg PO BEDTIME PRN PRN Reason: INSOMNIA Last Admin: 02/26/21 20:49 Dose: 5 mg Documented by: Vitals/I&O/Wt Last Vital Signs Temp 98.2 F 02/27/21 08:30 Pulse 81 02/27/21 10:30 Resp 19 H 02/27/21 10:30 BP 92/58 02/27/21 10:30 Pulse Ox 91 02/27/21 10:30 02/26/21 02/27/21 02/27/21 22:59 06:59 14:59 Intake Total 940 / 1180 20.1 / 1200.1 274.399 / 274.399 Output Total 125 / 425 400 / 825 Balance 815 / 755 -379.9 / 375.1 274.399 / 274.399 Weight last 48 hrs Weight 232 lb 7 oz Weight 231 lb Weight 200 lb Physical Exam Narrative: EXAM NARRATIVE: GENERAL: The patient is alert and oriented times three. Moderate respiratory distress. HEENT: Mild pallor. No icterus or lymphadenopathy. The pupils are reactant to light. Oral cavity: There are no mucous membrane lesions. NECK: Trachea appears to be central. No masses noted. No JVD or thyromegaly appreciated. No carotid bruit. RESPIRATORY: Chest is symmetrical. No intercostals muscle retraction or any accessory muscle activation. There is no chest wall tenderness. Breath sounds are heard bilaterally. Decreased intensity of breath sounds in the bases. No evidence of consolidation. BREASTS: Deferred. HEART: The PMI could not be palpated. No other palpable precordial events. Th e S1 is variable. Second heart sound is normal. Short systolic murmur at the aortic area. No diastolic murmurs. ABDOMEN: Obese with some vague tenderness in epigastric area. No organomegaly appreciated. Bowel sounds are normally heard. : Deferred. RECTAL: Deferred. LYMPHATIC: No lymphadenopathy noted in the neck or groin. EXTREMITIES: 1-2+ edema both lower extremities. Diffuse redness in both lower extremities. Edema and redness seems to be improving MUSCULOSKELETAL: No acute joint deformity no acute joint deformities or swelling SKIN: Diffuse redness involve both lower extremities in the below-knee area NEUROPSYCHIATRIC: The patient is alert and oriented x3. Appears to be anxious. The higher functions are grossly within normal limits. No tremors or rigidity noted. Urinary Catheter Management^: Rodriguez: Cath Placed During This Visit: yes Reason for Continuing Indwelling Catheter: Accurate Measurement of Urinary Output in Critically Ill Patients Urinary Catheter Date of Insertion: 02/25/21 Urinary Catheter Time of Insertion: 20:54 Data : 02/27/21 02:55 02/27/21 14:42 Other Labs: Laboratory Last Values WBC 8.4 10^3/uL (4.0-10.0) 02/27/21 02:55 RBC 3.71 10^6/uL (4.1-5.3) L 02/27/21 02:55 Hgb 11.5 g/dL (11.5-15.3) 02/27/21 02:55 Hct 36.9 % (37.0-47.0) L 02/27/21 02:55 MCV 99.5 fl (81-99) H 02/27/21 02:55 MCH 31.0 pg (28.0-34.0) 02/27/21 02:55 MCHC 31.2 g/dL (30.0-36.0) D 02/27/21 02:55 RDW 19.2 % (12.1-15.1) H 02/27/21 02:55 Plt Count 153 10^3/cmm (130-400) 02/27/21 02:55 MPV 11.4 fL (7.4-10.4) H 02/27/21 02:55 Neut % (Auto) 88.2 % 02/27/21 02:55 Lymph % (Auto) 4.1 % 02/27/21 02:55 [place] % (Auto) 7.0 % 02/27/21 02:55 Eos % (Auto) 0.0 % 02/27/21 02:55 Baso % (Auto) 0.1 % 02/27/21 02:55 Neut # (Auto) 7.38 10^3/uL (1.8-7.7) 02/27/21 02:55 Lymph # (Auto) 0.3 10^3/uL (0.8-4.8) L 02/27/21 02:55 [place] # (Auto) 0.6 10^3/uL (0.2-0.9) 02/27/21 02:55 Eos # (Auto) 0.0 10^3/uL (0.0-0.8) 02/27/21 02:55 Baso # (Auto) 0.0 10^3/uL (0.0-0.1) 02/27/21 02:55 Nucleated RBC % (auto) 1.3 % 02/27/21 02:55 Nucleated RBCs # 0.1 /100WBC 02/27/21 02:55 Specimen Type Arterial 02/26/21 04:14 Sample Site Radial, right 02/26/21 04:14 ABG pH 7.33 (7.35-7.45) L 02/26/21 04:14 ABG pCO2 50.3 mmHg (35-45) H 02/26/21 04:14 ABG pO2 57.6 mmHg (80.0-100.0) L 02/26/21 04:14 ABG HCO3 26.4 mmol/L (22-26) H 02/26/21 04:14 ABG Base Excess -0.2 mmol/L (-2.0-2.0) 02/26/21 04:14 [place] Test Pos 02/26/21 04:14 Hematocrit 37.8 % (37-47) 02/26/21 04:14 Hgb O2 Saturation 83.4 % (95-100) L 02/25/21 16:20 Carboxyhemoglobin 2.3 %THgb (0.4-20.1) 02/25/21 16:20 Methemoglobin 0.9 % (0.4-1.5) 02/25/21 16:20 Total Hemoglobin 12.2 g/dL (12-16) 02/25/21 16:20 O2 Delivery Device Bipap 02/26/21 04:14 O2 Liters/Min 8.0 % 02/25/21 16:20 FiO2 60.0 % 02/26/21 04:14 PEEP 8.0 cmH20 02/26/21 04:14 Monotype Caster ID Tamma 02/26/21 04:14 Sodium 129 mmol/L (136-145) L 02/27/21 02:55 Potassium 5.3 mmol/L (3.5-5.1) H 02/27/21 02:55 Chloride 91 mmol/L (98-107) L 02/27/21 02:55 Carbon Dioxide 26 mmol/L (22-29) 02/27/21 02:55 Anion Gap 17.3 (5-19) 02/27/21 02:55 BUN 48 mg/dL (8-23) H 02/27/21 02:55 Creatinine 2.7 mg/dL (0.5-0.9) H 02/27/21 02:55 GFR Calculation Not Reportable 02/27/21 02:55 Glucose 53 mg/dL (65-115) L 02/27/21 02:55 POC Glucose 205 mg/dL (70-110) H 02/27/21 10:59 Calculated Osmolality 278 mOsm/kg (285-295) L 02/27/21 02:55 Lactic Acid 2.3 mmol/L (0.5-2.2) H 02/25/21 16:48 Lactic Acid (Sepsis) 2.0 mmol/L (0.5-2.2) 02/25/21 19:09 Calcium 9.1 mg/dL (8.5-10.5) 02/27/21 02:55 Magnesium 2.5 mg/dL (1.7-2.3) H 02/27/21 02:55 Total Bilirubin 0.9 mg/dL (0.15-1.2) 02/25/21 16:48 AST 50 U/L (0-32) H 02/25/21 16:48 ALT 80 U/L (0-33) H 02/25/21 16:48 Alkaline Phosphatase 69 IU/L (35-105) 02/25/21 16:48 Creatine Kinase 18 U/L (26-192) L 02/26/21 16:14 Troponin T Baseline 42 ng/L (0-10) H 02/25/21 16:48 Troponin T 120 Minute 45.92 ng/L (0-10) H 02/25/21 19:09 Delta Troponin T 3.92 ABS# (0-10) 02/25/21 19:09 Troponin T Hi Sens 6Hr 41.07 ng/L (0-10) H 02/25/21 22:57 Troponin T Hi Sens 6Hr Delta -0.93 ng/L (0-12) L 02/25/21 22:57 C-Reactive Protein 61.8 mg/L (0.0-4.9) H 02/26/21 07:12 NT-Pro-B Natriuret Pep 15215 pg/mL (0-450) H 02/25/21 16:48 Total Protein 6.8 g/dL (6.6-8.7) 02/25/21 16:48 Albumin 3.6 g/dL (3.5-5.2) 02/25/21 16:48 Globulin 3.2 g/dL (1.3-4.6) 02/25/21 16:48 Procalcitonin 0.42 ng/mL (0-0.5) 02/25/21 16:48 TSH 0.13 uIU/mL (0.27-4.20) L 02/27/21 02:55 Random Cortisol 24.44 ug/dL (2.47-19.5) H 02/27/21 02:55 Digoxin 0.9 ng/mL (0.6-1.2) 02/27/21 02:55 Hepatitis C Antibody Non-reactive (Nonreactive) 02/27/21 02:55 SARS-CoV-2 Ag (Rapid) Negative (Negative) 02/25/21 17:11 Echo: My impression: Severe diffuse hypokinesis of the left ventricle with ejection fraction of 15-20%. Moderate biatrial enlargement Thickened aortic and mitral valves. There is no pericardial effusion. There are no intracardiac masses. Compared to the study from 01/27/2021 there appears to be some worsening of the LV systolic function A&P Assessment and plan (1) Acute on chronic systolic heart failure: Patient has seems to be responding to the higher dose of Lasix. We will continue the same. Status: Acute (2) Atherosclerosis of coronary artery of [place] heart without angina pectoris: Currently she has no chest pains. We may consider doing a myocardial perfusion imaging, once clinical status is stable to evaluate for any underlying coronary ischemia. Status: Acute Qualifiers: Coronary Disease-Associated Artery/Lesion type: [place] artery Qualified Code(s): I25.10 - Atherosclerotic heart disease of [place] coronary artery without angina pectoris (3) Mitral valve regurgitation: Clinically there is no worsening of the mitral regurgitation. After the appropriate diuresis, we may repeat the mitral valve Doppler, to reevaluate the mitral regurgitation Status: Acute Qualifiers: Cardiac valve disease etiology: nonrheumatic Qualified Code(s): I34.0 - Nonrheumatic mitral (valve) insufficiency (4) Acute kidney injury superimposed on chronic kidney disease: Appreciate the nephrology input. We will continue to monitor the kidney function closely. Status: Acute (5) Acute exacerbation of chronic obstructive airways disease: Management as per the primary Status: Acute (6) Chronic atrial fibrillation: Since the heart rate is under control, patient may not require any specific intervention at this point. She also is on long-term oral anticoagulation. Status: Acute Additional A&P Information Other problems are Cardiomyopathy Hyponatremia Elevated liver enzymes Possible lower extremity cellulitis We will keep the patient on a total of 48 hours of IV Dobutrex. We will wean her off the Dobutrex afterwards. Consider myocardial perfusion to evaluate for coronary ischemia Attestations Medical Necessity Statement*: Patient requires continued hospital stay for close monitoring and further management Coding Level of Care Code Acute Structural Fitter for Terrenceg Fwd History Detailed Exam Detailed Medical Decision Making Moderate Complexity Diagnoses Acute on chronic systolic heart failure I50.23 Atherosclerosis of coronary artery of [place] heart without angina pectoris I25.10 Coronary Disease-Associated Artery/Lesion type: [place] artery Mitral valve regurgitation I34.0 Cardiac valve disease etiology: nonrheumatic Acute kidney injury superimposed on chronic kidney disease N17.9; N18.9 Acute exacerbation of chronic obstructive airways disease J44.1 Chronic atrial fibrillation I48.20
[2021-02-27 15:40] LABS: Alanine Aminotransferase 91 U/L (0-33); Albumin Level 3.3 g/dL (3.5-5.2); Alkaline Phosphatase 63 IU/L (35-105); Anion Gap 18.8 (5-19); Aspartate Amino Transferase 65 U/L (0-32); Blood Urea Nitrogen 51 mg/dL (8-23); Calcium 8.5 mg/dL (8.5-10.5); Carbon Dioxide 26 mmol/L (22-29); Chloride 90 mmol/L (98-107); Globulin 2.9 g/dL (1.3-4.6); Glucose 270 mg/dL (65-115); Osmolality Calculated 293 mOsm/kg (285-295); Potassium 4.8 mmol/L (3.5-5.1); Sodium 130 mmol/L (136-145); Total Bilirubin 0.9 mg/dL (0.15-1.2); Total Protein 6.2 g/dL (6.6-8.7)
--- NOTE | 2021-02-27 16:00 | PC.NURSE ---
Lab results called to Dr Muse per order. No new orders at this time.
[2021-02-27 17:16] LABS: Glucose Point of Care 240 mg/dL (70-110)
[2021-02-27] MEDS: DOBUTamine drip 500 MG/250 ML PREMIX 15.72 MG IV (18:26)
--- NOTE | 2021-02-27 19:24 | PC.NURSE ---
Pt sat in chair majority of day. Tolerated well. Pt unintentionally mouth breathes. Napped in bed for two hours. Up to chair at 1700. Placed on NS 10 L. Desat to 65. HHF replaced by RT. Slow to recover.
[2021-02-27 21:09] LABS: Glucose Point of Care 220 mg/dL (70-110)
[2021-02-27] MEDS: metoprolol tartrate 25 mg Tablet 50 MG PO (21:20)
[2021-02-27] MEDS: zolpidem 5 mg Tablet PO (22:55)
[2021-02-28] VITALS (19 sets, daily range): BP systolic 78–126; BP diastolic 45–74; PULSE 59–96; RESP 15–22; TEMP 35.6–36.8; O2SAT 92–96; BMI 43.2
[2021-02-28] MEDS: FUROsemide 10 mg/mL SDV 10mL 80 MG IVP ×3 (00:16→15:46)
[2021-02-28 04:24] LABS: Hematocrit 36.2 % (37.0-47.0); Lymphocytes # 0.2 10^3/uL (0.8-4.8); Mean Corpuscular HGB Conc 30.4 g/dL (30.0-36.0); Mean Corpuscular Hemoglobin 30.1 pg (28.0-34.0); Mean Corpuscular Volume 98.9 fl (81-99); Mean Platelet Volume 10.9 fL (7.4-10.4); Monocytes # 0.3 10^3/uL (0.2-0.9); Monocytes % 4.1 %; Neutrophils # 5.85 10^3/uL (1.8-7.7); Neutrophils % 92.3 %; Nucleated Red Blood Cells % 0.6 %; Platelet Count 148 10^3/cmm (130-400); Red Blood Count 3.66 10^6/uL (4.1-5.3); Red Cell Distribution Width 19.2 % (12.1-15.1); White Blood Count 6.3 10^3/uL (4.0-10.0)
[2021-02-28 05:06] LABS: Calcium 8.6 mg/dL (8.5-10.5); Digoxin 0.4 ng/mL (0.6-1.2)
[2021-02-28] MEDS: levothyroxine 137 mcg Tablet PO (05:15)
[2021-02-28 05:17] LABS: Parathyroid Hormone 220.8 pg/mL (15-65)
[2021-02-28 05:24] LABS: 25 Hydroxy Vitamin D 19 ng/mL (30-100); Alanine Aminotransferase 93 U/L (0-33); Albumin Level 3.2 g/dL (3.5-5.2); Alkaline Phosphatase 67 IU/L (35-105); Anion Gap 16.4 (5-19); Aspartate Amino Transferase 64 U/L (0-32); Blood Urea Nitrogen 53 mg/dL (8-23); Calcium 8.6 mg/dL (8.5-10.5); Carbon Dioxide 31 mmol/L (22-29); Chloride 90 mmol/L (98-107); Ferritin 164 ng/mL (15-150); Globulin 2.9 g/dL (1.3-4.6); Glucose 130 mg/dL (65-115); Iron 41 ug/dL (37-145); Magnesium 2.5 mg/dL (1.7-2.3); Osmolality Calculated 292 mOsm/kg (285-295); Phosphorus 5.4 mg/dL (2.5-4.5); Potassium 4.4 mmol/L (3.5-5.1); Sodium 133 mmol/L (136-145); Total Bilirubin 0.7 mg/dL (0.15-1.2); Total Iron Binding Capacity 315 mcg/dl; Total Protein 6.1 g/dL (6.6-8.7); Unsaturated Iron Binding 274 ug/dL (112-347)
[2021-02-28] MEDS: venlafaxine ER (24HR) 75 mg Capsule PO (05:59)
[2021-02-28] MEDS: clopidogrel 75 mg Tablet PO (05:59)
--- NOTE | 2021-02-28 07:13 | PM.PN ---
Subjective Subjective: Interval history: less sob, feels weak. swollen. remains on dobutamine - improved uop Medications: Reviewed: Yes Medication Review Details: Current Medications Acetaminophen (Acetaminophen 500 Mg Tablet) 1,000 mg PO Q4H PRN PRN Reason: Pain Last Admin: 02/27/21 09:38 Dose: 1,000 mg Documented by: Albuterol/Ipratropium (Ipratropium-Albuterol 3 Ml Neb) 3 ml INHALATION TID [facility] Last Admin: 02/27/21 20:06 Dose: 3 ml Documented by: Amiodarone HCl (Amiodarone 200 Mg Tablet) 200 mg PO DAILY [facility] Last Admin: 02/27/21 09:03 Dose: 200 mg Documented by: Apixaban (Apixaban 5 Mg Tablet) 2.5 mg PO BID [facility] Last Admin: 02/27/21 18:26 Dose: 2.5 mg Documented by: Calcitriol (Calcitriol 0.25 Mcg Capsule) 0.25 mcg PO DAILY [facility] Last Admin: 02/27/21 09:03 Dose: 0.25 mcg Documented by: Clopidogrel Bisulfate (Clopidogrel 75 Mg Tablet) 75 mg PO QAM [facility] Last Admin: 02/28/21 05:59 Dose: 75 mg Documented by: Dextrose (Dextrose 50% Syringe 50 Ml) 25 ml IVP ONCE PRN; Protocol PRN Reason: hypoglycemia protocol Dextrose (Dextrose 50% Syringe 50 Ml) 50 ml IVP PRN PRN; Protocol PRN Reason: hypoglycemia protocol Diltiazem HCl (Diltiazem Er (24hr) 180 Mg Capsule) 180 mg PO DAILY [facility] Last Admin: 02/26/21 08:11 Dose: 180 mg Documented by: Furosemide (Furosemide 10 Mg/Ml Sdv 10ml) 80 mg IVP Q8H [facility] Last Admin: 02/28/21 00:16 Dose: 80 mg Documented by: Glucagon (Glucagon 1 Mg/Ml Inj 1 Ml) 1 mg IM ONCE PRN; Protocol PRN Reason: Adult Acute Hypoglycemia Prot. Dextrose (D5w) 500 mls @ 100 mls/hr IV ONCE PRN; Protocol PRN Reason: Adult Acute Hypoglycemia Prot Dobutamine HCl/Dextrose (Dobutamine Drip) 500 mg in 250 mls @ 0 mls/hr IV .Q0M [facility]; Protocol Last Admin: 02/27/21 18:26 Dose: 5 mcg/kg/min, 15.72 mls/hr Documented by: Insulin Human Lispro (Insulin Lispro 100 Unit/1 Ml) 0 unit SUBCUT WM&BEDTIME [facility]; Protocol Last Admin: 02/27/21 21:20 Dose: 6 unit Documented by: Levothyroxine Sodium (Levothyroxine 137 Mcg Tablet) 137 mcg PO QAM [facility] Last Admin: 02/28/21 05:15 Dose: 137 mcg Documented by: Methylprednisolone Sodium Succinate (Methylprednisolone Sod Succ 40 Mg/Ml Inj) 30 mg IVP Q12H [facility] Last Admin: 02/28/21 04:01 Dose: 30 mg Documented by: Metolazone (Metolazone 5 Mg Tablet) 5 mg PO BID [facility] Last Admin: 02/27/21 18:26 Dose: 5 mg Documented by: Metolazone (Metolazone 5 Mg Tablet) 5 mg PO NOW [facility] Metoprolol Tartrate (Metoprolol Tartrate 25 Mg Tablet) 50 mg PO BID@0900,2100 [facility] Last Admin: 02/27/21 21:20 Dose: 50 mg Documented by: Nicotine (Nicotine 21 Mg Patch) 1 patch TRANSDERMA DAILY [facility] Last Admin: 02/27/21 09:03 Dose: 1 patch Documented by: Ondansetron HCl (Ondansetron 2 Mg/Ml Sdv 2 Ml) 4 mg IVP Q6H PRN PRN Reason: NAUSEA AND VOMITING Last Admin: 02/27/21 09:43 Dose: 4 mg Documented by: Polyethylene Glycol (Polyethylene Glycol 3350 Pkt 17 Gm) 17 gm PO DAILY [facility] Last Admin: 02/27/21 11:01 Dose: Not Given Documented by: Potassium Chloride (Potassium Chloride Er 20 Meq Tablet) 20 meq PO DAILY [facility] Last Admin: 02/26/21 08:11 Dose: 20 meq Documented by: Venlafaxine HCl (Venlafaxine Er (24hr) 75 Mg Capsule) 75 mg PO QAM [facility] Last Admin: 02/28/21 05:59 Dose: 75 mg Documented by: Zolpidem Tartrate (Zolpidem 5 Mg Tablet) 5 mg PO BEDTIME PRN PRN Reason: INSOMNIA Last Admin: 02/27/21 22:55 Dose: 5 mg Documented by: Vitals/I&O/Wt Last Vital Signs Temp 97.8 F 02/28/21 05:06 Pulse 96 02/28/21 06:12 Resp 16 02/28/21 06:12 BP 118/69 02/28/21 06:12 Pulse Ox 96 02/28/21 06:12 02/27/21 02/28/21 02/28/21 22:59 06:59 14:59 Intake Total 95.601 / 490.000 Output Total 3000 / 3000 450 / 3450 Balance -2904.399 / -2510.000 -450 / -2960.000 Weight last 48 hrs Weight 107.218 kg Weight 105.432 kg Physical Exam Narrative: EXAM NARRATIVE: obese, less SOB ono2 vs noted heent- nc/at, eomi neck- supple, no JVP lungs -dec rales and crackles heart- irreg irreg, +JELENA, +s, S2 abd soft, nt, nd, + bs ext LLE > RLE edema neuro- a,a, o x 3 weak pulses DP/PT Urinary Catheter Management^: Rodriguez: Cath Placed During This Visit: yes Reason for Continuing Indwelling Catheter: Accurate Measurement of Urinary Output in Critically Ill Patients Urinary Catheter Date of Insertion: 02/25/21 Urinary Catheter Time of Insertion: 20:54 Data : 02/28/21 04:01 02/28/21 04:01 A&P Additional A&P Information 75 yr old female 1. RAMU- likely from CRS- pt has low EF of 15-20% and has moderate MR and . -ua is neg ur na 25 - c/w CHF -cr stable -ct abd revealed The right kidney is unremarkable. Multiple areas of focal cortical scarring in the left kidney. 2 cysts in the left kidney are stable, the larger measures 2.2 cm. The right and left ureters are unremarkable. -normal ck -hold ritu-i/ arb, aldactone w/ RAMU -no nsaid -monitor in and out, weights, chemistries 2. Acute dec in EF and valvular heart disease- per cardiology- dobutamine and loop diuretic -per cardiology -may need Cardiac cath- will be high renal risk. however, risk of not performing cardiac cath may be greater -discussed w/ pt. she understands and accepts cath if needed 3- a fib per cardiology 4. hyponatremia- likely from RAMU and CHF- na is improving on lasix and dobutamine 5. low tsh per medicine- consider dec levothyroxine w/ CAD 6. hyperkalemia- from RAMU- improved -low k diet -monitor on diuretics 7. CKD- not clear stage- likely from DM, htn, obesity, CRS 8. DM care 9. bone - mineral- metabolism of CKF- cont calcitriol, pth is 220, normal ca -phos 5.4 monitor as on calcitriol 10. anemia - iron sat 13%. ferritin 164- will give po iron pt seen and examined w/ RN- telehealth visit informed consent obtained for telehealth visit Attestations Medical Necessity Statement*: per cardiology- ramu and chf Time Spent in Patient Care: 16 - 35 minutes Coding Level of Care Code Acute Securities Supervisor for Flo Riggs
[2021-02-28] MEDS: ipratropium-albuterol 3 mL Neb INHALATION ×3 (08:10→20:07)
[2021-02-28 08:14] LABS: Glucose Point of Care 182 mg/dL (70-110)
[2021-02-28] MEDS: insulin lispro 100 unit/1 mL SUBCUT ×4 (08:16→19:58)
[2021-02-28] MEDS: ferrous sulfate EC 325 mg Tablet PO (08:35)
--- NOTE | 2021-02-28 08:44 | PC.SOCIAL ---
IMM update IMM updated with patient, she verbalized an understanding. Copy Pg 2 provided. Initialled, dated, timed, and placed in chart.
--- NOTE | 2021-02-28 09:31 | PC.CHAP ---
Pastoral Care Encounter/Spiritual Assessment Type of Contact [] Declined talk show host visit [] Patient/Family/Request visit [] Outpatient visit [] Follow-up visit [] Physician referral [] Code/Alert [x] Routine visit [] Staff referral [] Actively dying [] Patient sleeping [] Family support [] [] Out of room [] Palliative care [] [x] Receiving care in room [] Pre-surgical visit [] Trauma [] Long length of stay [x] ICU visit [] Other: Relational/Emotional Strength [] Patient feels connected with others/family/visitors/staff [] Distress [] Loneliness/isolation [] Abandonment Spirituality of Patient [] Person of [place] [] Attends Church of their [place] [] Believes in Prayer [] Reads Bible or Jainism materials [] There are Spiritual issues to be addressed Photograph Retoucher Interventions [x] Prayer [] Active listening [] Non-anxious presence [] Spiritual/emotional support [] Crisis/trauma care [] Spiritual counseling [] Bereavement support [] Provided bereavement packet [] Provided Bible/devotional materials [] Provided toy/stuffed animal, coloring book to patient or family member [] Provided Communion [] Anointing/[place] [] Salvation [x] Completed spiritual assessment [] Other: Impact on Illness or Injury [] Angry [] Fearful [] Anxious [] Often cries [] Exhaustion [] Unable to work [] Unable to attend scientology [] Unable to walk/stand [] Unable to read [] Unable to drive [] Unable to eat/drink [] Unable to sleep [] Unable to be with family [] Patient intubated [] Other: Summary Time spent with patient
[2021-02-28] MEDS: amiodarone 200 mg Tablet PO (11:19)
[2021-02-28] MEDS: apixaban 5 mg Tablet 2.5 MG PO ×2 (11:19→17:48)
[2021-02-28] MEDS: nicotine 21 mg Patch 1 PATCH TRANSDERMA (11:20)
[2021-02-28] MEDS: metOLazone 5 MG Tablet PO (11:20)
[2021-02-28] MEDS: calcitriol 0.25 mcg Capsule PO (11:26)
[2021-02-28 11:54] LABS: Glucose Point of Care 281 mg/dL (70-110)
[2021-02-28] MEDS: acetaminophen 500 mg Tablet 1000 MG PO (14:04)
--- NOTE | 2021-02-28 15:35 | PC.NURSE ---
1500 Sat up in bedside chair for 2 1/2 hours, tsering well. 1520 Back to bed, transfered pt and all belongings to ICU 5 via bed.
[2021-02-28] MEDS: ondansetron 2 mg/ML SDV 2 mL 4 MG IVP (16:59)
[2021-02-28 17:22] LABS: Glucose Point of Care 203 mg/dL (70-110)
--- NOTE | 2021-02-28 17:46 | PM.PN ---
Subjective Subjective: Interval history: Seen this morning while patient having breakfast. Patient is on 6 L nasal cannula. On admission she was 80 L. She is diuresing well. Currently still on dobutamine drip but she is. The drip will be turned off at 48-hour madalyn. We will start to taper down today. She states she is feeling well and would like to know what the next plan is. Discussed with cardiology and stress test is being planned at this time. She did have a bowel movement yesterday. Vitals/I&O/Wt Last Vital Signs Temp 98.3 F 02/28/21 12:00 Pulse 61 02/28/21 16:00 Resp 16 02/28/21 16:00 BP 88/66 02/28/21 16:00 Pulse Ox 93 02/28/21 16:00 02/28/21 02/28/21 02/28/21 06:59 14:59 22:59 Intake Total 487.849 / 487.849 Output Total 450 / 3450 650 / 650 Balance -450 / -2960.000 -162.151 / -162.151 Weight last 48 hrs Weight 107.218 kg Weight 107.218 kg Weight 105.432 kg Physical Exam Narrative: EXAM NARRATIVE: General: Alert oriented x3, patient seen sitting up in bed appearing comfortable. She is eating breakfast and appears very energetic. HEENT: Normocephalic, atraumatic, EOMI, breathing nasal cannula. Cardio: Regular rate rhythm, normal S1-S2, no murmurs rubs gallops, unable to assess JVD due to large neck. No gross murmurs heard. Respiratory: Good bilateral air entry, no wheezes no rhonchi appreciated. Very mild crackles at bases present. On 8 L nasal cannula today. GI: Abdomen soft, nontender, nondistended, bowel sounds + Behavior: Appropriate and cooperative Extremities: Trace edema bilateral lower extremities. No cyanosis Urinary Catheter Management^: Rodriguez: Cath Placed During This Visit: yes Reason for Continuing Indwelling Catheter: Accurate Measurement of Urinary Output in Critically Ill Patients Urinary Catheter Date of Insertion: 02/25/21 Urinary Catheter Time of Insertion: 20:54 Data : 02/28/21 04:01 02/28/21 04:01 A&P Assessment and plan (1) Acute exacerbation of chronic obstructive airways disease: Status: Acute (2) Congestive heart failure: Status: Acute (3) Diabetes: Status: Acute Qualifiers: Diabetes mellitus type: type 2 Diabetes mellitus computer terminal operator insulin use: with computer terminal operator use Diabetes mellitus complication status: with hyperglycemia Qualified Code(s): E11.65 - Type 2 diabetes mellitus with hyperglycemia; Z79.4 - terminal superintendent (current) use of insulin (4) Atrial fibrillation: Status: Acute Qualifiers: Atrial fibrillation type: permanent Qualified Code(s): I48.21 - Permanent atrial fibrillation (5) Acute on chronic renal insufficiency: Status: Acute (6) Acute kidney injury superimposed on chronic kidney disease: Status: Acute (7) Mitral valve regurgitation: Status: Acute Qualifiers: Cardiac valve disease etiology: nonrheumatic Qualified Code(s): I34.0 - Nonrheumatic mitral (valve) insufficiency (8) Hyperkalemia: Status: Acute (9) Moderate aortic valve stenosis: Status: Acute Additional A&P Information #Acute systolic congestive heart failure exacerbation Most likely etiology is valvular, mitral regurgitation, moderate aortic valve stenosis Her EF has reduced from 50% to 40% on echo done in January this year. Echo repeated in the hospital here showed EF of 15 to 20%. Cardiology is following. She has been placed on a dobutamine drip. We are diuresing her with Lasix as well. Goal is to keep her on dobutamine for 48 hours at around 3-5 mics. Once patient is diuresed and off and can lay flat plan is for angiogram. Cardiology on board. Plan is return of dobutamine drip today and possibly do a stress test in the morning. No active chest pain Patient was recommended TAVR([facility]). #Acute on chronic kidney disease Most likely cardiorenal syndrome at this point due to pump failure. We will continue her on Lasix along with dobutamine. Nephrology is also following. CT abdomen pelvis was done which does show atelectasis versus pneumonia in right and left lower lobes. There was also fluid seen in small bowel and colon without evidence of bowel wall thickening. No evidence of any hydronephrosis.. We will follow recommendations from nephrology. Creatinine improved slightly. #Acute COPD exacerbation Acute on chronic hypercapnic hypoxic respiratory failure Continue to use BiPAP at night. Chest x-ray consistent with pulmonary edema at admission. Chest x-ray not repeated today. Will repeat XR in AM Continue steroids diuretics #Atrial fibrillation Without RVR continue Eliquis and AV agustina blocking agents #Hyperkalemia: Resolved. Cardiac diet DVT prophylaxis Eliquis would suffice Full code Attestations Medical Necessity Statement*: Requires inpatient stay greater than 48 hours. Needs to be diuresed further. Will have stress test in the morning. Time Spent in Patient Care: 16 - 35 minutes Coding Level of Care Code Acute Gym Instructor for g Fwd Diagnoses Acute exacerbation of chronic obstructive airways disease J44.1 Congestive heart failure I50.9 Diabetes E11.65; Z79.4 Diabetes mellitus type: type 2 Diabetes mellitus senior living insulin use: with senior living use Diabetes mellitus complication status: with hyperglycemia Atrial fibrillation I48.21 Atrial fibrillation type: permanent Acute on chronic renal insufficiency N28.9; N18.9 Acute kidney injury superimposed on chronic kidney disease N17.9; N18.9 Mitral valve regurgitation I34.0 Cardiac valve disease etiology: nonrheumatic Hyperkalemia E87.5 Moderate aortic valve stenosis I35.0
--- NOTE | 2021-02-28 18:07 | P.PN_ITS ---
Subjective Subjective: Interval history: The patient is feeling okay. Denies any chest pain or chest tightness. The shortness of breath is significantly improved. Blood pressure seems to be fairly stable. Medications: Reviewed: Yes Medication Review Details: Current Medications Acetaminophen (Acetaminophen 500 Mg Tablet) 1,000 mg PO Q4H PRN PRN Reason: Pain Last Admin: 02/28/21 14:04 Dose: 1,000 mg Documented by: Albuterol/Ipratropium (Ipratropium-Albuterol 3 Ml Neb) 3 ml INHALATION TID [facility] Last Admin: 02/28/21 14:22 Dose: 3 ml Documented by: Amiodarone HCl (Amiodarone 200 Mg Tablet) 200 mg PO DAILY [facility] Last Admin: 02/28/21 11:19 Dose: 200 mg Documented by: Apixaban (Apixaban 5 Mg Tablet) 2.5 mg PO BID [facility] Last Admin: 02/28/21 17:48 Dose: 2.5 mg Documented by: Calcitriol (Calcitriol 0.25 Mcg Capsule) 0.25 mcg PO DAILY [facility] Last Admin: 02/28/21 11:26 Dose: 0.25 mcg Documented by: Clopidogrel Bisulfate (Clopidogrel 75 Mg Tablet) 75 mg PO QAM [facility] Last Admin: 02/28/21 05:59 Dose: 75 mg Documented by: Dextrose (Dextrose 50% Syringe 50 Ml) 25 ml IVP ONCE PRN; Protocol PRN Reason: hypoglycemia protocol Dextrose (Dextrose 50% Syringe 50 Ml) 50 ml IVP PRN PRN; Protocol PRN Reason: hypoglycemia protocol Diltiazem HCl (Diltiazem Er (24hr) 180 Mg Capsule) 180 mg PO DAILY [facility] Last Admin: 02/26/21 08:11 Dose: 180 mg Documented by: Ferrous Sulfate (Ferrous Sulfate Ec 325 Mg Tablet) 325 mg PO BREAKFAST [facility] Last Admin: 02/28/21 08:35 Dose: 325 mg Documented by: Furosemide (Furosemide 10 Mg/Ml Sdv 10ml) 80 mg IVP Q8H [facility] Last Admin: 02/28/21 15:46 Dose: 80 mg Documented by: Glucagon (Glucagon 1 Mg/Ml Inj 1 Ml) 1 mg IM ONCE PRN; Protocol PRN Reason: Adult Acute Hypoglycemia Prot. Dextrose (D5w) 500 mls @ 100 mls/hr IV ONCE PRN; Protocol PRN Reason: Adult Acute Hypoglycemia Prot Dobutamine HCl/Dextrose (Dobutamine Drip) 500 mg in 250 mls @ 0 mls/hr IV .Q0M [facility]; Protocol Last Titration: 02/28/21 11:00 Dose: 0 mcg/kg/min, 0 mls/hr Documented by: Insulin Human Lispro (Insulin Lispro 100 Unit/1 Ml) 0 unit SUBCUT WM&BEDTIME [facility]; Protocol Last Admin: 02/28/21 17:46 Dose: 6 unit Documented by: Levothyroxine Sodium (Levothyroxine 137 Mcg Tablet) 137 mcg PO QAM [facility] Last Admin: 02/28/21 05:15 Dose: 137 mcg Documented by: Methylprednisolone Sodium Succinate (Methylprednisolone Sod Succ 40 Mg/Ml Inj) 30 mg IVP Q12H [facility] Last Admin: 02/28/21 15:46 Dose: 30 mg Documented by: Metolazone (Metolazone 5 Mg Tablet) 5 mg PO NOW [facility] Metolazone (Metolazone 5 Mg Tablet) 5 mg PO DAILY [facility] Last Admin: 02/28/21 11:20 Dose: 5 mg Documented by: Metoprolol Tartrate (Metoprolol Tartrate 25 Mg Tablet) 50 mg PO BID@0900,2100 [facility] Last Admin: 02/28/21 11:32 Dose: Not Given Documented by: Nicotine (Nicotine 21 Mg Patch) 1 patch TRANSDERMA DAILY [facility] Last Admin: 02/28/21 11:20 Dose: 1 patch Documented by: Ondansetron HCl (Ondansetron 2 Mg/Ml Sdv 2 Ml) 4 mg IVP Q6H PRN PRN Reason: NAUSEA AND VOMITING Last Admin: 02/28/21 16:59 Dose: 4 mg Documented by: Polyethylene Glycol (Polyethylene Glycol 3350 Pkt 17 Gm) 17 gm PO DAILY [facility] Last Admin: 02/28/21 11:32 Dose: Not Given Documented by: Potassium Chloride (Potassium Chloride Er 20 Meq Tablet) 20 meq PO DAILY [facility] Last Admin: 02/26/21 08:11 Dose: 20 meq Documented by: Venlafaxine HCl (Venlafaxine Er (24hr) 75 Mg Capsule) 75 mg PO QAM [facility] Last Admin: 02/28/21 05:59 Dose: 75 mg Documented by: Zolpidem Tartrate (Zolpidem 5 Mg Tablet) 5 mg PO BEDTIME PRN PRN Reason: INSOMNIA Last Admin: 02/27/21 22:55 Dose: 5 mg Documented by: Vitals/I&O/Wt Last Vital Signs Temp 98.3 F 02/28/21 12:00 Pulse 61 02/28/21 16:00 Resp 16 02/28/21 16:00 BP 88/66 02/28/21 16:00 Pulse Ox 93 02/28/21 16:00 02/28/21 02/28/21 02/28/21 06:59 14:59 22:59 Intake Total 487.849 / 487.849 Output Total 450 / 3450 650 / 650 Balance -450 / -2960.000 -162.151 / -162.151 Weight last 48 hrs Weight 236 lb 6 oz Weight 236 lb 6 oz Weight 232 lb 7 oz Physical Exam Narrative: EXAM NARRATIVE: GENERAL: The patient is alert and oriented times three. Moderate respiratory distress. HEENT: Mild pallor. No icterus or lymphadenopathy. The pupils are symmetrical. Oral cavity: There are no mucous membrane lesions. NECK: Trachea appears to be central. No masses noted. No JVD or thyromegaly appreciated. No carotid bruit. RESPIRATORY: Chest is symmetrical. No intercostals muscle retraction or any accessory muscle activation. There is no chest wall tenderness. Breath sounds are heard bilaterally. Decreased intensity of breath sounds in the bases. No e vidence of consolidation. BREASTS: Deferred. HEART: The PMI could not be palpated. No other palpable precordial events. The S1 is variable. Second heart sound is normal. Short systolic murmur at the aortic area. No diastolic murmurs. ABDOMEN: Obese with some vague tenderness in epigastric area. No organomegaly appreciated. Bowel sounds are normally heard. : Deferred. RECTAL: Deferred. LYMPHATIC: No lymphadenopathy noted in the neck or groin. EXTREMITIES: 1-2+ edema both lower extremities. Diffuse redness in both lower extremities. Edema and redness seems to be improving MUSCULOSKELETAL: No acute joint deformity no acute joint deformities or swelling SKIN: Diffuse redness involve both lower extremities in the below-knee area NEUROPSYCHIATRIC: The patient is alert and oriented x3. Appears to be anxious. The higher functions are grossly within normal limits. No tremors or rigidity noted. Urinary Catheter Management^: Rodriguez: Cath Placed During This Visit: yes Reason for Continuing Indwelling Catheter: Accurate Measurement of Urinary Output in Critically Ill Patients Urinary Catheter Date of Insertion: 02/25/21 Urinary Catheter Time of Insertion: 20:54 Data : 03/01/21 04:45 03/01/21 04:45 A&P Assessment and plan (1) Acute on chronic systolic heart failure: Patient has seems to be responding to the higher dose of Lasix. We will continue the same. We will taper off the Dobutrex today. If the patient continues remain stable, may be transferred to the regular floor. Status: Acute (2) Atherosclerosis of coronary artery of [place] heart without angina pectoris: I may go ahead and schedule the patient for a myocardial perfusion imaging tomorrow. Status: Acute Qualifiers: Coronary Disease-Associated Artery/Lesion type: [place] artery Qualified Code(s): I25.10 - Atherosclerotic heart disease of [place] coronary artery without angina pectoris (3) Mitral valve regurgitation: Clinically there is no worsening of the mitral regurgitation. After the appropriate diuresis, we may repeat the mitral valve Doppler, to reevaluate the mitral regurgitation Status: Acute Qualifiers: Cardiac valve disease etiology: nonrheumatic Qualified Code(s): I34.0 - Nonrheumatic mitral (valve) insufficiency (4) Acute kidney injury superimposed on chronic kidney disease: Appreciate the nephrology input. We will continue to monitor the kidney function closely. Status: Acute (5) Acute exacerbation of chronic obstructive airways disease: Management as per the primary Status: Acute (6) Chronic atrial fibrillation: Since the heart rate is under control, patient may not require any specific intervention at this point. She also is on long-term oral anticoagulation. Status: Acute Additional A&P Information Other problems are Cardiomyopathy Hyponatremia Elevated liver enzymes Possible lower extremity cellulitis Myocardial perfusion imaging tomorrow. Based on the results of the test, further recommendations will be made. In the meanwhile, she may continue on the current medications. Attestations Medical Necessity Statement*: Patient requires continued hospital stay for close monitoring and further management Coding Level of Care Code Acute Painter Ordnance for Flo Riggs Diagnoses Acute on chronic systolic heart failure I50.23 Atherosclerosis of coronary artery of [place] heart without angina pectoris I25.10 Coronary Disease-Associated Artery/Lesion type: [place] artery Mitral valve regurgitation I34.0 Cardiac valve disease etiology: nonrheumatic Acute kidney injury superimposed on chronic kidney disease N17.9; N18.9 Acute exacerbation of chronic obstructive airways disease J44.1 Chronic atrial fibrillation I48.20
--- NOTE | 2021-02-28 18:12 | ECG_ITS ---
[facility] Test Date: 2021-03-01 Pat Name: Balbina Martínez Department: Room: 107 Gender: Female Phlebotomy Tech: : [id number] Requested By: Rosemarie Richmond Order Number: [id number] Mare MD: Rosemarie Richmond M.D. Interpretive Statements NAME OF STUDY: LEXISCAN SESTAMIBI STRESS TEST INDICATION: CHF, CARDIOMYOPATHY PROCEDURE: At the baseline, the EKG revealed demand V paced rhythm. The baseline blood pressure was mm Hg with a heart rate of beats/min. Lexiscan was infused over a period of 20 seconds. A total of 0.4 milligrams of Lexiscan was infused. The stress phase was continued for a total of 5 minutes. Heart rate at the end of the stress phase was 75 with a blood pressure 93/54. The EKG at the peak infusion revealed no significant changes. Sestamibi was injected 20 seconds after the Lexiscan infusion. Blood pressure at the end of the recovery phase was 94/57 with a heart rate of 71 per minute. CONCLUSION: 1. No significant EKG changes with the LexiScan infusion 2. No LexiScan induced chest pain or cardiac arrhythmia 3. Normal blood pressure and heart rate response 4. Sestamibi/sestamibi perfusion scan pending; see separate report. Electronically Signed On 03-04-2021 23:01:57 CDT by Rosemarie Richmond M.D. [email or web address]
[2021-02-28 19:48] LABS: Glucose Point of Care 195 mg/dL (70-110)
--- NOTE | 2021-02-28 21:16 | PC.NURSE ---
Transfer Note Patient transferred to CSU room 7 from ICU via bed. Handoff report given to DIOMEDES Ramos. Patient oriented to environment and equipment. Covering service notified. Orders reviewed and will continue to monitor. Family and/or disability representative notified. All patient belongings transferred and placed in closet. Patient transferred on 10LNC, A & Ox4, no complaints of pain.
[2021-02-28] MEDS: zolpidem 5 mg Tablet PO (22:32)
[2021-03-01] VITALS (11 sets, daily range): BP systolic 94–103; BP diastolic 56–73; PULSE 66–88; RESP 13–21; TEMP 36.6–36.8; O2SAT 93–98
[2021-03-01] MEDS: acetaminophen 500 mg Tablet 1000 MG PO ×2 (00:18→06:28)
[2021-03-01 05:08] LABS: Hematocrit 37.7 % (37.0-47.0); Hemoglobin 11.5 g/dL (11.5-15.3); Lymphocytes # 0.2 10^3/uL (0.8-4.8); Lymphocytes % 3.6 %; Mean Corpuscular HGB Conc 30.5 g/dL (30.0-36.0); Mean Corpuscular Hemoglobin 29.9 pg (28.0-34.0); Mean Corpuscular Volume 97.9 fl (81-99); Mean Platelet Volume 11.3 fL (7.4-10.4); Monocytes # 0.3 10^3/uL (0.2-0.9); Monocytes % 4.5 %; Neutrophils # 5.63 10^3/uL (1.8-7.7); Neutrophils % 91.3 %; Nucleated Red Blood Cells % 0.3 %; Platelet Count 152 10^3/cmm (130-400); Red Blood Count 3.85 10^6/uL (4.1-5.3); Red Cell Distribution Width 19.2 % (12.1-15.1); White Blood Count 6.2 10^3/uL (4.0-10.0)
[2021-03-01] MEDS: clopidogrel 75 mg Tablet PO (05:30)
[2021-03-01] MEDS: levothyroxine 137 mcg Tablet PO (05:30)
[2021-03-01] MEDS: venlafaxine ER (24HR) 75 mg Capsule PO (05:30)
[2021-03-01 05:33] LABS: Alanine Aminotransferase 79 U/L (0-33); Albumin Level 3.3 g/dL (3.5-5.2); Alkaline Phosphatase 68 IU/L (35-105); Anion Gap 15.6 (5-19); Aspartate Amino Transferase 35 U/L (0-32); Blood Urea Nitrogen 61 mg/dL (8-23); Calcium 8.4 mg/dL (8.5-10.5); Carbon Dioxide 31 mmol/L (22-29); Chloride 90 mmol/L (98-107); Globulin 2.8 g/dL (1.3-4.6); Glucose 146 mg/dL (65-115); Magnesium 2.6 mg/dL (1.7-2.3); Osmolality Calculated 296 mOsm/kg (285-295); Phosphorus 6.1 mg/dL (2.5-4.5); Potassium 3.6 mmol/L (3.5-5.1); Sodium 133 mmol/L (136-145); Total Bilirubin 0.7 mg/dL (0.15-1.2); Total Protein 6.1 g/dL (6.6-8.7)
[2021-03-01 06:40] LABS: Glucose Point of Care 151 mg/dL (70-110)
--- NOTE | 2021-03-01 07:39 | PC.NURSE ---
Admit Note Patient admitted to CSU from ICU via hospital bed. Covering service notified. Orders reviewed & will continue to monitor. Patient and/or community engagement representative oriented to environment, equipment, and informed of the following as found in the admission booklet: patient rights & responsibilities, visitor policy, hand and respiratory hygiene practice. Other education includes: Activity orders, medications, dietary orders. Patient and/or community engagement representative verbalized understanding of all teaching, reinforcement needed.
--- NOTE | 2021-03-01 08:01 | P.PN_ITS ---
Subjective Subjective: Interval history: hungry, wants to eat and drink more. for stress test today. still swollen and sob- on and off of bipap Medications: Reviewed: Yes Medication Review Details: Current Medications Acetaminophen (Acetaminophen 500 Mg Tablet) 1,000 mg PO Q4H PRN PRN Reason: Pain Last Admin: 03/01/21 06:28 Dose: 1,000 mg Documented by: Albuterol/Ipratropium (Ipratropium-Albuterol 3 Ml Neb) 3 ml INHALATION TID [facility] Last Admin: 02/28/21 20:07 Dose: 3 ml Documented by: Aminophylline (Aminophylline 25 Mg/Ml Sdv 10 Ml) 25 mg IVP Q2M PRN PRN Reason: see dose instructions Stop: 03/02/21 05:34 Amiodarone HCl (Amiodarone 200 Mg Tablet) 200 mg PO DAILY [facility] Last Admin: 02/28/21 11:19 Dose: 200 mg Documented by: Apixaban (Apixaban 5 Mg Tablet) 2.5 mg PO BID [facility] Last Admin: 02/28/21 17:48 Dose: 2.5 mg Documented by: Calcitriol (Calcitriol 0.25 Mcg Capsule) 0.25 mcg PO DAILY [facility] Last Admin: 02/28/21 11:26 Dose: 0.25 mcg Documented by: Clopidogrel Bisulfate (Clopidogrel 75 Mg Tablet) 75 mg PO QAM [facility] Last Admin: 03/01/21 05:30 Dose: 75 mg Documented by: Dextrose (Dextrose 50% Syringe 50 Ml) 25 ml IVP ONCE PRN; Protocol PRN Reason: hypoglycemia protocol Dextrose (Dextrose 50% Syringe 50 Ml) 50 ml IVP PRN PRN; Protocol PRN Reason: hypoglycemia protocol Diltiazem HCl (Diltiazem Er (24hr) 180 Mg Capsule) 180 mg PO DAILY [facility] Last Admin: 02/26/21 08:11 Dose: 180 mg Documented by: Ferrous Sulfate (Ferrous Sulfate Ec 325 Mg Tablet) 325 mg PO BREAKFAST [facility] Last Admin: 02/28/21 08:35 Dose: 325 mg Documented by: Furosemide (Furosemide 10 Mg/Ml Sdv 10ml) 80 mg IVP Q8H [facility] Last Admin: 03/01/21 00:00 Dose: 80 mg Documented by: Glucagon (Glucagon 1 Mg/Ml Inj 1 Ml) 1 mg IM ONCE PRN; Protocol PRN Reason: Adult Acute Hypoglycemia Prot. Dextrose (D5w) 500 mls @ 100 mls/hr IV ONCE PRN; Protocol PRN Reason: Adult Acute Hypoglycemia Prot Dobutamine HCl/Dextrose (Dobutamine Drip) 500 mg in 250 mls @ 0 mls/hr IV .Q0M [facility]; Protocol Last Titration: 02/28/21 11:00 Dose: 0 mcg/kg/min, 0 mls/hr Documented by: Insulin Human Lispro (Insulin Lispro 100 Unit/1 Ml) 0 unit SUBCUT WM&BEDTIME [facility]; Protocol Last Admin: 02/28/21 19:58 Dose: 6 unit Documented by: Levothyroxine Sodium (Levothyroxine 137 Mcg Tablet) 137 mcg PO QAM [facility] Last Admin: 03/01/21 05:30 Dose: 137 mcg Documented by: Methylprednisolone Sodium Succinate (Methylprednisolone Sod Succ 40 Mg/Ml Inj) 30 mg IVP Q12H [facility] Last Admin: 03/01/21 03:47 Dose: 30 mg Documented by: Metolazone (Metolazone 5 Mg Tablet) 5 mg PO NOW [facility] Metolazone (Metolazone 5 Mg Tablet) 5 mg PO DAILY [facility] Last Admin: 02/28/21 11:20 Dose: 5 mg Documented by: Metoprolol Tartrate (Metoprolol Tartrate 25 Mg Tablet) 50 mg PO BID@0900,2100 [facility] Last Admin: 02/28/21 20:05 Dose: Not Given Documented by: Nicotine (Nicotine 21 Mg Patch) 1 patch TRANSDERMA DAILY [facility] Last Admin: 02/28/21 11:20 Dose: 1 patch Documented by: Nitroglycerin (Nitroglycerin 0.4 Mg Sublingual Tablet) 0.4 mg SUBLINGUAL Q5M PRN PRN Reason: CHEST PAIN Stop: 03/02/21 05:34 Ondansetron HCl (Ondansetron 2 Mg/Ml Sdv 2 Ml) 4 mg IVP Q6H PRN PRN Reason: NAUSEA AND VOMITING Last Admin: 02/28/21 16:59 Dose: 4 mg Documented by: Ondansetron HCl (Ondansetron 2 Mg/Ml Sdv 2 Ml) 4 mg IVP Q2M PRN PRN Reason: NAUSEA Polyethylene Glycol (Polyethylene Glycol 3350 Pkt 17 Gm) 17 gm PO DAILY [facility] Last Admin: 02/28/21 11:32 Dose: Not Given Documented by: Potassium Chloride (Potassium Chloride Er 20 Meq Tablet) 20 meq PO DAILY [facility] Last Admin: 02/26/21 08:11 Dose: 20 meq Documented by: Regadenoson (Regadenoson 0.4 Mg/5 Ml Syringe) 0.4 mg IVP ONCE PRN PRN Reason: Lexiscan Stress Test Venlafaxine HCl (Venlafaxine Er (24hr) 75 Mg Capsule) 75 mg PO QAM [facility] Last Admin: 03/01/21 05:30 Dose: 75 mg Documented by: Zolpidem Tartrate (Zolpidem 5 Mg Tablet) 5 mg PO BEDTIME PRN PRN Reason: INSOMNIA Last Admin: 02/28/21 22:32 Dose: 5 mg Documented by: Vitals/I&O/Wt Last Vital Signs Temp 98.3 F 03/01/21 04:00 Pulse 70 03/01/21 06:00 Resp 20 H 03/01/21 04:30 BP 102/61 03/01/21 04:00 Pulse Ox 93 03/01/21 04:30 02/28/21 03/01/21 03/01/21 22:59 06:59 14:59 Intake Total 180 / 667.849 480 / 1147.849 Output Total 1050 / 1700 900 / 2600 Balance -870 / -1032.151 -420 / -1452.151 Weight last 48 hrs Weight 107.218 kg Weight 107.218 kg Physical Exam Narrative: EXAM NARRATIVE: obese, less SOB ono2 vs noted heent- nc/at, eomi neck- supple, no JVP lungs -dec rales and crackles heart- irreg irreg, +JELENA, +s, S2 abd soft, nt, nd, + bs ext LLE > RLE edema neuro- a,a, o x 3 weak pulses DP/PT Urinary Catheter Management^: Rodriguez: Cath Placed During This Visit: yes Reason for Continuing Indwelling Catheter: Accurate Measurement of Urinary Output in Critically Ill Patients Urinary Catheter Date of Insertion: 02/25/21 Urinary Catheter Time of Insertion: 20:54 Data : 03/01/21 04:45 03/01/21 04:45 A&P Additional A&P Information 75 yr old female 1. RAMU- likely from CRS- pt has low EF of 15-20% and has moderate MR and . -ua is neg ur na 25 - c/w CHF -cr a little higher -ct abd revealed The right kidney is unremarkable. Multiple areas of focal cortical scarring in the left kidney. 2 cysts in the left kidney are stable, the larger measures 2.2 cm. The right and left ureters are unremarkable. -normal ck -hold ritu-i/ arb, aldactone w/ RAMU -no nsaid -monitor in and out, weights, chemistries 2. Acute dec in EF and valvular heart disease- per cardiology- dobutamine and loop diuretic -per cardiology - for stress test -may need Cardiac cath- will be high renal risk. however, risk of not performing cardiac cath may be greater -discussed w/ pt. she understands and accepts cath if needed -pt was recommended for T[facility]R at [facility] 3- a fib per cardiology 4. hyponatremia- likely from RAMU and CHF- na is improving on lasix, dobutamine, and fluid restriction 5. low tsh per medicine- consider dec levothyroxine w/ CAD 6. hyperkalemia- from RAMU- improved -low k diet -monitor on diuretics -replete as needed 7. CKD- not clear stage- likely from DM, htn, obesity, CRS 8. DM care 9. bone - mineral- metabolism of CKF- cont calcitriol, pth is 220, normal ca -phos 6.1- lower calcitriol dose and add phos binder 10. anemia - iron sat 13%. ferritin 164- will give po iron pt seen and examined w/ RN- telehealth visit informed consent obtained for telehealth visit Attestations Medical Necessity Statement*: chf, low ef, ramu on ckd Time Spent in Patient Care: 16 - 35 minutes (>than 50% of time spent in counselling and/or direct pt care on unit) . Coding Level of Care Code Acute Sales Contract Administrator for Flo Riggs
--- NOTE | 2021-03-01 08:01 | SUR.PREOP ---
Patient reports no pain or discomfort prior to the start of the procedure.
[2021-03-01] MEDS: regadenoson 0.4 Mg/5 ml Syringe IVP (08:03)
--- NOTE | 2021-03-01 08:20 | PM.PN ---
Subjective Subjective: Interval history: Seen this morning. She is off dobutamine since yesterday. Patient was on room air saturating 90 to 94%. She had a nasal cannula on but she was wearing it on her chin. She was asking if she could go home today. She did have both parts of her stress test and is waiting for results at this point. Vitals/I&O/Wt Last Vital Signs Temp 98.3 F 03/01/21 04:00 Pulse 75 03/01/21 08:13 Resp 20 H 03/01/21 04:30 BP 96/57 03/01/21 08:13 Pulse Ox 93 03/01/21 04:30 02/28/21 03/01/21 03/01/21 22:59 06:59 14:59 Intake Total 180 / 667.849 480 / 1147.849 360 / 360 Output Total 1050 / 1700 900 / 2600 Balance -870 / -1032.151 -420 / -1452.151 360 / 360 Weight last 48 hrs Weight 107.218 kg Weight 107.218 kg Physical Exam Narrative: EXAM NARRATIVE: General: Alert oriented x3, patient seen sitting up in recliner appearing comfortable. HEENT: Normocephalic, atraumatic, EOMI, Cardio: Regular rate rhythm, normal S1-S2, no murmurs rubs gallops, Respiratory: Good bilateral air entry, no wheezes no rhonchi appreciated. Very mild crackles at bases present. On room air today while sitting up. Wearing nasal cannula but on her chin. Saturating 9294%. GI: Abdomen soft, nontender, nondistended, bowel sounds + Behavior: Appropriate and cooperative Extremities: Trace edema bilateral lower extremities. No cyanosis Urinary Catheter Management^: Rodriguez: Cath Placed During This Visit: yes Reason for Continuing Indwelling Catheter: Accurate Measurement of Urinary Output in Critically Ill Patients Urinary Catheter Date of Insertion: 02/25/21 Urinary Catheter Time of Insertion: 20:54 Data : 03/01/21 04:45 03/01/21 04:45 A&P Assessment and plan (1) Acute exacerbation of chronic obstructive airways disease: Status: Acute (2) Congestive heart failure: Status: Acute (3) Diabetes: Status: Acute Qualifiers: Diabetes mellitus type: type 2 Diabetes mellitus residential insulin use: with residential use Diabetes mellitus complication status: with hyperglycemia Qualified Code(s): E11.65 - Type 2 diabetes mellitus with hyperglycemia; Z79.4 - long-term (current) use of insulin (4) Atrial fibrillation: Status: Acute Qualifiers: Atrial fibrillation type: permanent Qualified Code(s): I48.21 - Permanent atrial fibrillation (5) Acute on chronic renal insufficiency: Status: Acute (6) Acute kidney injury superimposed on chronic kidney disease: Status: Acute (7) Mitral valve regurgitation: Status: Acute Qualifiers: Cardiac valve disease etiology: nonrheumatic Qualified Code(s): I34.0 - Nonrheumatic mitral (valve) insufficiency (8) Hyperkalemia: Status: Acute (9) Moderate aortic valve stenosis: Status: Acute Additional A&P Information #Acute systolic congestive heart failure exacerbation Most likely etiology is valvular, mitral regurgitation, moderate aortic valve stenosis Her EF has reduced from 50% to 40% on echo done in January this year. Echo repeated in the hospital here showed EF of 15 to 20%. Cardiology is following. She has been placed on a dobutamine drip. We are diuresing her with Lasix as well. Goal is to keep her on dobutamine for 48 hours at around 3-5 mics. Once patient is diuresed and off and can lay flat plan is for angiogram. Cardiology on board. Patient has stress test today. Awaiting results. Discussed results with Dr. Richmond around the afternoon. Official report pending. Patient has fixed defects in inferior wall with a small reversible defect in the apical septum and left ventricular dilatation. She was offered a LifeVest by Dr. Richmond but refused. She stated that she had one in the past and did not like to wear it. We will start patient on Entresto today and see how she responds. We will also change Lasix from IV to oral. No active chest pain Patient was recommended TAVR(Chau Macrotherapy). We will stop Cardizem. We will hold metoprolol tartrate twice daily today. We will continue patient on Eliquis, amiodarone, Plavix. #Acute on chronic kidney disease Most likely cardiorenal syndrome at this point due to pump failure. Nephrology is following. Creatinine continues to worsen. CT abdomen pelvis was done which does show atelectasis versus pneumonia in right and left lower lobes. There was also fluid seen in small bowel and colon without evidence of bowel wall thickening. No evidence of any hydronephrosis.. We will follow recommendations from nephrology. She has been started on calcitriol and sevelamer. #Acute COPD exacerbation Acute on chronic hypercapnic hypoxic respiratory failure Continue to use BiPAP at night. Chest x-ray consistent with pulmonary edema at admission. Chest x-ray not repeated today. Will repeat XR in AM Continue steroids diuretics #Atrial fibrillation She is rate controlled. We will continue Eliquis. #Hyperkalemia: Resolved. Cardiac diet DVT prophylaxis Eliquis would suffice Full code Attestations Medical Necessity Statement*: Will require another 24-48 hours. Need to assess response of medication adjustments. Time Spent in Patient Care: 16 - 35 minutes Coding Level of Care Code Acute Collating Machine Operator for [facility] Fwd Diagnoses Acute exacerbation of chronic obstructive airways disease J44.1 Congestive heart failure I50.9 Diabetes E11.65; Z79.4 Diabetes mellitus type: type 2 Diabetes mellitus residential insulin use: with buttermaker helper use Diabetes mellitus complication status: with hyperglycemia Atrial fibrillation I48.21 Atrial fibrillation type: permanent Acute on chronic renal insufficiency N28.9; N18.9 Acute kidney injury superimposed on chronic kidney disease N17.9; N18.9 Mitral valve regurgitation I34.0 Cardiac valve disease etiology: nonrheumatic Hyperkalemia E87.5 Moderate aortic valve stenosis I35.0
--- NOTE | 2021-03-01 08:51 | XR_ITS ---
WS: [id number] Exam: XR chest 1V portable [id number] Date/Time of Exam: 03/01/2021 8:51 AM Reason For Exam: Follow up Comparison 02/25/2021. There is cardiac enlargement with signs of congestive heart failure. There has been improvement with some clearing of the lungs since prior study. Probable right basal pleural effusion is noted. No pneu mothorax. Previously noted left pleural effusion has resolved. The mediastinum is not widened. Monito ring leads superimpose the chest. Regional bony structures are intact. XR/XR chest 1V portable [id number] IMPRESSION: 1. Cardiac enlargement with signs of CHF. There has been some improvement since the prior study.
[2021-03-01] MEDS: insulin lispro 100 unit/1 mL SUBCUT ×4 (09:15→21:54)
[2021-03-01] MEDS: metOLazone 5 MG Tablet PO ×2 (09:16→09:17)
[2021-03-01] MEDS: potassium chloride ER 20 mEq Tablet PO (09:16)
[2021-03-01] MEDS: amiodarone 200 mg Tablet PO (09:16)
[2021-03-01] MEDS: apixaban 5 mg Tablet 2.5 MG PO ×2 (09:16→17:33)
[2021-03-01] MEDS: ferrous sulfate EC 325 mg Tablet PO (09:16)
[2021-03-01] MEDS: sevelamer 800 mg Tablet PO ×3 (09:16→21:59)
[2021-03-01] MEDS: nicotine 21 mg Patch 1 PATCH TRANSDERMA (09:17)
--- NOTE | 2021-03-01 09:41 | PM.PN ---
Subjective Subjective: Interval history: Patient is feeling okay. She had a myocardial perfusion imaging today. She was found to have mostly an area of fixed defect in the inferior wall with a very small area of reversible defect in the apical septal region. Patient has no chest pain. Medications: Reviewed: Yes Medication Review Details: Current Medications Acetaminophen (Acetaminophen 500 Mg Tablet) 1,000 mg PO Q4H PRN PRN Reason: Pain Last Admin: 03/01/21 06:28 Dose: 1,000 mg Documented by: Albuterol/Ipratropium (Ipratropium-Albuterol 3 Ml Neb) 3 ml INHALATION TID [facility] Last Admin: 03/01/21 08:47 Dose: Not Given Documented by: Aminophylline (Aminophylline 25 Mg/Ml Sdv 10 Ml) 25 mg IVP Q2M PRN PRN Reason: see dose instructions Stop: 03/02/21 05:34 Amiodarone HCl (Amiodarone 200 Mg Tablet) 200 mg PO DAILY [facility] Last Admin: 03/01/21 09:16 Dose: 200 mg Documented by: Apixaban (Apixaban 5 Mg Tablet) 2.5 mg PO BID [facility] Last Admin: 03/01/21 09:16 Dose: 2.5 mg Documented by: Calcitriol (Calcitriol 0.25 Mcg Capsule) 0.25 mcg PO [facility] Clopidogrel Bisulfate (Clopidogrel 75 Mg Tablet) 75 mg PO QAM [facility] Last Admin: 03/01/21 05:30 Dose: 75 mg Documented by: Dextrose (Dextrose 50% Syringe 50 Ml) 25 ml IVP ONCE PRN; Protocol PRN Reason: hypoglycemia protocol Dextrose (Dextrose 50% Syringe 50 Ml) 50 ml IVP PRN PRN; Protocol PRN Reason: hypoglycemia protocol Diltiazem HCl (Diltiazem Er (24hr) 180 Mg Capsule) 180 mg PO DAILY [facility] Last Admin: 02/26/21 08:11 Dose: 180 mg Documented by: Ferrous Sulfate (Ferrous Sulfate Ec 325 Mg Tablet) 325 mg PO BREAKFAST [facility] Last Admin: 03/01/21 09:16 Dose: 325 mg Documented by: Furosemide (Furosemide 10 Mg/Ml Sdv 10ml) 80 mg IVP Q8H [facility] Last Admin: 03/01/21 00:00 Dose: 80 mg Documented by: Glucagon (Glucagon 1 Mg/Ml Inj 1 Ml) 1 mg IM ONCE PRN; Protocol PRN Reason: Adult Acute Hypoglycemia Prot. Dextrose (D5w) 500 mls @ 100 mls/hr IV ONCE PRN; Protocol PRN Reason: Adult Acute Hypoglycemia Prot Dobutamine HCl/Dextrose (Dobutamine Drip) 500 mg in 250 mls @ 0 mls/hr IV .Q0M [facility]; Protocol Last Titration: 02/28/21 11:00 Dose: 0 mcg/kg/min, 0 mls/hr Documented by: Insulin Human Lispro (Insulin Lispro 100 Unit/1 Ml) 0 unit SUBCUT WM&BEDTIME [facility]; Protocol Last Admin: 03/01/21 09:15 Dose: 4 unit Documented by: Levothyroxine Sodium (Levothyroxine 137 Mcg Tablet) 137 mcg PO QAM [facility] Last Admin: 03/01/21 05:30 Dose: 137 mcg Documented by: Methylprednisolone Sodium Succinate (Methylprednisolone Sod Succ 40 Mg/Ml Inj) 30 mg IVP Q12H [facility] Last Admin: 03/01/21 03:47 Dose: 30 mg Documented by: Metolazone (Metolazone 5 Mg Tablet) 5 mg PO NOW [facility] Last Admin: 03/01/21 09:16 Dose: 5 mg Documented by: Metolazone (Metolazone 5 Mg Tablet) 5 mg PO DAILY [facility] Last Admin: 03/01/21 09:17 Dose: 5 mg Documented by: Metoprolol Tartrate (Metoprolol Tartrate 25 Mg Tablet) 50 mg PO BID@0900,2100 [facility] Last Admin: 02/28/21 20:05 Dose: Not Given Documented by: Nicotine (Nicotine 21 Mg Patch) 1 patch TRANSDERMA DAILY [facility] Last Admin: 03/01/21 09:17 Dose: 1 patch Documented by: Nitroglycerin (Nitroglycerin 0.4 Mg Sublingual Tablet) 0.4 mg SUBLINGUAL Q5M PRN PRN Reason: CHEST PAIN Stop: 03/02/21 05:34 Ondansetron HCl (Ondansetron 2 Mg/Ml Sdv 2 Ml) 4 mg IVP Q6H PRN PRN Reason: NAUSEA AND VOMITING Last Admin: 02/28/21 16:59 Dose: 4 mg Documented by: Ondansetron HCl (Ondansetron 2 Mg/Ml Sdv 2 Ml) 4 mg IVP Q2M PRN PRN Reason: NAUSEA Polyethylene Glycol (Polyethylene Glycol 3350 Pkt 17 Gm) 17 gm PO DAILY [facility] Last Admin: 03/01/21 09:17 Dose: Not Given Documented by: Potassium Chloride (Potassium Chloride Er 20 Meq Tablet) 20 meq PO DAILY [facility] Last Admin: 03/01/21 09:16 Dose: 20 meq Documented by: Sevelamer Carbonate (Sevelamer 800 Mg Tablet) 800 mg PO TID [facility] Last Admin: 03/01/21 09:16 Dose: 800 mg Documented by: Venlafaxine HCl (Venlafaxine Er (24hr) 75 Mg Capsule) 75 mg PO QAM [facility] Last Admin: 03/01/21 05:30 Dose: 75 mg Documented by: Zolpidem Tartrate (Zolpidem 5 Mg Tablet) 5 mg PO BEDTIME PRN PRN Reason: INSOMNIA Last Admin: 02/28/21 22:32 Dose: 5 mg Documented by: Vitals/I&O/Wt Last Vital Signs Temp 98.3 F 03/01/21 04:00 Pulse 75 03/01/21 08:13 Resp 20 H 03/01/21 04:30 BP 96/57 03/01/21 08:13 Pulse Ox 93 03/01/21 04:30 02/28/21 03/01/21 03/01/21 22:59 06:59 14:59 Intake Total 180 / 667.849 480 / 1147.849 360 / 360 Output Total 1050 / 1700 900 / 2600 Balance -870 / -1032.151 -420 / -1452.151 360 / 360 Weight last 48 hrs Weight 236 lb 6 oz Weight 236 lb 6 oz Physical Exam Narrative: EXAM NARRATIVE: GENERAL: The patient is alert and oriented times three. Moderate respiratory distress. HEENT: Mild pallor. No icterus or lymphadenopathy. The pupils are symmetrical. Oral cavity: There are no mucous membrane lesions. NECK: Trachea appears to be central. No masses noted. No JVD or thyromegaly appreciated. No carotid bruit. RESPIRATORY: Chest is symmetrical. No intercostals muscle retraction or any accessory muscle activation. There is no chest wall tenderness. Breath sounds are heard bilaterally. Decreased intensity of breath sounds in the bases. No evidence of consolidation. BREASTS: Deferred. HEART: The PMI could not be palpated. No other palpable precordial events. The S1 is variable. Second heart sound is normal. Short systolic murmur at the aortic area. No diastolic murmurs. ABDOMEN: Obese with some vague tenderness in epigastric area. No organomegaly appreciated. Bowel sounds are normally heard. : Deferred. RECTAL: Deferred. LYMPHATIC: No lymphadenopathy noted in the neck or groin. EXTREMITIES: 1-2+ edema both lower extremities. Diffuse redness in both lower extremities. Edema and redness seems to be improving MUSCULOSKELETAL: No acute joint deformity no acute joint deformities or swelling SKIN: Diffuse redness involve both lower extremities in the below-knee area-seems to be improving NEUROPSYCHIATRIC: The patient is alert and oriented x3. Appears to be anxious. The higher functions are grossly within normal limits. No tremors or rigidity noted. Urinary Catheter Management^: Rodriguez: Cath Placed During This Visit: yes Reason for Continuing Indwelling Catheter: Accurate Measurement of Urinary Output in Critically Ill Patients Urinary Catheter Date of Insertion: 02/25/21 Urinary Catheter Time of Insertion: 20:54 Data : 03/02/21 04:25 03/02/21 04:25 A&P Assessment and plan (1) Acute on chronic systolic heart failure: May switch the IV Lasix to p.o. Discussed with the patient about LifeVest. Patient is totally against this. She would consider ICD if it is recommended. Patient may be continued on Entresto 1 tablet p.o. twice daily Status: Acute (2) Atherosclerosis of coronary artery of [place] heart without angina pectoris: Discussed the patient in detail implications of the myocardial perfusion imaging results. Since the patient has no significant ischemia, it would be appropriate to continue the current medical treatment of optimizing the heart failure medications Status: Acute Qualifiers: Coronary Disease-Associated Artery/Lesion type: [place] artery Qualified Code(s): I25.10 - Atherosclerotic heart disease of [place] coronary artery without angina pectoris (3) Mitral valve regurgitation: Clinically there is no worsening of the mitral regurgitation. After the appropriate diuresis, we may repeat the mitral valve Doppler, to reevaluate the mitral regurgitation Status: Acute Qualifiers: Cardiac valve disease etiology: nonrheumatic Qualified Code(s): I34.0 - Nonrheumatic mitral (valve) insufficiency (4) Acute kidney injury superimposed on chronic kidney disease: Appreciate the nephrology input. We will continue to monitor the kidney function closely. Status: Acute (5) Acute exacerbation of chronic obstructive airways disease: Management as per the primary Status: Acute (6) Chronic atrial fibrillation: Since the heart rate is under control, patient may not require any specific intervention at this point. She also is on long-term oral anticoagulation. Status: Acute Additional A&P Information Other problems are Cardiomyopathy Hyponatremia Elevated liver enzymes Possible lower extremity cellulitis Attestations Medical Necessity Statement*: Disposition as per the primary Coding Level of Care Code Acute Aws Consultant for [facility] Diagnoses Acute on chronic systolic heart failure I50.23 Atherosclerosis of coronary artery of [place] heart without angina pectoris I25.10 Coronary Disease-Associated Artery/Lesion type: [place] artery Mitral valve regurgitation I34.0 Cardiac valve disease etiology: nonrheumatic Acute kidney injury superimposed on chronic kidney disease N17.9; N18.9 Acute exacerbation of chronic obstructive airways disease J44.1 Chronic atrial fibrillation I48.20
[2021-03-01] MEDS: FUROsemide 10 mg/mL SDV 10mL 80 MG IVP ×2 (11:19)
[2021-03-01 12:14] LABS: Glucose Point of Care 316 mg/dL (70-110)
[2021-03-01] MEDS: HYDROcodone-acetaminophen 5-325 mg Tablet 1 TAB PO (12:25)
[2021-03-01] MEDS: ipratropium-albuterol 3 mL Neb INHALATION ×2 (14:40→20:50)
[2021-03-01] MEDS: FUROsemide 40 mg Tablet 80 MG PO ×2 (15:21→21:59)
[2021-03-01 17:32] LABS: Glucose Point of Care 238 mg/dL (70-110)
[2021-03-01] MEDS: sacubitril/valsartan 24-26 mg Tablet 1 EACH PO (17:32)
--- NOTE | 2021-03-01 18:13 | NMCV_ITS ---
NM sera perf SPECT r/s* [id number] Balbina Martínez Age: 75 Gender: F : 1945 Exam Date: 03/01/2021 07:16 Ordering Phys: Rosemarie Richmond MD ([email or web address]) Technologist: DAX Alfaro Exam Location: [facility] Indications: DYSPNEA STRESS TEST [facility] IMAGE PROTOCOL Rest/Stress 1 Lexiscan Day Radiopharmaceutical Dose (mCi) Administration Site Administered by Rest: Tc-99m 10.9 IV DAX Porter Sestamibi Stress:Tc-99m 32.8 IV DAX Porter Sestamibi Rest: 01-Mar-2021 60 Discovery 630 Stress: 01-Mar-2021 30 Discovery 630 0.4mg Lexiscan. Supine position only as patient was unable to lay prone. SPECT RESULTS Technical Quality: Good Raw Data Analysis: Breast attenuation Image Corrections: No attenuation or motion correction applied Summed Stress Score: 11 Summed Rest Score: 9 Summed Difference Score: 2 PERFUSION FINDINGS Myocardial perfusion imaging revealing moderate area of severely decreased tracer uptake in the basal, mid and apical inferior, apical septal and LV apex. Subtle area of reversibility was noted in the LV apex and apical lateral region. Small area of decreased tracer uptake was noted in the mid anterior region, with no significant reversibility. FUNCTIONAL RESULTS (calculated via Gated SPECT) Stress Image LV EF (%): 46 Stress EDV (mL):189 TID: 1.06 Stress ESV (mL):103 FUNCTIONAL FINDINGS: Segmental wall motion analysis revealed moderate diffuse hypokinesia of the septum and inferior wall region. IMPRESSIONS #1. Myocardial perfusion imaging revealing moderate area of persistent decreased tracer uptake in the inferior, apical lateral and LV apex with subtle area of reversibility in the apical region, suggestive of myocardial scarring in the distribution of the right coronary artery with a very small area of jorge l-infarction ischemia. #2. Slightly diminished LV ejection fraction of 46%. #3. LV wall motion analysis revealing diffuse hypokinesia of the septum and inferior wall region. #4. Moderately dilated LV cavity with an end-systolic volume of 103 mL No similar previous studies are available for comparison Dr Rosemarie Richmond MD FACC (Electronically Signed) Final Date: 01 March 2021 12:39 S
[2021-03-01 20:37] LABS: Glucose Point of Care 174 mg/dL (70-110)
[2021-03-01] MEDS: TRAMadol 50 mg Tablet PO (21:46)
[2021-03-01 23:35] LABS: Urine Random Chloride 63 mmol/L; Urine Random Sodium 21 mmol/L
[2021-03-01 23:40] LABS: Creatinine Urine, Random 40 mg/dL (28-217); Microalbumin Random Urine 4 ug/dL (0-20)
[2021-03-01 23:47] LABS: Microalbum Creatinine Ratio Ur 100 mg/dL (0-20)
[2021-03-02] VITALS (17 sets, daily range): BP systolic 85–113; BP diastolic 41–59; PULSE 65–94; RESP 14–26; TEMP 36.6–36.8; O2SAT 90–98; BMI 43.1
[2021-03-02 00:20] LABS: Add Urine Microscopic? YES; Bacteria Urine 3+ /hpf; Bilirubin Urine Neg (Negative); Blood Urine 2+ (Negative); Glucose Urine UA Norm (Normal); Ketones Urine Negative (Negative); Leukocyte Esterase Urine 2+ (Negative); Nitrate Urine Negative (Negative); Protein Urine Neg (Negative); Renal Epithelial Cells Urine 0-4 /hpf; Urine Appearance SL Hazy (CLEAR); Urine Color Yellow (Yellow); Urobilinogen Urine Norm (Negative); WBC Urine 40-55 /hpf (0-5); pH Urine 5 (5-7)
[2021-03-02 00:21] LABS: Add Urine Culture? No
[2021-03-02] MEDS: zolpidem 5 mg Tablet PO ×2 (01:13→20:50)
[2021-03-02] MEDS: ondansetron 2 mg/ML SDV 2 mL 4 MG IVP ×2 (03:40→18:29)
[2021-03-02 05:32] LABS: Eosinophils % 0.3 %; Hematocrit 38.4 % (37.0-47.0); Hemoglobin 11.9 g/dL (11.5-15.3); Lymphocytes # 0.4 10^3/uL (0.8-4.8); Lymphocytes % 5.8 %; Mean Corpuscular Hemoglobin 30.3 pg (28.0-34.0); Mean Corpuscular Volume 97.7 fl (81-99); Monocytes # 0.3 10^3/uL (0.2-0.9); Monocytes % 4.5 %; Neutrophils # 6.28 10^3/uL (1.8-7.7); Nucleated Red Blood Cells % 0 %; Platelet Count 154 10^3/cmm (130-400); Red Blood Count 3.93 10^6/uL (4.1-5.3); Red Cell Distribution Width 18.6 % (12.1-15.1); White Blood Count 7.1 10^3/uL (4.0-10.0)
[2021-03-02 06:00] LABS: Alanine Aminotransferase 63 U/L (0-33); Albumin Level 3.3 g/dL (3.5-5.2); Alkaline Phosphatase 65 IU/L (35-105); Anion Gap 13.6 (5-19); Aspartate Amino Transferase 21 U/L (0-32); Blood Urea Nitrogen 69 mg/dL (8-23); Calcium 8.4 mg/dL (8.5-10.5); Carbon Dioxide 34 mmol/L (22-29); Chloride 87 mmol/L (98-107); Globulin 2.8 g/dL (1.3-4.6); Glucose 61 mg/dL (65-115); Magnesium 2.6 mg/dL (1.7-2.3); Osmolality Calculated 292 mOsm/kg (285-295); Phosphorus 5.4 mg/dL (2.5-4.5); Sodium 132 mmol/L (136-145); Total Bilirubin 0.7 mg/dL (0.15-1.2); Total Protein 6.1 g/dL (6.6-8.7)
[2021-03-02 06:01] LABS: Potassium 2.6 mmol/L (3.5-5.1)
[2021-03-02] MEDS: levothyroxine 137 mcg Tablet PO (06:06)
[2021-03-02] MEDS: clopidogrel 75 mg Tablet PO (06:06)
[2021-03-02] MEDS: venlafaxine ER (24HR) 75 mg Capsule PO (06:07)
[2021-03-02 06:32] LABS: Glucose Point of Care 129 mg/dL (70-110)
[2021-03-02] MEDS: lidocaine 1% 5 ML in potassium chloride premix 100 ML 25 ML IV (06:53)
--- NOTE | 2021-03-02 07:50 | P.PN_ITS ---
Subjective Subjective: Interval history: feels better. + back pain. still sob and swollen but improved. has back pain. iv potassium is burning her. dec edema. No n/v/f/c/israel/d Medications: Reviewed: Yes Medication Review Details: Current Medications Acetaminophen (Acetaminophen 500 Mg Tablet) 1,000 mg PO Q4H PRN PRN Reason: Pain Last Admin: 03/01/21 06:28 Dose: 1,000 mg Documented by: Albuterol/Ipratropium (Ipratropium-Albuterol 3 Ml Neb) 3 ml INHALATION TID REPLACED BY [facility] Last Admin: 03/01/21 20:50 Dose: 3 ml Documented by: Amiodarone HCl (Amiodarone 200 Mg Tablet) 200 mg PO DAILY REPLACED BY [facility] Last Admin: 03/01/21 09:16 Dose: 200 mg Documented by: Apixaban (Apixaban 5 Mg Tablet) 2.5 mg PO BID REPLACED BY [facility] Last Admin: 03/01/21 17:33 Dose: 2.5 mg Documented by: Calcitriol (Calcitriol 0.25 Mcg Capsule) 0.25 mcg PO [facility] Clopidogrel Bisulfate (Clopidogrel 75 Mg Tablet) 75 mg PO QAM REPLACED BY [facility] Last Admin: 03/02/21 06:06 Dose: 75 mg Documented by: Dextrose (Dextrose 50% Syringe 50 Ml) 25 ml IVP ONCE PRN; Protocol PRN Reason: hypoglycemia protocol Dextrose (Dextrose 50% Syringe 50 Ml) 50 ml IVP PRN PRN; Protocol PRN Reason: hypoglycemia protocol Ferrous Sulfate (Ferrous Sulfate Ec 325 Mg Tablet) 325 mg PO BREAKFAST REPLACED BY [facility] Last Admin: 03/01/21 09:16 Dose: 325 mg Documented by: Furosemide (Furosemide 40 Mg Tablet) 80 mg PO BID@08,16 REPLACED BY [facility] Glucagon (Glucagon 1 Mg/Ml Inj 1 Ml) 1 mg IM ONCE PRN; Protocol PRN Reason: Adult Acute Hypoglycemia Prot. Dextrose (D5w) 500 mls @ 100 mls/hr IV ONCE PRN; Protocol PRN Reason: Adult Acute Hypoglycemia Prot Lidocaine HCl 5 ml/ Potassium (Chloride) 105 mls @ 25 mls/hr IV ONCE ONE Stop: 03/02/21 10:24 Last Admin: 03/02/21 06:53 Dose: 25 mls/hr Documented by: Insulin Human Lispro (Insulin Lispro 100 Unit/1 Ml) 0 unit SUBCUT WM&BEDTIME REPLACED BY [facility]; Protocol Last Admin: 03/01/21 21:54 Dose: 4 unit Documented by: Levothyroxine Sodium (Levothyroxine 137 Mcg Tablet) 137 mcg PO QAM REPLACED BY [facility] Last Admin: 03/02/21 06:06 Dose: 137 mcg Documented by: Methylprednisolone Sodium Succinate (Methylprednisolone Sod Succ 40 Mg/Ml Inj) 30 mg IVP DAILY REPLACED BY [facility] Metoprolol Tartrate (Metoprolol Tartrate 25 Mg Tablet) 50 mg PO BID@0900,2100 REPLACED BY [facility] Last Admin: 02/28/21 20:05 Dose: Not Given Documented by: Nicotine (Nicotine 21 Mg Patch) 1 patch TRANSDERMA DAILY REPLACED BY [facility] Last Admin: 03/01/21 09:17 Dose: 1 patch Documented by: Ondansetron HCl (Ondansetron 2 Mg/Ml Sdv 2 Ml) 4 mg IVP Q6H PRN PRN Reason: NAUSEA AND VOMITING Last Admin: 03/02/21 03:40 Dose: 4 mg Documented by: Polyethylene Glycol (Polyethylene Glycol 3350 Pkt 17 Gm) 17 gm PO DAILY REPLACED BY [facility] Last Admin: 03/01/21 09:17 Dose: Not Given Documented by: Potassium Chloride (Potassium Chloride Er 20 Meq Tablet) 40 meq PO BID REPLACED BY [facility] Sacubitril/Valsartan (Sacubitril/Valsartan 24-26 Mg Tablet) 1 each PO BID REPLACED BY [facility] Last Admin: 03/01/21 17:32 Dose: 1 each Documented by: Sevelamer Carbonate (Sevelamer 800 Mg Tablet) 800 mg PO TID REPLACED BY [facility] Last Admin: 03/01/21 21:59 Dose: 800 mg Documented by: Tramadol HCl (Tramadol 50 Mg Tablet) 50 mg PO Q6H PRN PRN Reason: pain at MAX tylenol limit/24hr Last Admin: 03/01/21 21:46 Dose: 50 mg Documented by: Venlafaxine HCl (Venlafaxine Er (24hr) 75 Mg Capsule) 75 mg PO QAM REPLACED BY [facility] Last Admin: 03/02/21 06:07 Dose: 75 mg Documented by: Zolpidem Tartrate (Zolpidem 5 Mg Tablet) 5 mg PO BEDTIME PRN PRN Reason: INSOMNIA Last Admin: 03/02/21 01:13 Dose: 5 mg Documented by: Vitals/I&O/Wt Last Vital Signs Temp 98 F 03/02/21 03:00 Pulse 65 03/02/21 06:00 Resp 26 H 03/02/21 03:00 BP 92/49 03/02/21 03:00 Pulse Ox 92 03/02/21 03:00 03/01/21 03/02/21 03/02/21 22:59 06:59 14:59 Intake Total 236 / 714 100 / 814 Output Total 1800 / 1800 500 / 2300 Balance -1564 / -1086 -400 / -1486 Weight last 48 hrs Weight 107.218 kg Weight 107.218 kg Physical Exam Narrative: EXAM NARRATIVE: obese, still sob on o2 vs noted - BP low heent- nc/at, eomi neck- supple, no JVP lungs -dec rales and crackles b/l heart- irreg irreg, +JELENA, +s, S2 abd soft, nt, nd, + bs ext LLE > RLE edema neuro- a,a, o x 3 weak pulses DP/PT Urinary Catheter Management^: Rodriguez: Cath Placed During This Visit: yes Reason for Continuing Indwelling Catheter: Accurate Measurement of Urinary Outpu t in Critically Ill Patients Urinary Catheter Date of Insertion: 02/25/21 Urinary Catheter Time of Insertion: 20:54 Data : 03/02/21 04:25 03/02/21 04:25 A&P Additional A&P Information 75 yr old female 1. RAMU- likely from CRS- pt has low EF of 15-20% and has moderate MR and . -ua is neg ur na 25 - c/w CHF -cr is stable to improving -ct abd revealed The right kidney is unremarkable. Multiple areas of focal cortical scarring in the left kidney. 2 cysts in the left kidney are stable, the larger measures 2.2 cm. The right and left ureters are unremarkable. -normal ck -pt needs entresto from CHF/ cardiac perspective- monitor cr -no nsaid -monitor in and out, weights, chemistries 2. Acute dec in EF and valvular heart disease- per cardiology- dobutamine and loop diuretic -per cardiology - await stress test -may need Cardiac cath- will be high renal risk. however, risk of not performing cardiac cath may be greater -discussed w/ pt. she understands and accepts cath if needed -pt was recommended for TAVR at [facility] 3- a fib per cardiology -rate controlled 4. hyponatremia- likely from RAMU and CHF- na is improving on lasix, dobutamine, and fluid restriction 5. replace k and mag as needed 6. met alkalosisfrom diuretics- consider dec dose and add acetazolamide 7. low tsh per medicine- consider dec levothyroxine w/ CAD 8. CKD- not clear stage- likely from DM, htn, obesity, CRS 9. DM care 10. bone - mineral- metabolism of CKF- cont calcitriol, pth is 220, normal ca -phos 5.4- we lowered calcitriol dose and started a phos binder -replace vit d 11. anemia - iron sat 13%. 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
[2021-03-02] MEDS: ipratropium-albuterol 3 mL Neb INHALATION ×3 (08:03→20:27)
[2021-03-02] MEDS: nicotine 21 mg Patch 1 PATCH TRANSDERMA (09:12)
[2021-03-02] MEDS: potassium chloride ER 20 mEq Tablet 40 MEQ PO ×3 (09:13→18:29)
[2021-03-02] MEDS: amiodarone 200 mg Tablet PO (09:13)
[2021-03-02] MEDS: FUROsemide 40 mg Tablet 80 MG PO ×2 (09:14→16:17)
[2021-03-02] MEDS: sevelamer 800 mg Tablet PO ×3 (09:14→20:44)
[2021-03-02] MEDS: sacubitril/valsartan 24-26 mg Tablet 1 EACH PO ×2 (09:14→18:30)
[2021-03-02] MEDS: apixaban 5 mg Tablet 2.5 MG PO ×2 (09:15→18:30)
[2021-03-02] MEDS: ferrous sulfate EC 325 mg Tablet PO (09:15)
[2021-03-02] MEDS: ergocalciferol (vitamin D2) 50,000 Unit Capsule 50000 UNIT PO (09:15)
--- NOTE | 2021-03-02 09:46 | PC.SOCIAL ---
IMM Update: pg 2 of IMM updated and reviewed w/ patient. Copy provided.
[2021-03-02 11:45] LABS: Glucose Point of Care 173 mg/dL (70-110)
[2021-03-02] MEDS: insulin lispro 100 unit/1 mL SUBCUT ×3 (12:19→20:44)
--- NOTE | 2021-03-02 13:00 | PC.NURSE ---
Pt sitting up in chair eating and talking to staff. Pt resp even and non-labored no distress or sob noted. O2 at 4 Lpm via nc. Pt had no c/o pain or discomfort at the present time. No Needs voiced. Call light in reach. Will continue to monitor.
--- NOTE | 2021-03-02 13:12 | P.PN_ITS ---
Subjective Subjective: Interval history: Patient is feeling okay with no chest pain or chest tightness. No unusual shortness of breath. He seems to be tolerating the Entresto fairly well. Her blood pressure has been fluctuating. Medications: Reviewed: Yes Medication Review Details: Current Medications Acetaminophen (Acetaminophen 500 Mg Tablet) 1,000 mg PO Q4H PRN PRN Reason: Pain Last Admin: 03/01/21 06:28 Dose: 1,000 mg Documented by: Albuterol/Ipratropium (Ipratropium-Albuterol 3 Ml Neb) 3 ml INHALATION TID [facility] Last Admin: 03/02/21 08:03 Dose: 3 ml Documented by: Amiodarone HCl (Amiodarone 200 Mg Tablet) 200 mg PO DAILY [facility] Last Admin: 03/02/21 09:13 Dose: 200 mg Documented by: Apixaban (Apixaban 5 Mg Tablet) 2.5 mg PO BID [facility] Last Admin: 03/02/21 09:15 Dose: 2.5 mg Documented by: Calcitriol (Calcitriol 0.25 Mcg Capsule) 0.25 mcg PO [facility] Clopidogrel Bisulfate (Clopidogrel 75 Mg Tablet) 75 mg PO QAM [facility] Last Admin: 03/02/21 06:06 Dose: 75 mg Documented by: Dextrose (Dextrose 50% Syringe 50 Ml) 25 ml IVP ONCE PRN; Protocol PRN Reason: hypoglycemia protocol Dextrose (Dextrose 50% Syringe 50 Ml) 50 ml IVP PRN PRN; Protocol PRN Reason: hypoglycemia protocol Ergocalciferol (Ergocalciferol (Vitamin D2) 50,000 Unit Capsule) 50,000 unit PO Q7D [facility] Last Admin: 03/02/21 09:15 Dose: 50,000 unit Documented by: Ferrous Sulfate (Ferrous Sulfate Ec 325 Mg Tablet) 325 mg PO BREAKFAST [facility] Last Admin: 03/02/21 09:15 Dose: 325 mg Documented by: Furosemide (Furosemide 40 Mg Tablet) 80 mg PO BID@08,16 [facility] Last Admin: 03/02/21 09:14 Dose: 80 mg Documented by: Glucagon (Glucagon 1 Mg/Ml Inj 1 Ml) 1 mg IM ONCE PRN; Protocol PRN Reason: Adult Acute Hypoglycemia Prot. Dextrose (D5w) 500 mls @ 100 mls/hr IV ONCE PRN; Protocol PRN Reason: Adult Acute Hypoglycemia Prot Insulin Human Lispro (Insulin Lispro 100 Unit/1 Ml) 0 unit SUBCUT WM&BEDTIME [facility]; Protocol Last Admin: 03/02/21 12:19 Dose: 4 unit Documented by: Levothyroxine Sodium (Levothyroxine 137 Mcg Tablet) 137 mcg PO QAM [facility] Last Admin: 03/02/21 06:06 Dose: 137 mcg Documented by: Methylprednisolone Sodium Succinate (Methylprednisolone Sod Succ 40 Mg/Ml Inj) 30 mg IVP DAILY [facility] Last Admin: 03/02/21 09:16 Dose: 30 mg Documented by: Metoprolol Tartrate (Metoprolol Tartrate 25 Mg Tablet) 50 mg PO BID@0900,2100 [facility] Last Admin: 02/28/21 20:05 Dose: Not Given Documented by: Nicotine (Nicotine 21 Mg Patch) 1 patch TRANSDERMA DAILY [facility] Last Admin: 03/02/21 09:12 Dose: 1 patch Documented by: Ondansetron HCl (Ondansetron 2 Mg/Ml Sdv 2 Ml) 4 mg IVP Q6H PRN PRN Reason: NAUSEA AND VOMITING Last Admin: 03/02/21 03:40 Dose: 4 mg Documented by: Polyethylene Glycol (Polyethylene Glycol 3350 Pkt 17 Gm) 17 gm PO DAILY [facility] Last Admin: 03/02/21 09:11 Dose: Not Given Documented by: Potassium Chloride (Potassium Chloride Er 20 Meq Tablet) 40 meq PO BID [facility] Last Admin: 03/02/21 09:31 Dose: 40 meq Documented by: Sacubitril/Valsartan (Sacubitril/Valsartan 24-26 Mg Tablet) 1 each PO BID [facility] Last Admin: 03/02/21 09:14 Dose: 1 each Documented by: Sevelamer Carbonate (Sevelamer 800 Mg Tablet) 800 mg PO TID [facility] Last Admin: 03/02/21 09:14 Dose: 800 mg Documented by: Tramadol HCl (Tramadol 50 Mg Tablet) 50 mg PO Q6H PRN PRN Reason: pain at MAX tylenol limit/24hr Last Admin: 03/01/21 21:46 Dose: 50 mg Documented by: Venlafaxine HCl (Venlafaxine Er (24hr) 75 Mg Capsule) 75 mg PO QAM [facility] Last Admin: 03/02/21 06:07 Dose: 75 mg Documented by: Zolpidem Tartrate (Zolpidem 5 Mg Tablet) 5 mg PO BEDTIME PRN PRN Reason: INSOMNIA Last Admin: 03/02/21 01:13 Dose: 5 mg Documented by: Vitals/I&O/Wt Last Vital Signs Temp 98 F 03/02/21 03:00 Pulse 82 03/02/21 11:00 Resp 16 03/02/21 11:00 BP 113/59 03/02/21 11:00 Pulse Ox 94 03/02/21 11:00 03/01/21 03/02/21 03/02/21 22:59 06:59 14:59 Intake Total 236 / 714 100 / 814 Output Total 1800 / 1800 500 / 2300 2250 / 2250 Balance -1564 / -1086 -400 / -1486 -2250 / -2250 Weight last 48 hrs Weight 236 lb Weight 236 lb 6 oz Physical Exam Narrative: EXAM NARRATIVE: GENERAL: The patient is alert and oriented times three. Moderate respiratory distress. HEENT: Mild pallor. No icterus or lymphadenopathy. The pupils are symmetrical. Oral cavity: There are no mucous membrane lesions. NECK: Trachea appears to be central. No masses noted. No JVD or thyromegaly appreciated. No carotid bruit. RESPIRATORY: Chest is symmetrical. No intercostals muscle retraction or any accessory muscle activation. There is no chest wall tenderness. Breath sounds are heard bilaterally. Decreased intensity of breath sounds in the bases. No evidence of consolidation. BREASTS: Deferred. HEART: The PMI could not be palpated. No other palpable precordial events. The S1 is variable. Second heart sound is normal. Short systolic murmur at the aortic area. No diastolic murmurs. ABDOMEN: Obese with some vague tenderness in epigastric area. No organomegaly appreciated. Bowel sounds are normally heard. : Deferred. RECTAL: Deferred. LYMPHATIC: No lymphadenopathy noted in the neck or groin. EXTREMITIES: 1-2+ edema both lower extremities. Diffuse redness in both lower extremities. Edema and redness continues to improve. MUSCULOSKELETAL: No acute joint deformity no acute joint deformities or swelling SKIN: Diffuse redness involve both lower extremities in the below-knee area- seems to be improving NEUROPSYCHIATRIC: The patient is alert and oriented x3. Appears to be anxious. The higher functions are grossly within normal limits. No tremors or rigidity noted. Urinary Catheter Management^: Rodriguez: Cath Placed During This Visit: yes Reason for Continuing Indwelling Catheter: Accurate Measurement of Urinary Output in Critically Ill Patients Urinary Catheter Date of Insertion: 02/25/21 Urinary Catheter Time of Insertion: 20:54 Data : 03/03/21 04:39 03/03/21 04:39 A&P Assessment and plan (1) Acute on chronic systolic heart failure: Patient may be continued on the current dose of the Entresto. Her creatinine seems to be improving. Status: Acute (2) Atherosclerosis of coronary artery of [place] heart without angina pectoris: Discussed the patient in detail implications of the myocardial perfusion imaging results. Since the patient has no significant ischemia, it would be appropriate to continue the current medical treatment of optimizing the heart failure medications Status: Acute Qualifiers: Coronary Disease-Associated Artery/Lesion type: [place] artery Qualified Code(s): I25.10 - Atherosclerotic heart disease of [place] coronary artery without angina pectoris (3) Mitral valve regurgitation: We will repeat the echocardiogram after 3 months of treatment Status: Acute Qualifiers: Cardiac valve disease etiology: nonrheumatic Qualified Code(s): I34.0 - Nonrheumatic mitral (valve) insufficiency (4) Acute kidney injury superimposed on chronic kidney disease: The kidney function continues to improve Status: Acute (5) Acute exacerbation of chronic obstructive airways disease: Management as per the primary Status: Acute (6) Chronic atrial fibrillation: Since the heart rate is under control, patient may not require any specific intervention at this point. She also is on long-term oral ant icoagulation. 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
[2021-03-02 16:33] LABS: Alanine Aminotransferase 53 U/L (0-33); Albumin Level 3.1 g/dL (3.5-5.2); Alkaline Phosphatase 57 IU/L (35-105); Aspartate Amino Transferase 19 U/L (0-32); Blood Urea Nitrogen 66 mg/dL (8-23); Calcium 8.3 mg/dL (8.5-10.5); Carbon Dioxide 34 mmol/L (22-29); Globulin 2.7 g/dL (1.3-4.6); Glucose 165 mg/dL (65-115); Total Bilirubin 0.7 mg/dL (0.15-1.2); Total Protein 5.8 g/dL (6.6-8.7)
--- NOTE | 2021-03-02 16:41 | PM.PN ---
Subjective Subjective: Interval history: Seen and examined today. She states she would like to go to rehab. Her oxygen requirements are also down. She feels well enough. Discussed with Dr. Richmond who cleared her for discharge. Discussed with Dr. Cotto nephrology and after lengthy discussion we decided to keep the patient other day just to better monitor her electrolytes. Patient refused LifeVest once again today. Vitals/I&O/Wt Last Vital Signs Temp 97.9 F 03/02/21 15:00 Pulse 79 03/02/21 16:09 Resp 16 03/02/21 16:04 BP 110/57 03/02/21 15:00 Pulse Ox 95 03/02/21 16:04 03/02/21 03/02/21 03/02/21 06:59 14:59 22:59 Intake Total 100 / 814 Output Total 500 / 2300 2250 / 2250 1100 / 3350 Balance -400 / -1486 -2250 / -2250 -1100 / -3350 Weight last 48 hrs Weight 107.048 kg Weight 107.218 kg Physical Exam Narrative: EXAM NARRATIVE: General: Alert oriented x3, patient seen laying in bed appearing comfortable. HEENT: Normocephalic, atraumatic, EOMI, Cardio: Regular rate rhythm, normal S1-S2, no murmurs rubs gallops, Respiratory: Good bilateral air entry, no wheezes no rhonchi appreciated. Lungs clear to auscultation today. On 4 L nasal cannula at rest in the room. GI: Abdomen soft, nontender, nondistended, bowel sounds + Behavior: Appropriate and cooperative Extremities: Trace edema bilateral lower extremities. No cyanosis Urinary Catheter Management^: Rodriguez: Cath Placed During This Visit: yes Reason for Continuing Indwelling Catheter: Accurate Measurement of Urinary Output in Critically Ill Patients Urinary Catheter Date of Insertion: 02/25/21 Urinary Catheter Time of Insertion: 20:54 Data : 03/02/21 04:25 03/02/21 15:45 A&P Assessment and plan (1) Acute exacerbation of chronic obstructive airways disease: Status: Acute (2) Congestive heart failure: Status: Acute (3) Diabetes: Status: Acute Qualifiers: Diabetes mellitus type: type 2 Diabetes mellitus halfway insulin use: with halfway use Diabetes mellitus complication status: with hyperglycemia Qualified Code(s): E11.65 - Type 2 diabetes mellitus with hyperglycemia; Z79.4 - care home (current) use of insulin (4) Atrial fibrillation: Status: Acute Qualifiers: Atrial fibrillation type: permanent Qualified Code(s): I48.21 - Permanent atrial fibrillation (5) Acute on chronic renal insufficiency: Status: Acute (6) Acute kidney injury superimposed on chronic kidney disease: Status: Acute (7) Mitral valve regurgitation: Status: Acute Qualifiers: Cardiac valve disease etiology: nonrheumatic Qualified Code(s): I34.0 - Nonrheumatic mitral (valve) insufficiency (8) Hyperkalemia: Status: Acute (9) Moderate aortic valve stenosis: Status: Acute Additional A&P Information #Acute systolic congestive heart failure exacerbation Her EF has reduced from 50% to 40% on echo done in January this year. Echo repeated in the hospital here showed EF of 15 to 20%. Cardiology is following. S she was placed on dobutamine and diuresed with Lasix. Dobutamine was kept for 48 hours. She then underwent a stress test which showed fixed defects in inferior wall with a small reversible defect in the apical septum and left ventricular dilatation. She was offered a LifeVest by Dr. Richmond but refused. She stated that she had one in the past and did not like to wear it. Continue patient on Entresto. No active chest pain Patient was recommended TAVR([facility]) at previous admission. We will stop Cardizem. We will continue patient on Eliquis, amiodarone, Plavix. #Acute on chronic kidney disease Most likely cardiorenal syndrome at this point due to pump failure. Nephrology is following. Creatinine continues to worsen. CT abdomen pelvis was done which does show atelectasis versus pneumonia in right and left lower lobes. There was also fluid seen in small bowel and colon without evidence of bowel wall thickening. No evidence of any hydronephrosis.. We will follow recommendations from nephrology. She has been started on calcitriol and sevelamer. Patient's bicarb is a little higher compared to her baseline. She was also hypokalemic. We will plan for discharge tomorrow. We will recheck labs today as per nephrology recommendations. Lasix 80 twice daily orally. #Acute COPD exacerbation Acute on chronic hypercapnic hypoxic respiratory failure Continue to use BiPAP at night. Chest x-ray consistent with pulmonary edema at admission. Chest x-ray not repeated today. Will repeat XR in AM Continue steroids and diuretics #Atrial fibrillation She is rate controlled. We will continue Eliquis. #Hyperkalemia: Resolved. Cardiac diet DVT prophylaxis Eliquis would suffice Full code Attestations Medical Necessity Statement*: Plan for discharge in the morning depending on electrolyte trend. 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 Acute exacerbation of chronic obstructive airways disease J44.1 Congestive heart failure I50.9 Diabetes E11.65; Z79.4 Diabetes mellitus type: type 2 Diabetes mellitus halfway insulin use: with technician terminal and repeater use Diabetes mellitus complication status: with hyperglycemia Atrial fibrillation I48.21 Atrial fibrillation type: permanent Acute on chronic renal insufficiency N28.9; N18.9 Acute kidney injury superimposed on chronic kidney disease N17.9; N18.9 Mitral valve regurgitation I34.0 Cardiac valve disease etiology: nonrheumatic Hyperkalemia E87.5 Moderate aortic valve stenosis I35.0
[2021-03-02 17:23] LABS: Anion Gap 20.4 (5-19); Chloride 88 mmol/L (98-107); Osmolality Calculated 303 mOsm/kg (285-295); Potassium 3.4 mmol/L (3.5-5.1); Sodium 135 mmol/L (136-145)
[2021-03-02 18:18] LABS: Glucose Point of Care 314 mg/dL (70-110)
[2021-03-02 20:20] LABS: Glucose Point of Care 304 mg/dL (70-110)
[2021-03-02] MEDS: TRAMadol 50 mg Tablet PO (20:44)
[2021-03-03] VITALS (9 sets, daily range): BP systolic 101–106; BP diastolic 64–65; PULSE 72–101; RESP 14–19; TEMP 36.5–36.6; O2SAT 84–96; BMI 42.6
[2021-03-03] MEDS: ondansetron 2 mg/ML SDV 2 mL 4 MG IVP ×2 (02:51→08:49)
[2021-03-03] MEDS: TRAMadol 50 mg Tablet PO ×2 (02:51→15:53)
[2021-03-03 05:45] LABS: Basophils % 0.1 %; Eosinophils % 0.1 %; Hematocrit 39.8 % (37.0-47.0); Hemoglobin 12.2 g/dL (11.5-15.3); Lymphocytes # 0.4 10^3/uL (0.8-4.8); Lymphocytes % 5.5 %; Mean Corpuscular HGB Conc 30.7 g/dL (30.0-36.0); Mean Platelet Volume 11.3 fL (7.4-10.4); Monocytes # 0.4 10^3/uL (0.2-0.9); Monocytes % 5.3 %; Neutrophils # 7.03 10^3/uL (1.8-7.7); Neutrophils % 88.4 %; Nucleated Red Blood Cells % 0 %; Platelet Count 152 10^3/cmm (130-400); Red Blood Count 4.06 10^6/uL (4.1-5.3); Red Cell Distribution Width 18.5 % (12.1-15.1)
[2021-03-03 06:05] LABS: Alanine Aminotransferase 50 U/L (0-33); Albumin Level 3.3 g/dL (3.5-5.2); Alkaline Phosphatase 65 IU/L (35-105); Anion Gap 12.4 (5-19); Aspartate Amino Transferase 17 U/L (0-32); Blood Urea Nitrogen 68 mg/dL (8-23); Calcium 8.8 mg/dL (8.5-10.5); Carbon Dioxide 37 mmol/L (22-29); Chloride 89 mmol/L (98-107); Globulin 2.9 g/dL (1.3-4.6); Glucose 141 mg/dL (65-115); Osmolality Calculated 302 mOsm/kg (285-295); Potassium 3.4 mmol/L (3.5-5.1); Sodium 135 mmol/L (136-145); Total Bilirubin 0.7 mg/dL (0.15-1.2); Total Protein 6.2 g/dL (6.6-8.7)
[2021-03-03] MEDS: venlafaxine ER (24HR) 75 mg Capsule PO (06:06)
[2021-03-03] MEDS: levothyroxine 137 mcg Tablet PO (06:06)
[2021-03-03] MEDS: clopidogrel 75 mg Tablet PO (06:06)
[2021-03-03 06:37] LABS: Glucose Point of Care 140 mg/dL (70-110)
--- NOTE | 2021-03-03 07:35 | PC.NURSE ---
Pt sitting up in bed eating breakfast and talking to staff. Pt very anxious to get discharged. Pt resp even and non-labored no distress or sob noted. Pt on 4 Lpm of O2 via nc, sats 96%. Pt had no c/o pain or discomfort at the present time. No needs voiced. Call light in reach. Will continue to monitor.
--- NOTE | 2021-03-03 07:53 | P.PN_ITS ---
Subjective Subjective: Interval history: less sob, dec edema. feels better. wants to go home, not rehab. no n/v/f/c/israel/d Medications: Reviewed: Yes Medication Review Details: Current Medications Acetaminophen (Acetaminophen 500 Mg Tablet) 1,000 mg PO Q4H PRN PRN Reason: Pain Last Admin: 03/01/21 06:28 Dose: 1,000 mg Documented by: Albuterol/Ipratropium (Ipratropium-Albuterol 3 Ml Neb) 3 ml INHALATION TID [facility] Last Admin: 03/02/21 20:27 Dose: 3 ml Documented by: Amiodarone HCl (Amiodarone 200 Mg Tablet) 200 mg PO DAILY [facility] Last Admin: 03/02/21 09:13 Dose: 200 mg Documented by: Apixaban (Apixaban 5 Mg Tablet) 2.5 mg PO BID [facility] Last Admin: 03/02/21 18:30 Dose: 2.5 mg Documented by: Calcitriol (Calcitriol 0.25 Mcg Capsule) 0.25 mcg PO [facility] Clopidogrel Bisulfate (Clopidogrel 75 Mg Tablet) 75 mg PO QAM [facility] Last Admin: 03/03/21 06:06 Dose: 75 mg Documented by: Dextrose (Dextrose 50% Syringe 50 Ml) 25 ml IVP ONCE PRN; Protocol PRN Reason: hypoglycemia protocol Dextrose (Dextrose 50% Syringe 50 Ml) 50 ml IVP PRN PRN; Protocol PRN Reason: hypoglycemia protocol Ergocalciferol (Ergocalciferol (Vitamin D2) 50,000 Unit Capsule) 50,000 unit PO Q7D [facility] Last Admin: 03/02/21 09:15 Dose: 50,000 unit Documented by: Ferrous Sulfate (Ferrous Sulfate Ec 325 Mg Tablet) 325 mg PO BREAKFAST [facility] Last Admin: 03/02/21 09:15 Dose: 325 mg Documented by: Furosemide (Furosemide 40 Mg Tablet) 40 mg PO BID@08,16 [facility] Glucagon (Glucagon 1 Mg/Ml Inj 1 Ml) 1 mg IM ONCE PRN; Protocol PRN Reason: Adult Acute Hypoglycemia Prot. Dextrose (D5w) 500 mls @ 100 mls/hr IV ONCE PRN; Protocol PRN Reason: Adult Acute Hypoglycemia Prot Insulin Human Lispro (Insulin Lispro 100 Unit/1 Ml) 0 unit SUBCUT WM&BEDTIME [facility]; Protocol Last Admin: 03/02/21 20:44 Dose: 12 unit Documented by: Levothyroxine Sodium (Levothyroxine 137 Mcg Tablet) 137 mcg PO QAM [facility] Last Admin: 03/03/21 06:06 Dose: 137 mcg Documented by: Methylprednisolone Sodium Succinate (Methylprednisolone Sod Succ 40 Mg/Ml Inj) 30 mg IVP DAILY [facility] Last Admin: 03/02/21 09:16 Dose: 30 mg Documented by: Nicotine (Nicotine 21 Mg Patch) 1 patch TRANSDERMA DAILY [facility] Last Admin: 03/02/21 09:12 Dose: 1 patch Documented by: Ondansetron HCl (Ondansetron 2 Mg/Ml Sdv 2 Ml) 4 mg IVP Q6H PRN PRN Reason: NAUSEA AND VOMITING Last Admin: 03/03/21 02:51 Dose: 4 mg Documented by: Polyethylene Glycol (Polyethylene Glycol 3350 Pkt 17 Gm) 17 gm PO DAILY [facility] Last Admin: 03/02/21 09:11 Dose: Not Given Documented by: Potassium Chloride (Potassium Chloride Er 20 Meq Tablet) 40 meq PO BID [facility] Last Admin: 03/02/21 18:29 Dose: 40 meq Documented by: Sacubitril/Valsartan (Sacubitril/Valsartan 24-26 Mg Tablet) 1 each PO BID [facility] Last Admin: 03/02/21 18:30 Dose: 1 each Documented by: Tramadol HCl (Tramadol 50 Mg Tablet) 50 mg PO Q6H PRN PRN Reason: pain at MAX tylenol limit/24hr Last Admin: 03/03/21 02:51 Dose: 50 mg Documented by: Venlafaxine HCl (Venlafaxine Er (24hr) 75 Mg Capsule) 75 mg PO QAM [facility] Last Admin: 03/03/21 06:06 Dose: 75 mg Documented by: Zolpidem Tartrate (Zolpidem 5 Mg Tablet) 5 mg PO BEDTIME PRN PRN Reason: INSOMNIA Last Admin: 03/02/21 20:50 Dose: 5 mg Documented by: Vitals/I&O/Wt Last Vital Signs Temp 97.7 F 03/03/21 07:00 Pulse 92 03/03/21 07:00 Resp 19 H 03/03/21 07:00 BP 101/65 03/03/21 07:00 Pulse Ox 96 03/03/21 07:00 03/02/21 03/03/21 03/03/21 22:59 06:59 14:59 Intake Total 240 / 240 240 / 240 Output Total 2700 / 4950 1500 / 6450 Balance -2700 / -4950 -1260 / -6210 240 / 240 Weight last 48 hrs Weight 107.048 kg Weight 107.218 kg Physical Exam Narrative: EXAM NARRATIVE: obese, much dec edema, still sob- however continues to improve on o2 vs noted - BP low heent- nc/at, eomi neck- supple, no JVP lungs -dec rales and crackles b/l heart- irreg irreg, +JELENA, +S1, S2 abd soft, nt, nd, + bs ext LLE > RLE edema dec neuro- a,a, o x 3 weak pulses DP/PT Urinary Catheter Management^: Rodriguez: Cath Placed During This Visit: yes Reason for Continuing Indwelling Catheter: Accurate Measurement of Urinary Output in Critically Ill Patients Urinary Catheter Date of Insertion: 02/25/21 Urinary Catheter Time of Insertion: 20:54 Data : 03/03/21 04:39 03/03/21 04:39 A&P Additional A&P Information 75 yr old female 1. RAMU- likely from CRS- pt has low EF of 15-20% ( on stress test 40%) and has moderate MR and . -ua is neg ur na 25 - c/w CHF -cr is improving -ct abd revealed The right kidney is unremarkable. Multiple areas of focal cortical scarring in the left kidney. 2 cysts in the left kidney are stable, the larger measures 2.2 cm. The right and left ureters are unremarkable. -normal ck -pt needs entresto from CHF/ cardiac perspective- monitor cr -no nsaid -monitor in and out, weights, chemistries 2. Acute on chronic systolic CHF and valvular heart disease- per cardiology- dec lasix to 40 mgm po bid -per cardiology - await stress test -may need Cardiac cath- will be high renal risk. however, risk of not performing cardiac cath may be greater -discussed w/ pt. she understands and accepts cath if needed -pt was recommended for TAVR at [facility] [place] 3- a fib per cardiology -rate controlled 4. hyponatremia- likely from RAMU and CHF- na is improving on lasix, dobutamine, and fluid restriction 5. replace k and mag as needed -on d/c give lasix 40 po bid and kdur 40 po daily ( may need less as on entresto- thus importance of close monitoring)- CHECK CHEM 7, MAGNESIUM every SUNDAY AND SUNDAY -HAVE PT WEIGH HER SELF DAILY. IF DEC LASIX, THEN DEC POTASSIUM IN HALF 6. met alkalosis from diuretics- dec lasix dose 7. low tsh per medicine- consider dec levothyroxine w/ CAD 8. CKD- not clear stage -likely ckd stage 3- likely from DM, htn, obesity, CRS 9. DM care per MD- avoid metformin w/ renal insufficiency 10. bone - mineral- metabolism of CKF- cont calcitriol, pth is 220, normal ca -phos 5.4- we lowered calcitriol dose and started a phos binder -replace vit d 11. anemia - iron sat 13%. ferritin 164- -hgb good at 12.2- can hold iron pt seen and examined w/ RN- telehealth visit informed consent obtained for telehealth visit Attestations Medical Necessity Statement*: per cardiology Time Spent in Patient Care: 16 - 35 minutes (>than 50% of time spent in counselling and/or direct pt care on unit) . Coding Level of Care Code Acute Engine Dynamometer Tester for Flo Riggs
[2021-03-03] MEDS: ipratropium-albuterol 3 mL Neb INHALATION ×2 (08:19→16:45)
[2021-03-03] MEDS: nicotine 21 mg Patch 1 PATCH TRANSDERMA (08:31)
[2021-03-03] MEDS: ferrous sulfate EC 325 mg Tablet PO (08:31)
[2021-03-03] MEDS: sacubitril/valsartan 24-26 mg Tablet 1 EACH PO (08:31)
[2021-03-03] MEDS: potassium chloride ER 20 mEq Tablet 40 MEQ PO (08:32)
[2021-03-03] MEDS: FUROsemide 40 mg Tablet PO (08:32)
[2021-03-03] MEDS: amiodarone 200 mg Tablet PO (08:32)
[2021-03-03] MEDS: apixaban 5 mg Tablet 2.5 MG PO (08:32)
--- NOTE | 2021-03-03 08:39 | PM.PN ---
Subjective Subjective: Interval history: Patient continues to have feel okay. Denies any chest pain or chest tightness. No unusual shortness of breath. Blood pressure and the heart rate seems to be in the normal range. Medications: Reviewed: Yes Medication Review Details: Current Medications Acetaminophen (Acetaminophen 500 Mg Tablet) 1,000 mg PO Q4H PRN PRN Reason: Pain Last Admin: 03/01/21 06:28 Dose: 1,000 mg Documented by: Albuterol/Ipratropium (Ipratropium-Albuterol 3 Ml Neb) 3 ml INHALATION TID [facility] Last Admin: 03/03/21 08:19 Dose: 3 ml Documented by: Amiodarone HCl (Amiodarone 200 Mg Tablet) 200 mg PO DAILY [facility] Last Admin: 03/03/21 08:32 Dose: 200 mg Documented by: Apixaban (Apixaban 5 Mg Tablet) 2.5 mg PO BID [facility] Last Admin: 03/03/21 08:32 Dose: 2.5 mg Documented by: Calcitriol (Calcitriol 0.25 Mcg Capsule) 0.25 mcg PO [facility] Clopidogrel Bisulfate (Clopidogrel 75 Mg Tablet) 75 mg PO QAM [facility] Last Admin: 03/03/21 06:06 Dose: 75 mg Documented by: Dextrose (Dextrose 50% Syringe 50 Ml) 25 ml IVP ONCE PRN; Protocol PRN Reason: hypoglycemia protocol Dextrose (Dextrose 50% Syringe 50 Ml) 50 ml IVP PRN PRN; Protocol PRN Reason: hypoglycemia protocol Ergocalciferol (Ergocalciferol (Vitamin D2) 50,000 Unit Capsule) 50,000 unit PO Q7D [facility] Last Admin: 03/02/21 09:15 Dose: 50,000 unit Documented by: Ferrous Sulfate (Ferrous Sulfate Ec 325 Mg Tablet) 325 mg PO BREAKFAST [facility] Last Admin: 03/03/21 08:31 Dose: 325 mg Documented by: Furosemide (Furosemide 40 Mg Tablet) 40 mg PO BID@08,16 [facility] Last Admin: 03/03/21 08:32 Dose: 40 mg Documented by: Glucagon (Glucagon 1 Mg/Ml Inj 1 Ml) 1 mg IM ONCE PRN; Protocol PRN Reason: Adult Acute Hypoglycemia Prot. Dextrose (D5w) 500 mls @ 100 mls/hr IV ONCE PRN; Protocol PRN Reason: Adult Acute Hypoglycemia Prot Insulin Human Lispro (Insulin Lispro 100 Unit/1 Ml) 0 unit SUBCUT WM&BEDTIME [facility]; Protocol Last Admin: 03/03/21 08:24 Dose: Not Given Documented by: Levothyroxine Sodium (Levothyroxine 137 Mcg Tablet) 137 mcg PO QAM [facility] Last Admin: 03/03/21 06:06 Dose: 137 mcg Documented by: Methylprednisolone Sodium Succinate (Methylprednisolone Sod Succ 40 Mg/Ml Inj) 30 mg IVP DAILY [facility] Last Admin: 03/03/21 08:32 Dose: 30 mg Documented by: Nicotine (Nicotine 21 Mg Patch) 1 patch TRANSDERMA DAILY [facility] Last Admin: 03/03/21 08:31 Dose: 1 patch Documented by: Ondansetron HCl (Ondansetron 2 Mg/Ml Sdv 2 Ml) 4 mg IVP Q6H PRN PRN Reason: NAUSEA AND VOMITING Last Admin: 03/03/21 02:51 Dose: 4 mg Documented by: Polyethylene Glycol (Polyethylene Glycol 3350 Pkt 17 Gm) 17 gm PO DAILY [facility] Last Admin: 03/03/21 08:33 Dose: Not Given Documented by: Potassium Chloride (Potassium Chloride Er 20 Meq Tablet) 40 meq PO BID [facility] Last Admin: 03/03/21 08:32 Dose: 40 meq Documented by: Sacubitril/Valsartan (Sacubitril/Valsartan 24-26 Mg Tablet) 1 each PO BID [facility] Last Admin: 03/03/21 08:31 Dose: 1 each Documented by: Tramadol HCl (Tramadol 50 Mg Tablet) 50 mg PO Q6H PRN PRN Reason: pain at MAX tylenol limit/24hr Last Admin: 03/03/21 02:51 Dose: 50 mg Documented by: Venlafaxine HCl (Venlafaxine Er (24hr) 75 Mg Capsule) 75 mg PO QAM [facility] Last Admin: 03/03/21 06:06 Dose: 75 mg Documented by: Zolpidem Tartrate (Zolpidem 5 Mg Tablet) 5 mg PO BEDTIME PRN PRN Reason: INSOMNIA Last Admin: 03/02/21 20:50 Dose: 5 mg Documented by: Vitals/I&O/Wt Last Vital Signs Temp 97.7 F 03/03/21 07:00 Pulse 97 03/03/21 08:24 Resp 18 03/03/21 08:19 BP 101/65 03/03/21 07:00 Pulse Ox 94 03/03/21 08:19 03/02/21 03/03/21 03/03/21 22:59 06:59 14:59 Intake Total 240 / 240 240 / 240 Output Total 2700 / 4950 1500 / 6450 Balance -2700 / -4950 -1260 / -6210 240 / 240 Weight last 48 hrs Weight 236 lb Weight 236 lb 6 oz Physical Exam Narrative: EXAM NARRATIVE: GENERAL: The patient is alert and oriented times three. Moderate respiratory distress. HEENT: Mild pallor. No icterus or lymphadenopathy. The pupils are symmetrical. Oral cavity: There are no mucous membrane lesions. NECK: Trachea appears to be central. No masses noted. No JVD or thyromegaly appreciated. No carotid bruit. RESPIRATORY: Chest is symmetrical. No intercostals muscle retraction or any accessory muscle activation. There is no chest wall tenderness. Breath sounds are heard bilaterally. Decreased intensity of breath sounds in the bases. No evidence of consolidation. BREASTS: Deferred. HEART: The PMI could not be palpated. No other palpable precordial events. The S1 is variable. Second heart sound is normal. Short systolic murmur at the aortic area. No diastolic murmurs. ABDOMEN: Obese with some vague tenderness in epigastric area. No organomegaly appreciated. Bowel sounds are normally heard. : Deferred. RECTAL: Deferred. LYMPHATIC: No lymphadenopathy noted in the neck or groin. EXTREMITIES: 1-2+ edema both lower extremities. Diffuse redness in both lower extremities. Edema and redness continues to improve. MUSCULOSKELETAL: No acute joint deformity no acute joint deformities or swelling SKIN: Diffuse redness involve both lower extremities in the below-knee area-seems to be improving NEUROPSYCHIATRIC: The patient is alert and oriented x3. No focal motor deficits Urinary Catheter Management^: Rodriguez: Cath Placed During This Visit: yes Reason for Continuing Indwelling Catheter: Accurate Measurement of Urinary Output in Critically Ill Patients Urinary Catheter Date of Insertion: 02/25/21 Urinary Catheter Time of Insertion: 20:54 Data : 03/03/21 04:39 03/03/21 04:39 Other Labs: Laboratory Last Values WBC 8.0 10^3/uL (4.0-10.0) 03/03/21 04:39 RBC 4.06 10^6/uL (4.1-5.3) L 03/03/21 04:39 Hgb 12.2 g/dL (11.5-15.3) 03/03/21 04:39 Hct 39.8 % (37.0-47.0) 03/03/21 04:39 MCV 98.0 fl (81-99) 03/03/21 04:39 MCH 30.0 pg (28.0-34.0) 03/03/21 04:39 MCHC 30.7 g/dL (30.0-36.0) 03/03/21 04:39 RDW 18.5 % (12.1-15.1) H 03/03/21 04:39 Plt Count 152 10^3/cmm (130-400) 03/03/21 04:39 MPV 11.3 fL (7.4-10.4) H 03/03/21 04:39 Neut % (Auto) 88.4 % 03/03/21 04:39 Lymph % (Auto) 5.5 % 03/03/21 04:39 [place] % (Auto) 5.3 % 03/03/21 04:39 Eos % (Auto) 0.1 % 03/03/21 04:39 Baso % (Auto) 0.1 % 03/03/21 04:39 Neut # (Auto) 7.03 10^3/uL (1.8-7.7) 03/03/21 04:39 Lymph # (Auto) 0.4 10^3/uL (0.8-4.8) L 03/03/21 04:39 [place] # (Auto) 0.4 10^3/uL (0.2-0.9) 03/03/21 04:39 Eos # (Auto) 0.0 10^3/uL (0.0-0.8) 03/03/21 04:39 Baso # (Auto) 0.0 10^3/uL (0.0-0.1) 03/03/21 04:39 Nucleated RBC % (auto) 0 % 03/03/21 04:39 Nucleated RBCs # 0.0 /100WBC 03/03/21 04:39 Specimen Type Arterial 02/26/21 04:14 Sample Site Radial, right 02/26/21 04:14 ABG pH 7.33 (7.35-7.45) L 02/26/21 04:14 ABG pCO2 50.3 mmHg (35-45) H 02/26/21 04:14 ABG pO2 57.6 mmHg (80.0-100.0) L 02/26/21 04:14 ABG HCO3 26.4 mmol/L (22-26) H 02/26/21 04:14 ABG Base Excess -0.2 mmol/L (-2.0-2.0) 02/26/21 04:14 [place] Test Pos 02/26/21 04:14 Hematocrit 37.8 % (37-47) 02/26/21 04:14 Hgb O2 Saturation 83.4 % (95-100) L 02/25/21 16:20 Carboxyhemoglobin 2.3 %THgb (0.4-20.1) 02/25/21 16:20 Methemoglobin 0.9 % (0.4-1.5) 02/25/21 16:20 Total Hemoglobin 12.2 g/dL (12-16) 02/25/21 16:20 O2 Delivery Device Bipap 02/26/21 04:14 O2 Liters/Min 8.0 % 02/25/21 16:20 FiO2 60.0 % 02/26/21 04:14 PEEP 8.0 cmH20 02/26/21 04:14 Rn Midwife ID Tamma 02/26/21 04:14 Sodium 135 mmol/L (136-145) L 03/03/21 04:39 Potassium 3.4 mmol/L (3.5-5.1) L 03/03/21 04:39 Chloride 89 mmol/L (98-107) L 03/03/21 04:39 Carbon Dioxide 37 mmol/L (22-29) H 03/03/21 04:39 Anion Gap 12.4 (5-19) 03/03/21 04:39 BUN 68 mg/dL (8-23) H 03/03/21 04:39 Creatinine 1.9 mg/dL (0.5-0.9) H 03/03/21 04:39 GFR Calculation Not Reportable 03/03/21 04:39 Glucose 141 mg/dL (65-115) H 03/03/21 04:39 POC Glucose 140 mg/dL (70-110) H 03/03/21 06:25 Calculated Osmolality 302 mOsm/kg (285-295) H 03/03/21 04:39 Lactic Acid 2.3 mmol/L (0.5-2.2) H 02/25/21 16:48 Lactic Acid (Sepsis) 2.0 mmol/L (0.5-2.2) 02/25/21 19:09 Calcium 8.8 mg/dL (8.5-10.5) 03/03/21 04:39 Phosphorus 5.4 mg/dL (2.5-4.5) H 03/02/21 04:25 Magnesium 2.6 mg/dL (1.7-2.3) H 03/02/21 04:25 Iron 41 ug/dL (37-145) 02/28/21 04:01 TIBC 315 mcg/dl 02/28/21 04:01 % Saturation 13.0 % (20-50) L 02/28/21 04:01 Unsat Iron Binding 274 ug/dL (112-347) 02/28/21 04:01 Ferritin 164 ng/mL (15-150) H 02/28/21 04:01 Total Bilirubin 0.7 mg/dL (0.15-1.2) 03/03/21 04:39 AST 17 U/L (0-32) 03/03/21 04:39 ALT 50 U/L (0-33) H 03/03/21 04:39 Alkaline Phosphatase 65 IU/L (35-105) 03/03/21 04:39 Creatine Kinase 18 U/L (26-192) L 02/26/21 16:14 Troponin T Baseline 42 ng/L (0-10) H 02/25/21 16:48 Troponin T 120 Minute 45.92 ng/L (0-10) H 02/25/21 19:09 Delta Troponin T 3.92 ABS# (0-10) 02/25/21 19:09 Troponin T Hi Sens 6Hr 41.07 ng/L (0-10) H 02/25/21 22:57 Troponin T Hi Sens 6Hr Delta -0.93 ng/L (0-12) L 02/25/21 22:57 C-Reactive Protein 61.8 mg/L (0.0-4.9) H 02/26/21 07:12 NT-Pro-B Natriuret Pep 33733 pg/mL (0-450) H 02/25/21 16:48 Total Protein 6.2 g/dL (6.6-8.7) L 03/03/21 04:39 Albumin 3.3 g/dL (3.5-5.2) L 03/03/21 04:39 Globulin 2.9 g/dL (1.3-4.6) 03/03/21 04:39 25-OH Vitamin D Total 19 ng/mL (30-100) L 02/28/21 04:01 Procalcitonin 0.42 ng/mL (0-0.5) 02/25/21 16:48 TSH 0.13 uIU/mL (0.27-4.20) L 02/27/21 02:55 PTH Intact 220.8 pg/mL (15-65) H 02/28/21 04:01 Calcium (PTH Intact) 8.6 mg/dL (8.5-10.5) 02/28/21 04:01 Random Cortisol 24.44 ug/dL (2.47-19.5) H 02/27/21 02:55 Urine Color Yellow (Yellow) 03/01/21 22:37 Urine Appearance Sl hazy (CLEAR) 03/01/21 22:37 Urine pH 5 (5-7) 03/01/21 22:37 Ur Specific [place] 1.010 (1.005-1.030) 03/01/21 22:37 Urine Protein Neg (Negative) 03/01/21 22:37 Urine Glucose (UA) Norm (Normal) 03/01/21 22:37 Urine Ketones Negative (Negative) 03/01/21 22:37 Urine Blood 2+ (Negative) H 03/01/21 22:37 Urine Nitrate Negative (Negative) 03/01/21 22:37 Urine Bilirubin Neg (Negative) 03/01/21 22:37 Urine Urobilinogen Norm mg/dL (Negative) 03/01/21 22:37 Ur Leukocyte Esterase 2+ (Negative) H 03/01/21 22:37 Urine RBC 5-10 /hpf (0-2) H 03/01/21 22:37 Urine WBC 40-55 /hpf (0-5) H 03/01/21 22:37 Ur Squamous Epith Cells 10-15 /hpf (0-5) H 03/01/21 22:37 Ur Renal Epithelial Cell 0-4 /hpf 03/01/21 22:37 Amorphous Sediment Not Reportable 03/01/21 22:37 Urine Bacteria 3+ /hpf (NONE) H 03/01/21 22:37 Ur Random Microalbumin 4 ug/dL (0-20) 03/01/21 22:37 Ur Random Sodium 21 mmol/L 03/01/21 22:37 Ur Random Chloride 63 mmol/L 03/01/21 22:37 Urine Creatinine 40 mg/dL (28-217) 03/01/21 22:37 Microalb/Creat Ratio 100 mg/dL (0-20) H 03/01/21 22:37 Digoxin 0.4 ng/mL (0.6-1.2) L 02/28/21 04:01 Hepatitis C Antibody Non-reactive (Nonreactive) 02/27/21 02:55 SARS-CoV-2 Ag (Rapid) Negative (Negative) 02/25/21 17:11 A&P Assessment and plan (1) Acute on chronic systolic heart failure: Patient may be continued on the current dose of the Entresto. Her creatinine seems to be improving. Patient has consistently refused LifeVest. Will be reevaluated LV ejection fraction in 3 months. Need for the ICD will be decided at that time. This was discussed with the patient in detail. Status: Acute (2) Atherosclerosis of coronary artery of [place] heart without angina pectoris: Discussed the patient in detail implications of the myocardial perfusion imaging results. Since the patient has no significant ischemia, it would be appropriate to continue the current medical treatment of optimizing the heart failure medications Status: Acute Qualifiers: Coronary Disease-Associated Artery/Lesion type: [place] artery Qualified Code(s): I25.10 - Atherosclerotic heart disease of [place] coronary artery without angina pectoris (3) Mitral valve regurgitation: We will repeat the echocardiogram after 3 months of treatment Status: Acute Qualifiers: Cardiac valve disease etiology: nonrheumatic Qualified Code(s): I34.0 - Nonrheumatic mitral (valve) insufficiency (4) Acute kidney injury superimposed on chronic kidney disease: The kidney function continues to improve Status: Acute (5) Acute exacerbation of chronic obstructive airways disease: Management as per the primary Status: Acute (6) Chronic atrial fibrillation: Since the heart rate is under control, patient may not require any specific intervention at this point. She also is on long-term oral anticoagulation. Status: Acute Additional A&P Information Other problems are Severe hypokalemia-need to correct Cardiomyopathy Hyponatremia Elevated liver enzymes Possible lower extremity cellulitis Hypokalemia is improving Attestations Medical Necessity Statement*: Possible discharge home today Coding Level of Care Code Acute Senior Clinician for Flo Fwd Diagnoses Acute on chronic systolic heart failure I50.23 Atherosclerosis of coronary artery of [place] heart without angina pectoris I25.10 Coronary Disease-Associated Artery/Lesion type: [place] artery Mitral valve regurgitation I34.0 Cardiac valve disease etiology: nonrheumatic Acute kidney injury superimposed on chronic kidney disease N17.9; N18.9 Acute exacerbation of chronic obstructive airways disease J44.1 Chronic atrial fibrillation I48.20
--- NOTE | 2021-03-03 09:37 | PC.NURSE ---
Pts lieberman removed. Pt tolerated well.
[2021-03-03] MEDS: piperacillin-tazobactam 3.375 GM in sodium chloride 0.9% (plus) 50 ML IV (10:25)
[2021-03-03] MEDS: cefTRIAXone 1,000 MG in sodium chloride 0.9% (plus) 50 ML 100 MG IV (12:27)
--- NOTE | 2021-03-03 12:30 | PM.DCS ---
Discharge Providers Date of Admission: 02/25/21 17:53 Date of Discharge: March 03, 2021 Attending Provider at Admission: Evaristo Peace MD Attending Provider at Discharge: Fadia Villanueva MD Primary Care Provider: Milan Mitchell DO Diagnoses at Discharge Discharge Diagnosis (1) Acute on chronic systolic heart failure: Status: Resolved (2) Atherosclerosis of coronary artery of [place] heart without angina pectoris: Status: Acute Qualifiers: Coronary Disease-Associated Artery/Lesion type: [place] artery Qualified Code(s): I25.10 - Atherosclerotic heart disease of [place] coronary artery without angina pectoris (3) Mitral valve regurgitation: Status: Acute Qualifiers: Cardiac valve disease etiology: nonrheumatic Qualified Code(s): I34.0 - Nonrheumatic mitral (valve) insufficiency (4) Acute kidney injury superimposed on chronic kidney disease: Status: Acute (5) Acute exacerbation of chronic obstructive airways disease: Status: Acute (6) Chronic atrial fibrillation: Status: Acute Reason for Visit Reason for Visit: DYSPNEA Hospital Course Hospital Course HPI as per Dr. Peace Balbina Martínez is a 75 year old female with established history of minor reduced action fraction heart failure EF 40%, moderate aortic valve stenosis, moderate mitral regurgitation, type 2 diabetes, chronic kidney disease, was discharged recently from the hospital after management of cardiogenic shock she was started on broad-spectrum antibiotics however remained afebrile, Secondary to bradycardia dose of amiodarone was decreased, she was diagnosed with C. difficile colitis and was discharged on 02/12 with p.o. vancomycin. She also experienced hypoglycemia and oral antihyperglycemics dose were decreased, For hypercapnic respiratory failure she was discharged with BiPAP arrangement at home. Today she is presenting with chief complaint of shortness of breath, orthopnea and PND. She is denying fever, chest pain. She is endorsing productive cough bringing up brown sputum since last few days. She has been compliant with her medications however has noticed decreased urine output despite taking diuretics. She was discharged on Lasix 40 mg twice daily. Of note she uses 3 L of oxygen at baseline she is due for cardiology follow-up for TAVR. Diagnosis in the ER revealed CHF exacerbation, acute on chronic hypercarbic respiratory failure she was given doxycycline, 2 g of magnesium, Lasix 40 mg IV push and steroid Hospital Course: She was admitted and HF exacerbation was treated. Pt had EF of 15-20% which was new compared to prior echo. She was kept on dobutamine drip for 48 hours in ICU and diuresed. After diuresis and better volume status a stress test was done which showed fixed defects and a reversible defect in apical septum which was decided to be treated medically. She was offered a lifevest as well to which she declined at this time. Her RAMU was treated by nephrology which was due to cardiorenal syndrome. She was optimized for her medications. Patient was treated for COPD exacerbation with steroids. At day of discharged she developed a non purulent cellulits of her left leg. She was discharged home on oral antibiotics after giving 1 dose IV ceftriaxone. She was setup which a larger walker as per her request. Home o2 eval was also done and patient was setup with o2. She was offered SNF but she declined and therefore was sent home with home health. She was given labs to check twice a week for monitoring of her electrolytes. Physical Exam Narrative: EXAM NARRATIVE: General: Alert oriented x3, patient seen sitting up in bed on room air. HEENT: Normocephalic, atraumatic, EOMI, Cardio: Regular rate rhythm, normal S1-S2, no murmurs rubs gallops, Respiratory: Good bilateral air entry, no wheezes no rhonchi appreciated. Lungs clear to auscultation today. GI: Abdomen soft, nontender, nondistended, bowel sounds + Behavior: Appropriate and cooperative Extremities: Trace edema bilateral lower extremities. No cyanosis Urinary Catheter Management^: Rodriguez: Cath Placed During This Visit: yes Reason for Continuing Indwelling Catheter: Accurate Measurement of Urinary Output in Critically Ill Patients Urinary Catheter Date of Insertion: 02/25/21 Urinary Catheter Time of Insertion: 20:54 Discharge Data Data Completed and Pending: Completed Studies During Hospitalization Category Date Time Status CT abdomen pelvis wo con [id number] Rout ine Cat Scan 02/26/21 13:39 Completed Sestamibi Stress Test Request Routi ne Exams 02/28/21 18:12 Draft XR chest 1V ameya ble [id number] Routine Exams 03/01/21 08:51 Completed XR chest 1V ameya ble [id number] Urgent Exams 02/25/21 16:05 Completed NM sera perf SPECT r/s* [id number] Routin e Nuc Med 03/01/21 18:13 Completed CV. echo limited [id number] Routine Ultrasound 02/26/21 15:27 Completed Pending at discharge Category Date Time Status Vitamin D 1,25 Di hydroxy Routine Lab 02/27/21 02:55 Received Labs from last 24 hours 03/03/21 03/03/21 03/03/21 06:25 04:39 04:39 WBC 8.0 RBC 4.06 L Hgb 12.2 Hct 39.8 MCV 98.0 MCH 30.0 MCHC 30.7 RDW 18.5 H Plt Count 152 MPV 11.3 H Neut % (Auto) 88.4 Lymph % (Auto) 5.5 Calvert % (Auto) 5.3 Eos % (Auto) 0.1 Baso % (Auto) 0.1 Neut # (Auto) 7.03 Lymph # (Auto) 0.4 L [place] # (Auto) 0.4 Eos # (Auto) 0.0 Baso # (Auto) 0.0 Nucleated RBC % (a uto) 0 Nucleated RBCs # 0.0 Sodium 135 L Potassium 3.4 L Chloride 89 L Carbon Dioxide 37 H Anion Gap 12.4 BUN 68 H Creatinine 1.9 H GFR Calculation Not Reportable Glucose 141 H POC Glucose 140 H Calculated Osmolal ity 302 H Calcium 8.8 Total Bilirubin 0.7 AST 17 ALT 50 H Alkaline Phosphata se 65 Total Protein 6.2 L Albumin 3.3 L Globulin 2.9 03/02/21 03/02/21 03/02/21 19:35 18:11 15:45 WBC RBC Hgb Hct MCV MCH MCHC RDW Plt Count MPV Neut % (Auto) Lymph % (Auto) [place] % (Auto) Eos % (Auto) Baso % (Auto) Neut # (Auto) Lymph # (Auto) [place] # (Auto) Eos # (Auto) Baso # (Auto) Nucleated RBC % (a uto) Nucleated RBCs # Sodium 135 L Potassium 3.4 L Chloride 88 L Carbon Dioxide 34 H Anion Gap 20.4 H BUN 66 H Creatinine 2.3 H GFR Calculation Not Reportable Glucose 165 H POC Glucose 304 H 314 H Calculated Osmolal ity 303 H Calcium 8.3 L Total Bilirubin 0.7 AST 19 ALT 53 H Alkaline Phosphata se 57 Total Protein 5.8 L Albumin 3.1 L Globulin 2.7 Vitals: Last Vital Signs Temp 97.7 F 03/03/21 07:00 Pulse 97 03/03/21 08:24 Resp 18 03/03/21 08:19 BP 101/65 03/03/21 07:00 Pulse Ox 84 L 03/03/21 11:07 Discharge Plan Discharge Patient Disposition: Home Health Service Condition: Stable Prescriptions: New ferrous sulfate 325 mg (65 mg iron) Tablet,Delayed Release (Dr/Ec) 325 mg PO BREAKFAST 30 Days Qty: 30 RF: 0 Entresto 24-26 mg Tablet 1 tab PO BID 30 Days Qty: 60 RF: 0 polyethylene glycol 3350 17 gram Powder In Packet 17 g PO DAILY 30 Days Qty: 30 RF: 0 Vitamin D2 1,250 mcg (50,000 unit) Capsule 50,000 unit PO Q7D 14 Days Qty: 2 RF: 0 atorvastatin 80 mg tablet 80 mg PO DAILY 30 Days Qty: 30 RF: 0 potassium chloride 20 mEq tablet,ER particles/crystals 40 meq PO DAILY 30 Days Qty: 60 RF: 0 Augmentin 875-125 mg tablet 1 tab PO BID 7 Days Qty: 14 RF: 0 doxycycline hyclate 100 mg tablet 100 mg PO BID 7 Days Qty: 14 RF: 0 Continued (DME) Accu-Chek Barbara Plus test strp Strip See Rx Instructions .ROUTE .MEDSUPPLY Qty: 400 RF: 3 (DME) lancets [Accu-Chek Multiclix Lancet] Misc See Rx Instructions .ROUTE .MEDSUPPLY Qty: 400 RF: 3 (DME) insulin syringe-needle U-100 [Advocate Syringes] 1 mL 30 gauge x 5/16 syringe See Rx Instructions .ROUTE .MEDSUPPLY Qty: 10 RF: 0 (DME) pen needle, diabetic [BD Ultra-Fine Short Pen Needle] 31 gauge x 5/16 needle See Rx Instructions .ROUTE .MEDSUPPLY Qty: 30 RF: 12 (DME) Diabetic Shoes and inserts See Rx Instructions .Route .MEDSUPPLY Qty: 1 RF: 3 (DME) blood-glucose meter [Accu-Chek Barbara Plus Meter] Misc See Rx Instructions .ROUTE .MEDSUPPLY Qty: 1 RF: 0 (DME) blood-glucose meter [Blood Glucose Monitoring] Kit See Rx Instructions .Route Qty: 1 RF: 0 (DME) Blood Glucose Test Strip See Rx Instructions .Route Qty: 400 RF: 3 ondansetron 4 mg tablet,disintegrating 4 mg PO Q8H PRN (Reason: nausea and vomiting) Qty: 30 RF: 11 (DME) insulin syringe-needle U-100 [BD Insulin Syringe] 0.5 mL 29 gauge x 1/2 syringe See Rx Instructions .Route Qty: 100 RF: 0 fexofenadine [Julia Allergy] 180 mg Tablet 180 mg PO DAILY RF: 0 acetaminophen 500 mg Tablet 1,000 mg PO Q4H PRN (Reason: Pain) RF: 0 fluticasone propionate 50 mcg/actuation [place],Suspension 1 spray INTRANASAL BID PRN (Reason: Allergy Symptoms) RF: 0 nitroglycerin 0.4 mg tablet, sublingual 0.4 mg SUBLINGUAL Q5M PRN (Reason: Chest Pain) RF: 0 Ambien 5 mg Tablet 5 mg PO BEDTIME PRN (Reason: Insomnia) RF: 0 levothyroxine 137 mcg tablet 137 mcg PO QAM 30 Days Qty: 30 RF: 0 amiodarone 200 mg tablet 200 mg PO DAILY 30 Days Qty: 30 RF: 0 glipizide 5 mg tablet extended release 24hr 5 mg PO QAM 30 Days Qty: 30 RF: 0 donepezil 10 mg tablet 10 mg PO DAILY 30 Days Qty: 30 RF: 0 venlafaxine 150 mg capsule,extended release 24hr 75 mg PO QAM 30 Days Qty: 15 RF: 0 Plavix 75 mg tablet 75 mg PO QAM 30 Days Qty: 30 RF: 0 buspirone 10 mg tablet 10 mg PO BID PRN (Reason: anxiety) 30 Days Qty: 60 RF: 11 omeprazole 20 mg capsule,delayed release(DR/EC) 20 mg PO QAM 30 Days Qty: 30 RF: 0 mirtazapine 15 mg tablet 15 mg PO BEDTIME 30 Days Qty: 30 RF: 0 Humalog U-100 Insulin 100 unit/mL solution See Rx Instructions SUBCUT .COMPLEX 30 Days Qty: 10 RF: 0 calcitriol 0.25 mcg capsule 0.25 mcg PO DAILY 30 Days Qty: 30 RF: 0 Eliquis 2.5 mg tablet 2.5 mg PO BID 30 Days Qty: 60 RF: 0 Held gabapentin 300 mg capsule 300 mg PO BID Qty: 120 RF: 5 Hold Instructions: see pcp before resuming Discontinued Lasix 40 mg tablet 40 mg PO BID 30 Days Qty: 60 RF: 0 fenofibrate nanocrystallized 145 mg tablet 145 mg PO DAILY RF: 0 ferrous gluconate 324 mg (37.5 mg iron) Tablet 324 mg PO BIDWM 30 Days Qty: 60 RF: 0 ipratropium-albuterol 0.5 mg-3 mg(2.5 mg base)/3 mL solution for nebulization 3 ml inhalation TID 30 Days Qty: 270 RF: 0 simvastatin 40 mg tablet 20 mg PO DAILY Qty: 0 RF: 0 diltiazem HCl [Cardizem CD] 180 mg capsule,extended release 24hr 180 mg PO DAILY Qty: 60 RF: 0 potassium chloride 20 mEq tablet extended release 20 meq PO DAILY Qty: 60 RF: 11 Discharge Orders: Discharge Order (Routine); Ordered 03/03/21 Ordered By: Fadia Villanueva Other Ambulatory Orders: Basic Metabolic Panel (QMWF) Timeframe: 20210307 Facility: [facility] - Location: Lab - Main Lab Ordered By: Fadia Villanueva Basic Metabolic Panel (QMWF) Timeframe: 20210309 Facility: [facility] - Location: Lab - Main Lab Ordered By: Fadia Villanueva Basic Metabolic Panel (QMWF) Timeframe: [id number] Facility: [facility] - Location: Lab - Main Lab Ordered By: Fadia Villanueva Basic Metabolic Panel (QMWF) Timeframe: [id number] Facility: [facility] - Location: Lab - Main Lab Ordered By: Fadia Villanueva Basic Metabolic Panel (QMWF) Timeframe: [id number] Facility: [facility] - Location: Lab - Main Lab Ordered By: Fadia Villanueva Basic Metabolic Panel (QMWF) Timeframe: [id number] Facility: [facility] - Location: Lab - Main Lab Ordered By: Fadia Villanueva Basic Metabolic Panel (QMWF) Timeframe: 20210321 Facility: [facility] - Location: Lab - Main Lab Ordered By: Fadia Villanueva Basic Metabolic Panel (QMWF) Timeframe: [id number] Facility: [facility] - Location: Lab - Main Lab Ordered By: Fadia Villanueva Basic Metabolic Panel (QMWF) Timeframe: [id number] Facility: [facility] - Location: Lab - Main Lab Ordered By: Fadia Villanueva DME: Oxygen (Order) Location: None Selected Ordered By: Fadia Villanueva DME: Wheelchair (Order) Location: None Selected Ordered By: Fadia Villanueva Referrals: [facility] [Outside] Rosemarie Richmond MD [Physician] - 1 month (During the appointment with Kailey Kebede on Mar.10, they will set up a cardiology followup with Dr. Richmond to be seen in approx 1 month) Milan Mitchell DO [Primary Care Provider] - 03/11/21 1:40 pm (You have an appointment with Dr. Mitchell on March 11 at 1:40pm) Kailey Kebede FNP [Nurse Practitioner] - 03/10/21 11:00 am (You have a post procedure followup with RASHAD Mcconnell at [facility] on March 10 at 11:00am ) Discharge Diet: Cardiac, Diabetic and Low Salt Discharge Activity: Increase activity as tolerated and Oxygen as instructed Patient Instructions: Doxycycline (By mouth), Potassium Chloride (By mouth), Amoxicillin/Clavulanate Potassium (By mouth), Atorvastatin (By mouth), Polyethylene Glycol 3350 (By mouth), Calcium/Vitamin D Supplement (By mouth), Ascorbic Acid/Cyanocobalamin/Ferrous Fumarate (By mouth), Sacubitril/Valsartan (By mouth) (Entresto), Opioid Safety Activity Restrictions/Additional Instructions: Weight yourself daily. Follow instructions given to you by county surveyor. Discharge Attestations Time Spent in Discharge Care*: greater than 30 min Status at Discharge: Cognitive status at discharge: cognitively intact, Behavioral status at discharge: cooperative, Quality Metrics Clinical Quality Measures During this hospital stay, did patient experience: None Coding Level of Care Code Acute Chg FW DC note Diagnoses Acute on chronic systolic heart failure I50.23 Atherosclerosis of coronary artery of [place] heart without angina pectoris I25.10 Coronary Disease-Associated Artery/Lesion type: [place] artery Mitral valve regurgitation I34.0 Cardiac valve disease etiology: nonrheumatic Acute kidney injury superimposed on chronic kidney disease N17.9; N18.9 Acute exacerbation of chronic obstructive airways disease J44.1 Chronic atrial fibrillation I48.20
[2021-03-03 15:02] LABS: Vit D 1,25 (Oh)2, Total 54 pg/mL (18-72); Vit D2 1,25 (Oh)2 28 pg/mL; Vit D3 1,25 (Oh)2 26 pg/mL
== END 2021-03-03 18:52 | disposition home health service (06) | DRG 291 ==
LOC: ER 17:52 → CSU 18:36 → ICU 02-26 23:56 → CSU 02-28 20:55
PROVIDERS: Internal Medicine Nephrology; Admitting Provider Internal Medicine; Emergency Provider Emergency Medicine; PCP Family Medicine; Visit Provider Internal Medicine
DX: I13.0 Hypertensive heart and chronic kidney disease with heart failure and stage 1 through stage 4 chronic kidney disease, or unspecified chronic kidney disease (principal); I50.23 Acute on chronic systolic (congestive) heart failure; J96.22 Acute and chronic respiratory failure with hypercapnia; J96.21 Acute and chronic respiratory failure with hypoxia; J44.1 Chronic obstructive pulmonary disease with (acute) exacerbation; N17.9 Acute kidney failure, unspecified; I48.21 Permanent atrial fibrillation; L03.116 Cellulitis of left lower limb; Z68.41 Body mass index [BMI] 40.0-44.9, adult; N18.9 Chronic kidney disease, unspecified; E11.22 Type 2 diabetes mellitus with diabetic chronic kidney disease; E11.65 Type 2 diabetes mellitus with hyperglycemia; E78.5 Hyperlipidemia, unspecified; I25.10 Atherosclerotic heart disease of native coronary artery without angina pectoris; I08.0 Rheumatic disorders of both mitral and aortic valves; F17.210 Nicotine dependence, cigarettes, uncomplicated; Z99.89 Dependence on other enabling machines and devices; E87.5 Hyperkalemia; I42.9 Cardiomyopathy, unspecified; Z79.01 Long term (current) use of anticoagulants; Z79.02 Long term (current) use of antithrombotics/antiplatelets; Z79.84 Long term (current) use of oral hypoglycemic drugs; Z79.4 Long term (current) use of insulin; D50.9 Iron deficiency anemia, unspecified; E66.9 Obesity, unspecified
CPT/HCPCS: 36415; 36416; 36600; 51702; 71045; 74176; 78452; 80048; 80053; 80162; 81001; 81003; 82044; 82306; 82310; 82436; 82533; 82550; 82652; 82728; 82803; 82805; 82962; 83540; 83550; 83605; 83735; 83880; 83970; 84100; 84145; 84300; 84443; 84484; 85025; 86140; 86803; 87426; 93005; 93017; 93308; 94640; 94660; 96365; 96367; 96372; 96375; 97110; 97162; 97165; 97530; 97535; 99291; A9500; J0696; J1160; J1250; J1815; J1940; J2405; J2543; J2785; J2920; J2930; J3475; J3480; J3490; J7611; Q3014

== ENCOUNTER 2021-03-04 22:37 | Emergency (ER) | payer MEDICARE, MEDICAID, SELFPAY ==
[2021-03-04 22:37] VITALS: BP 121/63; PULSE 90; RESP 24; TEMP 36.6; O2SAT 90; BMI 39.1
[2021-03-04 23:39] VITALS: O2SAT 96
[2021-03-04 23:40] VITALS: O2SAT 94
[2021-03-04 23:45] VITALS: BP 118/74; O2SAT 95
[2021-03-04 23:50] VITALS: BP 100/71; O2SAT 92
[2021-03-04 23:55] VITALS: BP 100/71; O2SAT 89
[2021-03-05] VITALS (35 sets, daily range): BP systolic 92–124; BP diastolic 47–85; PULSE 82–93; RESP 21–28; O2SAT 78–99
--- NOTE | 2021-03-05 00:10 | PC.NURSE ---
Pt. is demanding a sandwich bag and a drink and states that I need to find her a nicotine patch. She also states How long does it take to get me a room somewhere!
--- NOTE | 2021-03-05 00:33 | W.ED.SOB ---
HPI - SOB/Dyspnea General: Chief Complaint: Shortness of Breath/Dyspnea Stated Complaint: SOB Time Seen by Provider: 03/04/21 22:49 History of Present Illness: HPI Narrative: 75-year-old female discharged from the hospital 2 days ago after an acute exacerbation of COPD. She represents, at baseline essentially, stating I am here so that I can get admitted to [facility] . She is not overly short of breath. She states this is been improved since admission. She has cellulitis to her lower legs, which she states is stable. She notes that she cannot take care of herself well at home, and she does not have any help there. This is why she would like [facility] to the [facility]. MD elicited complaint: shortness of breath Pertinent past history: COPD Context: recent illness Exacerbating factors: lying flat Relieving factors: oxygen Known history of: COPD and congestive heart failure Associated symptoms: Deny abdominal pain, chest pain or fever(s) Review of Systems Const: Denies: fever(s) Card: Denies: chest pain Resp: Denies: dyspnea (not above baseline. ) GI: Denies: abdominal pain PFSH ED PFSH: Medical History Acute exacerbation of CHF (congestive heart failure) Echocardiogram done January 2021 showed an EF of 40% with global LV hypokinesia, moderate , moderate MR Bifascicular bundle branch block Bilateral carpal tunnel syndrome CAD (coronary artery disease) Cellulitis, face Cellulitis, face Chronic pain due to injury COPD exacerbation DDD (degenerative disc disease) Diabetes Enrolled in chronic care management Hyperlipidemia Hypoglycemic episode in patient with diabetes mellitus Hypoxemia Impetigo contagiosa Insomnia Moderate aortic stenosis Moderate mitral regurgitation Renal disorder Sciatica associated with disorder of lumbar spine Transient retinal arterial occlusion, bilateral Type II respiratory failure Ulnar neuropathy of both upper extremities Wrist pain, acute Family History Other CAD (coronary artery disease) Chronic kidney disease (CKD) Denies family history of Cancer Social History Smoking and tobacco status: current every day smoker cigarettes Quit status (tobacco): has tried quititng Alcohol intake: never Adopted: No Caregiver/support person: No Lives independently: Yes Household members: family Housing: House Physical Exam Const: COMMON NORMALS: no acute distress, patient oriented x3 and alert Eye: COMMON NORMALS: Equal, round and reactive pupils present and EOMs intact bilaterally PUPIL: Yes Equal, round and reactive pupils present Resp: COMMON NORMALS: normal respiratory effort, No use of accessory muscles and clear to auscultation bilaterally AUSCULTATION: clear to auscultation bilaterally and diminished lung sounds Neuro: COMMON NORMALS: patient oriented x3 SENSORIUM/ORIENTATION: Yes alert Course Vital Signs: Vital signs: Vital Signs Temperature 97.9 F 03/04/21 22:37 Pulse Rate 90 03/04/21 22:37 Respiratory Rate 24 H 03/04/21 22:37 Blood Pressure 114/58 03/05/21 01:15 Pulse Oximetry 79 L 03/05/21 01:15 MDM - SOB/Dyspnea MDM Narrative: Medical decision making narrative: 75-year-old female who appears to be at her baseline breathing status. She presents to the ER, mainly with a social problem of not being able to take care of herself well at home. She [facility] the [facility]. It was discussed with her that this is difficult to make And with no social work help on a Sunday night at 11 PM. She was offered fci stay following her admission and discharged from the hospital 2 days ago. She declined, despite family urging her to do so. She will be allowed discharge. Case management referral has been placed to hopefully set up fci placement Sunday. Discharge Plan Discharge Patient Disposition: Home Clinical Impression: Acute exacerbation of chronic obstructive airways disease, Acute on chronic renal insufficiency Condition: Stable Prescriptions: No Action (DME) Accu-Chek Barbara Plus test strp Strip See Rx Instructions .ROUTE .MEDSUPPLY Qty: 400 RF: 3 (DME) lancets [Accu-Chek Multiclix Lancet] Misc See Rx Instructions .ROUTE .MEDSUPPLY Qty: 400 RF: 3 (DME) insulin syringe-needle U-100 [Advocate Syringes] 1 mL 30 gauge x 5/16 syringe See Rx Instructions .ROUTE .MEDSUPPLY Qty: 10 RF: 0 (DME) pen needle, diabetic [BD Ultra-Fine Short Pen Needle] 31 gauge x 5/16 needle See Rx Instructions .ROUTE .MEDSUPPLY Qty: 30 RF: 12 (DME) Diabetic Shoes and inserts See Rx Instructions .Route .MEDSUPPLY Qty: 1 RF: 3 (DME) blood-glucose meter [Accu-Chek Barbara Plus Meter] Misc See Rx Instructions .ROUTE .MEDSUPPLY Qty: 1 RF: 0 (DME) blood-glucose meter [Blood Glucose Monitoring] Kit See Rx Instructions .Route Qty: 1 RF: 0 (DME) Blood Glucose Test Strip See Rx Instructions .Route Qty: 400 RF: 3 ondansetron 4 mg tablet,disintegrating 4 mg PO Q8H PRN (Reason: nausea and vomiting) Qty: 30 RF: 11 (DME) insulin syringe-needle U-100 [BD Insulin Syringe] 0.5 mL 29 gauge x 1/2 syringe See Rx Instructions .Route Qty: 100 RF: 0 fexofenadine [Julia Allergy] 180 mg Tablet 180 mg PO DAILY RF: 0 acetaminophen 500 mg Tablet 1,000 mg PO Q4H PRN (Reason: Pain) RF: 0 fluticasone propionate 50 mcg/actuation [place],Suspension 1 spray INTRANASAL BID PRN (Reason: Allergy Symptoms) RF: 0 nitroglycerin 0.4 mg tablet, sublingual 0.4 mg SUBLINGUAL Q5M PRN (Reason: Chest Pain) RF: 0 gabapentin 300 mg capsule 300 mg PO BID Qty: 120 RF: 5 Hold Instructions: see pcp before resuming Ambien 5 mg Tablet 5 mg PO BEDTIME PRN (Reason: Insomnia) RF: 0 ferrous sulfate 325 mg (65 mg iron) Tablet,Delayed Release (Dr/Ec) 325 mg PO BREAKFAST 30 Days Qty: 30 RF: 0 Entresto 24-26 mg Tablet 1 tab PO BID 30 Days Qty: 60 RF: 0 polyethylene glycol 3350 17 gram Powder In Packet 17 g PO DAILY 30 Days Qty: 30 RF: 0 Vitamin D2 1,250 mcg (50,000 unit) Capsule 50,000 unit PO Q7D 14 Days Qty: 2 RF: 0 atorvastatin 80 mg tablet 80 mg PO DAILY 30 Days Qty: 30 RF: 0 potassium chloride 20 mEq tablet,ER particles/crystals 40 meq PO DAILY 30 Days Qty: 60 RF: 0 levothyroxine 137 mcg tablet 137 mcg PO QAM 30 Days Qty: 30 RF: 0 amiodarone 200 mg tablet 200 mg PO DAILY 30 Days Qty: 30 RF: 0 glipizide 5 mg tablet extended release 24hr 5 mg PO QAM 30 Days Qty: 30 RF: 0 donepezil 10 mg tablet 10 mg PO DAILY 30 Days Qty: 30 RF: 0 venlafaxine 150 mg capsule,extended release 24hr 75 mg PO QAM 30 Days Qty: 15 RF: 0 Plavix 75 mg tablet 75 mg PO QAM 30 Days Qty: 30 RF: 0 buspirone 10 mg tablet 10 mg PO BID PRN (Reason: anxiety) 30 Days Qty: 60 RF: 11 omeprazole 20 mg capsule,delayed release(DR/EC) 20 mg PO QAM 30 Days Qty: 30 RF: 0 mirtazapine 15 mg tablet 15 mg PO BEDTIME 30 Days Qty: 30 RF: 0 Humalog U-100 Insulin 100 unit/mL solution See Rx Instructions SUBCUT .COMPLEX 30 Days Qty: 10 RF: 0 calcitriol 0.25 mcg capsule 0.25 mcg PO DAILY 30 Days Qty: 30 RF: 0 Eliquis 2.5 mg tablet 2.5 mg PO BID 30 Days Qty: 60 RF: 0 Augmentin 875-125 mg tablet 1 tab PO BID 7 Days Qty: 14 RF: 0 doxycycline hyclate 100 mg tablet 100 mg PO BID 7 Days Qty: 14 RF: 0 Discharge Orders: Discharge ED (Routine); Ordered 03/05/21 Ordered By: Kash Arnold Referrals: Milan Mitchell DO [Primary Care Provider] - 1 month Patient Instructions: COPD (Chronic Obstructive Pulmonary Disease) (ED) Activity Restrictions/Additional Instructions: A case management referral has been placed for fci placement on Sunday. Until that time, admission to the hospital is not possible. Return for fever, mental status changes, worsening shortness of breath, other concerning symptoms. Coding Level of Care Code ED Spray Drier Operator Helper for Chg Fwd Exam Expanded Problem Focused
--- NOTE | 2021-03-05 02:04 | PC.NURSE ---
Pt. waiting on ride home. Pt. does not want to have the monitor on, and keeps pulling off chords. I have removed all wires to let patient sleep while waiting on transport.
--- NOTE | 2021-03-05 03:10 | PC.NURSE ---
Pt. up to bedside commode with nurse. no complaints at this time.
--- NOTE | 2021-03-05 04:51 | PC.NURSE ---
Pt. sitting in bed resting watching t.v. Pt. states that it is ridiculous that she has to wait so long for a transfer. Pt states that there used to be a good transfer service in [facility] but they apparently are no longer here. Pt. has no needs at this time.
--- NOTE | 2021-03-05 05:30 | PC.NURSE ---
Pt. fell asleep and her oxygen fell off. 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
--- NOTE | 2021-03-05 06:49 | PC.NURSE ---
Pt. fell asleep again and oxygen fell off again. I have put oxygen back on. Pt. has no other needs at this time and asks how much longer until she is transferred home.
--- NOTE | 2021-03-09 10:52 | DCPLANNER ---
manager support services had message to speak with patient about senior care placement. manager support services spoke with patient, she stated that she has called a senior care, and she can not afford to lose her check, so she does not want to go to a senior care. manager support services asked if patient had services in the home, and patient stated that she has [facility] coming into the home.
== END 2021-03-05 07:50 | disposition home or self-care (01) ==
PROVIDERS: Emergency Provider Emergency Medicine; PCP Family Medicine
DX: J44.1 Chronic obstructive pulmonary disease with (acute) exacerbation (principal); N18.9 Chronic kidney disease, unspecified; I25.10 Atherosclerotic heart disease of native coronary artery without angina pectoris; E11.9 Type 2 diabetes mellitus without complications; E78.5 Hyperlipidemia, unspecified; F17.210 Nicotine dependence, cigarettes, uncomplicated
CPT/HCPCS: 99283

== ENCOUNTER → 2021-03-14 08:35 | Outpatient (BNVA) | payer MEDICARE, MEDICAID, SELFPAY | PROVIDERS: PCP Family Medicine; Visit Provider Family Medicine | DX: I48.20 Chronic atrial fibrillation, unspecified (principal); N28.9 Disorder of kidney and ureter, unspecified; E11.65 Type 2 diabetes mellitus with hyperglycemia; Z79.4 Long term (current) use of insulin; I50.9 Heart failure, unspecified; L03.116 Cellulitis of left lower limb | CPT/HCPCS: 80053; 85025 ==

== ENCOUNTER → 2021-03-16 14:02 | Outpatient (BNVA) | payer MEDICARE, MEDICAID, SELFPAY | PROVIDERS: PCP Family Medicine; Visit Provider Family Medicine | DX: I50.20 Unspecified systolic (congestive) heart failure (principal); L03.116 Cellulitis of left lower limb | CPT/HCPCS: 80053 ==

== ENCOUNTER → 2021-03-21 13:00 | Outpatient (BNVA) | payer MEDICARE, MEDICAID, SELFPAY | PROVIDERS: PCP Family Medicine; Visit Provider Family Medicine | DX: I50.20 Unspecified systolic (congestive) heart failure (principal); L03.116 Cellulitis of left lower limb; J43.8 Other emphysema; F51.01 Primary insomnia | CPT/HCPCS: 80053 ==

== ENCOUNTER 2021-03-28 18:33 | Inpatient (IN) | payer MEDICARE, MEDICAID, SELFPAY ==
[2021-03-28] VITALS (13 sets, daily range): BP systolic 66–113; BP diastolic 43–86; PULSE 76–93; RESP 17–31; TEMP 36.4; O2SAT 94–98
--- NOTE | 2021-03-28 19:05 | XRR_ITS ---
PROCEDURE INFORMATION: Exam: XR Chest Exam date and time: 03/28/2021 7:05 PM Age: 76 years old Clinical indication: Shortness of breath; Additional info: Dyspnea TECHNIQUE: Imaging protocol: XR of the chest. Views: 1 view. COMPARISON: CR XR chest 1V portable [id number] 03/01/2021 6:24 AM FINDINGS: Lungs: Pulmonary vascular congestion. Bilateral mid to lower lung field mixed interstitial airspace infiltrates. Pleural spaces: Small right pleural effusion. Heart/Mediastinum: Cardiomegaly. Bones/joints: Unremarkable. XR/XR chest 1V portable [id number] IMPRESSION: 1. Cardiomegaly. 2. Small right pleural effusion. 3. Pulmonary vascular congestion. 4. Bilateral mid to lower lung field mixed interstitial airspace infiltrates. Radiation Dose CTDIVOL = (mGy): DLP = (mGy-cm)
--- NOTE | 2021-03-28 19:05 | ECG_ITS ---
[facility] Test Date: 2021-03-28 Pat Name: Balbina Martínez Department: Room: Gender: Female Inspector Tool: : 1945 Requested By: Lydia Lara Order Number: [id number] Mare MD: Rosemarie Richmond M.D. Measurements Intervals [place] Rate: 84 P: [place]: QRS: 134 QRSD: 140 T: -21 QT: 449 QTc: 532 Interpretive Statements ATRIAL FIBRILLATION RIGHT AXIS DEVIATION [QRS AXIS > 100] INTRAVENTRICULAR CONDUCTION DELAY [130+ ms QRS DURATION] POSSIBLE ANTERIOR MYOCARDIAL INFARCTION , PROBABLY OLD [30 ms Q WAVE IN V3/V4, OR R < 0.2 mV IN V4] Compared to ECG 02/27/2021 00:37:22 Myocardial infarct finding now present Electronically Signed On 03-28-2021 20:06:49 FINISHED CLOTH EXAMINER by Rosemarie Richmond M.D. [id number] f
--- NOTE | 2021-03-28 19:51 | ED_ITS ---
HPI - General Adult General: Chief complaint: Shortness of Breath/Dyspnea Stated complaint: DIFF BREATHING, FLUID IN CHEST Time Seen by Provider: 03/28/21 19:04 History of Present Illness: HPI narrative: CC: Dyspnea HPI: This is a [76] yo patient w/ hx of CHF presenting ot the ED with dyspnea and increased work of breathing x 4 days in the setting of increased weight gain and lower extremity swelling. Endorses of orthopnea and increased pillow usage at night. Denies chest pain, N/V, diaphoresis, shoulder pain pain or back pain. Patient has no fever/chill, or sputum production. No GI or other complaints. Denies any pleuritic chest pain, recent surgery/immobilization/travel, or hematemesis or hx of VTE in the past. Onset: 4 days ago Duration: ongoing for the last 4 days Location: home Severity: mild/moderate Review of Systems Narrative: Constitutional: No fever, no chills. HEENT: No vision changes CV: No chest pain, no palpitations PULM: No productive cough, +dyspnea GI: No abdominal pain, no N/V/D. : No dysuria MSKEL: No muscle pain, leg swelling SKIN: No new rashes, no lesions. NEURO: No headache, no focal weakness. HEME: No visible bruises PSYCH: Normal mood PFSH ED PFSH: Medical History Acute exacerbation of CHF (congestive heart failure) Echocardiogram done January 2021 showed an EF of 40% with global LV hypokinesia, moderate , moderate MR Bifascicular bundle branch block Bilateral carpal tunnel syndrome CAD (coronary artery disease) Cellulitis, face Cellulitis, face Chronic pain due to injury COPD exacerbation DDD (degenerative disc disease) Diabetes Enrolled in chronic care management Hyperlipidemia Hypoglycemic episode in patient with diabetes mellitus Hypoxemia Impetigo contagiosa Insomnia Moderate aortic stenosis Moderate mitral regurgitation Renal disorder Sciatica associated with disorder of lumbar spine Transient retinal arterial occlusion, bilateral Type II respiratory failure Ulnar neuropathy of both upper extremities Wrist pain, acute Family History Other CAD (coronary artery disease) Chronic kidney disease (CKD) Denies family history of Cancer Social History Quit status (tobacco): has quit using tobacco Year quit tobacco: 2020 Former quit date comment: 3ppd x 57 years Alcohol intake: never Adopted: No Caregiver/support person: No Lives independently: Yes Household members: family Housing: House Physical Exam Narrative: EXAM NARRATIVE: Head: Atraumatic Eyes: PERRL, conjunctiva without injection ENT: Mucous membrane moist NECK: Supple without lymphadenopathy, mild JVD LUNGS: Increased work of breathing, +diffuse crackles bilaterally. CV: RRR ABDOMEN: Soft, nontender in all quadrants EXTREMITY: Normal ROM, bilateral 2+ edema in the LE, no jyoti?s sign SKIN: No rash or erythema NEURO: Awake and alert. No focal motor deficits. PSYCH: Normal mood and affect. Procedures Central Line Placement Left Femoral: Time Out Performed: Yes Patient Placed on Monitor/Pulse Ox: Yes Prep: mask, gown and gloves Central Line Prep: Povidone-Iodine 1% Local Anesthetic: lidocaine 1% Amount of anesthesia used (mL): 5 Ultrasound Used for Placement: Yes Central Line Lumen Inserted: double Post Procedure: sutured in place and good blood return Post Procedure X-Ray: tip of catheter in good position Patient Tolerated Procedure: well Complications: none Additional Comments: dialysis catheter dual lumen in the L groin Course Vital Signs: Vital signs: Vital Signs Temperature 96.4 F L 03/29/21 04:00 Pulse Rate 82 03/29/21 06:03 Respiratory Rate 15 03/29/21 05:15 Blood Pressure 99/55 03/29/21 05:15 Pulse Oximetry 95 03/29/21 06:03 MDM - General Adult MDM Narrative: Medical decision making narrative: 76-year-old female presents emergency room with heart failure. Initially, patient had a blood pressure of 80/40 and will require peripheral norepinephrine to improve the blood pressure. Lab work showed a creatinine of 4.6. Potassium 5.7. Attempted to call telenephrology but was unsucessful. Given lasix in the ED. L femoral dialysis line placed. Case discussed Dr. Peace who agrees with ad mission. Patient continues to on norepinephrine for BP support. Patient is on BIPAP for CHF exacerbation Disposition: Admission Lab Data: Labs: Lab Results 03/28/21 03/28/21 03/28/21 19:25 19:25 19:25 WBC 7.2 10^3/uL 10^3/ uL (4.0-10.0) RBC 3.15 10^6/uL L 10 ^6/uL (4.1-5.3) Hgb 9.8 g/dL L g/dL (11.5-15.3) Hct 30.8 % L % (37.0-47.0) MCV 97.8 fl fl (81-99) MCH 31.1 pg pg (28.0-34.0) MCHC 31.8 g/dL g/dL (30.0-36.0) RDW 22.8 % H % (12.1-15.1) Plt Count 300 10^3/cmm 10^3 /cmm (130-400) MPV 10.5 fL H fL (7.4-10.4) Neut % (Auto) 74.7 % % Lymph % (Auto) 15.2 % % Page % (Auto) 7.1 % % Eos % (Auto) 1.7 % % Baso % (Auto) 0.6 % % Neut # (Auto) 5.38 10^3/uL 10^3 /uL (1.8-7.7) Lymph # (Auto) 1.1 10^3/uL 10^3/ uL (0.8-4.8) Page # (Auto) 0.5 10^3/uL 10^3/ uL (0.2-0.9) Eos # (Auto) 0.1 10^3/uL 10^3/ uL (0.0-0.8) Baso # (Auto) 0.0 10^3/uL 10^3/ uL (0.0-0.1) Nucleated RBC % (a uto) 0.8 % % Nucleated RBCs # 0.1 /100WBC /100W BC Sodium 131 mmol/L L mmol /L (136-145) Potassium 5.7 mmol/L H mmol /L (3.5-5.1) Chloride 92 mmol/L L mmol/ L (98-107) Carbon Dioxide 21 mmol/L L mmol/ L (22-29) Anion Gap 23.7 H (5-19) BUN 85 mg/dL H* mg/dL (8-23) Creatinine 4.6 mg/dL H mg/dL (0.5-0.9) GFR Calculation Not Reportable Glucose 84 mg/dL mg/dL (65-115) Calculated Osmolal ity 297 mOsm/kg H mOs m/kg (285-295) Calcium 8.0 mg/dL L mg/dL (8.5-10.5) Total Bilirubin 0.4 mg/dL mg/dL (0.15-1.2) AST 18 U/L U/L (0-32) ALT 14 U/L U/L (0-33) Alkaline Phosphata se 55 IU/L IU/L (35-105) Troponin T Baselin e 59 ng/L H ng/L (0-10) Troponin T 120 Min [place] Delta Troponin T NT-Pro-B Natriuret Pep 96488 pg/mL H pg/ mL (0-450) Total Protein 6.4 g/dL L g/dL (6.6-8.7) Albumin 3.8 g/dL g/dL (3.5-5.2) Globulin 2.6 g/dL g/dL (1.3-4.6) Lipase 147 U/L H U/L (13-60) Procalcitonin TSH SARS-CoV-2 Ag (Rap id) 03/28/21 03/28/21 03/28/21 19:25 20:15 21:32 WBC RBC Hgb Hct MCV MCH MCHC RDW Plt Count MPV Neut % (Auto) Lymph % (Auto) Page % (Auto) Eos % (Auto) Baso % (Auto) Neut # (Auto) Lymph # (Auto) Page # (Auto) Eos # (Auto) Baso # (Auto) Nucleated RBC % (a uto) Nucleated RBCs # Sodium Potassium Chloride Carbon Dioxide Anion Gap BUN Creatinine GFR Calculation Glucose Calculated Osmolal ity Calcium Total Bilirubin AST ALT Alkaline Phosphata se Troponin T Baselin e Troponin T 120 Min [place] 56.06 ng/L H ng/L (0-10) Delta Troponin T -2.94 ABS# L ABS# (0-10) NT-Pro-B Natriuret Pep Total Protein Albumin Globulin Lipase Procalcitonin 0.28 ng/mL ng/mL (0-0.5) TSH 3.36 uIU/mL uIU/m L (0.27-4.20) SARS-CoV-2 Ag (Rap id) Negative (Negative) Imaging Data^: Other Imaging: Radiologist's impression: [facility] [place], [place] [address]WPao ReportSigned Patient: Balbina Martínez #: [id number]: [id number]#:[id number]/Sex: 76 / FADM Date: 03/28/21Loc: ERRoom/Bed:Attending Dr: Ordering Provider/Ordering MD: Lydia Lara MD Date of Service: 03/28/21 Procedure(s): XR chest 1V portable [id number] Accession Number(s): [id number] Report Number: [id number] PROCEDURE INFORMATION: Exam: XR Chest Exam date and time: 03/28/2021 7:05 PM Age: 76 years old Clinical indication: Shortness of breath; Additional info: Dyspnea TECHNIQUE: Imaging protocol: XR of the chest. Views: 1 view. COMPARISON: CR XR chest 1V portable [id number] 03/01/2021 6:24 AM FINDINGS: Lungs: Pulmonary vascular congestion. Bilateral mid to lower lung field mixed interstitial airspace infiltrates. Pleural spaces: Small right pleural effusion. Heart/Mediastinum: Cardiomegaly. Bones/joints: Unremarkable. XR/XR chest 1V portable [id number] IMPRESSION: 1. Cardiomegaly. 2. Small right pleural effusion. 3. Pulmonary vascular congestion. 4. Bilateral mid to lower lung field mixed interstitial airspace infiltrates. Radiation Dose CTDIVOL = (mGy): DLP = (mGy-cm) Dictated By:Jeffry Rodriguez MDSigned By:Jeffry Rodriguez MDSigned Date/Time:03/28/211945DD/ 04 Discharge Plan Discharge Patient Disposition: Admitted As Inpatient Admit Provider: Evaristo Peace Clinical Impression: Pulmonary edema, CHF exacerbation, Hypotension, Acute renal failure (ARF), Acute hyperkalemia Condition: Stable Coding Level of Care Code ED Marine Cargo Specialist for Flo Riggs
[2021-03-28 19:53] LABS: Basophils % 0.6 %; Eosinophils # 0.1 10^3/uL (0.0-0.8); Eosinophils % 1.7 %; Hematocrit 30.8 % (37.0-47.0); Hemoglobin 9.8 g/dL (11.5-15.3); Lymphocytes # 1.1 10^3/uL (0.8-4.8); Lymphocytes % 15.2 %; Mean Corpuscular HGB Conc 31.8 g/dL (30.0-36.0); Mean Corpuscular Hemoglobin 31.1 pg (28.0-34.0); Mean Corpuscular Volume 97.8 fl (81-99); Mean Platelet Volume 10.5 fL (7.4-10.4); Monocytes # 0.5 10^3/uL (0.2-0.9); Monocytes % 7.1 %; Neutrophils # 5.38 10^3/uL (1.8-7.7); Neutrophils % 74.7 %; Nucleated Red Blood Cells # 0.1 /100WBC; Nucleated Red Blood Cells % 0.8 %; Platelet Count 300 10^3/cmm (130-400); Red Blood Count 3.15 10^6/uL (4.1-5.3); Red Cell Distribution Width 22.8 % (12.1-15.1); White Blood Count 7.2 10^3/uL (4.0-10.0)
[2021-03-28 20:06] LABS: Troponin(5th) Baseline 59 ng/L (0-10)
[2021-03-28 20:11] LABS: Alanine Aminotransferase 14 U/L (0-33); Albumin Level 3.8 g/dL (3.5-5.2); Alkaline Phosphatase 55 IU/L (35-105); Anion Gap 23.7 (5-19); Aspartate Amino Transferase 18 U/L (0-32); Carbon Dioxide 21 mmol/L (22-29); Chloride 92 mmol/L (98-107); Globulin 2.6 g/dL (1.3-4.6); Glucose 84 mg/dL (65-115); Lipase 147 U/L (13-60); NT Pro B Type Natriuretic Pept 18837 pg/mL (0-450); Osmolality Calculated 297 mOsm/kg (285-295); Potassium 5.7 mmol/L (3.5-5.1); Sodium 131 mmol/L (136-145); Total Bilirubin 0.4 mg/dL (0.15-1.2); Total Protein 6.4 g/dL (6.6-8.7)
[2021-03-28 20:20] LABS: Blood Urea Nitrogen 85 mg/dL (8-23)
[2021-03-28] MEDS: nicotine 14 mg Patch 1 PATCH TRANSDERMA (20:27)
[2021-03-28] MEDS: midodrine 5 mg TABLET 10 MG PO (20:28)
[2021-03-28] MEDS: HYDROmorphone 1 mg/mL INJ 1 mL 0.5 MG IVP (20:50)
--- NOTE | 2021-03-28 21:05 | ECG_ITS ---
[facility] Test Date: 2021-03-28 Pat Name: Balbina Martínez Department: Room: ICU11 Gender: Female Court Officer: : 1945 Requested By: Lydia Lara Order Number: [id number] Mare MD: Misha Campos M.D. Measurements Intervals [place] Rate: 85 P: UT: QRS: 177 QRSD: 134 T: -14 QT: 427 QTc: 509 Interpretive Statements ATRIAL FIBRILLATION WITH ABERRANT CONDUCTION OR VENTRICULAR PREMATURE COMPLEXES INTRAVENTRICULAR CONDUCTION DELAY [130+ ms QRS DURATION] ANTEROLATERAL MYOCARDIAL INFARCTION , PROBABLY OLD [40+ ms Q WAVE IN I/aVL/V3-V6] Compared to ECG 03/28/2021 19:01:13 Ventricular premature complex(es) now present Aberrant conduction of supraventricular beat(s) now present Right-axis deviation no longer present Myocardial infarct finding still present Electronically Signed On 03-30-2021 17:47:46 MICROWAVE RADIO TECHNICIAN by Misha Campos M.D. [id number] f
--- NOTE | 2021-03-28 21:13 | P.HP_ITS ---
Providers/Chief Complaint Primary Care Provider: Milan Mitchell DO Chief Complaint: DIFF BREATHING, FLUID IN CHEST History of Present Illness Balbina Martínez is a 76 year old female was multiple comorbid conditions presented today with chief complaint of not been able to urinate for last 4 days. Patient is stating that for last 1 month she has been treated with 5-6 different antibiotics for left leg cellulitis and edema. She is not sure about the name of the medications but stating that she did not spike any fever, she did not stress any chest pain, seizure-like activities, strokelike symptoms however she is endorsing orthopnea, PND, weight gain. She is endorsing diarrhea, she is vaccinated for COVID-19, she takes care of her sister who has special needs. Recently has lost her appetite. EMS was called for worsening shortness of breath. In the ER she was diagnosed with acute on chronic kidney disease, uremia however no active uremic encephalopathy pericarditis or skin symptoms were noted potassium 5.7, dialysis catheter was placed by Dr. Lara Telemetry nephro was contacted multiple times, awaiting response Patient was hypotensive, she was started on Levophed which was titrated off in the ER, she was put on BiPAP to decrease work of breathing as well she seemed to have CHF exacerbation with fluid overload, pulmonary edema, She was given midodrine, Lasix 80 mg IVP Patient is stating that despite taking Lasix she has not noticed any output Patient is vaccinated for COVID-19 I do see Bactrim as a home medication she also takes Entresto I have requested stat CT abdomen pelvis to rule obstructive uropathy Review of Systems Const: Reports: chills, body aches and fatigue; Denies: fever(s) Eyes: Denies: change in vision ENMT: Denies: throat pain Card: Reports: swelling of feet/ankles, lightheadedness, dyspnea on exertion and orthopnea; Denies: chest pain Resp: Reports: dyspnea GI: Denies: abdominal pain : Reports: urinary hesitancy; Denies: flank pain Musc: Denies: neck pain Skin/Breast: Reports: new lesions Neuro: Denies: headache(s) Psych: Denies: anxiety Endo: Denies: polyuria Kris/Lymph: Denies: easy bruising All/Imm: Denies: urticaria Medications/Allergies Home Medications Medication Instructions Recorded Confirmed Last Taken Type blood sugar diagnostic #400 each 11/28/19 03/21/21 Unknown Rx lancets #400 each 11/28/19 03/21/21 Unknown Rx pen needle, diabetic 31 gauge x #30 each 04/26/20 03/21/21 Unknown Rx 5/16 insulin syringe-needle U-100 1 mL #10 ea 07/21/20 03/21/21 Unknown History 30 gauge x 5/16 Diabetic Shoes and inserts #1 ea 11/30/20 03/21/21 Unknown Rx blood-glucose meter #1 each 12/08/20 03/21/21 Unknown Rx blood sugar diagnostic #400 ea 12/23/20 03/21/21 Unknown Rx blood-glucose meter #1 ea 12/23/20 03/21/21 Unknown Rx acetaminophen 1,000 mg PO Q4H PRN 01/26/21 03/21/21 Unknown History gabapentin 300 mg capsule 300 mg PO BID #120 cap 01/29/21 03/21/21 02/25/21 08:00 Rx insulin syringe-needle U-100 0.5 #100 ea 02/14/21 03/21/21 Unknown Rx mL 29 gauge x 1/2 Eliquis 2.5 mg PO BID 30 Days #60 tab 03/03/21 03/21/21 Unknown Rx amiodarone 200 mg PO DAILY 30 Days #30 tab 03/03/21 03/21/21 Unknown Rx clopidogrel [Plavix] 75 mg PO QAM 30 Days #30 tab 03/03/21 03/21/21 Unknown Rx donepezil 10 mg PO DAILY 30 Days #30 tab 03/03/21 03/21/21 Unknown Rx ferrous sulfate 325 mg PO BREAKFAST 30 Days #30 tab 03/03/21 03/21/21 Unknown Rx glipizide 5 mg PO QAM 30 Days #30 tab 03/03/21 03/21/21 Unknown Rx levothyroxine 137 mcg PO QAM 30 Days #30 tab 03/03/21 03/21/21 Unknown Rx omeprazole 20 mg PO QAM 30 Days #30 cap 03/03/21 03/21/21 Unknown Rx sacubitril-valsartan [Entresto] 1 tab PO BID 30 Days #60 tab 03/03/21 03/21/21 Unknown Rx venlafaxine 75 mg PO QAM 30 Days #15 cap 03/03/21 03/21/21 Unknown Rx furosemide 40 mg tablet 40 mg PO BID #60 tab 03/11/21 03/21/21 Unknown Rx diltiazem HCl 180 mg 180 mg PO DAILY 03/14/21 03/21/21 Unknown History capsule,extended release 24 hr lactobacillus combination no.4 3 3,000 mmu cells PO DAILY 03/14/21 03/21/21 Unknown History billion cell capsule nitroglycerin 0.4 mg sublingual 0.4 mg SUBLINGUAL Q5M PRN #25 tab 03/14/21 03/21/21 Unknown Rx tablet zolpidem 5 mg tablet 5 mg PO BEDTIME PRN #30 tab 03/14/21 03/21/21 Unknown Rx ipratropium 0.5 mg-albuterol 3 mg 3 ml INHALATION QID 30 Days #360 ml 03/16/21 03/21/21 Unknown Rx (2.5 mg base)/3 mL nebulization soln metolazone 2.5 mg tablet 2.5 mg PO DAILY 30 Days #30 tab 03/16/21 03/21/21 Unknown Rx potassium chloride 20 mEq 20 meq PO DAILY 30 Days #60 tab 03/16/21 03/21/21 Unknown Rx tablet,extended release(part/cryst) wheel chair #1 ea 03/18/21 03/21/21 Unknown Rx sulfamethoxazole 800 1 tab PO BID #20 tab 03/21/21 03/21/21 Unknown Rx mg-trimethoprim 160 mg tablet insulin lispro 100 unit/mL See Rx Instructions SUBCUT 03/23/21 Unknown Rx subcutaneous solution .COMPLEX 30 Days #10 ml Allergies Allergy/AdvReac Type Severity Reaction Status Date / Time pentazocine [From Petros] Allergy Intermediate hives Verified 03/16/21 13:52 latex Allergy Mild itching Verified 03/16/21 13:52 morphine Allergy Unknown ADR-Itching Verified 03/16/21 13:52 PFSH Acute PFSH: Medical History Acute exacerbation of CHF (congestive heart failure) Echocardiogram done January 2021 showed an EF of 40% with global LV hypokinesia, moderate , moderate MR Bifascicular bundle branch block Bilateral carpal tunnel syndrome CAD (coronary artery disease) Cellulitis, face Cellulitis, face Chronic pain due to injury COPD exacerbation DDD (degenerative disc disease) Diabetes Enrolled in chronic care management Hyperlipidemia Hypoglycemic episode in patient with diabetes mellitus Hypoxemia Impetigo contagiosa Insomnia Moderate aortic stenosis Moderate mitral regurgitation Renal disorder Sciatica associated with disorder of lumbar spine Transient retinal arterial occlusion, bilateral Type II respiratory failure Ulnar neuropathy of both upper extremities Wrist pain, acute Family History Other CAD (coronary artery disease) Chronic kidney disease (CKD) Denies family history of Cancer Social History Quit status (tobacco): has quit using tobacco Year quit tobacco: 2020 Former quit date comment: 3ppd x 57 years Alcohol intake: never Adopted: No Caregiver/support person: No Lives independently: Yes Household members: family Housing: House Vitals/I&O/Wt Last Vital Signs Temp 97.5 F L 03/28/21 18:39 Pulse 84 03/28/21 20:33 Resp 18 03/28/21 20:50 BP 98/76 03/28/21 20:33 Pulse Ox 98 03/28/21 20:33 03/28/21 03/28/21 03/28/21 06:59 14:59 22:59 Intake Total 1.016 / 1.016 Balance 1.016 / 1.016 Physical Exam Narrative: EXAM NARRATIVE: Morbidly obese female Appears stated age Clinical signs of fluid overload Purulent cellulitis of left lower leg Currently on BiPAP EOMI, PERRLA Nonfocal neuro exam Awake and alert S1, S2, variable Blood pressure has improved on Levophed Distended abdomen, with obesity, nontender Surgical scar madalyn noted Data : 03/28/21 19:25 03/28/21 19:25 A&P Assessment and plan (1) Pulmonary edema: Status: Acute (2) CHF exacerbation: Status: Acute (3) Hypotension: Status: Acute (4) Acute hyperkalemia: Status: Acute (5) Acute kidney injury superimposed on chronic kidney disease: Status: Acute (6) Heart failure with reduced ejection fraction: Status: Acute (7) COPD (chronic obstructive pulmonary disease): Status: Acute Qualifiers: COPD type: emphysema Emphysema type: other Qualified Code(s): J43.8 - Other emphysema (8) Cellulitis of left lower extremity: Status: Acute (9) Chronic atrial fibrillation: Status: Acute Additional A&P Information Anuria Acute on chronic kidney failure Seems secondary to use of nephrotoxic agent such as Bactrim, Entresto Patient also is fluid overloaded, mild acidosis, anion gap is high secondary to uremia Hyperkalemia: Secondary to hypoglycemia I will hold off on insulin for now, giving her 1 amp of D50, giving her Kayexalate and calcium gluconate Dialysis catheter placed by Dr. Serrano Stat nephro consult, multiple voicemails left, pending callback Patient does not have uremic encephalopathy or uremic pericarditis Acute CHF exacerbation Systolic congestive heart failure 01/27/2021 echo showed ejection fraction 40%, 02/26/2021 echo shows EF 15 to 20% however at the same visit stress test was done which showed ejection fraction around 40%, repeat echo in the morning Pulmonary edema evident on chest x-ray Hold off on diuretics for now, she is anuric has not responded very well to diuretics and metolazone Secondary to hypotension holding diuretics for now Cardiogenic shock Fluid overloaded, pulmonary edema low blood pressure which improved with vasopressors, norepinephrine has been titrated off in the ER patient is awake and alert no active chest pain, stress test 01/30 showed reversibility in apical region suggestive of myocardial scarring in distribution of right coronary artery with jorge l-infarct ischemia at that time ejection fraction was read as 46% Check TSH Left leg cellulitis: Avoid nephrotoxic agents Would use doxycycline for now She is not septic Type 2 diabetes: Renal dialysis diet with sliding scale A. fib without RVR Would use reduced dose of Eliquis Renal dialysis diet Full code She is vaccinated for COVID-19 Hold nephrotoxic agents BiPAP to decrease work of breathing and relief from edema Attestations Medical Necessity Statement*: Anticipating more than 2 midnights Time Spent in Patient Care: Greater than 35 minutes Coding Level of Care Code Acute Sap Project Manager for Flo Fwd Diagnoses Pulmonary edema J81.1 CHF exacerbation I50.9 Hypotension I95.9 Acute hyperkalemia E87.5 Acute kidney injury superimposed on chronic kidney disease N17.9; N18.9 Heart failure with reduced ejection fraction I50.20 COPD (chronic obstructive pulmonary disease) J43.8 COPD type: emphysema Emphysema type: other Cellulitis of left lower extremity L03.116 Chronic atrial fibrillation I48.20
[2021-03-28 21:20] LABS: SARS Covid-2 Antigen Negative (Negative)
[2021-03-28 22:11] LABS: Troponin 5 2HR 56.06 ng/L (0-10)
[2021-03-28 22:19] LABS: Troponin 5 2HR Delta -2.94 ABS# (0-10)
--- NOTE | 2021-03-28 22:39 | PC.NURSE ---
Provider Mu placed dialysis catheter to L femoral. Pt tolerated well. Mu ordered that it is ok to use for medications.
--- NOTE | 2021-03-28 23:22 | CTR_ITS ---
PROCEDURE INFORMATION: Exam: CT Abdomen And Pelvis Without Contrast Exam date and time: 03/28/2021 11:22 PM Age: 76 years old Clinical indication: Other: Anuria TECHNIQUE: Imaging protocol: Computed tomography of the abdomen and pelvis without contrast. Radiation optimization: All CT scans at this facility use at least one of these dose optimization techniques: automated exposure control; mA and/or kV adjustment per patient size (includes targeted exams where dose is matched to clinical indication); or iterative reconstruction. COMPARISON: CT abdomen pelvis wo con [id number] 02/26/2021 2:56 PM RADIATION DOSE METRICS: Total DLP (mGy-cm): 1283.39 FINDINGS: Heart: Mildly enlarged heart. Coronary atherosclerotic calcifications seen. No pericardial effusion. Liver: The liver demonstrates volume redistribution and nodular contour, consistent with cirrhosis. No discrete mass lesion seen. Gallbladder and bile ducts: Normal. No calcified stones. No ductal dilation. Pancreas: Normal. No ductal dilation. Spleen: Normal. No splenomegaly. Adrenal glands: There is bilateral thickening of the adrenal glands, suggestive of hyperplasia. Kidneys and ureters: The left kidney demonstrates lobulated contour, and focal areas of volume loss with marked cortical thinning involving mainly the left lower lobe, consistent with chronic scarring. Unchanged left lower kidney cysts, the largest measuring 2.5 cm. Stomach and bowel: Surgical changes noted in the proximal gastric cavity. Appendix: No evidence of appendicitis. Intraperitoneal space: Trace amount of ascites is present. Vasculature: Moderate diffuse atherosclerotic disease is present. Lymph nodes: Unremarkable. No enlarged lymph nodes. Urinary bladder: The urinary bladder is decompressed with a Rodriguez catheter in place. Reproductive: Unremarkable as visualized. Bones/joints: Degenerative changes of the spine seen. Soft tissues: There is stranding of the subcutaneous tissues, consistent with edema. Anterior abdominal wall surgical changes seen. There is a small bilateral pleural effusions with adjacent atelectasis, right greater than left. Pneumonia should be excluded clinically. CT/CT abdomen pelvis wo con [id number] IMPRESSION: 1. No acute intra-abdominal or intrapelvic pathology. 2. Anasarca, manifested by bilateral pleural effusions, subcutaneous edema and trace ascites. 3. Bibasilar atelectasis. Pneumonia should be excluded clinically. COMMENTS: Consistent with the [employer]'s Incidental Findings Committee white paper (J Am Radha Radiol 2018): Any incidental renal lesion less than 1 cm or classified as too small to characterize, or any incidental cystic renal lesion characterized as simple-appearing, is likely benign. No follow-up imaging is recommended for these lesions per consensus recommendations based on imaging criteria. Radiation Dose CTDIVOL = (mGy): DLP = 1283.39 (mGy-cm)
--- NOTE | 2021-03-28 23:49 | P.CONIM_ITS ---
Providers/Reason For Consult Consulting Physician/Specialty*: Nephro Reason for Consult*: Renal Failure Attending Physician: Evaristo Peace MD Primary Care Provider: Milan Mitchell DO History of Present Illness History of Present Illness Thank you for consultation, today at the pleasure reviewing this pleasant 76-year-old female. Communication was challenging as she is currently on BiPAP and has difficulty hearing me, however, she is awake, she is lucid, she is conversant. She was recently hospitalized, discharged on 03/03/2021 with CHF and pneumonia, I do see that she was discharged on Entresto in addition to her other medications, ejection fraction was 15-20%, severe mitral regurgitation is moderate aortic stenosis and she transiently required dobutamine and diuresis. Her care was complicated by cellulitis of her left leg which required intravenous antibiotics including Rocephin. On 03/06 she was admitted through the emergency room to be taken care of in a half-way. She was seen via telemedicine by her litigation claim representative for emphysema. She now presents reporting that she has not passed urine for the last couple days, she was found to be severely hypotensive, she was short of breath, fluid overloaded, dialysis catheter was placed and she was placed on BiPAP and started on Levophed. Blood pressure was down at 77 and as low as 57 systolic. Rodriguez catheter was placed, minimal urine output. She has overtly abnormal labs as well. The time of discharge serum creatinine was 1.9, today on admission it is 4.6 mg/dL. She denies any additional cdwh-sxf-xbcxdro medications including anti- inflammatory medicines etc. Review of Systems General: Reports: ROS unobtainable due to medical condition Meds/Allergies Home Medications and Allergies Home Medications Medication Instructions Recorded Confirmed Last Taken Type blood sugar diagnostic #400 each 11/28/19 03/21/21 Unknown Rx lancets #400 each 11/28/19 03/21/21 Unknown Rx pen needle, diabetic 31 gauge x #30 each 04/26/20 03/21/21 Unknown Rx 09/19 insulin syringe-needle U-100 1 mL #10 ea 07/21/20 03/21/21 Unknown History 30 gauge x 5/16 Diabetic Shoes and inserts #1 ea 11/30/20 03/21/21 Unknown Rx blood-glucose meter #1 each 12/08/20 03/21/21 Unknown Rx blood sugar diagnostic #400 ea 12/23/20 03/21/21 Unknown Rx blood-glucose meter #1 ea 12/23/20 03/21/21 Unknown Rx acetaminophen 1,000 mg PO Q4H PRN 01/26/21 03/21/21 Unknown History gabapentin 300 mg capsule 300 mg PO BID #120 cap 01/29/21 03/21/21 02/25/21 08:00 Rx insulin syringe-needle U-100 0.5 #100 ea 02/14/21 03/21/21 Unknown Rx mL 29 gauge x 1/2 Eliquis 2.5 mg PO BID 30 Days #60 tab 03/03/21 03/21/21 Unknown Rx amiodarone 200 mg PO DAILY 30 Days #30 tab 03/03/21 03/21/21 Unknown Rx clopidogrel [Plavix] 75 mg PO QAM 30 Days #30 tab 03/03/21 03/21/21 Unknown Rx donepezil 10 mg PO DAILY 30 Days #30 tab 03/03/21 03/21/21 Unknown Rx ferrous sulfate 325 mg PO BREAKFAST 30 Days #30 tab 03/03/21 03/21/21 Unknown Rx glipizide 5 mg PO QAM 30 Days #30 tab 03/03/21 03/21/21 Unknown Rx levothyroxine 137 mcg PO QAM 30 Days #30 tab 03/03/21 03/21/21 Unknown Rx omeprazole 20 mg PO QAM 30 Days #30 cap 03/03/21 03/21/21 Unknown Rx sacubitril-valsartan [Entresto] 1 tab PO BID 30 Days #60 tab 03/03/21 03/21/21 Unknown Rx venlafaxine 75 mg PO QAM 30 Days #15 cap 03/03/21 03/21/21 Unknown Rx furosemide 40 mg tablet 40 mg PO BID #60 tab 03/11/21 03/21/21 Unknown Rx diltiazem HCl 180 mg 180 mg PO DAILY 03/14/21 03/21/21 Unknown History capsule,extended release 24 hr lactobacillus combination no.4 3 3,000 mmu cells PO DAILY 03/14/21 03/21/21 Unknown History billion cell capsule nitroglycerin 0.4 mg sublingual 0.4 mg SUBLINGUAL Q5M PRN #25 tab 03/14/21 03/21/21 Unknown Rx tablet zolpidem 5 mg tablet 5 mg PO BEDTIME PRN #30 tab 03/14/21 03/21/21 Unknown Rx ipratropium 0.5 mg-albuterol 3 mg 3 ml INHALATION QID 30 Days #360 ml 03/16/21 03/21/21 Unknown Rx (2.5 mg base)/3 mL nebulization soln metolazone 2.5 mg tablet 2.5 mg PO DAILY 30 Days #30 tab 03/16/21 03/21/21 Unknown Rx potassium chloride 20 mEq 20 meq PO DAILY 30 Days #60 tab 03/16/21 03/21/21 Unknown Rx tablet,extended release(part/cryst) wheel chair #1 ea 03/18/21 03/21/21 Unknown Rx sulfamethoxazole 800 1 tab PO BID #20 tab 03/21/21 03/21/21 Unknown Rx mg-trimethoprim 160 mg tablet insulin lispro 100 unit/mL See Rx Instructions SUBCUT 03/23/21 Unknown Rx subcutaneous solution .COMPLEX 30 Days #10 ml Allergies Allergy/AdvReac Type Severity Reaction Status Date / Time pentazocine [From Petros] Allergy Intermediate hives Verified 03/16/21 13:52 latex Allergy Mild itching Verified 03/16/21 13:52 morphine Allergy Unknown ADR-Itching Verified 03/16/21 13:52 Current Medications Current Medications Generic Name Dose Route Start Last Admin Trade Name Freq PRN Reason Stop Dose Admin Norepinephrine Bitartrate 4 mg 254 mls @ 0 mls/hr 03/28/21 19:15 03/28/21 22:08 / Dextrose IV 8 mcg/min .Q0M DINAH 30.48 mls/hr Titration Protocol Per Protocol PFSH Acute PFSH: Medical History Acute exacerbation of CHF (congestive heart failure) Echocardiogram done January 2021 showed an EF of 40% with global LV hypokinesia, moderate , moderate MR Bifascicular bundle branch block Bilateral carpal tunnel syndrome CAD (coronary artery disease) Cellulitis, face Cellulitis, face Chronic pain due to injury COPD exacerbation DDD (degenerative disc disease) Diabetes Enrolled in chronic care management Hyperlipidemia Hypoglycemic episode in patient with diabetes mellitus Hypoxemia Impetigo contagiosa Insomnia Moderate aortic stenosis Moderate mitral regurgitation Renal disorder Sciatica associated with disorder of lumbar spine Transient retinal arterial occlusion, bilateral Type II respiratory failure Ulnar neuropathy of both upper extremities Wrist pain, acute Family History Other CAD (coronary artery disease) Chronic kidney disease (CKD) Denies family history of Cancer Social History Quit status (tobacco): has quit using tobacco Year quit tobacco: 2020 Former quit date comment: 3ppd x 57 years Alcohol intake: never Adopted: No Caregiver/support person: No Lives independently: Yes Household members: family Housing: House Vitals/I&O/Wt Last Vital Signs Temp 97.5 F L 03/28/21 18:39 Pulse 80 03/28/21 22:54 Resp 18 03/28/21 22:54 BP 108/62 03/29/21 00:06 Pulse Ox 98 03/28/21 22:54 03/28/21 03/28/21 03/29/21 14:59 22:59 06:59 Intake Total 36.957 / 36.957 Balance 36.957 / 36.957 Physical Exam Narrative: EXAM NARRATIVE: Constitutional: Awake, comfortable HEENT: Wet mucosa, elevated jvp, non icteric Lungs: Bilaterally rales in all lung zones CVS: S1 S2, no murmurs Abdo: Soft, BS ok Ext 4: 2-3+ edema, peripheral perfusion with no cyanosis Neurological: Grossly non-focal Urinary Catheter Management^: Rodriguez: Cath Placed During This Visit: yes Urinary Catheter Date of Insertion: 03/28/21 Urinary Catheter Time of Insertion: 22:55 A&P Additional A&P Information 1. Renal failure Consistent with her history of cardiorenal syndrome from low ejection fraction and now significant shock. As she is currently anuric, dependent on BiPAP, will proceed with some dialysis over the next few hours. We will use 2K bath, ultrafilter 3 L if she can tolerate this with vasopressor support. No anatomical findings on CT abdomen. When urine is available we will send for microscopy, fractional excretion of sodium. Will get CPK, uric acid level. Strict I's and O's Avoid usual nephrotoxic agents Dose medication for GFR less than 15 on dialysis. 2. Chemistry An array of abnormalities including hyponatremia hypokalemia, anion gap metabolic acid. Will check lactic acid level, likely secondary to renal failure and uremia. Dialysis should help as should tissue perfusion with vasopressor agents. 3. Respiratory distress on BiPAP Hypoxic on admission, hypercarbic, pH 7.33 On BiPAP, management per the ICU team. 4. Hemodynamics Shock, likely cardiogenic shock given recent echocardiogram findings. Will involve cardiology in the morning, potentially repeat echocardiogram to see if there are any new or additional changes. Will get random cortisol level. Not obviously from sepsis. Management per ICU team. Thank you for consultation Madi Hernandez MD Nephrology [phone] Patient seen and examined via telemedicine, with the assistance of the bedside RN > 25 min spent in evaluation and mgmt of patient Consult Attestations Other Attestations: Other Attestations: Patient seen and examined on 03/28 at 11:55pm Coding Level of Care Code Acute Gear Milling Machine Set Up Operator for Flo Riggs
[2021-03-29] VITALS (98 sets, daily range): BP systolic 70–125; BP diastolic 38–93; PULSE 68–113; RESP 10–30; TEMP 33.4–36.8; O2SAT 87–99
--- NOTE | 2021-03-29 00:06 | PC.NURSE ---
Varnish Filterer called on tele-med.
[2021-03-29] MEDS: dextrose 50% syringe 50 mL 25 ML IVP ×3 (00:09→08:45)
[2021-03-29] MEDS: calcium gluconate 0.1 gm/mL 10% SDV 10mL 1 GM IVP (00:09)
[2021-03-29] MEDS: insulin regular-human 10 UNIT in SYRINGE 1 EACH IVP (00:10)
--- NOTE | 2021-03-29 00:39 | PC.NURSE ---
Called Dr. Peace because pt asks for more pain medication. Informed him that she is allergic to morphine. After discussion, he orders no pain medication due to her kidney failure. Pt advised and she verbalized understanding.
[2021-03-29 01:00] LABS: Procalcitonin 0.28 ng/mL (0-0.5); Thyroid Stimulating Hormone 3.36 uIU/mL (0.27-4.20)
--- NOTE | 2021-03-29 01:05 | ECG_ITS ---
[facility] Test Date: 2021-03-29 Pat Name: Balbina Martínez Department: Room: ICU11 Gender: Female Box Person: : 1945 Requested By: Lydia Lara Order Number: [id number] Mare MD: Misha Campos M.D. Measurements Intervals Conroy Rate: 85 P: GA: QRS: 158 QRSD: 141 T: -9 QT: 420 QTc: 501 Interpretive Statements ATRIAL FIBRILLATION INTRAVENTRICULAR CONDUCTION DELAY [130+ ms QRS DURATION] LATERAL MYOCARDIAL INFARCTION , PROBABLY OLD [40+ ms Q WAVE AND/OR ST/T ABNORMALITY IN I/aVL/V5/V6] Compared to ECG 03/28/2021 23:59:26 Ventricular premature complex(es) no longer present Aberrant conduction of supraventricular beat(s) no longer present Myocardial infarct finding still present Electronically Signed On 03-30-2021 17:46:54 NURSERY MANAGER by Misha Campos M.D. [id number]
[2021-03-29 01:40] LABS: Creatinine Urine, Random 76 mg/dL (28-217)
[2021-03-29 01:47] LABS: Urine Random Sodium 12 mmol/L
[2021-03-29 01:54] LABS: Glucose Point of Care 114 mg/dL (70-110)
--- NOTE | 2021-03-29 01:54 | USCV_ITS ---
Balbina Martínez Age: 76 Gender: F : 1945 Exam Date: 03/29/2021 14:42 Ordering Phys: Evaristo Peace MD Technologist: Trung Lester Exam Location: [facility] [place] Indication: CHF EX BP: 99 / 55 HR: Rhythm: Sinus Technical Quality: Adequate MEASUREMENTS (Male / Female) Normal Values 2D ECHO LV Diastolic Diameter PLAX 5.9 cm 4.2 - 5.9 / 3.9 - 5.3 cm LV Systolic Diameter PLAX 5.1 cm IVS Diastolic Thickness 0.7 cm 0.6 - 1.0 / 0.6 - 0.9 cm IVS Systolic Thickness 0.7 cm LVPW Diastolic Thickness 1.4 cm 0.6 - 1.0 / 0.6 - 0.9 cm LVPW Systolic Thickness 1.6 cm LVOT Diameter 2.0 cm LV Ejection Fraction 2D Teich 26.7 % LV Ejection Fraction MOD 2C 32.0 % LV Ejection Fraction 2C AL 33.0 % LA Diameter 4.3 cm LA Width 3.6 cm LA Height 4.9 cm RA Width 4.2 cm RA Height 5.1 cm Aorta at Sinotubular Diameter 2.2 cm FINDINGS Left Ventricle Right Ventricle Right Atrium Left Atrium Mitral Valve Aortic Valve Tricuspid Valve Pulmonic Valve Pericardium Aorta CONCLUSIONS Limited echocardiogram to assess LV systolic function. Left ventricle is mildly dilated. LV systolic function is severely reduced with EF of 20 to 25%. Severe global hypokinesis is seen. Biatrial enlargement. Thickened aortic and mitral valves. Compared to prior echocardiogram from 02/26/2021, no significant changes are seen. Misha Campos MD (Electronically Signed) Final Date: 30 March 2021 09:36 S
[2021-03-29] MEDS: sodium polystyrene sulfonate 15 gm/60 mL Btl PO (02:09)
[2021-03-29 02:13] LABS: Bilirubin Urine 2+ (Negative); Blood Urine 3+ (Negative); Glucose Urine UA Norm (Normal); Ketones Urine Negative (Negative); Nitrate Urine Negative (Negative); Protein Urine Trace (Negative); Specific Gravity, Urine 1.015 (1.005-1.030); Urine Appearance Hazy (CLEAR); Urine Color Yellow (Yellow); pH Urine 5 (5-7)
[2021-03-29 02:14] LABS: Add Urine Culture? Yes; Add Urine Microscopic? YES; Leukocyte Esterase Urine 2+ (Negative); RBC Urine TOO NUMEROUS TO CNT /hpf (0-2); Squamous Epithelial Cell Urine 0-4 /hpf (0-5); Urobilinogen Urine Neg (Negative); WBC Urine TOO NUMEROUS TO CNT /hpf (0-5)
--- NOTE | 2021-03-29 02:27 | PC.NURSE ---
Received pt from ED on 15L NRB, tolerating well. AOx4. Oriented to room, call light within reach. Levo titrated per protocol. Placed on bipap per RT, tolerated well. Belongings in room. All questions/comments/concerns addressed.
[2021-03-29 02:48] LABS: Troponin 5 6HR 55.66 ng/L (0-10); Troponin 5 6HR Delta -3.34 ng/L (0-12)
[2021-03-29 02:50] LABS: Phosphorus 7.1 mg/dL (2.5-4.5); Uric Acid 14.3 mg/dL (2.4-5.7)
[2021-03-29 02:51] LABS: Lactate (Lactic Acid level) 1.6 mmol/L (0.5-2.2)
[2021-03-29 03:13] LABS: Creatine Phosphokinase 68 U/L (26-192)
--- NOTE | 2021-03-29 03:28 | PC.NURSE ---
Atiya, yarn bleaching machine operator, called to request certain labs to be drawn prior to HD treatment. Orders placed.
[2021-03-29 04:45] LABS: Basophils % 0.4 %; Eosinophils # 0.1 10^3/uL (0.0-0.8); Eosinophils % 1.3 %; Hematocrit 29.2 % (37.0-47.0); Hemoglobin 8.9 g/dL (11.5-15.3); Lymphocytes % 9.5 %; Mean Corpuscular HGB Conc 30.5 g/dL (30.0-36.0); Mean Corpuscular Hemoglobin 31.2 pg (28.0-34.0); Mean Corpuscular Volume 102.5 fl (81-99); Mean Platelet Volume 10.4 fL (7.4-10.4); Monocytes # 0.9 10^3/uL (0.2-0.9); Monocytes % 8.5 %; Neutrophils # 8.13 10^3/uL (1.8-7.7); Neutrophils % 79.4 %; Nucleated Red Blood Cells # 0.1 /100WBC; Nucleated Red Blood Cells % 0.6 %; Platelet Count 265 10^3/cmm (130-400); Red Blood Count 2.85 10^6/uL (4.1-5.3); Red Cell Distribution Width 22.9 % (12.1-15.1); White Blood Count 10.2 10^3/uL (4.0-10.0)
[2021-03-29] MEDS: levothyroxine 137 mcg Tablet PO (05:03)
[2021-03-29 05:30] LABS: Alanine Aminotransferase 14 U/L (0-33); Albumin Level 3.3 g/dL (3.5-5.2); Alkaline Phosphatase 53 IU/L (35-105); Anion Gap 23.4 (5-19); Aspartate Amino Transferase 16 U/L (0-32); Blood Urea Nitrogen 80 mg/dL (8-23); C Reactive Protein 16.1 mg/L (0.0-4.9); Carbon Dioxide 20 mmol/L (22-29); Chloride 94 mmol/L (98-107); Glucose 86 mg/dL (65-115); Magnesium 2.6 mg/dL (1.7-2.3); Osmolality Calculated 297 mOsm/kg (285-295); Potassium 5.4 mmol/L (3.5-5.1); Sodium 132 mmol/L (136-145); Total Bilirubin 0.4 mg/dL (0.15-1.2); Total Protein 6.3 g/dL (6.6-8.7)
[2021-03-29 07:31] LABS: Hepatitis B Surface AB 3.5 (11.5-1000); Hepatitis B Surface Antigen Non-Reactive (Nonreactive)
[2021-03-29 08:04] LABS: Glucose Point of Care 84 mg/dL (70-110)
[2021-03-29 08:34] LABS: Glucose Point of Care 68 mg/dL (70-110)
[2021-03-29] MEDS: sennosides-docusate Tablet 1 TAB PO (08:45)
[2021-03-29] MEDS: DOBUTamine drip 500 MG/250 ML PREMIX 16.94 MG IV ×2 (09:41→21:09)
[2021-03-29 09:52] LABS: Glucose Point of Care 139 mg/dL (70-110)
[2021-03-29] MEDS: FUROsemide 10 mg/mL SDV 10mL 60 MG IVP (09:59)
[2021-03-29] MEDS: cefTRIAXone 1,000 MG in sodium chloride 0.9% (plus) 50 ML 100 MG IV (11:24)
[2021-03-29] MEDS: enoxaparin 120 mg/0.8 mL Syringe 110 MG SUBCUT (11:25)
[2021-03-29] MEDS: oxyCODONE-APAP 5-325 mg Tablet 1 TAB PO ×3 (11:43→22:56)
[2021-03-29 11:50] LABS: Glucose Point of Care 159 mg/dL (70-110)
--- NOTE | 2021-03-29 12:23 | PM.PN ---
Subjective Subjective: Interval history: Seen and examined on hemodialysis today. Breathing is improved, comfortable on 3 L nasal cannula and off BiPAP. Hemodynamics maintained using a Levophed infusion. She is comfortable at this time. Vitals/I&O/Wt Last Vital Signs Temp 96.4 F L 03/29/21 04:00 Pulse 82 03/29/21 06:03 Resp 24 H 03/29/21 11:43 BP 99/55 03/29/21 05:15 Pulse Ox 93 03/29/21 11:43 03/28/21 03/29/21 03/29/21 22:59 06:59 14:59 Intake Total 36.957 / 36.957 151.326 / 188.283 70.803 / 70.803 Output Total 120 / 120 Balance 36.957 / 36.957 31.326 / 68.283 70.803 / 70.803 Weight last 48 hrs Weight 112.945 kg Weight 112.945 kg Physical Exam Narrative: EXAM NARRATIVE: Constitutional: Awake, comfortable HEENT: Wet mucosa, elevated jvp, non icteric Lungs: Bilaterally rales in all lung zones CVS: S1 S2, no murmurs Abdo: Soft, BS ok Ext 4: 2-3+ edema, peripheral perfusion with no cyanosis Neurological: Grossly non-focal Urinary Catheter Management^: Rodriguez: Cath Placed During This Visit: yes Reason for Continuing Indwelling Catheter: Accurate Measurement of Urinary Output in Critically Ill Patients Urinary Catheter Date of Insertion: 03/28/21 Urinary Catheter Time of Insertion: 22:55 Data : 03/29/21 04:22 03/29/21 04:22 A&P Additional A&P Information 1. Renal failure Consistent with her history of cardiorenal syndrome from low ejection fraction and now significant shock. Seen on dialysis Plan for daily evalaution for dialysis needs Lasix 60mg ivp x 1today Strict I's and O's Avoid usual nephrotoxic agents Dose medication for GFR less than 15 on dialysis. 2. Chemistry An array of abnormalities including hyponatremia hypokalemia, anion gap metabolic acid. Will check lactic acid level, likely secondary to renal failure and uremia. Dialysis should help as should tissue perfusion with vasopressor agents. Follow up labs after dialysis today 3. Respiratory distress on BiPAP Hypoxic on admission, hypercarbic, pH 7.33 BiPAP transitioned to 3L NC 4. Hemodynamics Shock, likely cardiogenic shock given recent echocardiogram findings. Will involve cardiology in the morning, potentially repeat echocardiogram to see if there are any new or additional changes. Add Dobutamine infusion today also Thank you for consultation Madi Hernandez MD Nephrology [phone] Patient seen and examined via telemedicine, with the assistance of the bedside RN > 25 min spent in evaluation and mgmt of patient Attestations Medical Necessity Statement*: eval for RAMU Coding Level of Care Code Acute Wad Printing Machine Operator for Flo Riggs
--- NOTE | 2021-03-29 13:46 | P.PN_ITS ---
Subjective Subjective: Interval history: Patient was seen and examined this morning completed hemodialysis session today. SOB has improved, comfortable on 3 L nasal cannula. Her other vitals and labs have been reviewed. Medications: Reviewed: Yes Vitals/I&O/Wt Last Vital Signs Temp 96.4 F L 03/29/21 04:00 Pulse 82 03/29/21 06:03 Resp 24 H 03/29/21 11:43 BP 99/55 03/29/21 05:15 Pulse Ox 93 03/29/21 11:43 03/28/21 03/29/21 03/29/21 22:59 06:59 14:59 Intake Total 36.957 / 36.957 151.326 / 188.283 120.803 / 120.803 Output Total 120 / 120 Balance 36.957 / 36.957 31.326 / 68.283 120.803 / 120.803 Weight last 48 hrs Weight 112.945 kg Weight 112.945 kg Physical Exam Const: COMMON NORMALS: patient oriented x3 HENMT: COMMON NORMALS: normocephalic and atraumatic HEAD & SCALP: normocephalic and atraumatic Chest: CHEST: Yes Symmetrical chest wall rise Resp: OTHER: Bilateral crackles in both the lungs fairly Cardio: COMMON NORMALS: regular rate, regular rhythm, S1 normal heart sound present, S2 normal heart sound present, No gallops present (Cardio), No murmurs present (Cardio), No rub (Cardio) and Peripheral pulses 2+ throughout RATE: regular rate RHYTHM: regular rhythm HEART SOUNDS: S1 normal heart sound present and S2 normal heart sound present PERIPHERAL PULSES: Peripheral pulses 2+ throughout GI: COMMON NORMALS: Normal to inspection, nondistended, normoactive bowel sounds present, Soft to palpation, non-tender, No hepatosplenomegaly present and no masses AUSCULTATION: Yes normoactive bowel sounds PALPATION: Yes Soft to palpation and Yes No hepatosplenomegaly present RECTAL EXAM: deferred Extremity: NARRATIVE EXTREMITY EXAM: 2-3+ bilateral lower extremity pitting edema Neuro: COMMON NORMALS: patient oriented x3 Urinary Catheter Management^: Rodriguez: Cath Placed During This Visit: yes Reason for Continuing Indwelling Catheter: Accurate Measurement of Urinary Output in Critically Ill Patients Urinary Catheter Date of Insertion: 03/28/21 Urinary Catheter Time of Insertion: 22:55 Data : 03/29/21 04:22 03/29/21 04:22 A&P Assessment and plan (1) Pulmonary edema: Status: Acute (2) CHF exacerbation: Status: Acute (3) Hypotension: Status: Acute (4) Acute hyperkalemia: Status: Acute (5) Acute kidney injury superimposed on chronic kidney disease: Status: Acute (6) Heart failure with reduced ejection fraction: Status: Acute (7) COPD (chronic obstructive pulmonary disease): Status: Acute Qualifiers: COPD type: emphysema Emphysema type: other Qualified Code(s): J43.8 - Other emphysema (8) Cellulitis of left lower extremity: Status: Acute (9) Chronic atrial fibrillation: Status: Acute Additional A&P Information Anuria Acute on chronic kidney failure Seems secondary to use of nephrotoxic agent such as Bactrim, Entresto Patient also is fluid overloaded, mild acidosis, anion gap is high secondary to uremia Hyperkalemia: Secondary to hypoglycemia I will hold off on insulin for now, giving her 1 amp of D50, giving her Kayexalate and calcium gluconate Status post left femoral dialysis catheter. Status post hemodialysis. Appreciate nephrology consult Acute CHF exacerbation Systolic congestive heart failure 01/27/2021 echo showed ejection fraction 40%, 02/26/2021 echo shows EF 15 to 20% however at the same visit stress test was done which showed ejection fraction a round 40%repeat echo in the morning Pulmonary edema evident on chest x-ray Hold off on diuretics for now, she is anuric has not responded very well to diuretics and metolazone Secondary to hypotension holding diuretics for now Cardiogenic shock Fluid overloaded, pulmonary edema low blood pressure stress test 01/30 showed reversibility in apical region suggestive of myocardial scarring in distribution of right coronary artery with jorge l-infarct ischemia at that time ejection fraction was read as 46% On dobutamine drip as well as Levophed. Check TSH Left leg cellulitis: On ceftriaxone 1 g IV daily UTI: Follow urine culture Type 2 diabetes: Renal dialysis diet with sliding scale A. fib without RVR Would use reduced dose of Eliquis Renal dialysis diet Full code She is vaccinated for COVID-19 Hold nephrotoxic agents BiPAP to decrease work of breathing and relief from edema Attestations Medical Necessity Statement*: Patient needs to be in hospital for management of cardiogenic shock, and renal failure. Critical Care Time: The high probability of a clinically significant, sudden or life threatening deterioration of the patient's [] system(s) required my full and direct attention, intervention and personal management. The critical care time is as shown. This time is in addition to time spent performing any reported procedures but includes the following: [x] Data and vital sign review and interpretation [x] Patient assessment, examination and intervention [x] Documentation [x] Medication orders and management Critical Care Time (min): 45 Coding Level of Care Code Acute Design/Animation Instructor for [facility] Fwd Diagnoses Pulmonary edema J81.1 CHF exacerbation I50.9 Hypotension I95.9 Acute hyperkalemia E87.5 Acute kidney injury superimposed on chronic kidney disease N17.9; N18.9 Heart failure with reduced ejection fraction I50.20 COPD (chronic obstructive pulmonary disease) J43.8 COPD type: emphysema Emphysema type: other Cellulitis of left lower extremity L03.116 Chronic atrial fibrillation I48.20
--- NOTE | 2021-03-29 14:22 | PC.PHAR ---
Addendum entered by Velma Rhodes 03/29/21 14:34: PTS MED LIST FROM [facility] HAS FLOMAX ON HOLD RX LAST FILLED 02/25/21 30D/S Original Note: PT UNABLE TO VERIFY MEDICATIONS-MEDICATIONS ENTERED ARE MEDS ON THE PTS HOME HEALTH FROM [facility] AND WHAT THE PHARMACY HAS FILLED RECENTLY-NOTES ARE MADE IN THE PHARMACY COMMENTS-RX FILLED ON 03/21/21 30D/S FOR ZOCOR 40MG DAILY-LIPITOR 80MG FILLED ON 03/03/21 30D/S [facility] STATES THE LIPITOR IS ON HOLD LIPITOR IS ON [facility] MED LIST BUT ZOCOR WAS FILLED LAST DISCHARGE ORDER 03/03/21 DCED ZOCOR-RX FILLED ON 03/21/21 FENOFIBRATE 145MG DAILY-PTS DISCHARGE PAPERS FROM 03/03/21 SHOWS THIS MEDICATION DCED-MEDICATION NOT ON MED LIST FROM [facility]
[2021-03-29 17:26] LABS: Glucose Point of Care 239 mg/dL (70-110)
[2021-03-29] MEDS: insulin lispro 100 unit/1 mL SUBCUT (18:09)
--- NOTE | 2021-03-29 20:00 | PC.NURSE ---
Report received. Patient assessed, linens dirty with food, changed. Patient had small bm, cleaned. Patient's temp noted to be 92.2 axillary, warm blankets applied. Patient AOx4. Levo, dobutamine infusing per protocol.
--- NOTE | 2021-03-29 20:03 | PM.ACPR ---
Acute Procedures Central Line Placement^: Right Femoral: Time out performed: Yes Patient placed on monitor/pulse ox: Yes MD prep: mask, gown and gloves Central line prep: Povidone-Iodine 1% Local anesthesia used: lidocaine 1% Ultrasound used for placement: Yes Central line lumen inserted: triple Post procedure: sutured in place, good blood return, all ports aspirated, flushed, capped and sterile dressing applied Patient tolerated procedure: well Complications: none
[2021-03-29 22:19] LABS: Glucose Point of Care 181 mg/dL (70-110)
[2021-03-29] MEDS: diphenhydrAMINE 50 mg/mL SDV 1mL IVP (22:55)
[2021-03-29] MEDS: ondansetron 2 mg/ML SDV 2 mL 4 MG IVP (22:56)
[2021-03-30] VITALS (99 sets, daily range): BP systolic 56–141; BP diastolic 25–107; PULSE 0–123; RESP 12–93; TEMP 36.2–36.4; O2SAT 73–98
[2021-03-30] MEDS: oxyCODONE-APAP 5-325 mg Tablet 1 TAB PO ×4 (03:14→15:22)
[2021-03-30 04:18] LABS: Basophils % 0.6 %; Eosinophils # 0.1 10^3/uL (0.0-0.8); Eosinophils % 2.1 %; Hematocrit 26.7 % (37.0-47.0); Lymphocytes # 0.8 10^3/uL (0.8-4.8); Lymphocytes % 11.3 %; Mean Corpuscular Hemoglobin 30.9 pg (28.0-34.0); Mean Corpuscular Volume 103.1 fl (81-99); Mean Platelet Volume 10.5 fL (7.4-10.4); Monocytes # 0.5 10^3/uL (0.2-0.9); Monocytes % 7.3 %; Neutrophils # 5.32 10^3/uL (1.8-7.7); Neutrophils % 78.1 %; Nucleated Red Blood Cells % 0 %; Platelet Count 204 10^3/cmm (130-400); Red Blood Count 2.59 10^6/uL (4.1-5.3); White Blood Count 6.8 10^3/uL (4.0-10.0)
[2021-03-30 04:29] LABS: Alanine Aminotransferase 11 U/L (0-33); Albumin Level 3.1 g/dL (3.5-5.2); Alkaline Phosphatase 49 IU/L (35-105); Aspartate Amino Transferase 12 U/L (0-32); Blood Urea Nitrogen 63 mg/dL (8-23); Calcium 8.2 mg/dL (8.5-10.5); Carbon Dioxide 23 mmol/L (22-29); Chloride 92 mmol/L (98-107); Globulin 2.9 g/dL (1.3-4.6); Glucose 173 mg/dL (65-115); Magnesium 2.4 mg/dL (1.7-2.3); Osmolality Calculated 290 mOsm/kg (285-295); Phosphorus 6.8 mg/dL (2.5-4.5); Sodium 129 mmol/L (136-145); Total Bilirubin 0.3 mg/dL (0.15-1.2)
[2021-03-30] MEDS: levothyroxine 137 mcg Tablet PO (05:50)
--- NOTE | 2021-03-30 06:07 | PC.NURSE ---
Notified Dr. Wong re: hypotension, suggested vasopressin for additional blood pressure support, physician agreed, titrated per protocol.
[2021-03-30 07:31] LABS: Coronavirus Test Green County Not Detected
--- NOTE | 2021-03-30 07:34 | P.PN_ITS ---
Subjective Subjective: Interval history: states she is feeling better. weak, wheezing, cough, on multiple pressers Medications: Reviewed: Yes Medication Review Details: Current Medications Albuterol/Ipratropium (Ipratropium-Albuterol 3 Ml Neb) 3 ml INHALATION Q6H PRN PRN Reason: SHORTNESS OF BREATH Dextrose (Dextrose 50% Syringe 50 Ml) 25 ml IVP ONCE PRN; Protocol PRN Reason: hypoglycemia protocol Last Admin: 03/29/21 08:45 Dose: 25 ml Documented by: Dextrose (Dextrose 50% Syringe 50 Ml) 50 ml IVP PRN PRN; Protocol PRN Reason: hypoglycemia protocol Enoxaparin Sodium (Enoxaparin 120 Mg/0.8 Ml Syringe) 110 mg SUBCUT Q24H DINAH Last Admin: 03/29/21 11:25 Dose: 110 mg Documented by: Furosemide (Furosemide 10 Mg/Ml Sdv 10ml) 60 mg IVP ONCE DINAH Last Admin: 03/29/21 09:59 Dose: 60 mg Documented by: Glucagon (Glucagon 1 Mg/Ml Inj 1 Ml) 1 mg IM ONCE PRN; Protocol PRN Reason: Adult Acute Hypoglycemia Prot. Norepinephrine Bitartrate 4 mg (/ Dextrose) 254 mls @ 0 mls/hr IV .Q0M DINAH; Protocol Last Titration: 03/30/21 06:00 Dose: 15 mcg/min, 57.15 mls/hr Documented by: Dextrose (D5w) 500 mls @ 100 mls/hr IV ONCE PRN; Protocol PRN Reason: Adult Acute Hypoglycemia Prot Dobutamine HCl/Dextrose (Dobutamine Drip) 500 mg in 250 mls @ 16.942 mls/hr IV .[id number] DINAH Last Admin: 03/29/21 21:09 Dose: 5 mcg/kg/min, 16.94 mls/hr Documented by: Ceftriaxone Sodium 1,000 mg/ (Sodium Chloride) 50 mls @ 100 mls/hr IV Q24H DINAH; Protocol Last Infusion: 03/29/21 11:50 Dose: Infused Documented by: Vasopressin 100 unit/ Sodium (Chloride) 100 mls @ 0 mls/hr IV .Q0M PRN; Protocol PRN Reason: 0 Insulin Human Lispro (Insulin Lispro 100 Unit/1 Ml) 0 unit SUBCUT TIDWM DINAH; Protocol Last Admin: 03/29/21 18:09 Dose: 6 unit Documented by: Levothyroxine Sodium (Levothyroxine 137 Mcg Tablet) 137 mcg PO QAM DINAH Last Admin: 03/30/21 05:50 Dose: 137 mcg Documented by: Ondansetron HCl (Ondansetron 2 Mg/Ml Sdv 2 Ml) 4 mg IVP Q6H PRN PRN Reason: NAUSEA AND VOMITING Last Admin: 03/29/21 22:56 Dose: 4 mg Documented by: Oxycodone/Acetaminophen (Oxycodone-Apap 5-325 Mg Tablet) 1 tab PO Q4H PRN PRN Reason: MODERATE PAIN Last Admin: 03/30/21 03:14 Dose: 1 tab Documented by: Senna/Docusate Sodium (Sennosides-Docusate Tablet) 1 tab PO DAILY DINAH Last Admin: 03/29/21 08:45 Dose: 1 tab Documented by: Vitals/I&O/Wt Last Vital Signs Temp 97.2 F L 03/30/21 00:00 Pulse 93 03/30/21 06:00 Resp 29 H 03/30/21 06:00 BP 91/68 03/30/21 06:00 Pulse Ox 82 L 03/30/21 06:00 03/29/21 03/30/21 03/30/21 22:59 06:59 14:59 Intake Total 1048.245 / 1952.245 517.652 / 2469.897 Output Total 4500 / 4500 75 / 4575 Balance -3451.755 / -2547.755 442.652 / -2105.103 Weight last 48 hrs Weight 109.316 kg Weight 109.4 kg Weight 112.945 kg Weight 112.945 kg Physical Exam Narrative: EXAM NARRATIVE: on vasopressin, levophed, dobutamine BP low heent- nc/at , eomi heart- reg, +JELENA lung- wheezing b/l abd soft, nt, nd, + bs ext - + asymetrical leg edema neuro- a,a, o x 3, poor hearing Urinary Catheter Management^: Rodriguez: Cath Placed During This Visit: yes Reason for Continuing Indwelling Catheter: Accurate Measurement of Urinary Output in Critically Ill Patients Urinary Catheter Date of Insertion: 03/28/21 Urinary Catheter Time of Insertion: 22:55 Data : 03/30/21 03:00 03/30/21 03:00 A&P Additional A&P Information 76 yr old female w/ mixed cardiogenic and septic shock 1. Renal failure Consistent with her history of cardiorenal syndrome from low ejection fraction and now significant shock. S/P HD yesterday -repeat HD today 3.5 hr, 2k, remove 2l as tolerated. 1a. RAMU -likely from CRS and infection/ ATN -phos binder 1b. CKD stage 3b/4- baseline cr approx 2-CRS and CT scan revealed -Multiple areas of focal cortical scarring in the left kidney. 2 cysts in the left kidney are stable, the larger measures 2.2 cm. 2. acute on chronic systolic CHF- EF 15-20%, moderate MR and moderate - further care per CArdiology -hold dobutamine. stress test #1. Myocardial perfusion imaging revealing moderate area of persistent decreased tracer uptake in the inferior, apical lateral and LV apex with subtle area of reversibility in the apical region, suggestive of myocardial scarring in the distribution of the right coronary artery with a very small area of jorge l-infarction ischemia. #2. Slightly diminished LV ejection fraction of 46%. #3. LV wall motion analysis revealing diffuse hypokinesia of the septum and inferior wall region. #4. Moderately dilated LV cavity with an end-systolic volume of 103 mL 3. Q uti- abx per medicine 4. hypothyroidism- check tsh 5. hyponatremia- monitor w/ HD- from RAMU and CHF 6. DM -per medicine 7. bone - mineral- metabolism of CKF- cont calcitriol, pth is 220, normal ca -phos 5.4- we lowered calcitriol dose and started a phos binder -replace vit d 8. anemia - hgb was 12 on last hospitalization, now hgb 8- check iron studies Patient seen and examined via telemedicine, with the assistance of the bedside RN > 25 min spent in evaluation and mgmt of patient discussed w/ Dr. Chapman Attestations Medical Necessity Statement*: chf, ramu, presser dep, uti Time Spent in Patient Care: Greater than 35 minutes (>than 50% of time spent in counselling and/or direct pt care on unit) . Coding Level of Care Code Acute Urgent Care Physician Assistant for Flo Riggs
[2021-03-30 08:28] LABS: Glucose Point of Care 243 mg/dL (70-110)
[2021-03-30] MEDS: insulin lispro 100 unit/1 mL SUBCUT ×2 (08:57→17:56)
[2021-03-30 09:20] LABS: Thyroid Stimulating Hormone 1.54 uIU/mL (0.27-4.20)
[2021-03-30 09:28] LABS: Hepatitis B Surface AB 3.5 (11.5-1000); Hepatitis B Surface Antigen Non-Reactive (Nonreactive); Hepatitis C Virus Antibody Non-Reactive (Nonreactive)
[2021-03-30] MEDS: ondansetron 2 mg/ML SDV 2 mL 4 MG IVP (09:49)
--- NOTE | 2021-03-30 10:04 | PC.CHAP ---
Pastoral Care Encounter/Spiritual Assessment Type of Contact [] Declined patient placement coordinator visit [] Patient/Family/Request visit [] Outpatient visit [] Follow-up visit [] Physician referral [] Code/Alert [x] Routine visit [] Staff referral [] Actively dying [] Patient sleeping [] Family support [] [] Out of room [] Palliative care [] [] Receiving care in room [] Pre-surgical visit [] Trauma [] Long length of stay [x] ICU visit [] Other: Relational/Emotional Strength [] Patient feels connected with others/family/visitors/staff [] Distress [] Loneliness/isolation [] Abandonment Spirituality of Patient [] Person of [place] [] Attends Voodoo of their [place] [] Believes in Prayer [] Reads Bible or Yazidism materials [] There are Spiritual issues to be addressed [employer] Interventions [x] Prayer [x] Active listening [x] Non-anxious presence [x] Spiritual/emotional support [] Crisis/trauma care [] Spiritual counseling [] Bereavement support [] Provided bereavement packet [] Provided Bible/devotional materials [] Provided toy/stuffed animal, coloring book to patient or family member [] Provided Communion [] Anointing/[place] [] Salvation [x] Completed spiritual assessment [] Other: Impact on Illness or Injury [] Angry [] Fearful [] Anxious [] Often cries [] Exhaustion [] Unable to work [] Unable to attend synagogue [] Unable to walk/stand [] Unable to read [] Unable to drive [] Unable to eat/drink [] Unable to sleep [] Unable to be with family [] Patient intubated [] Other: Summary patient having breakfast.. feeding herself, and wanting to improve... will strive to be well Time spent with patient 5 min
[2021-03-30] MEDS: norepinephrine 8 MG in dextrose 5 % 500 ML 60.96 MG IV (10:42)
[2021-03-30 11:32] LABS: Glucose Point of Care 139 mg/dL (70-110)
[2021-03-30] MEDS: heparin, porcine 1,000 unit/mL INJ 10 mL 10000 UNIT HE (13:46)
[2021-03-30] MEDS: enoxaparin 120 mg/0.8 mL Syringe 110 MG SUBCUT (14:31)
[2021-03-30] MEDS: cefTRIAXone 1,000 MG in sodium chloride 0.9% (plus) 50 ML 100 MG IV (14:32)
--- NOTE | 2021-03-30 14:43 | ECG_ITS ---
[facility] Test Date: 2021-03-30 Pat Name: Balbina Martínez Department: Room: ICU11 Gender: Female Supervisor Assembling: : 1945 Requested By: Evaristo Peace Order Number: [id number] Mare MD: Misha Campos M.D. Measurements Intervals V[place]al Rate: 97 P: MI: QRS: -77 QRSD: 139 T: 91 QT: 389 QTc: 496 Interpretive Statements ATRIAL FIBRILLATION WITH ABERRANT CONDUCTION OR VENTRICULAR PREMATURE COMPLEXES INTRAVENTRICULAR CONDUCTION DELAY [130+ ms QRS DURATION] INFERIOR MYOCARDIAL INFARCTION , PROBABLY OLD [40+ ms Q WAVE AND/OR ST/T ABNORMALITY IN II/aVF] ANTEROLATERAL MYOCARDIAL INFARCTION , OF INDETERMINATE AGE [40+ ms Q WAVE IN I/aVL/V3-V6] Compared to ECG 03/29/2021 01:56:33 Ventricular premature complex(es) now present Aberrant conduction of supraventricular beat(s) now present Myocardial infarct finding still present Electronically Signed On 03-30-2021 17:35:11 PACKAGE DYEING MACHINE OPERATOR by Misha Campos M.D. [id number]
[2021-03-30 17:36] LABS: Glucose Point of Care 252 mg/dL (70-110)
[2021-03-30] MEDS: norepinephrine 8 MG in dextrose 5 % 500 ML 45.72 MG IV (18:28)
--- NOTE | 2021-03-30 19:14 | PC.NURSE ---
1215 Reported low blood pressure to Dr. Chapman. Orders to increase max dose of Levo to 30 mcg [address] Chapman to report patient's c/o chest pain. EKG obtained. 1500 Dr. Chapman at bedside. Patient states chest pain has resolved. Additional dose of Percocet ordered for back pain.
--- NOTE | 2021-03-30 20:07 | PM.PN ---
Subjective Subjective: Interval history: Patient was seen and examined this morning completed hemodialysis session today. Continue to be oliguric with minimal urine output, continue to be on Levophed as well as vasopressin, Medications: Reviewed: Yes Vitals/I&O/Wt Last Vital Signs Temp 97.2 F L 03/30/21 00:00 Pulse 111 H 03/30/21 18:15 Resp 17 03/30/21 18:15 BP 101/55 03/30/21 18:15 Pulse Ox 96 03/30/21 17:30 03/30/21 03/30/21 03/30/21 06:59 14:59 22:59 Intake Total 517.652 / 2469.897 912.928 / 912.928 765.671 / 1678.599 Output Total 75 / 4575 150 / 150 Balance 442.652 / -2105.103 912.928 / 912.928 615.671 / 1528.599 Weight last 48 hrs Weight 109.316 kg Weight 109.4 kg Weight 112.945 kg Weight 112.945 kg Physical Exam Const: COMMON NORMALS: patient oriented x3 HENMT: COMMON NORMALS: normocephalic and atraumatic HEAD & SCALP: normocephalic and atraumatic Chest: CHEST: Yes Symmetrical chest wall rise Resp: OTHER: Bilateral crackles in both the lungs fairly Cardio: COMMON NORMALS: regular rate, regular rhythm, S1 normal heart sound present, S2 normal heart sound present, No gallops present (Cardio), No murmurs present (Cardio), No rub (Cardio) and Peripheral pulses 2+ throughout RATE: regular rate RHYTHM: regular rhythm HEART SOUNDS: S1 normal heart sound present and S2 normal heart sound present PERIPHERAL PULSES: Peripheral pulses 2+ throughout GI: COMMON NORMALS: Normal to inspection, nondistended, normoactive bowel sounds present, Soft to palpation, non-tender, No hepatosplenomegaly present and no masses AUSCULTATION: Yes normoactive bowel sounds PALPATION: Yes Soft to palpation and Yes No hepatosplenomegaly present RECTAL EXAM: deferred Extremity: NARRATIVE EXTREMITY EXAM: 2-3+ bilateral lower extremity pitting edema Neuro: COMMON NORMALS: patient oriented x3 Urinary Catheter Management^: Rodriguez: Cath Placed During This Visit: yes Reason for Continuing Indwelling Catheter: Accurate Measurement of Urinary Output in Critically Ill Patients Urinary Catheter Date of Insertion: 03/28/21 Urinary Catheter Time of Insertion: 22:55 Data : 03/30/21 03:00 03/30/21 03:00 Micro: Microbiology 03/30/21 11:45 Blood Culture - Preliminary Blood SPECIMEN COLLECTED 03/30/21 10:43 Blood Culture - Preliminary Blood SPECIMEN COLLECTED 03/29/21 00:30 Urine Culture - Preliminary Urine,Clean Catch Gram Negative Rods A&P Assessment and plan (1) Pulmonary edema: Status: Acute (2) CHF exacerbation: Status: Acute (3) Hypotension: Status: Acute (4) Acute hyperkalemia: Status: Acute (5) Acute kidney injury superimposed on chronic kidney disease: Status: Acute (6) Heart failure with reduced ejection fraction: Status: Acute (7) COPD (chronic obstructive pulmonary disease): Status: Acute Qualifiers: COPD type: emphysema Emphysema type: other Qualified Code(s): J43.8 - Other emphysema (8) Cellulitis of left lower extremity: Status: Acute (9) Chronic atrial fibrillation: Status: Acute Additional A&P Information Anuria Acute on chronic kidney failure Seems secondary to use of nephrotoxic agent such as Bactrim, Entresto Patient also is fluid overloaded, mild acidosis, anion gap is high secondary to uremia Hyperkalemia: Secondary to hypoglycemia I will hold off on insulin for now, giving her 1 amp of D50, giving her Kayexalate and calcium gluconate Status post left femoral dialysis catheter. Status post hemodialysis. Appreciate nephrology consult Acute CHF exacerbation Systolic congestive heart failure 01/27/2021 echo showed ejection fraction 40%, 02/26/2021 echo shows EF 15 to 20% however at the same visit stress test was done which showed ejection fraction around 40%repeat echo in the morning Pulmonary edema evident on chest x-ray Hold off on diuretics for now, she is anuric has not responded very well to diuretics and metolazone Secondary to hypotension holding diuretics for now Cardiogenic shock Fluid overloaded, pulmonary edema low blood pressure stress test 01/30 showed reversibility in apical region suggestive of myocardial scarring in distribution of right coronary artery with jorge l-infarct ischemia at that time ejection fraction was read as 46% On dobutamine drip as well as Levophed. Check TSH Left leg cellulitis: On ceftriaxone 1 g IV daily UTI: Follow urine culture Type 2 diabetes: Renal dialysis diet with sliding scale A. fib without RVR Currently rate is well controlled. On therapeutic Lovenox Renal dialysis diet Full code She is vaccinated for COVID-19 Hold nephrotoxic agents BiPAP to decrease work of breathing and relief from edema Attestations Medical Necessity Statement*: Patient needs to be in hospital for management of above defined problems. Coding Level of Care Code Acute Facilities Maintenance Manager for g Fwd Diagnoses Pulmonary edema J81.1 CHF exacerbation I50.9 Hypotension I95.9 Acute hyperkalemia E87.5 Acute kidney injury superimposed on chronic kidney disease N17.9; N18.9 Heart failure with reduced ejection fraction I50.20 COPD (chronic obstructive pulmonary disease) J43.8 COPD type: emphysema Emphysema type: other Cellulitis of left lower extremity L03.116 Chronic atrial fibrillation I48.20
[2021-03-31] VITALS (103 sets, daily range): BP systolic 71–129; BP diastolic 34–91; PULSE 65–115; RESP 10–36; TEMP 35.5–36.5; O2SAT 72–99
[2021-03-31 04:11] LABS: Basophils % 0.2 %; Eosinophils % 0.4 %; Hematocrit 29.4 % (37.0-47.0); Hemoglobin 8.7 g/dL (11.5-15.3); Lymphocytes # 0.6 10^3/uL (0.8-4.8); Lymphocytes % 6.1 %; Mean Corpuscular HGB Conc 29.6 g/dL (30.0-36.0); Mean Corpuscular Hemoglobin 31.3 pg (28.0-34.0); Mean Corpuscular Volume 105.8 fl (81-99); Mean Platelet Volume 10.7 fL (7.4-10.4); Monocytes # 0.9 10^3/uL (0.2-0.9); Monocytes % 9.3 %; Neutrophils # 7.74 10^3/uL (1.8-7.7); Nucleated Red Blood Cells # 0.1 /100WBC; Nucleated Red Blood Cells % 0.6 %; Platelet Count 247 10^3/cmm (130-400); Red Blood Count 2.78 10^6/uL (4.1-5.3); Red Cell Distribution Width 23.4 % (12.1-15.1); White Blood Count 9.3 10^3/uL (4.0-10.0)
[2021-03-31 04:38] LABS: Alanine Aminotransferase 12 U/L (0-33); Albumin Level 3.4 g/dL (3.5-5.2); Alkaline Phosphatase 53 IU/L (35-105); Anion Gap 22.2 (5-19); Aspartate Amino Transferase 14 U/L (0-32); Blood Urea Nitrogen 47 mg/dL (8-23); Calcium 8.3 mg/dL (8.5-10.5); Carbon Dioxide 20 mmol/L (22-29); Chloride 92 mmol/L (98-107); Globulin 2.8 g/dL (1.3-4.6); Glucose 147 mg/dL (65-115); Magnesium 2.2 mg/dL (1.7-2.3); Osmolality Calculated 283 mOsm/kg (285-295); Phosphorus 6.4 mg/dL (2.5-4.5); Potassium 5.2 mmol/L (3.5-5.1); Sodium 129 mmol/L (136-145); Total Bilirubin 0.4 mg/dL (0.15-1.2); Total Protein 6.2 g/dL (6.6-8.7)
[2021-03-31 04:50] LABS: Calcium 8.7 mg/dL (8.5-10.5)
--- NOTE | 2021-03-31 04:55 | PC.NURSE ---
Levophed scanned for new bag, noticed rate by previous shift charted as 0 mcg/min. This is not accurate. Patient has been on 12 mcg/min since beginning of shift.
[2021-03-31 04:57] LABS: Parathyroid Hormone 264.5 pg/mL (15-65)
[2021-03-31 05:03] LABS: Ferritin 172 ng/mL (15-150); Iron 38 ug/dL (37-145); Percent Saturation 11.6 % (20-50); Total Iron Binding Capacity 325 mcg/dl; Unsaturated Iron Binding 287 ug/dL (112-347)
--- NOTE | 2021-03-31 05:11 | PC.NURSE ---
Patient requested home dose of Ambien. Patient given prn per MAR, monitored. Patient noted to be extremely restless, confused, not able to be redirected. Medication d/c'd and will f/u during AM rounds.
[2021-03-31 05:19] LABS: 25 Hydroxy Vitamin D 30 ng/mL (30-100)
[2021-03-31] MEDS: levothyroxine 137 mcg Tablet PO (06:07)
--- NOTE | 2021-03-31 07:24 | PM.PN ---
Subjective Subjective: Interval history: confused, lethargic on bipap, minimally responsive. unable to obtain a ROS. Medications: Reviewed: Yes Medication Review Details: Current Medications Albuterol/Ipratropium (Ipratropium-Albuterol 3 Ml Neb) 3 ml INHALATION Q6H PRN PRN Reason: SHORTNESS OF BREATH Dextrose (Dextrose 50% Syringe 50 Ml) 25 ml IVP ONCE PRN; Protocol PRN Reason: hypoglycemia protocol Last Admin: 03/29/21 08:45 Dose: 25 ml Documented by: Dextrose (Dextrose 50% Syringe 50 Ml) 50 ml IVP PRN PRN; Protocol PRN Reason: hypoglycemia protocol Enoxaparin Sodium (Enoxaparin 120 Mg/0.8 Ml Syringe) 110 mg SUBCUT Q24H DINAH Last Admin: 03/30/21 14:31 Dose: 110 mg Documented by: Glucagon (Glucagon 1 Mg/Ml Inj 1 Ml) 1 mg IM ONCE PRN; Protocol PRN Reason: Adult Acute Hypoglycemia Prot. Norepinephrine Bitartrate 4 mg (/ Dextrose) 254 mls @ 0 mls/hr IV .Q0M DINAH; Protocol Last Admin: 03/31/21 06:07 Dose: 12 mcg/min, 45.72 mls/hr Documented by: Dextrose (D5w) 500 mls @ 100 mls/hr IV ONCE PRN; Protocol PRN Reason: Adult Acute Hypoglycemia Prot Ceftriaxone Sodium 1,000 mg/ (Sodium Chloride) 50 mls @ 100 mls/hr IV Q24H DINAH; Protocol Last Infusion: 03/30/21 15:05 Dose: Infused Documented by: Vasopressin 100 unit/ Sodium (Chloride) 100 mls @ 0 mls/hr IV .Q0M PRN; Protocol PRN Reason: 0 Last Admin: 03/30/21 19:31 Dose: 0.04 unit/min, 2.4 mls/hr Documented by: Norepinephrine Bitartrate 8 mg (/ Dextrose) 508 mls @ 0 mls/hr IV .Q0M DINAH; Protocol Last Admin: 03/30/21 18:28 Dose: 12 mcg/min, 45.72 mls/hr Documented by: Insulin Human Lispro (Insulin Lispro 100 Unit/1 Ml) 0 unit SUBCUT TIDWM DINAH; Protocol Last Admin: 03/30/21 17:56 Dose: 6 unit Documented by: Levothyroxine Sodium (Levothyroxine 137 Mcg Tablet) 137 mcg PO QAM [facility] Last Admin: 03/31/21 06:07 Dose: 137 mcg Documented by: Ondansetron HCl (Ondansetron 2 Mg/Ml Sdv 2 Ml) 4 mg IVP Q6H PRN PRN Reason: NAUSEA AND VOMITING Last Admin: 03/30/21 09:49 Dose: 4 mg Documented by: Oxycodone/Acetaminophen (Oxycodone-Apap 5-325 Mg Tablet) 1 tab PO Q4H PRN PRN Reason: MODERATE PAIN Last Admin: 03/30/21 14:33 Dose: 1 tab Documented by: Senna/Docusate Sodium (Sennosides-Docusate Tablet) 1 tab PO DAILY DINAH Last Admin: 03/30/21 08:57 Dose: Not Given Documented by: Vitals/I&O/Wt Last Vital Signs Temp 96.8 F L 03/31/21 04:00 Pulse 103 H 03/31/21 07:15 Resp 22 H 03/31/21 07:15 BP 102/61 03/31/21 07:15 Pulse Ox 93 03/31/21 07:15 03/30/21 03/31/21 03/31/21 22:59 06:59 14:59 Intake Total 765.671 / 1678.599 54.864 / 1733.463 0 / 0 Output Total 150 / 150 200 / 350 Balance 615.671 / 1528.599 -145.136 / 1383.463 0 / 0 Weight last 48 hrs Weight 108.862 kg Weight 109.316 kg Weight 109.4 kg Physical Exam Narrative: EXAM NARRATIVE: on vasopressin, levophed BiPAP, confused, lethargic heent- nc/at , eomi heart- irreg irreg- controlled, +JELENA lung- wheezing and diminished b/l abd soft, nt, nd, + bs ext - + asymetrical leg edema neuro- lethargic in bed, confused Urinary Catheter Management^: Rodriguez: Cath Placed During This Visit: yes Reason for Continuing Indwelling Catheter: Accurate Measurement of Urinary Output in Critically Ill Patients Urinary Catheter Date of Insertion: 03/28/21 Urinary Catheter Time of Insertion: 22:55 Data : 03/31/21 02:45 03/31/21 02:45 Micro: Microbiology 11/24/21 11:45 Blood Culture - Preliminary Blood SPECIMEN COLLECTED 03/30/21 10:43 Blood Culture - Preliminary Blood SPECIMEN COLLECTED 03/29/21 00:30 Urine Culture - Preliminary Urine,Clean Catch Gram Negative Rods A&P Additional A&P Information 76 yr old female w/ mixed cardiogenic and septic shock 1. Renal failure Consistent with her history of cardiorenal syndrome from low ejection fraction and now significant shock. S/P HD last 2 days. unable to dec weight and improve k. -not tolerating HD. recommend CRRT. If we can not start CRRT, consider transfer. -kayexalate 1a. RAMU -likely from CRS and infection/ ATN -phos binder 1b. CKD stage 3b/4- baseline cr approx 2-CRS and CT scan revealed -Multiple areas of focal cortical scarring in the left kidney. 2 cysts in the left kidney are stable, the larger measures 2.2 cm. 2. acute on chronic systolic CHF- EF 15-20%, moderate MR and moderate - further care per CArdiology stress test #1. Myocardial perfusion imaging revealing moderate area of persistent decreased tracer uptake in the inferior, apical lateral and LV apex with subtle area of reversibility in the apical region, suggestive of myocardial scarring in the distribution of the right coronary artery with a very small area of jorge l-infarction ischemia. #2. Slightly diminished LV ejection fraction of 46%. #3. LV wall motion analysis revealing diffuse hypokinesia of the septum and inferior wall region. #4. Moderately dilated LV cavity with an end-systolic volume of 103 mL 3. gram neg rods uti- abx per medicine 4. hypercapneic resp acidosis per medicine 5.hypothyroidism- tsh oka 6. hyponatremia- monitor w/ HD- from RAMU and CHF 7. DM -per medicine 7. bone - mineral- metabolism of CKF- cont calcitriol, pth is 220, normal ca -phos 6.4- we lowered calcitriol dose and started a phos binder -replace vit d 8. anemia - hgb was 12 on last hospitalization, now hgb 8.7- iron sat 11.6% ferritin 172 Patient seen and examined via telemedicine, with the assistance of the bedside RN > 25 min spent in evaluation and mgmt of patient discussed w/ RN in detail Attestations Medical Necessity Statement*: sepsis, ramu Time Spent in Patient Care: 16 - 35 minutes (>than 50% of time spent in counselling and/or direct pt care on unit). Coding Level of Care Code Acute Breaker Table Worker for Flo Riggs
[2021-03-31] MEDS: PrismaSol BGK 2/3.5 - 5,000 ML BAG 5000 ML CRRT ×5 (08:39→19:47)
[2021-03-31 09:24] LABS: Albumin Level 3.3 g/dL (3.5-5.2); Anion Gap 23.3 (5-19); Blood Urea Nitrogen 46 mg/dL (8-23); Calcium 8.3 mg/dL (8.5-10.5); Carbon Dioxide 18 mmol/L (22-29); Chloride 91 mmol/L (98-107); Glucose 131 mg/dL (65-115); Magnesium 2.2 mg/dL (1.7-2.3); Phosphorus 6.4 mg/dL (2.5-4.5); Potassium 5.3 mmol/L (3.5-5.1); Sodium 127 mmol/L (136-145)
[2021-03-31] MEDS: enoxaparin 120 mg/0.8 mL Syringe 110 MG SUBCUT (10:35)
[2021-03-31 12:28] LABS: Glucose Point of Care 134 mg/dL (70-110)
[2021-03-31] MEDS: piperacillin-tazobactam 3.375 GM in sodium chloride 0.9% (plus) 50 ML IV (12:55)
[2021-03-31] MEDS: norepinephrine 8 MG in dextrose 5 % 500 ML 53.34 MG IV (12:56)
[2021-03-31 13:14] LABS: Glucose Point of Care 151 mg/dL (70-110)
[2021-03-31] MEDS: insulin lispro 100 unit/1 mL SUBCUT (13:14)
--- NOTE | 2021-03-31 13:19 | PC.SOCIAL ---
Pg 2 IMM Explained to pt's sister Pg 2 IMM. No questions voiced. Provided pt a copy. Initialed, dated, & timed a copy & placed in chart.
--- NOTE | 2021-03-31 13:20 | PM.PN ---
Subjective Subjective: Interval history: Patient was seen and examined this morning, extremely lethargic and confused today, likely secondary to overnight Ambien use, as well as possible uremia. Continue to be on high vasopressor Support. Patient has also been hypothermic, cannot conclusively rule out sepsis. Has been started on CRRT today. Medications: Reviewed: Yes Vitals/I&O/Wt Last Vital Signs Temp 97.7 F 03/31/21 09:15 Pulse 108 H 03/31/21 09:15 Resp 18 03/31/21 09:15 BP 102/72 03/31/21 09:15 Pulse Ox 90 03/31/21 09:15 03/30/21 03/31/21 03/31/21 22:59 06:59 14:59 Intake Total 765.671 / 1678.599 54.864 / 1733.463 762 / 762 Output Total 150 / 150 200 / 350 Balance 615.671 / 1528.599 -145.136 / 1383.463 762 / 762 Weight last 48 hrs Weight 108.862 kg Weight 109.316 kg Weight 109.4 kg Physical Exam Narrative: EXAM NARRATIVE: Awake, but extremely confused HENMT: COMMON NORMALS: normocephalic and atraumatic HEAD & SCALP: normocephalic and atraumatic Chest: CHEST: Yes Symmetrical chest wall rise Resp: OTHER: Bilateral crackles in both the lungs fairly Cardio: COMMON NORMALS: regular rate, regular rhythm, S1 normal heart sound present, S2 normal heart sound present, No gallops present (Cardio), No murmurs present (Cardio), No rub (Cardio) and Peripheral pulses 2+ throughout RATE: regular rate RHYTHM: regular rhythm HEART SOUNDS: S1 normal heart sound present and S2 normal heart sound present PERIPHERAL PULSES: Peripheral pulses 2+ throughout GI: COMMON NORMALS: Normal to inspection, nondistended, normoactive bowel sounds present, Soft to palpation, non-tender, No hepatosplenomegaly present and no masses AUSCULTATION: Yes normoactive bowel sounds PALPATION: Yes Soft to palpation and Yes No hepatosplenomegaly present RECTAL EXAM: deferred Extremity: NARRATIVE EXTREMITY EXAM: 2+ bilateral lower extremity pitting edema Urinary Catheter Management^: Rodriguez: Cath Placed During This Visit: yes Reason for Continuing Indwelling Catheter: Accurate Measurement of Urinary Output in Critically Ill Patients Urinary Catheter Date of Insertion: 03/28/21 Urinary Catheter Time of Insertion: 22:55 Data : 03/31/21 02:45 03/31/21 12:52 Micro: Microbiology 03/30/21 11:45 Blood Culture - Preliminary Blood NEGATIVE TO DATE 03/30/21 10:00 Urine Culture - Preliminary Urine Catheterized Yeast 03/30/21 10:43 Blood Culture - Preliminary Blood NEGATIVE TO DATE 03/29/21 00:30 Urine Culture - Final Urine,Clean Catch Escherichia coli A&P Assessment and plan (1) Pulmonary edema: Status: Acute (2) CHF exacerbation: Status: Acute (3) Sepsis: Status: Acute (4) Hypotension: Status: Acute (5) Acute hyperkalemia: Status: Acute (6) Acute kidney injury superimposed on chronic kidney disease: Status: Acute (7) Heart failure with reduced ejection fraction: Status: Acute (8) COPD (chronic obstructive pulmonary disease): Status: Acute Qualifiers: COPD type: emphysema Emphysema type: other Qualified Code(s): J43.8 - Other emphysema (9) Cellulitis of left lower extremity: Status: Acute (10) Chronic atrial fibrillation: Status: Acute Additional A&P Information Anuria Acute on chronic kidney failure Seems secondary to use of nephrotoxic agent such as Bactrim, Entresto Patient also is fluid overloaded, mild acidosis, anion gap is high secondary to uremia Hyperkalemia: Secondary to hypoglycemia I will hold off on insulin for now, giving her 1 amp of D50, giving her Kayexalate and calcium gluconate Status post left femoral dialysis catheter. Status post hemodialysis. Appreciate nephrology consult Acute CHF exacerbation Systolic congestive heart failure 01/27/2021 echo showed ejection fraction 40%, 02/26/2021 echo shows EF 15 to 20% however at the same visit stress test was done which showed ejection fraction around 40%repeat echo in the morning Pulmonary edema evident on chest x-ray Hold off on diuretics for now, she is anuric has not responded very well to diuretics and metolazone Secondary to hypotension holding diuretics for now Cardiogenic shock complicated with sepsis:Fluid overloaded, pulmonary edema low blood pressure : Is improving with dialysis Follow blood culture: Urine culture E. coli: Pansensitive Urine culture: Yeast pending identification TSH: Normal Random cortisol: X-ray chest: stress test 01/30 showed reversibility in apical region suggestive of myocardial scarring in distribution of right coronary artery with jorge l-infarct ischemia at that time ejection fraction was read as 46% was On dobutamine drip. Dobutamine drip has been discontinued because of hypotension. Currently on vasopressin as well as Levophed. We will start stress dose hydrocortisone. Initially she was ceftriaxone, antibiotic coverage has been broadened currently on Zosyn. Fluconazole IV daily Appreciate cardiology and renal inputs. Left leg cellulitis: UTI: Type 2 diabetes: Renal dialysis diet with sliding scale A. fib without RVR Currently rate is well controlled. On therapeutic Lovenox Renal dialysis diet Full code She is vaccinated for COVID-19 Hold nephrotoxic agents BiPAP as needed Attestations Medical Necessity Statement*: Patient needs to be in hospital for management of shock. Other Attestations: The high probability of a clinically significant, sudden or life threatening deterioration of the patient's [] system(s) required my full and direct attention, intervention and personal management. The critical care time is as shown. This time is in addition to time spent performing any reported procedures but includes the following: [x] Data and vital sign review and interpretation [x] Patient assessment, examination and intervention [x] Documentation [x] Medication orders and management Coding Level of Care Code Acute Wireless Field Technician for [facility] Fwd Exam Detailed Diagnoses Pulmonary edema J81.1 CHF exacerbation I50.9 Sepsis A41.9 Hypotension I95.9 Acute hyperkalemia E87.5 Acute kidney injury superimposed on chronic kidney disease N17.9; N18.9 Heart failure with reduced ejection fraction I50.20 COPD (chronic obstructive pulmonary disease) J43.8 COPD type: emphysema Emphysema type: other Cellulitis of left lower extremity L03.116 Chronic atrial fibrillation I48.20
[2021-03-31 13:23] LABS: Albumin Level 3.5 g/dL (3.5-5.2); Anion Gap 27.1 (5-19); Blood Urea Nitrogen 41 mg/dL (8-23); Calcium 8.5 mg/dL (8.5-10.5); Carbon Dioxide 16 mmol/L (22-29); Chloride 91 mmol/L (98-107); Glucose 110 mg/dL (65-115); Magnesium 2.1 mg/dL (1.7-2.3); Phosphorus 6.1 mg/dL (2.5-4.5); Potassium 5.1 mmol/L (3.5-5.1); Sodium 129 mmol/L (136-145)
--- NOTE | 2021-03-31 15:40 | P.CONIM_ITS ---
Providers/Reason For Consult Consulting Physician/Specialty*: Shock, renal failure, heart failure, multivessel coronary disease Reason for Consult*: Cardiology Attending Physician: Wili Chapman MD Primary Care Provider: Milan Mitchell DO History of Present Illness History of Present Illness Balbina Martínez is a 76 year old female has been admitted with renal failure hyperkalemia acute on chronic recurrent heart failure systolic type anemia shock unspecified requiring pressors was dialyzed during this admission for renal failure and hyperkalemia. Her past medical history significant for extensive coronary artery disease severely depressed ejection fraction mitral valve regurgitation cardiomyopathy recent cellulitis pneumonia heart failure. Recently patient has been discharged from the hospital upon discharge she was optimized on medical regimen and sent home. She was readmitted with worsening of shortness of breath and anuria. She was noted to be in decompensated heart failure and renal failure. We have been asked to assist in her care. When I saw the patient she was confused and not able to give me any history. Systolic blood pressure was around 112. Meds/Allergies Home Medications and Allergies Home Medications Medication Instructions Recorded Confirmed Last Taken Type blood sugar diagnostic #400 each 11/28/19 03/29/21 Unknown Rx lancets #400 each 11/28/19 03/29/21 Unknown Rx pen needle, diabetic 31 gauge x #30 each 04/26/20 03/29/21 Unknown Rx 16 insulin syringe-needle U-100 1 mL #10 ea 07/21/20 03/29/21 Unknown History 30 gauge x 5/16 Diabetic Shoes and inserts #1 ea 11/30/20 03/29/21 Unknown Rx blood-glucose meter #1 each 12/08/20 03/29/21 Unknown Rx blood sugar diagnostic #400 ea 12/23/20 03/29/21 Unknown Rx blood-glucose meter #1 ea 12/23/20 03/29/21 Unknown Rx acetaminophen 1,000 mg PO Q4H PRN 01/26/21 03/29/21 Unknown History gabapentin 300 mg capsule 300 mg PO BID #120 cap 01/29/21 03/29/21 02/25/21 08:00 Rx insulin syringe-needle U-100 0.5 #100 ea 02/14/21 03/29/21 Unknown Rx mL 29 gauge x 1/2 Eliquis 2.5 mg PO BID 30 Days #60 tab 03/03/21 03/29/21 Unknown Rx amiodarone 200 mg PO DAILY 30 Days #30 tab 03/03/21 03/29/21 Unknown Rx clopidogrel [Plavix] 75 mg PO QAM 30 Days #30 tab 03/03/21 03/29/21 Unknown Rx donepezil 10 mg PO DAILY 30 Days #30 tab 03/03/21 03/29/21 Unknown Rx glipizide 5 mg PO QAM 30 Days #30 tab 03/03/21 03/29/21 Unknown Rx levothyroxine 137 mcg PO QAM 30 Days #30 tab 03/03/21 03/29/21 Unknown Rx omeprazole 20 mg PO QAM 30 Days #30 cap 03/03/21 03/29/21 Unknown Rx sacubitril-valsartan [Entresto] 1 tab PO BID 30 Days #60 tab 03/03/21 03/29/21 Unknown Rx venlafaxine 75 mg PO QAM 30 Days #15 cap 03/03/21 03/29/21 Unknown Rx furosemide 40 mg tablet 40 mg PO BID #60 tab 03/11/21 03/29/21 Unknown Rx diltiazem HCl 180 mg 180 mg PO DAILY 03/14/21 03/29/21 Unknown History capsule,extended release 24 hr nitroglycerin 0.4 mg sublingual 0.4 mg SUBLINGUAL Q5M PRN #25 tab 03/14/21 03/29/21 Unknown Rx tablet zolpidem 5 mg tablet 5 mg PO BEDTIME PRN #30 tab 03/14/21 03/29/21 Unknown Rx ipratropium 0.5 mg-albuterol 3 mg 3 ml INHALATION QID 30 Days #360 ml 03/16/21 03/29/21 Unknown Rx (2.5 mg base)/3 mL nebulization soln metolazone 2.5 mg tablet 2.5 mg PO DAILY 30 Days #30 tab 03/16/21 03/29/21 Unknown Rx wheel chair #1 ea 03/18/21 03/29/21 Unknown Rx sulfamethoxazole 800 1 tab PO BID #20 tab 03/21/21 03/29/21 Unknown Rx mg-trimethoprim 160 mg tablet insulin lispro 100 unit/mL See Rx Instructions SUBCUT 03/23/21 03/29/21 Unknown Rx subcutaneous solution .COMPLEX 30 Days #10 ml buspirone 10 mg PO BID 03/29/21 03/29/21 Unknown History calcitriol 0.25 mcg PO DAILY 03/29/21 03/29/21 Unknown History ergocalciferol (vitamin D2) 50,000 unit PO Q7D 03/29/21 03/29/21 Unknown History [Vitamin D2] fenofibrate nanocrystallized See Rx Instructions .ROUTE .COMPLEX 03/29/21 03/29/21 Unknown History ferrous sulfate 325 mg PO QAM 03/29/21 03/29/21 Unknown History fexofenadine [Julia] 180 mg PO DAILY 03/29/21 03/29/21 Unknown History fluticasone propionate [Flonase] 1 spray INTRANASAL BID PRN 03/29/21 03/29/21 Unknown History mirtazapine 15 mg PO BEDTIME 03/29/21 03/29/21 Unknown History polyethylene glycol 3350 [Miralax] 17 g PO DAILY PRN 03/29/21 03/29/21 Unknown History potassium chloride 20 meq PO BID 03/29/21 03/29/21 Unknown History simvastatin 40 mg PO DAILY 03/29/21 03/29/21 Unknown History Allergies Allergy/AdvReac Type Severity Reaction Status Date / Time pentazocine [From Petros] Allergy Intermediate hives Verified 03/16/21 13:52 latex Allergy Mild itching Verified 03/16/21 13:52 morphine Allergy Unknown ADR-Itching Verified 03/16/21 13:52 Current Medications Current Medications Generic Name Dose Route Start Last Admin Trade Name Freq PRN Reason Stop Dose Admin Dextrose 25 ml 03/29/21 01:54 03/29/21 08:45 Dextrose 50% Syringe 50 Ml IVP 25 ml ONCE PRN Administration hypoglycemia protocol Protocol Enoxaparin Sodium 110 mg 03/29/21 10:30 03/31/21 10:35 Enoxaparin 120 Mg/0.8 Ml Syringe SUBCUT 110 mg Q24H DINAH Administration Norepinephrine Bitartrate 4 mg 254 mls @ 0 mls/hr 03/28/21 19:15 03/31/21 12:57 / Dextrose IV Infused .Q0M DINAH Titration Protocol Per Protocol Vasopressin 100 unit/ Sodium 100 mls @ 0 mls/hr 03/30/21 05:17 03/30/21 19:31 Chloride IV 0.04 unit/min .Q0M PRN 2.4 mls/hr 0 Administration Protocol Per Protocol Norepinephrine Bitartrate 8 mg 508 mls @ 0 mls/hr 03/30/21 09:45 03/31/21 12:56 / Dextrose IV 14 mcg/min .Q0M DINAH 53.34 mls/hr Administration Protocol Per Protocol Piperacillin Sod/Tazobactam 50 mls @ 12.5 mls/hr 03/31/21 13:00 03/31/21 12:55 Sod 3.375 gm/ Sodium Chloride IV 12.5 mls/hr Q12H DINAH Administration Protocol Insulin Human Lispro 0 unit 03/29/21 08:00 03/31/21 13:14 Insulin Lispro 100 Unit/1 Ml SUBCUT 2 unit TIDWM DINAH Administration Protocol Levothyroxine Sodium 137 mcg 03/29/21 06:00 03/31/21 06:07 Levothyroxine 137 Mcg Tablet PO 137 mcg QAM DINAH Administration Ondansetron HCl 4 mg 03/29/21 22:49 03/30/21 09:49 Ondansetron 2 Mg/Ml Sdv 2 Ml IVP 4 mg Q6H PRN Administration NAUSEA AND VOMITING Oxycodone/Acetaminophen 1 tab 03/29/21 11:25 03/30/21 14:33 Oxycodone-Apap 5-325 Mg Tablet PO 1 tab Q4H PRN Administration MODERATE PAIN Senna/Docusate Sodium 1 tab 03/29/21 09:00 03/31/21 08:37 Sennosides-Docusate Tablet PO Not Given DAILY DINAH PFSH Acute PFSH: Medical History (Updated 03/31/21 @ 16:01 by Evaristo Myles MD) Acute exacerbation of CHF (congestive heart failure) Echocardiogram done January 2021 showed an EF of 40% with global LV hypokinesia, moderate , moderate MR Bifascicular bundle branch block Bilateral carpal tunnel syndrome CAD (coronary artery disease) Cellulitis, face Cellulitis, face Chronic pain due to injury COPD exacerbation DDD (degenerative disc disease) Diabetes Enrolled in chronic care management Hyperlipidemia Hypoglycemic episode in patient with diabetes mellitus Hypoxemia Impetigo contagiosa Insomnia Moderate aortic stenosis Moderate mitral regurgitation Renal disorder Sciatica associated with disorder of lumbar spine Transient retinal arterial occlusion, bilateral Type II respiratory failure Ulnar neuropathy of both upper extremities Wrist pain, acute Family History Other CAD (coronary artery disease) Chronic kidney disease (CKD) Denies family history of Cancer Social History Quit status (tobacco): has quit using tobacco Year quit tobacco: 2020 Former quit date comment: 3ppd x 57 years Alcohol intake: never Adopted: No Caregiver/support person: No Lives independently: Yes Household members: family Housing: House Vitals/I&O/Wt Last Vital Signs Temp 96.5 F L 03/31/21 14:00 Pulse 84 03/31/21 14:00 Resp 15 03/31/21 14:00 BP 92/66 03/31/21 14:00 Pulse Ox 90 03/31/21 14:00 03/31/21 03/31/21 03/31/21 06:59 14:59 22:59 Intake Total 54.864 / 1733.463 762 / 762 Output Total 200 / 350 Balance -145.136 / 1383.463 762 / 762 Weight last 48 hrs Weight 240 lb Weight 241 lb Weight 241 lb 2.971 oz Physical Exam Narrative: EXAM NARRATIVE: GENERAL: Patient is arousable but confused, pale NECK: No jugular vein distension. HEENT: No cyanosis. No icterus. No pallor. HEART: Irregularly irregular S1 and S2. 2/6 sys murmur, rub or gallop. LUNGS: Clear to auscultate bilaterally. ABDOMEN: Soft, nontender and nondistended. Positive bowel sounds. No guarding, rebound or tenderness. CENTRAL NERVOUS SYSTEM: Appear to be confused EXTREMITIES: Lower extremities without edema bilaterally. Urinary Catheter Management^: Rodriguez: Cath Placed During This Visit: yes Reason for Continuing Indwelling Catheter: Accurate Measurement of Urinary Output in Critically Ill Patients Urinary Catheter Date of Insertion: 03/28/21 Urinary Catheter Time of Insertion: 22:55 Data Micro: Micro: Microbiology 03/30/21 11:45 Blood Culture - Pr eliminary Blood NEGATIVE TO LAVON E 03/30/21 10:00 Urine Culture - Pr eliminary Urine Catheterize d Yeast 03/30/21 10:43 Blood Culture - Pr eliminary Blood NEGATIVE TO LAVON E 03/29/21 00:30 Urine Culture - Fi nal Urine,Clean Catch Escherichia col i A&P Assessment and plan (1) CHF exacerbation: Recurrent heart failure and worsening cough LV function we will further assess with limited echo if she noted to have worsening of LV function then further exploration at some point with left heart cath may need to be discussed since patient is high risk for PCI keeping in mind for rigidity renal failure and anemia. We will assess the risk and benefit for the plan with the device after discussing with the patient. Status: Acute Qualifiers: Heart failure type: systolic Qualified Code(s): I50.23 - Acute on chronic systolic (congestive) heart failure (2) Hypotension: Could be multifactorial need to rule out for most likely recurrent heart failure LV dysfunction cardiomyopathy with also need to rule out for sepsis. I will repeat limited echo to assess LV function if noted to have dilated cardiomyopathy with worsening of function may be a good idea to add dobutamine and taper off rest of the pressors. Status: Acute Qualifiers: Hypotension type: unspecified hypotension type Qualified Code(s): I95.9 - Hypotension, unspecified (3) Acute kidney injury superimposed on chronic kidney disease: Patient is on dialysis continue as per nephrology Status: Acute (4) Pulmonary edema: Continue dialysis which will further improve pulmonary edema appears to be compensated now Status: Acute Qualifiers: Chronicity: acute Qualified Code(s): J81.0 - Acute pulmonary edema (5) Chronic atrial fibrillation: It will be hard for the patient to stay in sinus rhythm which will be necessity for heart failure and to improve the function, may will discuss need for INSPECTOR METAL FABRICATING-D or making patient pacemaker dependent in order to optimize synchrony Status: Acute (6) CAD (coronary artery disease): Patient had negative stress test in the recent past however cannot rule out multivessel coronary artery disease if ejection fraction drops may need further exploration with left heart cath once stabilized with the help of dialysis. Will discuss with the patient and the family for further advice. Status: Acute Qualifiers: Coronary Disease-Associated Artery/Lesion type: unspecified vessel or lesion type [place] vs. transplanted heart: [place] heart Associated angina: with stable angina Qualified Code(s): I25.118 - Atherosclerotic heart disease of [place] coronary artery with other forms of angina pectoris Consult Attestations Medical Necessity Statement: Patient require continuation hospitalization for above defined care. 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 transplanted heart: [place] and si[place] heart Associated angina: with stable angina
[2021-03-31] MEDS: fluconazole premix 100 MG in empty flexible container 1 EACH 50 MG IV (18:38)
--- NOTE | 2021-03-31 18:54 | XRR_ITS ---
PROCEDURE INFORMATION: Exam: XR Chest Exam date and time: 03/31/2021 6:54 PM Age: 76 years old Clinical indication: Shortness of breath; Patient HX: Worsening SOB. TECHNIQUE: Imaging protocol: XR of the chest. Views: 1 view. COMPARISON: CR (CHEST, ) 03/28/2021 7:10 PM FINDINGS: Lungs: No consolidation. Pleural spaces: Moderate volume right pleural effusion. No pneumothorax. Heart/Mediastinum: Moderate cardiomegaly with central pulmonary vascular congestion. Bones/joints: Unremarkable. XR/XR chest 1V portable [id number] IMPRESSION: Moderate cardiomegaly with central pulmonary vascular congestion and moderate volume right pleural effusion. Radiation Dose CTDIVOL = (mGy): DLP = (mGy-cm)
[2021-03-31 19:17] LABS: Glucose Point of Care 68 mg/dL (70-110)
[2021-03-31 19:50] LABS: Albumin Level 3.4 g/dL (3.5-5.2); Blood Urea Nitrogen 36 mg/dL (8-23); Calcium 8.8 mg/dL (8.5-10.5); Carbon Dioxide 18 mmol/L (22-29); Chloride 90 mmol/L (98-107); Glucose 71 mg/dL (65-115); Magnesium 2.3 mg/dL (1.7-2.3); Phosphorus 5.6 mg/dL (2.5-4.5); Sodium 128 mmol/L (136-145)
[2021-03-31] MEDS: hydrocortisone 100 mg/2 mL SDV 50 MG IVP (20:05)
[2021-03-31 21:03] LABS: Glucose Point of Care 124 mg/dL (70-110)
[2021-03-31] MEDS: HYDROmorphone 1 mg/mL INJ 1 mL 0.3 MG IVP (22:55)
[2021-04-01] VITALS (46 sets, daily range): BP systolic 66–143; BP diastolic 34–85; PULSE 75–122; RESP 11–37; TEMP 36.2–36.3; O2SAT 80–99
--- NOTE | 2021-04-01 00:45 | PC.NURSE ---
New Orders; Dilaudid IVP once order given by MD Marvin fund controller in efforts to decreased pain.
[2021-04-01] MEDS: piperacillin-tazobactam 3.375 GM in sodium chloride 0.9% (plus) 50 ML IV (01:21)
[2021-04-01] MEDS: hydrocortisone 100 mg/2 mL SDV 50 MG IVP ×2 (01:21→09:52)
[2021-04-01] MEDS: PrismaSol BGK 2/3.5 - 5,000 ML BAG 5000 ML CRRT ×2 (01:25→01:27)
[2021-04-01] MEDS: dexmedetomidine 400 MCG in sodium chloride 0.9% (100 ml) 100 ML IV (01:32)
[2021-04-01 03:10] LABS: Basophils % 0.1 %; Hemoglobin 8.8 g/dL (11.5-15.3); Lymphocytes # 0.5 10^3/uL (0.8-4.8); Lymphocytes % 3.4 %; Mean Corpuscular HGB Conc 29.3 g/dL (30.0-36.0); Mean Corpuscular Hemoglobin 31.2 pg (28.0-34.0); Mean Corpuscular Volume 106.4 fl (81-99); Monocytes % 6.6 %; Neutrophils # 13.42 10^3/uL (1.8-7.7); Neutrophils % 89.1 %; Nucleated Red Blood Cells # 0.3 /100WBC; Nucleated Red Blood Cells % 2.3 %; Platelet Count 248 10^3/cmm (130-400); Red Blood Count 2.82 10^6/uL (4.1-5.3); Red Cell Distribution Width 23.8 % (12.1-15.1); White Blood Count 15.1 10^3/uL (4.0-10.0)
[2021-04-01 03:33] LABS: ABG PCO2 38.4 mmHg (35-45); ABG PH Result 7.21 (7.35-7.45); Alveolar-Arterial Oxygen Gradi 5.3 mmHg (5-10); Arterial Blood Gas Hematocrit 28.4 % (37-47); Base Excess ABG -11.8 mmol/L (-2.0-2.0); Blood Gas Allen Test Pos; Blood Gas Sample Site Radial, right; Blood Gas Sample Type Arterial; Carboxyhemoglobin 1.4 %THgb (0.4-20.1); HCO3 ABG 15.3 mmol/L (22-26); HGB O2 Sat 86.5 % (95-100); Ionized Calcium Level - ABG 1.2 mmol/L (1.1-1.4); Methemoglobin 0.6 % (0.4-1.5); Oxygen Device NC; Oxygen Saturation ABG 88.2; PO2 ABG 63.2 mmHg (80.0-100.0); Potassium Level - ABG 4.7 mmol/L (3.5-5.0); Total Hemoglobin 9.3 g/dL (12-16)
[2021-04-01 03:36] LABS: Alanine Aminotransferase 19 U/L (0-33); Albumin Level 3.6 g/dL (3.5-5.2); Alkaline Phosphatase 54 IU/L (35-105); Anion Gap 28.9 (5-19); Aspartate Amino Transferase 35 U/L (0-32); Blood Urea Nitrogen 33 mg/dL (8-23); Calcium 8.9 mg/dL (8.5-10.5); Carbon Dioxide 14 mmol/L (22-29); Chloride 92 mmol/L (98-107); Glucose 52 mg/dL (65-115); Magnesium 2.1 mg/dL (1.7-2.3); Osmolality Calculated 275 mOsm/kg (285-295); Phosphorus 5.3 mg/dL (2.5-4.5); Potassium 4.9 mmol/L (3.5-5.1); Sodium 130 mmol/L (136-145); Total Bilirubin 1.4 mg/dL (0.15-1.2); Total Protein 6.6 g/dL (6.6-8.7)
[2021-04-01] MEDS: dextrose 50% syringe 50 mL IVP (03:42)
[2021-04-01] MEDS: dextrose 5 % 500 ML 100 ML IV (03:42)
[2021-04-01 03:55] LABS: Cortisol Random 99.65 ug/dL (2.47-19.5)
[2021-04-01] MEDS: DOPamine drip 400 MG/250 ML PREMIX 20.41 MG IV (04:02)
[2021-04-01 04:44] LABS: Glucose Point of Care 123 mg/dL (70-110)
[2021-04-01] MEDS: sodium chloride 0.9% 1,000 mL Bag CRRT ×4 (05:00→06:05)
[2021-04-01] MEDS: phenylephrine inj 25 MG in sodium chloride 0.9% 250 ML 24.24 MG IV (05:01)
--- NOTE | 2021-04-01 05:02 | ECG_ITS ---
[facility] Test Date: 2021-04-01 Pat Name: Balbina Martínez Department: Room: ICU11 Gender: Female [employer] Driver: : [id number] Requested By: Keith Wong Order Number: [id number] Reading MD: MARYAN OSEGUERA Measurements Intervals [place] Rate: 114 P: [place]: QRS: 160 QRSD: 166 T: -29 QT: 364 QTc: 501 Interpretive Statements ATRIAL FIBRILLATION WITH RAPID VENTRICULAR RESPONSE INTRAVENTRICULAR CONDUCTION DELAY [130+ ms QRS DURATION] LATERAL MYOCARDIAL INFARCTION , PROBABLY OLD [40+ ms Q WAVE AND/OR ST/T ABNORMALITY IN I/aVL/V5/V6] INTERPRETATION BASED ON A DEFAULT AGE OF 40 YEARS Compared to ECG 03/30/2021 14:48:37 Ventricular premature complex(es) no longer present Aberrant conduction of supraventricular beat(s) no longer present Myocardial infarct finding still present Electronically Signed On 04-01-2021 14:29:27 SECTION CREWS ACTIVITIES CLERK by MARYAN OSEGUERA [id number]
--- NOTE | 2021-04-01 05:40 | P.PN_ITS ---
Subjective Subjective: Interval history: CVVHD stopped this AM due to hypotension, on 2 pressors. [place] now placed and MAP 75. Medications: Reviewed: Yes Vitals/I&O/Wt Last Vital Signs Temp 97.4 F L 04/01/21 04:15 Pulse 113 H 04/01/21 05:15 Resp 20 H 04/01/21 05:15 BP 76/48 04/01/21 05:15 Pulse Ox 99 04/01/21 05:00 03/31/21 03/31/21 04/01/21 14:59 22:59 06:59 Intake Total 762 / 762 162.51 / 924.51 760.947 / 1685.457 Output Total 125 / 125 Balance 762 / 762 37.51 / 799.51 760.947 / 1560.457 Weight last 48 hrs Weight 108.862 kg Weight 109.316 kg Physical Exam Urinary Catheter Management^: Rodriguez: Cath Placed During This Visit: yes Reason for Continuing Indwelling Catheter: Accurate Measurement of Urinary Output in Critically Ill Patients Urinary Catheter Date of Insertion: 03/28/21 Urinary Catheter Time of Insertion: 22:55 Data : 04/01/21 02:30 04/01/21 07:47 Micro: Microbiology 03/30/21 11:45 Blood Culture - Preliminary Blood NEGATIVE TO DATE 03/30/21 10:00 Urine Culture - Preliminary Urine Catheterized Yeast 03/30/21 10:43 Blood Culture - Preliminary Blood NEGATIVE TO DATE 03/29/21 00:30 Urine Culture - Final Urine,Clean Catch Escherichia coli A&P Additional A&P Information Visit completed via telehealth with assitance of RN at bedside 1. Acute anuric kidney injury: cardiorenal syndrome, possible sepsis, resume CRRT 2. Shock, on two pressors, sepsis, cardiogenic, repeat echo pending 3. Metabolic acidosis 3. Hyponatremia, hypervolemic 4. Anemia Rec; IV sodium bicarbonate. Will retry CVVHD. Prognosis poor Attestations Medical Necessity Statement*: critically ill ICU Time Spent in Patient Care: 16 - 35 minutes Coding Level of Care Code Acute Box Spring Maker for Flo Riggs
--- NOTE | 2021-04-01 07:42 | PC.NURSE ---
Shift Note Frequent safety and comfort rounds continue. Orders and/or nursing care completed as indicated. Patient monitored for response to intervention and treatment(s). Education provided includes[skin integrity, bi-pap, and CRRT]. Patient and/or medical collections representative [Pt unable to comprehend at this time]. Will continue to monitor. Received bed side shift report from off going nurse. Pt's plan of care reviewed. Pt is currently resting in bed with bi-pap on. Pt responds to me saying her name but she is unable to answer questions or follow commands appropriately. Pt does not appear to be in distress at this time. Off going nurse stated that they had to stop the CRRT due to pt's bp dropping. Dr. Cotto was notified. Bed in lowest and locked position, call light within reach, x's 3 rails up. Will continue to monitor pt.
--- NOTE | 2021-04-01 07:55 | PC.NURSE ---
Shift Summary; Pt had eventful shift overnight. Multiple and frequent episodes of hypotension was treated with titratable gtt as indicated/appropriate. (See Mar flowsheet for titration specifics.) Pt was unable to rest comfortably and tossed/kicked/turned in bed constantly throughout shift. MD notified of pt agitation and confused episodes. New orders given for PRN Dilaudid IVP, and for Precedex gtt. Precedex paused based on declining perfusion status, via MD orders. Multiple pressers initiated in efforts to keep MAP above 60-65 as ordered. Tachycardia and ventricular rhythm recorded and relayed to MD. EKG order placed and conducted. Verbal orders from Marvni to keep Vasopressin at or below 0.04. Telenephrology called and updated on pt status and CRRT concerns, along with ABG results this AM. New orders given by Dr. Muse for Scuff mode to be initiated, and if pt continues to decline and have hypotension, pause CRRT until reassessment is completed during dayshift. MD operational intelligence officer updated on new nephrology orders. Scuff attempt unsuccessful, and CRRT paused at 0530. MD operational intelligence officer notified. Abad RILEY updated on patient status and condition overnight. Report given to jack marin RN.
[2021-04-01] MEDS: phenylephrine inj 25 MG in sodium chloride 0.9% 250 ML 84.84 MG IV ×2 (08:47→12:00)
[2021-04-01 08:57] LABS: Albumin Level 3.5 g/dL (3.5-5.2); Anion Gap 30.1 (5-19); Blood Urea Nitrogen 30 mg/dL (8-23); Carbon Dioxide 14 mmol/L (22-29); Chloride 91 mmol/L (98-107); Glucose 66 mg/dL (65-115); Magnesium 2.2 mg/dL (1.7-2.3); Phosphorus 6.7 mg/dL (2.5-4.5); Potassium 5.1 mmol/L (3.5-5.1); Sodium 130 mmol/L (136-145)
--- NOTE | 2021-04-01 09:18 | PC.PT ---
Hold per nursing.
[2021-04-01] MEDS: sodium chloride 0.9% 500 ML IV (09:52)
[2021-04-01] MEDS: dextrose 10% 1,000 ML 10 ML IV (09:52)
[2021-04-01] MEDS: lidocaine 1% INJ 20 mL SUBCUT (09:53)
[2021-04-01 09:54] LABS: Glucose Point of Care 52 mg/dL (70-110)
[2021-04-01] MEDS: HYDROmorphone 1 mg/mL INJ 1 mL 0.3 MG IVP (09:56)
[2021-04-01] MEDS: sodium bicarbonate 150 MEQ in dextrose 5% 1,000 ML 40 MEQ IV (10:31)
[2021-04-01] MEDS: sodium bicarbonate 8.4% 1 mEq/mL 50mL Syr 50 MEQ IVP (10:33)
[2021-04-01] MEDS: enoxaparin 120 mg/0.8 mL Syringe 110 MG SUBCUT (10:33)
[2021-04-01 11:40] LABS: Glucose Point of Care 47 mg/dL (70-110)
[2021-04-01] MEDS: EPINEPHrine 2.5 MG in sodium chloride 0.9% 250 ML 60.6 MG IV (12:00)
--- NOTE | 2021-04-01 12:43 | PM.PN ---
Subjective Subjective: Interval history: Please note that this is note from this morning after examining the patient, however I have heard from Dr. Chapman that patient did not make it she has despite of aggressive cardiac resuscitation measures few moments geeta. Medications: Reviewed: Yes Medication Review Details: Current Medications Albuterol/Ipratropium (Ipratropium-Albuterol 3 Ml Neb) 3 ml INHALATION Q6H PRN PRN Reason: SHORTNESS OF BREATH Dextrose (Dextrose 50% Syringe 50 Ml) 25 ml IVP ONCE PRN; Protocol PRN Reason: hypoglycemia protocol Last Admin: 03/29/21 08:45 Dose: 25 ml Documented by: Dextrose (Dextrose 50% Syringe 50 Ml) 50 ml IVP PRN PRN; Protocol PRN Reason: hypoglycemia protocol Enoxaparin Sodium (Enoxaparin 120 Mg/0.8 Ml Syringe) 110 mg SUBCUT Q24H DINAH Last Admin: 03/30/21 14:31 Dose: 110 mg Documented by: Glucagon (Glucagon 1 Mg/Ml Inj 1 Ml) 1 mg IM ONCE PRN; Protocol PRN Reason: Adult Acute Hypoglycemia Prot. Norepinephrine Bitartrate 4 mg (/ Dextrose) 254 mls @ 0 mls/hr IV .Q0M DINAH; Protocol Last Admin: 03/31/21 06:07 Dose: 12 mcg/min, 45.72 mls/hr Documented by: Dextrose (D5w) 500 mls @ 100 mls/hr IV ONCE PRN; Protocol PRN Reason: Adult Acute Hypoglycemia Prot Ceftriaxone Sodium 1,000 mg/ (Sodium Chloride) 50 mls @ 100 mls/hr IV Q24H DINAH; Protocol Last Infusion: 03/30/21 15:05 Dose: Infused Documented by: Vasopressin 100 unit/ Sodium (Chloride) 100 mls @ 0 mls/hr IV .Q0M PRN; Protocol PRN Reason: 0 Last Admin: 03/30/21 19:31 Dose: 0.04 unit/min, 2.4 mls/hr Documented by: Norepinephrine Bitartrate 8 mg (/ Dextrose) 508 mls @ 0 mls/hr IV .Q0M DINAH; Protocol Last Admin: 03/30/21 18:28 Dose: 12 mcg/min, 45.72 mls/hr Documented by: Insulin Human Lispro (Insulin Lispro 100 Unit/1 Ml) 0 unit SUBCUT TIDWM DINAH; Protocol Last Admin: 03/30/21 17:56 Dose: 6 unit Documented by: Levothyroxine Sodium (Levothyroxine 137 Mcg Tablet) 137 mcg PO QAM [facility] Last Admin: 03/31/21 06:07 Dose: 137 mcg Documented by: Ondansetron HCl (Ondansetron 2 Mg/Ml Sdv 2 Ml) 4 mg IVP Q6H PRN PRN Reason: NAUSEA AND VOMITING Last Admin: 03/30/21 09:49 Dose: 4 mg Documented by: Oxycodone/Acetaminophen (Oxycodone-Apap 5-325 Mg Tablet) 1 tab PO Q4H PRN PRN Reason: MODERATE PAIN Last Admin: 03/30/21 14:33 Dose: 1 tab Documented by: Senna/Docusate Sodium (Sennosides-Docusate Tablet) 1 tab PO DAILY [facility] Last Admin: 03/30/21 08:57 Dose: Not Given Documented by: Vitals/I&O/Wt Last Vital Signs Temp 97.1 F L 04/01/21 09:45 Pulse 102 H 04/01/21 09:45 Resp 20 H 04/01/21 12:00 BP 103/59 04/01/21 09:45 Pulse Ox 96 04/01/21 09:56 03/31/21 04/01/21 04/01/21 22:59 06:59 14:59 Intake Total 162.51 / 924.51 1071.305 / 1994.815 666.226 / 666.226 Output Total 125 / 125 Balance 37.51 / 799.51 1071.305 / 1870.815 666.226 / 666.226 Weight last 48 hrs Weight 240 lb 14.28 oz Weight 240 lb Physical Exam Narrative: EXAM NARRATIVE: GENERAL: Patient appeared to be confused when I examined the patient this morning she was on the BiPAP this evening dialysis, vitals at that time showed systolic 110 by art line NECK: No jugular vein distension. HEENT: No cyanosis. No icterus, pallor. HEART: Irregularly irregular S1 and S2. 2/6 sys murmur, rub or gallop. LUNGS: Decreased breath sounds auscultate bilaterally. ABDOMEN: Soft, nontender and nondistended. Positive bowel sounds. No guarding, rebound or tenderness. CENTRAL NERVOUS SYSTEM: Continues to be confused EXTREMITIES: Lower extremities mild thigh edema bilaterally. Urinary Catheter Management^: Rodriguez: Cath Placed During This Visit: yes Reason for Continuing Indwelling Catheter: Accurate Measurement of Urinary Output in Critically Ill Patients Urinary Catheter Date of Insertion: 03/28/21 Urinary Catheter Time of Insertion: 22:55 Data : 04/01/21 02:30 04/01/21 07:47 Micro: Microbiology 03/30/21 11:45 Blood Culture - Preliminary Blood NEGATIVE TO DATE 03/30/21 10:00 Urine Culture - Preliminary Urine Catheterized Yeast 03/30/21 10:43 Blood Culture - Preliminary Blood NEGATIVE TO DATE 03/29/21 00:30 Urine Culture - Final Urine,Clean Catch Escherichia coli A&P Assessment and plan (1) CHF exacerbation: Recurrent heart failure and worsening of LV function we will further assess with limited echo if she noted to have worsening of LV function then further exploration at some point with left heart cath may need to be discussed since patient is high risk for PCI keeping in mind renal failure and anemia. We will assess the risk and benefit for the plan with the device after discussing with the patient. Patient appears to be euvolemic upon physical examination, I think she has been dialyzed adequately so far continue to monitor, I have reviewed all the imaging from 2017 onward, patient had angiogram in 2017 which showed normal left main normal LAD and normal dominating circumflex. She has mid 100% occluded RCA which was treated with single drug-eluting stent then in 2017, few days back on recent prior admission patient had stress test which showed old myocardial infarction in the inferior wall without ischemia, anterior mid left ventricle wall showed fixed perfusion defect which improved over stress images could be artifact. Left ventricular ejection fraction was thought to be moderately depressed which was not changed from the past. I have also reviewed the echocardiogram which showed septal and anterior wall hypokinesis with septal bounce which could be secondary to bundle branch block. In general patient is not going through acute coronary syndrome she has patent LAD left main circumflex without any nonsignificant significant disease as per prior left heart cath it is highly unlikely that she may had new lesion. Left ventricle has a reasonable good squeeze and patient is on dialysis on pressors he has other multiple comorbidities with possibility of sepsis for which she is getting aggressively treated. At this point I do not think that she will be benefited with any invasive procedure such as left heart cath until unless I have clear-cut evidence of worsening of heart function due to multivessel disease. We would therefore continue to monitor and treat her medically. Status: Acute Qualifiers: Heart failure type: systolic Qualified Code(s): I50.23 - Acute on chronic systolic (congestive) heart failure (2) Hypotension: Could be multifactorial need to rule out for most likely recurrent heart failure LV dysfunction cardiomyopathy with also need to rule out for sepsis. I will repeat limited echo to assess LV function if noted to have dilated cardiomyopathy with worsening of function may be a good idea to add dobutamine and taper off rest of the pressors. As defined above less likely this is a cardiogenic shock Status: Acute Qualifiers: Hypotension type: unspecified hypotension type Qualified Code(s): I95.9 - Hypotension, unspecified (3) Acute kidney injury superimposed on chronic kidney disease: Patient is on dialysis continue as per nephrology Status: Acute (4) Pulmonary edema: Improved. Status: Acute Qualifiers: Chronicity: acute Qualified Code(s): J81.0 - Acute pulmonary edema (5) Chronic atrial fibrillation: It will be hard for the patient to stay in sinus rhythm which will be necessity for heart failure and to improve the function, may will discuss need for AIRCRAFT PILOT-D or making patient pacemaker dependent in order to optimize synchrony. Patient is rate controlled she has underlying atrial fibrillation may consider electrical cardioversion if required Status: Acute (6) CAD (coronary artery disease): Appear to be stable from a coronary disease perspective at this point we will continue to treat her medically. She may not be a good candidate for invasive strategy Status: Acute Qualifiers: Coronary Disease-Associated Artery/Lesion type: unspecified vessel or lesion type [place] vs. 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 transplanted heart: [place] heart Associated angina: with stable angina
--- NOTE | 2021-04-01 12:51 | P.DES_ITS ---
Discharge Providers DDS Date of Admission: 03/28/21 21:39 Date Summary Completed: 04/07/21 Attending Provider at Admission: Evaristo Peace MD Time of : 12:38 Attending Provider at Discharge: Wili Chapman MD Primary Care Provider: Milan Mitchell DO DS Diagnoses Hospital Diagnoses (1) Pulmonary edema: Qualifiers: Chronicity: acute Qualified Code(s): J81.0 - Acute pulmonary edema (2) CHF exacerbation: Qualifiers: Heart failure type: systolic Qualified Code(s): I50.23 - Acute on chronic systolic (congestive) heart failure (3) Sepsis: (4) Hypotension: Qualifiers: Hypotension type: unspecified hypotension type Qualified Code(s): I95.9 - Hypotension, unspecified (5) Acute hyperkalemia: (6) Acute kidney injury superimposed on chronic kidney disease: (7) Heart failure with reduced ejection fraction: (8) 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 Patient is stating that for last 1 month she has been treated with 5-6 different antibiotics for left leg cellulitis and edema.She was admitted for the management of Anuric renal failure in presence of underlying CKD Stage 3 likely 2/2 CRS as well as possible recent nephrotoxic medications use ( Bactrim, entresto ) on admission she was also found to be in Cardiogenic shock 2/2 Decompensated HFrEF and was initialed on vasopressors as well as hyperkalemia ,non tunneled dialysis catheter was placed in the ER,she was started on dialysis next morning for few hours followed by placement on dobutamine drip.Patient overall clinical condition continued to worsen throughout the hospital stay and she went on multiple pressors, dobutamine drip was discontinued later as it was contributing to significant hypotension, CRRT was continued in view of she being Anuric-Oliguric with no meaningful urine output.Lately she also developed sepsis likely 2/2 to UTI, Cellulitis as well as PNA,she was covered with broad spectrum ABxs as well as she was on antifungal as urine culture was growing justin, blood culture was negative, her pressors requirement continued to escalate and she was on high dos e levophed,vasopressin, phenylephrine, lastly epinephrine was also added, she was also on stress dose hydrocortisone,she was not tolerating dialysis due to severe hypotension.She also went into afib with rvr for which she was on amiodarone drip.Inspite of all these intervetion Code yana was called on 0n 04/01 as she failed to tolerate CRRT when it was restarted she again became very hypotensive as well as pt clotted off and was unable to return the blood back to pt on 04/01 after being briefly held overnight as well as in morning as she severly hypotensive at that time she was intubated and high quality CPR was initiated as well as ACLS protocol was followed, she did received ROSC intermittently but were not sustainable,she underwent through prolong code with no signs of meaningful recovery family decided to stop all the intervention,patient was terminally extubated and she on 12:38PM. Additional Data Confirmation of as documented by pronouncing clinician: no pulse, no respirations, no heart sounds and pupils fixed and dilated Family: contacted Additional persons at bedside: nursing staff Attending/PCP notified?: I am attending Was code activated?: Yes Autopsy requested?: No Advance directives?: Yes (Destinee Martínez, sister) Hospice patient?: No Discharge Plan Discharge Patient Disposition: Condition: Probable Cause of Probable cause of : Cardiac arrest DS Attestations Time Spent in /Discharge Care*: greater than 30 min Quality - AMI: AMI present?: No Quality - Stroke: CVA present?: No Quality - VTE: VTE present?: No Coding Level of Care 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
--- NOTE | 2021-04-01 12:52 | PM.ACPR ---
Acute Procedures Arterial Line: Time out performed: Yes Size (Gauge): 14 Technique used: guide wire technique Post-Procedure: line sutured into place and dry sterile dressing placed Patient tolerated procedure: well Complications: none Site: right and radial
--- NOTE | 2021-04-01 13:00 | PC.NURSE ---
Dr. Chapman was able to successfully insert a ART line in pt's right radial wrist. Before this we had a difficult time getting an accurate BP using a blood pressure cuff. Pt's BP was reading low 100s systolic once ART line was inserted. We notified Dr. Garrison/Iuss Acoustic Analyst of new ART line and at this time Pt's BP looked stable enough to start CRRT again. Order was then given to re-start CRRT using prior orders. Upon starting CRRT pt was on 110 of Shahriar and 14 of levophed and 0.04 of vasopressin. Once on CRRT her BP was around 90s/50s but continued to need an increase in pressors to keep map greater than 60. Once pt reached 20mcg of levophed I was going to stop CRRT and update Dr. Garrison. As I was about to stop CRRT pt clotted off and was unable to return the blood back to pt. At this time pt started to rapidly deteriorate which ultimately lead to the pt being coded. Refer code to code sheet. Code was stopped and time of was timed ast 12:38pm. Family was notified.
--- NOTE | 2021-04-01 16:28 | PC.NURSE ---
Addendum entered by Sharon Hosue RN 04/01/21 16:37: this nurse witnessed Versed gtt waste by Leon Li RN. Original Note: Wasted 97.7mL of versed. Waste was witnessed by DIOMEDES Herrera
--- NOTE | 2021-04-02 15:52 | PM.CCN ---
Critical Care Event Note Critical Care Event The high probability of a clinically significant, sudden or life threatening deterioration of the patient's [cardiorespiratory] system(s) required my full and direct attention, intervention and personal management. The critical care time is as shown. This time is in addition to time spent performing any reported procedures but includes the following: [x] Data and vital sign review and interpretation [x] Patient assessment, examination and intervention [x] Documentation [x] Medication orders and management Critical Care Time Critical Care Time: Code activated: Yes Critical Care Time (min): 20 Procedures Intubation Time out performed: No Sedative: none Laryngoscope: fiber optic video scope Assist device used: fiber optic device ET tube size: 8.5 ET tube uncuffed: No Tube secured depth (cm): 22 Tube secured location: teeth Tube placement confirmation: visualized tube passing through cords, equal breath sounds bilaterally, no breath sounds over epigastrium and confirmation by capnometry Patient tolerated procedure: well Intubation complications: none Additional comments: Overhead CODE VINNIE was called responded to the ICU Dr. Chapman was at the bedside attempting to intubate. He asked me to assist intubated on the first attempt with an 8 5 ET tube visualized through the cords and in the position after using a fiberoptic scope. Good color change on capnometry. Patient had good respirations oxygen sat improved. We continued the code per ACLS protocols ROSC was achieved after several epi see the code flow note. Patient left in the care of Dr. Chapman after ROSC achieved. 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
[2021-04-05 10:49] LABS: Vit D 1,25 (Oh)2, Total 17 pg/mL (18-72); Vit D2 1,25 (Oh)2 17 pg/mL; Vit D3 1,25 (Oh)2 <8 pg/mL
== END 2021-04-01 15:50 | disposition expired | DRG 291 ==
LOC: ER 21:57 → ICU 23:02
PROVIDERS: Internal Medicine Nephrology; Admitting Provider Internal Medicine; Emergency Provider Emergency Medicine; PCP Family Medicine; Visit Provider Internal Medicine
DX: I50.23 Acute on chronic systolic (congestive) heart failure (principal); A41.9 Sepsis, unspecified organism; J18.9 Pneumonia, unspecified organism; N17.9 Acute kidney failure, unspecified; L03.116 Cellulitis of left lower limb; I48.20 Chronic atrial fibrillation, unspecified; N39.0 Urinary tract infection, site not specified; D64.9 Anemia, unspecified; I25.119 Atherosclerotic heart disease of native coronary artery with unspecified angina pectoris; I46.9 Cardiac arrest, cause unspecified; G89.29 Other chronic pain; B37.9 Candidiasis, unspecified; J43.9 Emphysema, unspecified; E11.22 Type 2 diabetes mellitus with diabetic chronic kidney disease; N18.30 Chronic kidney disease, stage 3 unspecified; E11.649 Type 2 diabetes mellitus with hypoglycemia without coma; E78.5 Hyperlipidemia, unspecified; I08.0 Rheumatic disorders of both mitral and aortic valves; Z87.891 Personal history of nicotine dependence; I95.9 Hypotension, unspecified; E87.5 Hyperkalemia; R57.0 Cardiogenic shock; R06.03 Acute respiratory distress; T50.905A Adverse effect of unspecified drugs, medicaments and biological substances, initial encounter; R68.0 Hypothermia, not associated with low environmental temperature
CPT/HCPCS: 31500; 36415; 36416; 36556; 36592; 36600; 51702; 71045; 74176; 80051; 80053; 80069; 81001; 82306; 82310; 82330; 82533; 82550; 82575; 82652; 82728; 82805; 82962; 83540; 83550; 83605; 83690; 83735; 83880; 83970; 84100; 84145; 84300; 84443; 84484; 84550; 85025; 86140; 86706; 86803; 87040; 87077; 87086; 87106; 87186; 87340; 87426; 87635; 90935; 93005; 93308; 94002; 94660; 94799; 96365; 96366; 96372; 96375; 97165; 99291; 99292; A4570; C1752; J0171; J0282; J0461; J0610; J0696; J1170; J1200; J1250; J1265; J1450; J1644; J1650; J1720; J1815; J1940; J2250; J2370; J2405; J2543; J3490; J7030; J7050; Q3014